=== PATIENT | male | born 1955 | race Caucasian/White ===

== ENCOUNTER 2021-04-28 10:07 | Emergency (ER) | payer OTHER ==
[2021-04-28 10:34] VITALS: RESP 18
[2021-04-28] MEDS ORDERED: SODIUM CHLORIDE 0.9% 1,000 ML IV ONE ×2 (11:20→14:22)
--- NOTE | 2021-04-28 11:55 | ED ---
General Adult HPI - General Chief complaint: Recheck/Abnormal Lab/Rx Stated complaint: lab recheck, abd pain Time Seen by Provider: 04/28/21 11:14 Source: patient, family, RN notes reviewed Mode of arrival: wheelchair Limitations: physical limitation - History of Present Illness Initial comments: This a 65-year-old male presents emergency Department with chief complaint of abnormal labs, extreme loss, weakness. Patient is brought in with family states that they he's had a 70 pound weight loss over the last 2 months which has been unintentional he states he can barely eat he states he was a heavy drinker prior to this but states it does not taste good so he just quit drinking. He is about a pack-a-day smoker. He has had no major medical care prior to recent going to PCP in which she was told he had some abnormal labs. He is scheduled for CT of his abdomen. He's had decreased urine, stool output he states he's come so shaky, weak that is difficult to ambulate. - Related Data Home Medications Medication Instructions Recorded Confirmed No Known Home Medications 04/28/21 04/28/21 Allergies Allergy/AdvReac Type Severity Reaction Status Date / Time latex Allergy Rash/Hives Verified 04/28/21 11:42 Penicillins Allergy Anaphylaxis Verified 04/28/21 11:42 strawberry Allergy Unknown Verified 04/28/21 11:42 Review of Systems ROS Statement: Those systems with pertinent positive or pertinent negative responses have been documented in the HPI. ROS Other: All systems not noted in ROS Statement are negative. Past Medical History Past Medical History: COPD, Hypertension Additional Past Medical History / Comment(s): melanoma History of Any Multi-Drug Resistant Organisms: None Reported Past Surgical History: Orthopedic Surgery Additional Past Surgical History / Comment(s): right hip preplacement Past Psychological History: Anxiety, Depression Smoking Status: Current every day smoker Past Alcohol Use History: None Reported Past Drug Use History: None Reported General Exam Limitations: physical limitation General appearance: alert, in no apparent distress, cachectic Head exam: Present: atraumatic, normocephalic, normal inspection Eye exam: Present: normal appearance, PERRL, EOMI. Absent: scleral icterus, conjunctival injection, periorbital swelling ENT exam: Present: normal exam, normal oropharynx, mucous membranes moist Neck exam: Present: normal inspection, full ROM. Absent: tenderness, meningismus, lymphadenopathy Respiratory exam: Present: normal lung sounds bilaterally. Absent: respiratory distress, wheezes, rales, rhonchi, stridor Cardiovascular Exam: Present: normal rhythm, tachycardia, normal heart sounds. Absent: systolic murmur, diastolic murmur, rubs, gallop, clicks GI/Abdominal exam: Present: soft, normal bowel sounds. Absent: distended, tenderness, guarding, rebound, rigid Back exam: Present: normal inspection Neurological exam: Present: alert, oriented X3, CN II-XII intact Skin exam: Present: warm, dry, intact, normal color. Absent: rash Course Vital Signs 04/28/21 10:30 Temperature 97.8 F Pulse Rate 116 H Respiratory 18 Rate Blood Pressure 104/66 O2 Sat by Pulse 100 Oximetry Medical Decision Making - Medical Decision Making 64-year-old presented for weight loss, increasing weakness and abnormal labs. Workup reveals anemia which appears to be chronic no acute blood loss, patient has mild hypomagnesemia CT shows nonspecific changes possible enterocolitis though he has no symptoms for this. - Lab Data Result diagrams: 04/28/21 12:16 04/28/21 12:16 Lab Results 04/28/21 04/28/21 04/28/21 Range/Units 12:16 12:16 12:16 WBC 12.8 H (3.8-10.6) k/uL RBC 2.62 L (4.30-5.90) m/uL Hgb 10.4 L (13.0-17.5) gm/dL Hct 30.9 L (39.0-53.0) % MCV 118.1 H (80.0-100.0) fL MCH 39.9 H (25.0-35.0) pg MCHC 33.8 (31.0-37.0) g/dL RDW 18.9 H (11.5-15.5) % Plt Count 486 H (150-450) k/uL MPV 7.3 Neutrophils % 86 % Lymphocytes % 8 % Monocytes % 3 % Eosinophils % 2 % Basophils % 0 % Neutrophils # 10.9 H (1.3-7.7) k/uL Lymphocytes # 1.1 (1.0-4.8) k/uL Monocytes # 0.4 (0-1.0) k/uL Eosinophils # 0.2 (0-0.7) k/uL Basophils # 0.0 (0-0.2) k/uL Manual Slide Review Performed Anisocytosis Slight Macrocytosis Marked A PT (9.0-12.0) sec INR (<1.2) APTT (22.0-30.0) sec Sodium 133 L (137-145) mmol/L Potassium 3.9 (3.5-5.1) mmol/L Chloride 100 (98-107) mmol/L Carbon Dioxide 23 (22-30) mmol/L Anion Gap 10 mmol/L BUN 8 L (9-20) mg/dL Creatinine 0.49 L (0.66-1.25) mg/dL Est GFR (CKD-EPI)AfAm >90 (>60 ml/min/1.73 sqM) Est GFR (CKD-EPI)NonAf >90 (>60 ml/min/1.73 sqM) Glucose 118 H (74-99) mg/dL Plasma Lactic Acid Ghulam 1.2 (0.7-2.0) mmol/L Calcium 9.1 (8.4-10.2) mg/dL Magnesium 1.5 L (1.6-2.3) mg/dL Total Bilirubin 1.3 (0.2-1.3) mg/dL AST 34 (17-59) U/L ALT 13 (4-49) U/L Alkaline Phosphatase 155 H (38-126) U/L Troponin I (0.000-0.034) ng/mL Total Protein 7.6 (6.3-8.2) g/dL Albumin 3.6 (3.5-5.0) g/dL Amylase 49 (30-110) U/L Lipase 99 (23-300) U/L 04/28/21 04/28/21 Range/Units 12:16 12:16 WBC (3.8-10.6) k/uL RBC (4.30-5.90) m/uL Hgb (13.0-17.5) gm/dL Hct (39.0-53.0) % MCV (80.0-100.0) fL MCH (25.0-35.0) pg MCHC (31.0-37.0) g/dL RDW (11.5-15.5) % Plt Count (150-450) k/uL MPV Neutrophils % % Lymphocytes % % Monocytes % % Eosinophils % % Basophils % % Neutrophils # (1.3-7.7) k/uL Lymphocytes # (1.0-4.8) k/uL Monocytes # (0-1.0) k/uL Eosinophils # (0-0.7) k/uL Basophils # (0-0.2) k/uL Manual Slide Review Anisocytosis Macrocytosis PT 11.2 (9.0-12.0) sec INR 1.1 (<1.2) APTT 23.3 (22.0-30.0) sec Sodium (137-145) mmol/L Potassium (3.5-5.1) mmol/L Chloride (98-107) mmol/L Carbon Dioxide (22-30) mmol/L Anion Gap mmol/L BUN (9-20) mg/dL Creatinine (0.66-1.25) mg/dL Est GFR (CKD-EPI)AfAm (>60 ml/min/1.73 sqM) Est GFR (CKD-EPI)NonAf (>60 ml/min/1.73 sqM) Glucose (74-99) mg/dL Plasma Lactic Acid Ghulam (0.7-2.0) mmol/L Calcium (8.4-10.2) mg/dL Magnesium (1.6-2.3) mg/dL Total Bilirubin (0.2-1.3) mg/dL AST (17-59) U/L ALT (4-49) U/L Alkaline Phosphatase (38-126) U/L Troponin I <0.012 (0.000-0.034) ng/mL Total Protein (6.3-8.2) g/dL Albumin (3.5-5.0) g/dL Amylase (30-110) U/L Lipase (23-300) U/L Disposition Clinical Impression: Weight loss, Generalized weakness, Hypomagnesemia Disposition: HOME SELF-CARE Condition: Fair Instructions (If sedation given, give patient instructions): Weakness (ED) Additional Instructions: Please return to the Emergency Department if symptoms worsen or any other concerns. Is patient prescribed a controlled substance at d/c from ED?: No Referrals: Jesús Gallo MD [Primary Care Provider] - 1-2 days Time of Disposition: 14:37
[2021-04-28 12:56] LABS: Anisocytosis Slight; Basophils % (A) 0 %; Eosinophils # (A) 0.2 k/uL (0-0.7); Eosinophils % (A) 2 %; HCT 30.9 % (39.0-53.0); HGB 10.4 gm/dL (13.0-17.5); Lymphocytes # (A) 1.1 k/uL (1.0-4.8); Lymphocytes % (A) 8 %; MCH 39.9 pg (25.0-35.0); MCHC 33.8 g/dL (31.0-37.0); MCV 118.1 fL (80.0-100.0); Macrocytosis Marked; Mean Platelet Volume 7.3; Monocytes # (A) 0.4 k/uL (0-1.0); Monocytes % (A) 3 %; Neutrophils # (A) 10.9 k/uL (1.3-7.7); Neutrophils % (A) 86 %; Platelet Count 486 k/uL (150-450); RBC 2.62 m/uL (4.30-5.90); RDW 18.9 % (11.5-15.5); WBC 12.8 k/uL (3.8-10.6)
[2021-04-28 13:01] LABS: ALT 13 U/L (4-49); AST 34 U/L (17-59); African American GFR (CKD) >90 (>60 ml/min/1.73 sqM); Albumin 3.6 g/dL (3.5-5.0); Alkaline Phosphatase 155 U/L (38-126); Amylase 49 U/L (30-110); Anion Gap 10 mmol/L; Blood Urea Nitrogen 8 mg/dL (9-20); Calcium 9.1 mg/dL (8.4-10.2); Carbon Dioxide 23 mmol/L (22-30); Chloride 100 mmol/L (98-107); Glucose 118 mg/dL (74-99); Lipase 99 U/L (23-300); Magnesium 1.5 mg/dL (1.6-2.3); Non-African American GFR(CKD) >90 (>60 ml/min/1.73 sqM); Potassium 3.9 mmol/L (3.5-5.1); Sodium 133 mmol/L (137-145); Total Bilirubin 1.3 mg/dL (0.2-1.3); Total Protein 7.6 g/dL (6.3-8.2)
[2021-04-28 13:03] LABS: INR 1.1 (<1.2); Partial Thromboplastin Time 23.3 sec (22.0-30.0); Prothrombin Time 11.2 sec (9.0-12.0)
--- NOTE | 2021-04-28 14:10 | CT ---
EXAMINATION TYPE: CT ChestAbdPelvis w con DATE OF EXAM: 04/28/2021 COMPARISON: CT October 03, 2012 HISTORY: Wt loss, pain and weakness, history of non-Hodgkin's lymphoma CT DLP: 671.6 mGycm. Automated Exposure Control for Dose Reduction was Utilized. CONTRAST: CT scan of the thorax, abdomen and pelvis is performed without oral but with IV Contrast, patient inj ected with 100 mL of Isovue 300. FINDINGS: LUNGS: Mild biapical pleural/parenchymal scarring is redemonstrated. And mild lateral left basilar l inear scarring redemonstrated. There is no pleural effusion or pneumothorax seen. The tracheobronchi al tree is patent. No new nodules or masses. New Medial right basilar linear atelectasis and/or scar ring MEDIASTINUM: There are no new greater than 1 cm hilar or mediastinal lymph nodes. No cardiomegaly o r pericardial effusion is seen. OTHER: Surgical clips left axillary region are redemonstrated. LIVER/GB: Liver remains diffusely low density consistent with diffuse fatty infiltration. Tiny hypode nse lesion near gallbladder fossa small to further characterize. PANCREAS: No significant abnormality is seen. SPLEEN: No significant abnormality is seen. ADRENALS: No significant abnormality is seen. KIDNEYS: No significant abnormality is seen. BOWEL: Suboptimal evaluation of bowel without enteric contrast. Stomach poorly distended and thus sub optimally evaluated. No suspicious small or large bowel dilatation. Normal appearing appendix from ce cum. Moderate wall thickening in the right colon. Additional areas of mild wall thickening throughout the colon. Mild wall thickening terminal ileum. No significant surrounding fat stranding. GENITAL ORGANS: Normal size prostate. Small amount of free fluid in the pelvis axial image 106. LYMPH NODES: No greater than 1cm abdominal or pelvic lymph nodes are appreciated. OSSEOUS STRUCTURES: Metallic hardware from right hip surgery is redemonstrated. This causes streak ar tifact limiting evaluation of pelvic structures There is S-shaped scoliosis. OTHER: Moderate mixed plaque infrarenal abdominal aorta extends into branch vessels. IMPRESSION: Small amount of free fluid in the pelvis of uncertain etiology. No new suspicious mass o r adenopathy. Possible mild multifocal uncomplicated enterocolitis versus product of poor distention, correlate clinically.
[2021-04-28] MEDS ORDERED: MAGNESIUM OXIDE 400 MG TAB PO STA (14:37)
[2021-04-28 15:42] VITALS: BP 108/66; PULSE 67; TEMP 98.6
== END 2021-04-28 15:41 | disposition home or self-care (01) ==
LOC: EC 10:07
DX: R63.4 Abnormal weight loss (principal); R53.1 Weakness; E83.42 Hypomagnesemia; J44.9 Chronic obstructive pulmonary disease, unspecified; I10 Essential (primary) hypertension; F41.9 Anxiety disorder, unspecified; F32.9 Major depressive disorder, single episode, unspecified; F17.210 Nicotine dependence, cigarettes, uncomplicated; Z68.1 Body mass index [BMI] 19.9 or less, adult
CPT/HCPCS: 93005; 80053; 82150; 83605; 83690; 83735; 84484; 85025; 85610; 85730; 71260; 74177; 99285; 96360; Q9967

== ENCOUNTER 2021-05-24 21:08 | Inpatient (IN) | payer MEDICARE, OTHER ==
[2021-05-24] MEDS ORDERED: SODIUM CHLORIDE 0.9% 1,000 ML IV STA (21:46)
--- NOTE | 2021-05-24 22:10 | ED ---
Weakness HPI - General Chief complaint: Weakness Stated complaint: Trouble walking and RIAZ Time Seen by Provider: 05/24/21 21:40 Source: patient, RN notes reviewed, old records reviewed Mode of arrival: ambulatory Limitations: no limitations - History of Present Illness Initial comments: This is a 65-year-old male to the ER for evaluation. Patient presents for significant weight loss of debility. Patient has multiple chronic substance abuse issues mainly cigarettes and alcohol. Patient has had sustained about a Antonette weight loss in the past half a year. Patient states he has no appetite never really has had an appetite sustain caries with alcohol. Continues to smoke for the last few weeks patient's ability to ambulate has diminished down to and inability to even get out of bed. Family does bring him meals when she does not eat. Has no real other complaints. MD Complaint: generalized weakness, lack of energy, difficulty walking -: week(s) Location: generalized Severity: severe Severity scale (1-10): 10 Consistency: constant Improves with: none Worsens with: none Context: recent illness, history of similar Associated Symptoms: loss of appetite, shortness of breath - Related Data Home Medications Medication Instructions Recorded Confirmed No Known Home Medications 04/28/21 05/24/21 Allergies Allergy/AdvReac Type Severity Reaction Status Date / Time latex Allergy Rash/Hives Verified 05/24/21 22:26 Penicillins Allergy Anaphylaxis Verified 05/24/21 22:26 strawberry Allergy Unknown Verified 05/24/21 22:26 Review of Systems ROS Statement: Those systems with pertinent positive or pertinent negative responses have been documented in the HPI. ROS Other: All systems not noted in ROS Statement are negative. Past Medical History Past Medical History: COPD, Hypertension Additional Past Medical History / Comment(s): melanoma History of Any Multi-Drug Resistant Organisms: None Reported Past Surgical History: Orthopedic Surgery Additional Past Surgical History / Comment(s): right hip preplacement Past Psychological History: Anxiety, Depression Smoking Status: Current every day smoker Past Alcohol Use History: None Reported Past Drug Use History: None Reported General Exam Limitations: no limitations General appearance: alert, in no apparent distress, cachectic Head exam: Present: atraumatic, normocephalic, normal inspection Eye exam: Present: normal appearance, PERRL, EOMI. Absent: scleral icterus, conjunctival injection, periorbital swelling ENT exam: Present: normal exam, mucous membranes moist Neck exam: Present: normal inspection. Absent: tenderness, meningismus, lymphadenopathy Respiratory exam: Present: wheezes. Absent: respiratory distress, rales, rhonchi, stridor Cardiovascular Exam: Present: normal rhythm, tachycardia, normal heart sounds. Absent: systolic murmur, diastolic murmur, rubs, gallop, clicks GI/Abdominal exam: Present: soft, normal bowel sounds. Absent: distended, tenderness, guarding, rebound, rigid Extremities exam: Present: normal inspection, full ROM, normal capillary refill. Absent: tenderness, pedal edema, joint swelling, calf tenderness Back exam: Present: normal inspection Neurological exam: Present: alert, oriented X3, CN II-XII intact Psychiatric exam: Present: normal affect, normal mood Skin exam: Present: warm, dry, intact, normal color. Absent: rash Course Vital Signs 05/24/21 21:17 Temperature 98.2 F Pulse Rate 124 H Respiratory 18 Rate Blood Pressure 128/80 O2 Sat by Pulse 97 Oximetry - Reevaluation(s) Reevaluation #1: 05/24/21 22:47 Medical record is reviewed 05/24/21 22:47 ER visit is also been reviewed Reevaluation #2: 05/24/21 22:47 Patient family informed of results - Consultations Consultation #1: Spoke with Dr. Segura for Dr. Gallo who agrees to admit patient EKG Findings - EKG Comments: EKG Findings:: EKG shows sinus tachycardia 115 WV 118 QRS 76 QTC 462 Medical Decision Making - Medical Decision Making 65 male to the emergency department for evaluation patient presents today for evaluation regards to significant weakness significant cachexia debility failure to thrive. Patient be admitted for likely need for placement - Lab Data Result diagrams: 05/24/21 22:26 05/24/21 22:26 Lab Results 05/24/21 05/24/21 05/24/21 Range/Units 22:26 22:26 22:26 WBC 6.9 (3.8-10.6) k/uL RBC 1.70 L (4.30-5.90) m/uL Hgb 6.9 L* D (13.0-17.5) gm/dL Hct 20.0 L (39.0-53.0) % MCV 117.3 H (80.0-100.0) fL MCH 40.6 H (25.0-35.0) pg MCHC 34.6 (31.0-37.0) g/dL RDW 20.3 H (11.5-15.5) % Plt Count 188 D (150-450) k/uL MPV 7.7 Neutrophils % 79 % Lymphocytes % 16 % Monocytes % 2 % Eosinophils % 2 % Basophils % 0 % Neutrophils # 5.5 (1.3-7.7) k/uL Lymphocytes # 1.1 (1.0-4.8) k/uL Monocytes # 0.2 (0-1.0) k/uL Eosinophils # 0.1 (0-0.7) k/uL Basophils # 0.0 (0-0.2) k/uL Anisocytosis Moderate Macrocytosis Marked A Sodium 132 L (137-145) mmol/L Potassium 3.7 (3.5-5.1) mmol/L Chloride 101 (98-107) mmol/L Carbon Dioxide 22 (22-30) mmol/L Anion Gap 9 mmol/L BUN 13 (9-20) mg/dL Creatinine 0.53 L (0.66-1.25) mg/dL Est GFR (CKD-EPI)AfAm >90 (>60 ml/min/1.73 sqM) Est GFR (CKD-EPI)NonAf >90 (>60 ml/min/1.73 sqM) Glucose 115 H (74-99) mg/dL Calcium 9.2 (8.4-10.2) mg/dL Phosphorus 3.8 (2.5-4.5) mg/dL Magnesium 1.4 L (1.6-2.3) mg/dL Total Bilirubin 1.7 H (0.2-1.3) mg/dL AST 41 (17-59) U/L ALT 25 (4-49) U/L Alkaline Phosphatase 83 (38-126) U/L NT-Pro-B Natriuret Pep 246 pg/mL Total Protein 6.8 (6.3-8.2) g/dL Albumin 3.2 L (3.5-5.0) g/dL - Radiology Data Radiology results: report reviewed (Chest x-ray and LS-spine x-rays negative for significant acute disease), image reviewed Disposition Clinical Impression: Generalized weakness, Hypomagnesemia, Weight loss, Dehydration, Cachexia, Failure to thrive, COPD (chronic obstructive pulmonary disease), Anemia Disposition: ADMITTED IP TO THIS HOSP Condition: Fair Is patient prescribed a controlled substance at d/c from ED?: No
[2021-05-24 22:44] LABS: Anisocytosis Moderate; Basophils % (A) 0 %; Eosinophils # (A) 0.1 k/uL (0-0.7); Eosinophils % (A) 2 %; Lymphocytes # (A) 1.1 k/uL (1.0-4.8); Lymphocytes % (A) 16 %; MCH 40.6 pg (25.0-35.0); MCHC 34.6 g/dL (31.0-37.0); MCV 117.3 fL (80.0-100.0); Macrocytosis Marked; Mean Platelet Volume 7.7; Monocytes # (A) 0.2 k/uL (0-1.0); Monocytes % (A) 2 %; Neutrophils # (A) 5.5 k/uL (1.3-7.7); Neutrophils % (A) 79 %; RDW 20.3 % (11.5-15.5); WBC 6.9 k/uL (3.8-10.6)
[2021-05-24] MEDS ORDERED: MORPHINE SULFATE 4 MG/ML SYRINGE IV PRN (22:49)
[2021-05-24] MEDS ORDERED: NALOXONE 0.4 MG/ML 1 ML VIAL IV PRN (22:49)
[2021-05-24] MEDS ORDERED: ONDANSETRON 4 MG/2 ML VIAL IVP PRN (22:49)
[2021-05-24] MEDS ORDERED: methylPREDNISolone SOD SUCCI 125 MG/2 ML VIAL IV STA (22:50)
[2021-05-24] MEDS ORDERED: IPRATROPIUM-ALBUTEROL 3 ML NEB INHALATION STA (22:51)
[2021-05-24] MEDS ORDERED: IPRATROPIUM-ALBUTEROL 3 ML NEB INHALATION PRN (22:51)
[2021-05-24 22:53] LABS: HGB 6.9 gm/dL (13.0-17.5); Platelet Count 188 k/uL (150-450)
--- NOTE | 2021-05-24 22:56 | XR ---
EXAMINATION TYPE: XR lumbar spine 2 or 3V DATE OF EXAM: 05/24/2021 COMPARISON: NONE HISTORY: Weakness TECHNIQUE: 3 views FINDINGS: There is slight lumbar levoscoliosis. There are spondylotic changes in the mid and lower jose mbar spine with spur formation. There is no compression fracture. Abdominal aorta is atheromatous. Sa croiliac joints are intact. IMPRESSION: Spondylotic changes. Slight levoscoliosis. No fracture.
[2021-05-24 23:06] LABS: ALT 25 U/L (4-49); AST 41 U/L (17-59); African American GFR (CKD) >90 (>60 ml/min/1.73 sqM); Albumin 3.2 g/dL (3.5-5.0); Alkaline Phosphatase 83 U/L (38-126); Anion Gap 9 mmol/L; Blood Urea Nitrogen 13 mg/dL (9-20); Calcium 9.2 mg/dL (8.4-10.2); Carbon Dioxide 22 mmol/L (22-30); Chloride 101 mmol/L (98-107); Glucose 115 mg/dL (74-99); Magnesium 1.4 mg/dL (1.6-2.3); Non-African American GFR(CKD) >90 (>60 ml/min/1.73 sqM); Phosphorus 3.8 mg/dL (2.5-4.5); Sodium 132 mmol/L (137-145); Total Bilirubin 1.7 mg/dL (0.2-1.3); Total Protein 6.8 g/dL (6.3-8.2)
[2021-05-24 23:08] LABS: Partial Thromboplastin Time 20.9 sec (22.0-30.0)
[2021-05-24 23:11] LABS: Potassium 3.7 mmol/L (3.5-5.1)
--- NOTE | 2021-05-24 23:15 | XR ---
EXAMINATION TYPE: XR chest 1V DATE OF EXAM: 05/24/2021 COMPARISON: NONE HISTORY: Weakness TECHNIQUE: 2 views FINDINGS: Heart and mediastinum are normal. Lungs are clear of infiltrate. There is clips at the left axilla. Costophrenic angles are clear. There are no hilar masses. There is old left side healed rib fractures. There are chest leads. IMPRESSION: No active cardiopulmonary disease.
--- NOTE | 2021-05-24 23:16 | CT ---
EXAMINATION TYPE: CT brain wo con DATE OF EXAM: 05/24/2021 COMPARISON: None HISTORY: weak CT DLP: 1099.4 mGycm Automated exposure control for dose reduction was used. There is cerebral cortical atrophy. There is no mass effect nor midline shift. There is no sign of in tracranial hemorrhage. Calvarium is intact. There is normal aeration of the mastoid sinuses. Skull ba se is intact. IMPRESSION: Cerebral atrophy. No acute intracranial abnormality.
[2021-05-24] MEDS: SODIUM CHLORIDE 0.9% 1,000 ML IV SCH (23:35)
[2021-05-24] MEDS: MAGNESIUM SULFATE-D5W PMX 1 GM in DEXTROSE/WATER 1 100ML.BAG IVPB SCH (23:46)
[2021-05-25] MEDS: MAGNESIUM SULFATE-D5W PMX 1 GM in DEXTROSE/WATER 1 100ML.BAG IVPB SCH (01:16)
[2021-05-25 06:41] LABS: Anisocytosis Marked; Basophils % (A) 0 %; Eosinophils % (A) 0 %; HCT 28.7 % (39.0-53.0); Lymphocytes # (A) 0.3 k/uL (1.0-4.8); Lymphocytes % (A) 3 %; MCH 35.3 pg (25.0-35.0); MCHC 33.9 g/dL (31.0-37.0); Macrocytosis Marked; Mean Platelet Volume 7.8; Monocytes % (A) 1 %; Neutrophils # (A) 7.5 k/uL (1.3-7.7); Neutrophils % (A) 96 %; Platelet Count 152 k/uL (150-450); RBC 2.75 m/uL (4.30-5.90); RDW 24.2 % (11.5-15.5); WBC 7.8 k/uL (3.8-10.6)
[2021-05-25 06:42] LABS: HGB 9.7 gm/dL (13.0-17.5); MCV 104.3 fL (80.0-100.0)
[2021-05-25 06:52] LABS: ALT 24 U/L (4-49); AST 33 U/L (17-59); African American GFR (CKD) >90 (>60 ml/min/1.73 sqM); Albumin 3.1 g/dL (3.5-5.0); Alkaline Phosphatase 88 U/L (38-126); Anion Gap 10 mmol/L; Blood Urea Nitrogen 11 mg/dL (9-20); Calcium 8.5 mg/dL (8.4-10.2); Carbon Dioxide 22 mmol/L (22-30); Chloride 102 mmol/L (98-107); Glucose 174 mg/dL (74-99); Non-African American GFR(CKD) >90 (>60 ml/min/1.73 sqM); Phosphorus 3.9 mg/dL (2.5-4.5); Potassium 3.8 mmol/L (3.5-5.1); Sodium 134 mmol/L (137-145); Total Bilirubin 2.4 mg/dL (0.2-1.3); Total Protein 6.6 g/dL (6.3-8.2)
[2021-05-25] MEDS: methylPREDNISolone SOD SUCCI 125 MG/2 ML VIAL IV SCH ×3 (07:01→18:58)
[2021-05-25 07:51] LABS: Appearance,Urine Clear (Clear); Bilirubin,Urine 1+ (Negative); Blood,Urine Negative (Negative); Color,Urine Yellow; Glucose,Urine (UA) Trace (Negative); Ketones,Urine 1+ (Negative); Leukocyte Esterase,Urine Negative (Negative); Nitrite,Urine Negative (Negative); Protein,Urine Trace (Negative); Specific Gravity,Urine 1.014 (1.001-1.035)
[2021-05-25] MEDS: SODIUM CHLORIDE 0.9% 1,000 ML IV SCH ×2 (08:55→16:10)
[2021-05-25] MEDS: PANTOPRAZOLE 40 MG/10 ML VIAL IV SCH (08:56)
[2021-05-25] MEDS ORDERED: IOPAMIDOL CONTRAST (ORAL USE) VIAL PO PRN (23:24)
--- NOTE | 2021-05-25 23:38 | P.HPIM ---
History of Present Illness H&P Date: 05/25/21 Chief Complaint: Weak and tired This is a 65-year-old patient who follows up to Dr. Gallo. Chronic stable medical conditions include COPD, hypertension, osteoarthritis anxiety depression. Patient lives by himself. Was using a walker and a baseline. Has now very poor appetite. Family was bringing in food. He's become so weak to the point that he has not even able to ambulate. He has lost close to 40 pounds over last few months. Has some cough and shortness of breath. Is a smoker. We'll also be alcohol. Has a bowel movement every few days. Has lost a lot of muscle mass. Denies any obvious pain. Patient's daughter was at the bedside. Just feels does rundown. A bit depressed 2. Review of systems: GEN.: Weight loss, loss of appetite EYES: None HEENT: None NECK: None RESPIRATORY: Cough shortness breath, occasional sputum CARDIOVASCULAR: None GASTROINTESTINAL: BMI every few days GENITOURINARY: None MUSCULOSKELETAL: Joint pains LYMPHATICS: None HEMATOLOGICAL: None PSYCHIATRY: Depressed NEUROLOGICAL: [2 weak to ambulate Past medical history to include: COPD, hypertension, melanoma, osteoarthritis Social history: Smoking for a long time. Lives alone. Was using a walker. Physical examination: VITAL SIGNS: 98.2, 99, 18, 120/80, 97% room air GENERAL: BMI 16.6, loss of muscle mass, prominent bones, laying in bed, tired., Loss of subcutaneous tissue EYES: Pupils equal. Conjunctiva palel. HEENT: External appearance of nose and ears normal, oral cavity grossly normal. NECK: JVD not raised; masses not palpable. HEART: First and second heart sounds are normal; no edema. LUNGS: Respiratory rate normal; decreased breath sounds. ABDOMEN: Soft, nontender, liver spleen not palpable, no masses palpable. PSYCH: [Alert and oriented x3; mood and affect, but withdrawn l. NEUROLOGICAL: Cranial nerves grossly intact; no facial asymmetry, power and sensation grossly intact. MUSCULAR skeletal: Evidence of OA. Loss of muscle mass LYMPHATICS: No lymph nodes palpable in the axilla and neck INVESTIGATIONS, reviewed in the clinical context: White count 7.8 hemoglobin 9.7 platelets 152 potassium 3.8 creatinine 0.47 albumin 3.1 Admission labs: Hemoglobin 6.9 platelets 188 troponin 0.038 Coronavirus [PCF]: Not detected EKG tracing personally reviewed by me-normal sinus rhythm. Some T waves and ST segment changes. Chest x-ray film personally reviewed by me-hyperinflation CT brain: Cerebral atrophy Assessment and plan: -Assess for malignancy Patient has lost over 40 pounds the last few months. Poor appetite. Weight loss. Is a smoker. Also during alcohol. Been ordered a computed tomography scan of the chest abdomen pelvis with contrast. Also order alpha-fetoprotein and CEA. As tumor markers. -COPD exacerbation in a current smoker IV Solu-Medrol. DuoNeb. Nicotine patch -Chronic nicotine dependence, cigarette smoker Nicotine patch -Severe protein calorie malnutrition from decreased oral intake Consult dietitian. Ensure supplement. Multivitamin -Myopathies, nutritional PTOT -Acute medical debility from malnutrition Fall precautions PTOT -Macrocytic anemia, severe Check B12, iron studies. Care was discussed with the patient and daughter the bedside. Questions answered. DuoNeb. Steroids. PTOT. Computed tomography scan of the chest abdomen pelvis. Check B12 iron studies. Given the complexity and severity of patient's condition expect the patient to be in the hospital at least for 2 overnights Past Medical History Past Medical History: COPD, Hypertension Additional Past Medical History / Comment(s): melanoma History of Any Multi-Drug Resistant Organisms: None Reported Past Surgical History: Orthopedic Surgery Additional Past Surgical History / Comment(s): right hip preplacement Past Psychological History: Anxiety, Depression Smoking Status: Current every day smoker Past Alcohol Use History: None Reported Past Drug Use History: None Reported Medications and Allergies Home Medications Medication Instructions Recorded Confirmed Type No Known Home Medications 04/28/21 05/24/21 History Allergies Allergy/AdvReac Type Severity Reaction Status Date / Time latex Allergy Rash/Hives Verified 05/24/21 22:26 Penicillins Allergy Anaphylaxis Verified 05/24/21 22:26 strawberry Allergy Unknown Verified 05/24/21 22:26 Physical Exam Vitals: Vital Signs Temp Pulse Resp BP Pulse Ox 05/25/21 09:00 96 14 126/83 99 05/25/21 07:04 90 18 133/84 98 05/25/21 07:00 98.4 F 92 15 124/80 97 05/25/21 06:16 98 F 91 16 118/79 100 05/25/21 06:15 98.0 F 92 16 123/75 99 05/25/21 04:49 98.1 F 90 16 125/81 99 05/25/21 04:19 98.1 F 91 16 131/84 99 05/25/21 04:09 98 F 93 16 135/83 98 05/25/21 03:49 89 16 133/81 100 05/25/21 02:35 98.0 F 97 16 128/78 99 05/25/21 02:05 98.0 F 97 16 115/74 99 05/25/21 01:54 98 F 97 16 116/71 98 05/24/21 23:52 98.0 F 98 18 112/73 100 05/24/21 23:19 100 05/24/21 23:13 99 05/24/21 21:17 98.2 F 124 H 18 128/80 97 Intake and Output 05/24/21 05/25/21 05/25/21 22:59 06:59 14:59 Intake Total 593 Balance 593 Intake: Blood Product 593 Rc As-1 Unit 310 [id number] Rc Pheresis 2 As3 Unit 283 [id number] Other: Weight 53.977 kg Results CBC & Chem 7: 05/25/21 06:25 05/25/21 06:25 Labs: Abnormal Lab Results - Last 24 Hours (Table) 05/24/21 05/24/21 05/24/21 Range/Units 22:26 22:26 22:26 RBC 1.70 L (4.30-5.90) m/uL Hgb 6.9 L* D (13.0-17.5) gm/dL Hct 20.0 L (39.0-53.0) % MCV 117.3 H (80.0-100.0) fL MCH 40.6 H (25.0-35.0) pg RDW 20.3 H (11.5-15.5) % Lymphocytes # (1.0-4.8) k/uL Macrocytosis Marked A APTT 20.9 L (22.0-30.0) sec Sodium 132 L (137-145) mmol/L Creatinine 0.53 L (0.66-1.25) mg/dL Glucose 115 H (74-99) mg/dL Magnesium 1.4 L (1.6-2.3) mg/dL Total Bilirubin 1.7 H (0.2-1.3) mg/dL Troponin I (0.000-0.034) ng/mL Albumin 3.2 L (3.5-5.0) g/dL Urine Protein (Negative) Urine Glucose (UA) (Negative) Urine Ketones (Negative) Urine Bilirubin (Negative) Crossmatch 05/24/21 05/24/21 05/25/21 Range/Units 22:26 23:52 06:25 RBC 2.75 L (4.30-5.90) m/uL Hgb 9.7 L D (13.0-17.5) gm/dL Hct 28.7 L (39.0-53.0) % MCV 104.3 H D (80.0-100.0) fL MCH 35.3 H (25.0-35.0) pg RDW 24.2 H (11.5-15.5) % Lymphocytes # 0.3 L (1.0-4.8) k/uL Macrocytosis Marked A APTT (22.0-30.0) sec Sodium (137-145) mmol/L Creatinine (0.66-1.25) mg/dL Glucose (74-99) mg/dL Magnesium (1.6-2.3) mg/dL Total Bilirubin (0.2-1.3) mg/dL Troponin I 0.038 H* (0.000-0.034) ng/mL Albumin (3.5-5.0) g/dL Urine Protein (Negative) Urine Glucose (UA) (Negative) Urine Ketones (Negative) Urine Bilirubin (Negative) Crossmatch See Detail 05/25/21 05/25/21 Range/Units 06:25 07:33 RBC (4.30-5.90) m/uL Hgb (13.0-17.5) gm/dL Hct (39.0-53.0) % MCV (80.0-100.0) fL MCH (25.0-35.0) pg RDW (11.5-15.5) % Lymphocytes # (1.0-4.8) k/uL Macrocytosis APTT (22.0-30.0) sec Sodium 134 L (137-145) mmol/L Creatinine 0.47 L (0.66-1.25) mg/dL Glucose 174 H (74-99) mg/dL Magnesium (1.6-2.3) mg/dL Total Bilirubin 2.4 H (0.2-1.3) mg/dL Troponin I (0.000-0.034) ng/mL Albumin 3.1 L (3.5-5.0) g/dL Urine Protein Trace H (Negative) Urine Glucose (UA) Trace H (Negative) Urine Ketones 1+ H (Negative) Urine Bilirubin 1+ H (Negative) Crossmatch
[2021-05-26] MEDS: methylPREDNISolone SOD SUCCI 40 MG/ML 1 ML VIAL IV SCH ×4 (01:53→23:12)
[2021-05-26] MEDS: SODIUM CHLORIDE 0.9% 1,000 ML IV SCH ×4 (01:55→21:39)
[2021-05-26] MEDS: IPRATROPIUM-ALBUTEROL 3 ML NEB INHALATION SCH ×4 (07:22→19:32)
[2021-05-26] MEDS: PANTOPRAZOLE 40 MG/10 ML VIAL IV SCH (08:01)
[2021-05-26] MEDS: NICOTINE 21MG/24HR PATCH TRANSDERM SCH (08:02)
[2021-05-26] MEDS: MULTIVITAMINS, THERA 1 EACH TAB PO SCH (08:11)
[2021-05-26] MEDS: methylPREDNISolone SOD SUCCI 125 MG/2 ML VIAL IV SCH (11:26)
--- NOTE | 2021-05-26 11:44 | CT ---
EXAMINATION TYPE: CT ChestAbdPelvis w con DATE OF EXAM: 05/26/2021 INDICATION: Weakness, FTT, Rule out malignancy COMPARISON: 04/28/2021 CT DLP: 667 mGycm CONTRAST: Performed with Oral Contrast and with IV Contrast, patient injected with 100 ml mL of Isovue 300. TECHNIQUE: Axial images at 5 mm thick sections. Reconstructed images in the coronal plane. Delayed images through the kidneys. FINDINGS: CT CHEST: Portion of the thyroid visualized is normal. No suspicious lung nodules. There is a faint groundglass opacity in the periphery of the left lower l obe, lung windows image 39 No enlarged mediastinal or hilar adenopathy is evident. The ascending aorta diameter at the level of the main pulmonary artery is 3.1 cm. The main pulmonary artery diameter at the bifurcation is 2.[address] ABDOMEN: Free fluid is in the abdomen and pelvis. This is adjacent to the liver in the paracolic g utters and within the pelvis Liver: Normal Spleen: Normal Pancreas: Normal Adrenal glands: The adrenal glands are normal. Gallbladder: Normal Kidneys: No masses are evident. No hydronephrosis is present. No cysts are present. Delayed images were obtained through the kidneys, which remain unremarkable. Aorta: Vascular calcification is within the aorta. Inferior vena cava: Normal. CT PELVIS: There is some limitation due to beam hernia and artifact from right hip prosthesis. Mild wall edema and adjacent inflammatory changes are at the level of the cecum. Correlate for typhli tis. There are some prominent small bowel loops present likely ileus. Early obstruction is less likel y. Appendix: Not identified. No suspicious tubular structures are evident. There is some generalized inf lammatory change at the level of the cecum. More typical inflammatory changes associated with appendi citis are not evident. Urinary bladder: Normal. Genitourinary structures: Prostate is unremarkable. Osseous structures: No suspicious lytic or sclerotic lesions. IMPRESSIONS: 1. Correlate for ileus. Early distal small bowel obstruction is considered less likely. A suspicious sonographic transition is not identified. 2. Moderate free fluid within the abdomen and pelvis. 3. Inflammatory changes adjacent to cecum. Correlate for typhlitis. The appendix is not identified. 4. Faint groundglass opacity present previously. Follow-up CT chest in 6 months is recommended.
[2021-05-26 15:37] LABS: Alpha Fetoprotein, Tumor Mkr 2.7 ng/mL (0.00-7.90); Carcinoembryonic Antigen 2.9 ng/mL (0.0-4.9)
[2021-05-26 15:45] VITALS: BMI 16.6
[2021-05-26 15:47] LABS: % Iron Saturation 83.47 (15.00-50.00)
--- NOTE | 2021-05-26 19:57 | P.CNPUL ---
History of Present Illness Consult date: 05/26/21 Reason for consult: dyspnea, COPD Chief complaint: Weakness History of present illness: Patient is a 65-year-old male looks and appear older then the stated age, patient came into the hospital with the loss of appetite poor by mouth intake and loss about 70 pounds in last 3 months, patient has been chronic short of didier ath have 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 emphysema hypertension hypertensive cardiovascular disease, patient has a long-term history of smoking and nicotine use from 1-2 packs per day quit about 3 months ago as he lost the taste of cigarettes as well, on specific questioning denies any chest pain denies any hemoptysis hematemesis, shortness of breath on activity and exertion present, denies any bowel bladder related problem, and denies any night sweats or fever or chills, patient was afebrile on presentation, but with stable hemodynamics oxygen saturation was 97% on room air, he was found to be anemic with the hemoglobin 6.9 posttransfusion improved to of 9.7 white cell count within normal limit, chest x-ray consistent with COPD CT of the brain consistent with cerebral atrophy no acute changes have been identified, patient's EKG significant for sinus tachycardia with nonspecific ST and T wave changes, x-ray of the spine and LS spine spondylotic changes, computed tomography scan of the chest no suspicious lung nodules were seen faint groundglass opacities seen in the left lower lobe, computed tomography scan Of the Abdominal Significant for Inflammatory Changes in the Cecum Likely Typhlitis, COVID-19 Testing Is Negative, Troponin Elevated 0.038 Past Medical History Past Medical History: COPD, Hypertension Additional Past Medical History / Comment(s): melanoma History of Any Multi-Drug Resistant Organisms: None Reported Past Surgical History: Orthopedic Surgery Additional Past Surgical History / Comment(s): right hip preplacement Past Psychological History: Anxiety, Depression Smoking Status: Current every day smoker Past Alcohol Use History: None Reported Past Drug Use History: None Reported Medications and Allergies Home Medications Medication Instructions Recorded Confirmed Type No Known Home Medications 04/28/21 05/24/21 History Allergies Allergy/AdvReac Type Severity Reaction Status Date / Time latex Allergy Rash/Hives Verified 05/24/21 22:26 Penicillins Allergy Anaphylaxis Verified 05/24/21 22:26 strawberry Allergy Unknown Verified 05/24/21 22:26 Physical Exam Vitals: Vital Signs Temp Pulse Pulse Resp BP BP Pulse Ox 05/26/21 15:19 97.3 F L 94 117/68 96 05/26/21 08:00 96.9 F L 96 16 134/82 98 05/26/21 04:40 87 20 122/79 99 05/25/21 23:00 81 18 124/89 97 05/25/21 21:00 84 18 128/85 96 Intake and Output 05/26/21 05/26/21 05/26/21 06:59 14:59 22:59 Intake Total 3540 Balance 3540 Intake: Intake, IV Titration 1560 Amount Sodium Chloride 0.9% 1, 1560 000 ml @ 130 mls/hr IV . Q7H42M [facility] Rx#:[id number] Oral 1980 Other: Voiding Method Urinal # Voids 3 Weight 53.977 kg - Constitutional General appearance: average body habitus, cooperative, disheveled, mild distress - EENT Eyes: EOMI, PERRLA Ears: bilateral: normal - Neck Neck: normal ROM Carotids: bilateral: upstroke normal Thyroid: bilateral: normal size - Respiratory Respiratory: bilateral: CTA - Cardiovascular Rhythm: regular Heart sounds: normal: S1, S2 - Gastrointestinal General gastrointestinal: decreased bowel sounds - Neurologic Neurologic: CNII-XII intact - Musculoskeletal Musculoskeletal: gait normal, generalized weakness, strength equal bilaterally - Psychiatric Psychiatric: A&O x's 3, appropriate affect, intact judgment & insight Results - Laboratory Findings CBC and BMP: 05/25/21 06:25 05/25/21 06:25 PT/INR, D-dimer PT 11.0 sec (9.0-12.0) 05/24/21 22:26 INR 1.0 (<1.2) 05/24/21 22:26 Abnormal lab findings: Abnormal Labs 05/24/21 05/24/21 05/24/21 22:26 22:26 22:26 RBC 1.70 L Hgb 6.9 L* D Hct 20.0 L MCV 117.3 H MCH 40.6 H RDW 20.3 H Lymphocytes # Macrocytosis Marked A APTT 20.9 L Sodium 132 L Creatinine 0.53 L Glucose 115 H Magnesium 1.4 L TIBC % Saturation Transferrin Ferritin Total Bilirubin 1.7 H Troponin I Albumin 3.2 L Urine Protein Urine Glucose (UA) Urine Ketones Urine Bilirubin Crossmatch 05/24/21 05/24/21 05/25/21 22:26 23:52 06:25 RBC 2.75 L Hgb 9.7 L D Hct 28.7 L MCV 104.3 H D MCH 35.3 H RDW 24.2 H Lymphocytes # 0.3 L Macrocytosis Marked A APTT Sodium Creatinine Glucose Magnesium TIBC % Saturation Transferrin Ferritin Total Bilirubin Troponin I 0.038 H* Albumin Urine Protein Urine Glucose (UA) Urine Ketones Urine Bilirubin Crossmatch See Detail 05/25/21 05/25/21 05/26/21 06:25 07:33 03:48 RBC Hgb Hct MCV MCH RDW Lymphocytes # Macrocytosis APTT Sodium 134 L Creatinine 0.47 L Glucose 174 H Magnesium TIBC 114 L % Saturation 83.47 H Transferrin 81.3 L Ferritin 2112.0 H Total Bilirubin 2.4 H Troponin I Albumin 3.1 L Urine Protein Trace H Urine Glucose (UA) Trace H Urine Ketones 1+ H Urine Bilirubin 1+ H Crossmatch - Diagnostic Findings Chest x-ray: report reviewed, image reviewed CT scan - chest: report reviewed, image reviewed (Finding as noted above) Assessment and Plan Assessment: COPD with acute exacerbation Left lower lobe groundglass opacity Failure to thrive with history of weight loss macrocytic anemia Malnutrition protein calorie Inflammation tree change in cecum possible typhlitis Elevated troponin Plan: Continue IV steroids bronchodilator, Workup and evaluation of anemia with endoscopy by surgical services Evaluation of typhlitis by surgery Patient is at high risk of the lung neoplasm would recommend a computed tomography scan of his chest in 4-6 months for left lower lobe groundglass opacity Further workup and evaluation of COPD as outpatient Time with Patient: Greater than 30
--- NOTE | 2021-05-26 22:54 | PN ---
PROGRESS NOTE This is a 65-year-old white male who appears to be depressed. He has poor intake, lost 70 pounds in the last 3 months. He has severe COPD, pulmonary emphysema, chronic nicotine smoker. He states he has not been eating very much over the last 3 months. He was found to be anemic, hemoglobin 6.9, post transfusion up to 9.7. EKG shows sinus tachycardia. Cecum shows typhlitis. COVID-19 is negative. Elevated troponin. He has past medical history of COPD, hypertension. On physical examination he is thin, cachectic. Vital signs were reviewed. PSYCH: Flat mood and affect. CARDIOVASCULAR: S1, S2. LUNGS: Scattered rhonchi and wheeze. HEMATOLOGY: Negative Homans. Blood pressure is 120s over 70s to 80s. Pulse is 80s. Respiratory rate 18 to 22, temperature 97. Sodium 134, potassium 3.8. BUN 11, creatinine 0.47, hemoglobin 9.7. Hemoglobin on admission was 6.9. m crocytosis. Elevated troponin. ASSESSMENT: 1. Chronic obstructive pulmonary disease, acute exacerbation. 2. Severe anemia, unclear etiology. 3. Left lower lobe ground-glass opacity. 4. Failure to thrive. 5. M crocytic anemia. 6. Malnutrition. 7. Inflammation. 8. Possible typhlitis. 9. Elevated troponin. Continue steroids. Workup of anemia. Endoscopy by surgical service. Evaluation of typhlitis by Surgery. High risk for lung neoplasm, COPD. Please see further orders. MMODL / IJN: [id number] /
[2021-05-27] MEDS: SODIUM CHLORIDE 0.9% 1,000 ML IV SCH ×2 (01:31→14:39)
[2021-05-27 07:00] LABS: Anisocytosis Moderate; Basophils % (A) 0 %; Eosinophils % (A) 0 %; HCT 28.5 % (39.0-53.0); HGB 9.7 gm/dL (13.0-17.5); Lymphocytes # (A) 0.2 k/uL (1.0-4.8); Lymphocytes % (A) 3 %; MCH 35.1 pg (25.0-35.0); MCV 103.3 fL (80.0-100.0); Macrocytosis Marked; Mean Platelet Volume 7.8; Monocytes # (A) 0.1 k/uL (0-1.0); Monocytes % (A) 1 %; Neutrophils # (A) 8.6 k/uL (1.3-7.7); Neutrophils % (A) 96 %; Platelet Count 164 k/uL (150-450); RBC 2.76 m/uL (4.30-5.90); RDW 23.9 % (11.5-15.5)
[2021-05-27 07:20] LABS: ALT 28 U/L (4-49); AST 35 U/L (17-59); African American GFR (CKD) >90 (>60 ml/min/1.73 sqM); Albumin 3.2 g/dL (3.5-5.0); Alkaline Phosphatase 84 U/L (38-126); Anion Gap 7 mmol/L; Blood Urea Nitrogen 18 mg/dL (9-20); Carbon Dioxide 23 mmol/L (22-30); Chloride 106 mmol/L (98-107); Glucose 198 mg/dL (74-99); Non-African American GFR(CKD) >90 (>60 ml/min/1.73 sqM); Potassium 3.6 mmol/L (3.5-5.1); Sodium 136 mmol/L (137-145); Total Bilirubin 1.5 mg/dL (0.2-1.3); Total Protein 6.4 g/dL (6.3-8.2)
[2021-05-27] MEDS: MULTIVITAMINS, THERA 1 EACH TAB PO SCH (08:15)
[2021-05-27] MEDS: PANTOPRAZOLE 40 MG/10 ML VIAL IV SCH (08:15)
[2021-05-27] MEDS: methylPREDNISolone SOD SUCCI 40 MG/ML 1 ML VIAL IV SCH ×3 (08:15→23:10)
[2021-05-27] MEDS: NICOTINE 21MG/24HR PATCH TRANSDERM SCH (08:16)
[2021-05-27] MEDS: IPRATROPIUM-ALBUTEROL 3 ML NEB INHALATION SCH ×4 (08:58→19:17)
--- NOTE | 2021-05-27 13:50 | P.GSCN ---
History of Present Illness Consult date: 05/27/21 History of present illness: CHIEF COMPLAINT: Weakness, failure to thrive HISTORY OF PRESENT ILLNESS: This is a 65-year-old male who presented to the emergency room with significant unexplained weight loss of about 70 pounds over the last 3 months. He also has been anemic. Hemoglobin on admission 6.9. She received blood transfusion hemoglobin is up to 9.7. Patient reports decreased appetite. Patient is a smoker and drinks alcohol. Surgical consult placed for EGD and colonoscopy. Patient seen and examined with Dr. bustamante PAST MEDICAL HISTORY: Severe COPD, hypertension, melanoma, anxiety and depression PAST SURGICAL HISTORY: Right hip replacement MEDICATIONS: See list. ALLERGIES: See list. SOCIAL HISTORY: No illicit drug use. REVIEW OF SYSTEMS: CONSTITUTIONAL: Denies fever or chills. HEENT: Denies blurred vision, vision changes, or eye pain. Denies hemoptysis CARDIOVASCULAR: Denies chest pain or pressure. RESPIRATORY: No shortness of breath. GASTROINTESTINAL: See HPI for pertinent findings HEMATOLOGIC: Denies bleeding disorders. GENITOURINARY: Denies any blood in urine or increased urinary frequency. SKIN: Denies pruitis. Denies rash. PHYSICAL EXAM: VITAL SIGNS: Reviewed GENERAL: Well-developed in no acute distress. HEENT: No sclera icterus. Extraocular movements grossly intact. Moist buccal mucosa. Head is atraumatic, normocephalic. No nasal drainage. ABDOMEN: Soft. Nondistended. NEUROLOGIC: Alert and oriented. Cranial nerves II through XII grossly intact. LABORATORY DATA: WBC 9.0 hemoglobin 6.9 up to 9.7 MCV 103 platelets 164 INR 1.0 Sodium 136 potassium 3.6 creatinine 0.49 Troponin 0.038 mildly elevated AFP 2.70 CEA 2.9 Vitamin B12 level 531 Iron 95 Albumin 3.2 IMAGING: Computed tomography scan of the chest abdomen and pelvis shows correlate for ileus. Early distal small bowel obstruction is considered less likely. Moderate free fluid within the abdomen and pelvis. Inflammatory changes adjace nt to cecum, correlate for typhlitis. Appendix is not identified. Faint groundglass opacity present previously. Follow-up CT chest in 6 months recommended. ASSESSMENT: 1. Moderate protein calorie malnutrition, failure to thrive and 70 pound weight loss 2. Computed tomography scan showing inflammatory changes adjacent to cecum correlate for typhlitis PLAN: -Patient scheduled for EGD and colonoscopy on , 05/29/[address] bustamante -Continue regular diet for today -Start a clear liquid diet tomorrow -Start GoLYTELY prep tomorrow Thank you for this consultation Physician Butt Maker note has been reviewed by physician. Signing provider agrees with the documented findings, assessment, and plan of care. Past Medical History Past Medical History: COPD, Hypertension Additional Past Medical History / Comment(s): melanoma History of Any Multi-Drug Resistant Organisms: None Reported Past Surgical History: Orthopedic Surgery Additional Past Surgical History / Comment(s): right hip preplacement Past Psychological History: Anxiety, Depression Smoking Status: Current every day smoker Past Alcohol Use History: None Reported Past Drug Use History: None Reported Medications and Allergies Home Medications Medication Instructions Recorded Confirmed Type No Known Home Medications 04/28/21 05/24/21 History Allergies Allergy/AdvReac Type Severity Reaction Status Date / Time latex Allergy Rash/Hives Verified 05/24/21 22:26 Penicillins Allergy Anaphylaxis Verified 05/24/21 22:26 strawberry Allergy Unknown Verified 05/24/21 22:26 Surgical - Exam Vital Signs Temp Pulse Resp BP Pulse Ox 98.2 F 124 H 18 128/80 97 05/24/21 21:17 05/24/21 21:17 05/24/21 21:17 05/24/21 21:17 05/24/21 21:17 Results - Labs 05/27/21 05:57 05/27/21 05:57 Abnormal Lab Results - Last 24 Hours (Table) 05/26/21 05/27/21 05/27/21 Range/Units 03:48 05:57 05:57 RBC 2.76 L (4.30-5.90) m/uL Hgb 9.7 L (13.0-17.5) gm/dL Hct 28.5 L (39.0-53.0) % MCV 103.3 H (80.0-100.0) fL MCH 35.1 H (25.0-35.0) pg RDW 23.9 H (11.5-15.5) % Neutrophils # 8.6 H (1.3-7.7) k/uL Lymphocytes # 0.2 L (1.0-4.8) k/uL Macrocytosis Marked A Sodium 136 L (137-145) mmol/L Creatinine 0.49 L (0.66-1.25) mg/dL Glucose 198 H (74-99) mg/dL TIBC 114 L (228-460) ug/dL % Saturation 83.47 H (15.00-50.00) Transferrin 81.3 L (204.0-354.0) mg/dL Ferritin 2112.0 H (22.0-322.0) ng/mL Total Bilirubin 1.5 H (0.2-1.3) mg/dL Albumin 3.2 L (3.5-5.0) g/dL Diabetes panel 05/27/21 Range/Units 05:57 Sodium 136 L (137-145) mmol/L Potassium 3.6 (3.5-5.1) mmol/L Chloride 106 (98-107) mmol/L Carbon Dioxide 23 (22-30) mmol/L BUN 18 (9-20) mg/dL Creatinine 0.49 L (0.66-1.25) mg/dL Glucose 198 H (74-99) mg/dL Calcium 9.0 (8.4-10.2) mg/dL AST 35 (17-59) U/L ALT 28 (4-49) U/L Alkaline Phosphatase 84 (38-126) U/L Total Protein 6.4 (6.3-8.2) g/dL Albumin 3.2 L (3.5-5.0) g/dL Calcium panel 05/27/21 Range/Units 05:57 Calcium 9.0 (8.4-10.2) mg/dL Albumin 3.2 L (3.5-5.0) g/dL Pituitary panel 05/27/21 Range/Units 05:57 Sodium 136 L (137-145) mmol/L Potassium 3.6 (3.5-5.1) mmol/L Chloride 106 (98-107) mmol/L Carbon Dioxide 23 (22-30) mmol/L BUN 18 (9-20) mg/dL Creatinine 0.49 L (0.66-1.25) mg/dL Glucose 198 H (74-99) mg/dL Calcium 9.0 (8.4-10.2) mg/dL Adrenal panel 05/27/21 Range/Units 05:57 Sodium 136 L (137-145) mmol/L Potassium 3.6 (3.5-5.1) mmol/L Chloride 106 (98-107) mmol/L Carbon Dioxide 23 (22-30) mmol/L BUN 18 (9-20) mg/dL Creatinine 0.49 L (0.66-1.25) mg/dL Glucose 198 H (74-99) mg/dL Calcium 9.0 (8.4-10.2) mg/dL Total Bilirubin 1.5 H (0.2-1.3) mg/dL AST 35 (17-59) U/L ALT 28 (4-49) U/L Alkaline Phosphatase 84 (38-126) U/L Total Protein 6.4 (6.3-8.2) g/dL Albumin 3.2 L (3.5-5.0) g/dL
--- NOTE | 2021-05-27 14:58 | P.CONS ---
History of Present Illness - Reason for Consult Consult date: 05/27/21 macrocytic anemia Requesting physician: Jesús Gallo - Chief Complaint progressive weakness - History of Present Illness Mr. Newman is a very pleasant man who has Hx of COPD and heavy ETOH use, quitting a few months ago as his health began to decline. He noted being tired all the time, decreased appetite, #30 wt loss in a few months, just overall weaker. He has SOB on exertion that is chronic, reports intermittent abd discomfort. Denied fevers, chills, sweats, dysphagia, odynophagia, chest pain, N,V, acute changes in bowel or bladder habits, bleeding, unusual bruising. 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 He denies history of chronic anemia Review of Systems 10 point ROS is neg except as stated in HPI Past Medical History Past Medical History: Cancer, COPD, Hypertension Additional Past Medical History / Comment(s): melanoma and NHL History of Any Multi-Drug Resistant Organisms: None Reported Past Surgical History: Orthopedic Surgery Additional Past Surgical History / Comment(s): right hip preplacement Past Anesthesia/Blood Transfusion Reactions: No Reported Reaction Past Psychological History: Anxiety, Depression Smoking Status: Current every day smoker Past Alcohol Use History: None Reported Past Drug Use History: None Reported Medications and Allergies Home Medications Medication Instructions Recorded Confirmed Type No Known Home Medications 04/28/21 05/24/21 History Allergies Allergy/AdvReac Type Severity Reaction Status Date / Time latex Allergy Rash/Hives Verified 05/24/21 22:26 Penicillins Allergy Anaphylaxis Verified 05/24/21 22:26 strawberry Allergy Unknown Verified 05/24/21 22:26 Physical Exam Vitals: Vital Signs Temp Pulse Resp BP Pulse Ox 05/27/21 13:00 97.9 F 96 16 123/78 97 05/27/21 07:55 97.8 F 97 20 130/74 95 05/27/21 02:00 97.8 F 103 H 16 122/74 95 05/26/21 19:48 98.9 F 104 H 18 120/72 95 05/26/21 15:19 97.3 F L 94 117/68 96 Intake and Output 05/26/21 05/27/21 05/27/21 22:59 06:59 14:59 Intake Total 3540 Balance 3540 Intake: Intake, IV Titration 1560 Amount Sodium Chloride 0.9% 1, 1560 000 ml @ 130 mls/hr IV . Q7H42M [facility] Rx#:[id number] Oral 1980 Other: # Voids 3 2 Weight 53.977 kg - Constitutional General appearance: average body habitus, cooperative, no acute distress - EENT Eyes: anicteric sclerae, EOMI ENT: hearing grossly normal, normal oropharynx - Neck Neck: no lymphadenopathy - Respiratory Respiratory: bilateral: CTA - Cardiovascular Rhythm: regular Heart sounds: normal: S1, S2 Abnormal Heart Sounds: no systolic murmur, no diastolic murmur, no rub, no S3 Gallop, no S4 Gallop, no click, no other leg Peripheral Edema: bilateral: None - Gastrointestinal General gastrointestinal: no absent bowel sounds, no decreased bowel sounds, no distended, no hepatomegaly, no hyperactive bowel sounds, normal bowel sounds, no organomegaly, no rigid, no scaphoid, soft, no splenomegaly, no tenderness, no umbilical hernia, no ventral hernia - Integumentary Integumentary: pale - Neurologic Neurologic: CNII-XII intact - Musculoskeletal Musculoskeletal: generalized weakness, strength equal bilaterally - Psychiatric Psychiatric: A&O x's 3, appropriate affect, intact judgment & insight Results CBC & Chem 7: 05/27/21 05:57 05/27/21 05:57 Labs: Abnormal Lab Results - Last 24 Hours (Table) 05/26/21 05/27/21 05/27/21 Range/Units 03:48 05:57 05:57 RBC 2.76 L (4.30-5.90) m/uL Hgb 9.7 L (13.0-17.5) gm/dL Hct 28.5 L (39.0-53.0) % MCV 103.3 H (80.0-100.0) fL MCH 35.1 H (25.0-35.0) pg RDW 23.9 H (11.5-15.5) % Neutrophils # 8.6 H (1.3-7.7) k/uL Lymphocytes # 0.2 L (1.0-4.8) k/uL Macrocytosis Marked A Sodium 136 L (137-145) mmol/L Creatinine 0.49 L (0.66-1.25) mg/dL Glucose 198 H (74-99) mg/dL TIBC 114 L (228-460) ug/dL % Saturation 83.47 H (15.00-50.00) Transferrin 81.3 L (204.0-354.0) mg/dL Ferritin 2112.0 H (22.0-322.0) ng/mL Total Bilirubin 1.5 H (0.2-1.3) mg/dL Albumin 3.2 L (3.5-5.0) g/dL Chest x-ray: report reviewed CT scan - abdomen: report reviewed CT scan - chest: report reviewed CT Scan - head: report reviewed (without contrast) CT scan - pelvis: report reviewed Assessment and Plan (1) Macrocytic anemia Current Visit: Yes Status: Acute Priority: High Code(s): D53.9 - NUTRITIONAL ANEMIA, UNSPECIFIED SNOMED Code(s): 13845218 (2) Failure to thrive Current Visit: Yes Status: Acute Priority: High Code(s): CMJ3230 - SNOMED Code(s): 63634893 (3) Generalized weakness Current Visit: Yes Status: Acute Priority: High Code(s): R53.1 - WEAKNESS SNOMED Code(s): 41105401 Plan: Due to the complex presentation of pt work up has been done to r/o malignancy. CT CAP and CT head without contrast do not discuss any overt mass or LAD, inflammation suspected. Laboratory work up ordered for macrocytic anemia. Transfuse for Hgb <7 or if symptomatic. Will f/u and make further recommendations GI work up recommended 2/2 scan findings of inflammation, wt loss and poor appetite. Pt states last endoscopy was >10 years ago. attests: I have seen and examined pt, performed H&P, developed impression and plan of care. Discussed with dictator. Agree with documentation, documented as a scribe.
[2021-05-27 15:25] LABS: LDH 444 U/L (313-618)
--- NOTE | 2021-05-27 18:13 | P.PN ---
Subjective Progress Note Date: 05/27/21 Principal diagnosis: Dysphagia with solids COPD with acute exacerbation Left lower lobe groundglass opacity Failure to thrive with history of weight loss macrocytic anemia Malnutrition protein calorie Inflammation tree change in cecum possible typhlitis Elevated troponin History of fall and left arm melanoma Remote history of non-Hodgkin's lymphoma 05/27/2021, patient seen eval reexamined he is sitting upright on the bed sitting and looking at his food, shortness of breath stable, remains on bronchodilators and IV steroids, does complaining of dysphagia and difficulty in swallowing especially with solids, general surgery has been following patient schedule for upper and lower endoscopy by surgery in next few days, hemodynamic status stable patient remains afebrile, oxygen saturation is 97% room air, Patient is a 65-year-old male looks and appear older then the stated age, patient came into the hospital with the loss of appetite poor by mouth intake and loss about 70 pounds in last 3 months, patient has been chronic short of breath have 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 emphysema hypertension hypertensive cardiovascular disease, patient has a long-term history of smoking and nicotine use from 1-2 packs per day quit about 3 months ago as he lost the taste of cigarettes as well, on specific questioning denies any chest pain denies any hemoptysis hematemesis, shortness of breath on activity and exertion present, denies any bowel bladder related problem, and denies any night sweats or fever or chills, patient was afebrile on presentation, but with stable hemodynamics oxygen saturation was 97% on room air, he was found to be anemic with the hemoglobin 6.9 posttransfusion improved to of 9.7 white cell count within normal limit, chest x-ray consistent with COPD CT of the brain consistent with cerebral atrophy no acute changes have been identified, patient's EKG significant for sinus tachycardia with nonspecific ST and T wave changes, x-ray of the spine and LS spine spondylotic changes, computed tomography scan of the chest no suspicious lung nodules were seen faint groundglass opacities seen in the left lower lobe, computed tomography scan Of the Abdominal Significant for Inflammatory Changes in the Cecum Likely Typhlitis, COVID-19 Testing Is Negative, Troponin Elevated 0.038 Objective - Vital Signs Vital signs: Vital Signs Temp 97.9 F 05/27/21 13:00 Pulse 96 05/27/21 13:00 Resp 16 05/27/21 13:00 BP 123/78 05/27/21 13:00 Pulse Ox 97 05/27/21 13:00 Intake & Output 05/26/21 05/27/21 05/27/21 18:59 06:59 18:59 Intake Total 3540 Output Total 250 Balance 3540 -250 Weight 53.977 kg Intake: Intake, IV Titration 1560 Amount Sodium Chloride 0.9% 1, 1560 000 ml @ 130 mls/hr IV . Q7H42M [facility] Rx#:[id number] Oral 1979 Output: Urine 250 Other: Voiding Method Urinal # Voids 3 2 - Exam Constitutional General appearance: average body habitus, cooperative, disheveled, mild distress - EENT Eyes: EOMI, PERRLA Ears: bilateral: normal - Neck Neck: normal ROM Carotids: bilateral: upstroke normal Thyroid: bilateral: normal size - Respiratory Respiratory: bilateral: CTA - Cardiovascular Rhythm: regular Heart sounds: normal: S1, S2 - Gastrointestinal General gastrointestinal: decreased bowel sounds - Neurologic Neurologic: CNII-XII intact - Musculoskeletal Musculoskeletal: gait normal, generalized weakness, strength equal bilaterally - Psychiatric Psychiatric: A&O x's 3, appropriate affect, intact judgment & insight - Labs CBC & Chem 7: 05/27/21 05:57 05/27/21 05:57 Labs: Abnormal Lab Results - Last 24 Hours (Table) 05/27/21 05/27/21 Range/Units 05:57 05:57 RBC 2.76 L (4.30-5.90) m/uL Hgb 9.7 L (13.0-17.5) gm/dL Hct 28.5 L (39.0-53.0) % MCV 103.3 H (80.0-100.0) fL MCH 35.1 H (25.0-35.0) pg RDW 23.9 H (11.5-15.5) % Neutrophils # 8.6 H (1.3-7.7) k/uL Lymphocytes # 0.2 L (1.0-4.8) k/uL Macrocytosis Marked A Sodium 136 L (137-145) mmol/L Creatinine 0.49 L (0.66-1.25) mg/dL Glucose 198 H (74-99) mg/dL Total Bilirubin 1.5 H (0.2-1.3) mg/dL Albumin 3.2 L (3.5-5.0) g/dL Assessment and Plan Assessment: Dysphagia COPD with acute exacerbation Left lower lobe groundglass opacity Failure to thrive with history of weight loss macrocytic anemia Malnutrition protein calorie Inflammation tree change in cecum possible typhlitis Elevated troponin History of non-Hodgkin's lymphoma status post chemotherapy and remote past History of melanoma left arm and remote past as Plan: Continue IV steroids bronchodilator, Workup and evaluation of anemia with endoscopy by surgical services Agree with upper and lower endoscopy Evaluation of typhlitis by surgery Patient is at high risk of the lung neoplasm would recommend a computed tomography scan of his chest in 4-6 months for left lower lobe groundglass opacity Further workup and evaluation of COPD as outpatient Time with Patient: Greater than 30
--- NOTE | 2021-05-27 22:01 | PN ---
PROGRESS NOTE This 65-year-old white male has dysphagia with solids, COPD, left lower ground-glass opacity, failure to thrive, acute on chronic anemia, melena, protein-calorie malnutrition, inflammation secondary to possible typhilitis, elevated troponin, history of fall, left arm melanoma, remote history of non-Hodgkin's lymphoma. The patient is scheduled for EGD and colonoscopy on by Dr. Navarro. Oxygen is 97% on room air. Diet is fair. Cardiovascular: S1, S2. Lungs clear. Hematology: Negative Homans. Psych: Fair mood and affect. Blood pressure 120s over 70s, O2 97, respiratory rate 16 to 18, pulse 90 to 95, temperature 97.9. Ophthalmologic: Pupils equal, round and reactive. Neck supple. Lungs clear. HEART: S1, S2. History of non-Hodgkin's lymphoma. History of elevated troponin. Acute on chronic anemia. COPD with acute exacerbation. Dysphagia. Failure to thrive. Malnutrition. Inflammatory inflammation due to typhlitis. EGD and colonoscopy on . Diet as tolerated. Follow up CBC. MMODL / IJN: [id number] /
[2021-05-28 00:26] LABS: Protein, Total 6.2 g/dL (6.2-8.2)
[2021-05-28] MEDS: SODIUM CHLORIDE 0.9% 1,000 ML IV SCH ×4 (00:50→23:26)
[2021-05-28 05:16] LABS: Rheumatoid Factor, Qnt <10 IU/mL (0-15)
[2021-05-28 08:02] LABS: Anisocytosis Moderate; Basophils % (A) 0 %; Eosinophils % (A) 0 %; HCT 22.7 % (39.0-53.0); Lymphocytes # (A) 0.4 k/uL (1.0-4.8); Lymphocytes % (A) 6 %; MCHC 34.6 g/dL (31.0-37.0); MCV 104.2 fL (80.0-100.0); Macrocytosis Marked; Mean Platelet Volume 8.1; Monocytes # (A) 0.1 k/uL (0-1.0); Monocytes % (A) 2 %; Neutrophils # (A) 5.8 k/uL (1.3-7.7); Neutrophils % (A) 92 %; Platelet Count 119 k/uL (150-450); RBC 2.18 m/uL (4.30-5.90); RDW 23.7 % (11.5-15.5); WBC 6.3 k/uL (3.8-10.6)
[2021-05-28 08:16] LABS: African American GFR (CKD) >90 (>60 ml/min/1.73 sqM); Anion Gap 4 mmol/L; Blood Urea Nitrogen 16 mg/dL (9-20); Calcium 8.4 mg/dL (8.4-10.2); Carbon Dioxide 23 mmol/L (22-30); Chloride 108 mmol/L (98-107); Glucose 146 mg/dL (74-99); Non-African American GFR(CKD) >90 (>60 ml/min/1.73 sqM); Potassium 3.2 mmol/L (3.5-5.1); Sodium 135 mmol/L (137-145)
[2021-05-28 08:21] LABS: HGB 7.9 gm/dL (13.0-17.5)
[2021-05-28] MEDS: IPRATROPIUM-ALBUTEROL 3 ML NEB INHALATION SCH ×4 (08:44→21:01)
[2021-05-28] MEDS ORDERED: PEG 3350-NA SULF,BICARB,CL/KCL 4,000 ML BOTTLE PO ONE (09:00)
[2021-05-28] MEDS: methylPREDNISolone SOD SUCCI 40 MG/ML 1 ML VIAL IV SCH ×3 (09:06→22:55)
[2021-05-28] MEDS: NICOTINE 21MG/24HR PATCH TRANSDERM SCH (09:06)
[2021-05-28] MEDS: MULTIVITAMINS, THERA 1 EACH TAB PO SCH (09:06)
[2021-05-28] MEDS: PANTOPRAZOLE 40 MG/10 ML VIAL IV SCH (09:06)
[2021-05-28] MEDS ORDERED: POTASSIUM CHLORIDE ER 20 MEQ TAB.ER PO STA (10:55)
--- NOTE | 2021-05-28 11:00 | P.PN ---
Subjective Progress Note Date: 05/28/21 CHIEF COMPLAINT: Weakness, failure to thrive HISTORY OF PRESENT ILLNESS: Patient is a 65-year-old male with evidence of anemia on admission as well as 70 pounds weight loss and evidence of failure to thrive. He will be starting the GoLYTELY prep for his colonoscopy tomorrow. Patient denies any abdominal pain. Denies any nausea or vomiting. Denies any blood in stools. Afebrile. WBC is 6.3 hemoglobin has dropped from 9.7-7.9. Sodium 135 potassium 3.2 PHYSICAL EXAM: VITAL SIGNS: Reviewed. GENERAL: Well-developed in no acute distress. HEENT: No sclera icterus. Extraocular movements grossly intact. Moist buccal mucosa. Head is atraumatic, normocephalic. ABDOMEN: Soft. Nondistended. Nontender. NEUROLOGIC: Alert and oriented. Cranial nerves II through XII grossly intact. Flat affect ASSESSMENT: 1. Moderate protein calorie malnutrition, failure to thrive and 70 pound weight loss 2. Computed tomography scan showing inflammatory changes adjacent to cecum correlate for typhlitis. No need for antibiotics. Patient has no abdominal pain and white count normal. 3. Anemia PLAN: -Patient scheduled for EGD and colonoscopy for tomorrow, 05/29/[address] bustamante -Continue clear liquid diet -Start GoLYTELY prep -Nothing by mouth after midnight Physician Director Of Academic note has been reviewed by physician. Signing provider agrees with the documented findings, assessment, and plan of care. Objective - Vital Signs Vital signs: Vital Signs Temp 97.9 F 05/28/21 08:00 Pulse 75 05/28/21 08:00 Resp 18 05/28/21 08:00 BP 100/60 05/28/21 08:00 Pulse Ox 97 05/28/21 08:00 Intake & Output 05/27/21 05/28/21 05/28/21 18:59 06:59 18:59 Intake Total 100 780 Output Total 250 350 Balance -150 430 Intake: Intake, IV Titration 780 Amount Sodium Chloride 0.9% 1, 780 000 ml @ 130 mls/hr IV . Q7H42M [facility] Rx#:[id number] Oral 100 Output: Urine 250 350 - Labs CBC & Chem 7: 05/28/21 07:31 05/28/21 07:31 Labs: Abnormal Lab Results - Last 24 Hours (Table) 05/28/21 05/28/21 Range/Units 07:31 07:31 RBC 2.18 L (4.30-5.90) m/uL Hgb 7.9 L D (13.0-17.5) gm/dL Hct 22.7 L (39.0-53.0) % MCV 104.2 H (80.0-100.0) fL MCH 36.0 H (25.0-35.0) pg RDW 23.7 H (11.5-15.5) % Plt Count 119 L (150-450) k/uL Macrocytosis Marked A Sodium 135 L (137-145) mmol/L Potassium 3.2 L (3.5-5.1) mmol/L Chloride 108 H (98-107) mmol/L Creatinine 0.40 L (0.66-1.25) mg/dL Glucose 146 H (74-99) mg/dL
[2021-05-28 11:01] LABS: Rouleaux Present
[2021-05-28] MEDS: LACTATED RINGERS 1,000 ML IV SCH (13:18)
[2021-05-28 15:56] LABS: HIV 2 AB Non-Reactive (Non-Reactive); HIV AB P24 Non-Reactive (Non-Reactive); HIV P24 AG Non-Reactive (Non-Reactive)
[2021-05-28] MEDS ORDERED: HYDROmorphone 0.5 MG/0.5 ML SYRINGE IVP PRN (16:06)
--- NOTE | 2021-05-28 19:55 | P.PN ---
Subjective Progress Note Date: 05/28/21 Principal diagnosis: Dysphagia with solids COPD with acute exacerbation Left lower lobe groundglass opacity Failure to thrive with history of weight loss macrocytic anemia Malnutrition protein calorie Inflammation tree change in cecum possible typhlitis Elevated troponin History of fall and left arm melanoma Remote history of non-Hodgkin's lymphoma 05/28/2021, patient seen eval reexamined labs reviewed medications reviewed care plan discussed, history status stable, patient is still have problems associated with swallowing, patient is on full liquid diet tolerating well, appetite however remains poor patient is for endoscopy tomorrow 05/27/2021, patient seen eval reexamined he is sitting upright on the bed sitting and looking at his food, shortness of breath stable, remains on bronchodilators and IV steroids, does complaining of dysphagia and difficulty in swallowing especially with solids, general surgery has been following patient schedule for upper and lower endoscopy by surgery in next few days, hemodynamic status stable patient remains afebrile, oxygen saturation is 97% room air, Patient is a 65-year-old male looks and appear older then the stated age, patient came into the hospital with the loss of appetite poor by mouth intake and loss about 70 pounds in last 3 months, patient has been chronic short of breath have 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 emphysema hypertension hypertensive cardiovascular disease, patient has a long-term history of smoking and nicotine use from 1-2 packs per day quit about 3 months ago as he lost the taste of cigarettes as well, on specific questioning denies any chest pain denies any hemoptysis hematemesis, shortness of breath on activity and exertion present, denies any bowel bladder related problem, and denies any night sweats or fever or chills, patient was afebrile on presentation, but with stable hemodynamics oxygen saturation was 97% on room air, he was found to be anemic with the hemoglobin 6.9 posttransfusion improved to of 9.7 white cell count within normal limit, chest x-ray consistent with COPD CT of the brain consistent with cerebral atrophy no acute changes have been identified, patient's EKG significant for sinus tachycardia with nonspecific ST and T wave changes, x-ray of the spine and LS spine spondylotic changes, computed tomography scan of the chest no suspicious lung nodules were seen faint groundglass opacities seen in the left lower lobe, computed tomography scan Of the Abdominal Significant for Inflammatory Changes in the Cecum Likely Typhlitis, COVID-19 Testing Is Negative, Troponin Elevated 0.038 Objective - Vital Signs Vital signs: Vital Signs Temp 98 F 05/28/21 14:58 Pulse 89 05/28/21 14:58 Resp 18 05/28/21 14:58 BP 93/56 05/28/21 14:58 Pulse Ox 98 05/28/21 14:58 Intake & Output 05/28/21 05/28/21 05/29/21 06:59 18:59 06:59 Intake Total 780 Output Total 350 Balance 430 Intake: Intake, IV Titration 780 Amount Sodium Chloride 0.9% 1, 780 000 ml @ 130 mls/hr IV . Q7H42M [facility] Rx#:[id number] Output: Urine 350 Other: # Voids 1 # Bowel Movements 1 - Exam Constitutional General appearance: average body habitus, cooperative, disheveled, mild distress - EENT Eyes: EOMI, PERRLA Ears: bilateral: normal - Neck Neck: normal ROM Carotids: bilateral: upstroke normal Thyroid: bilateral: normal size - Respiratory Respiratory: bilateral: CTA - Cardiovascular Rhythm: regular Heart sounds: normal: S1, S2 - Gastrointestinal General gastrointestinal: decreased bowel sounds - Neurologic Neurologic: CNII-XII intact - Musculoskeletal Musculoskeletal: gait normal, generalized weakness, strength equal bilaterally - Psychiatric Psychiatric: A&O x's 3, appropriate affect, intact judgment & insight - Labs CBC & Chem 7: 05/28/21 07:31 05/28/21 07:31 Labs: Abnormal Lab Results - Last 24 Hours (Table) 05/28/21 05/28/21 Range/Units 07:31 07:31 RBC 2.18 L (4.30-5.90) m/uL Hgb 7.9 L D (13.0-17.5) gm/dL Hct 22.7 L (39.0-53.0) % MCV 104.2 H (80.0-100.0) fL MCH 36.0 H (25.0-35.0) pg RDW 23.7 H (11.5-15.5) % Plt Count 119 L (150-450) k/uL Lymphocytes # 0.4 L (1.0-4.8) k/uL Macrocytosis Marked A Sodium 135 L (137-145) mmol/L Potassium 3.2 L (3.5-5.1) mmol/L Chloride 108 H (98-107) mmol/L Creatinine 0.40 L (0.66-1.25) mg/dL Glucose 146 H (74-99) mg/dL Assessment and Plan Assessment: Dysphagia COPD with acute exacerbation Left lower lobe groundglass opacity Failure to thrive with history of weight loss macrocytic anemia Malnutrition protein calorie Inflammation tree change in cecum possible typhlitis Elevated troponin History of non-Hodgkin's lymphoma status post chemotherapy and remote past History of melanoma left arm and remote past as Plan: Continue IV steroids bronchodilator, Workup and evaluation of anemia with endoscopy by surgical services Agree with upper and lower endoscopy Evaluation of typhlitis by surgery Patient is at high risk of the lung neoplasm would recommend a computed tomography scan of his chest in 4-6 months for left lower lobe groundglass opacity Further workup and evaluation of COPD as outpatient Time with Patient: Greater than 30
[2021-05-29 07:56] LABS: Methylmalonic Acid 0.14 umol/L (<0.40)
[2021-05-29] MEDS: IPRATROPIUM-ALBUTEROL 3 ML NEB INHALATION SCH ×4 (08:01→19:39)
[2021-05-29] MEDS: NICOTINE 21MG/24HR PATCH TRANSDERM SCH (08:02)
[2021-05-29] MEDS: methylPREDNISolone SOD SUCCI 40 MG/ML 1 ML VIAL IV SCH ×2 (08:02→15:16)
[2021-05-29] MEDS: PANTOPRAZOLE 40 MG/10 ML VIAL IV SCH (08:02)
[2021-05-29] MEDS: MULTIVITAMINS, THERA 1 EACH TAB PO SCH (08:03)
[2021-05-29] MEDS: SODIUM CHLORIDE 0.9% 1,000 ML IV SCH ×4 (08:03→23:04)
[2021-05-29 08:21] LABS: Anisocytosis Moderate; HCT 25.9 % (39.0-53.0); HGB 8.8 gm/dL (13.0-17.5); MCH 35.5 pg (25.0-35.0); MCHC 33.9 g/dL (31.0-37.0); MCV 104.8 fL (80.0-100.0); Macrocytosis Marked; Mean Platelet Volume 8.1; Platelet Count 107 k/uL (150-450); RBC 2.47 m/uL (4.30-5.90); RDW 23.5 % (11.5-15.5)
[2021-05-29 08:39] LABS: African American GFR (CKD) >90 (>60 ml/min/1.73 sqM); Anion Gap 6 mmol/L; Blood Urea Nitrogen 12 mg/dL (9-20); Calcium 8.6 mg/dL (8.4-10.2); Carbon Dioxide 23 mmol/L (22-30); Chloride 108 mmol/L (98-107); Glucose 134 mg/dL (74-99); Non-African American GFR(CKD) >90 (>60 ml/min/1.73 sqM); Potassium 3.3 mmol/L (3.5-5.1); Sodium 137 mmol/L (137-145)
--- NOTE | 2021-05-29 10:56 | P.PN ---
Subjective Progress Note Date: 05/29/21 Principal diagnosis: Dysphagia with solids COPD with acute exacerbation Left lower lobe groundglass opacity Failure to thrive with history of weight loss macrocytic anemia Malnutrition protein calorie Inflammation tree change in cecum possible typhlitis Elevated troponin History of fall and left arm melanoma Remote history of non-Hodgkin's lymphoma 05/29/2021, patient seen eval examined during the rounds labs reviewed medications reviewed care plan discussed with the staff at length, patient is sitting upright on the bed breathing comfortably he is nothing by mouth for endoscopy upper and lower later on today, swollen functions have improved now, denies any cough or sputum production, labs reviewed hemoglobin remained stable 8.8, potassium is 3.3, remains stable BUN/creatinine within normal limit, rheumatoid factor as well as in the screen is negative, 05/28/2021, patient seen eval reexamined labs reviewed medications reviewed care plan discussed, history status stable, patient is still have problems associated with swallowing, patient is on full liquid diet tolerating well, appetite however remains poor patient is for endoscopy tomorrow 05/27/2021, patient seen eval reexamined he is sitting upright on the bed sitting and looking at his food, shortness of breath stable, remains on bronchodilators and IV steroids, does complaining of dysphagia and difficulty in swallowing especially with solids, general surgery has been following patient schedule for upper and lower endoscopy by surgery in next few days, hemodynamic status stable patient remains afebrile, oxygen saturation is 97% room air, Patient is a 65-year-old male looks and appear older then the stated age, patient came into the hospital with the loss of appetite poor by mouth intake a nd loss about 70 pounds in last 3 months, patient has been chronic short of breath have 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 emphysema hypertension hypertensive cardiovascular disease, patient has a long-term history of smoking and nicotine use from 1-2 packs per day quit about 3 months ago as he lost the taste of cigarettes as well, on specific questioning denies any chest pain denies any hemoptysis hematemesis, shortness of breath on activity and exertion present, denies any bowel bladder related problem, and denies any night sweats or fever or chills, patient was afebrile on presentation, but with stable hemodynamics oxygen saturation was 97% on room air, he was found to be anemic wi th the hemoglobin 6.9 posttransfusion improved to of 9.7 white cell count within normal limit, chest x-ray consistent with COPD CT of the brain consistent with cerebral atrophy no acute changes have been identified, patient's EKG significant for sinus tachycardia with nonspecific ST and T wave changes, x-ray of the spine and LS spine spondylotic changes, computed tomography scan of the chest no suspicious lung nodules were seen faint groundglass opacities seen in the left lower lobe, computed tomography scan Of the Abdominal Significant for Inflammatory Changes in the Cecum Likely Typhlitis, COVID-19 Testing Is Negative, Troponin Elevated 0.038 Objective - Vital Signs Vital signs: Vital Signs Temp 97.7 F 05/29/21 08:00 Pulse 81 05/29/21 08:00 Resp 16 05/29/21 08:00 BP 124/77 05/29/21 08:00 Pulse Ox 97 05/29/21 08:00 Intake & Output 05/28/21 05/29/21 05/29/21 18:59 06:59 18:59 Intake Total 1970 Balance 1969 Weight 53.977 kg Intake: Intake, IV Titration 1430 Amount Sodium Chloride 0.9% 1, 1430 000 ml @ 130 mls/hr IV . Q7H42M [facility] Rx#:[id number] Oral 540 Other: Voiding Method Urinal Urinal # Voids 1 0 # Bowel Movements 1 1 - Exam Constitutional General appearance: average body habitus, cooperative, disheveled, mild distress - EENT Eyes: EOMI, PERRLA Ears: bilateral: normal - Neck Neck: normal ROM Carotids: bilateral: upstroke normal Thyroid: bilateral: normal size - Respiratory Respiratory: bilateral: CTA - Cardiovascular Rhythm: regular Heart sounds: normal: S1, S2 - Gastrointestinal General gastrointestinal: decreased bowel sounds - Neurologic Neurologic: CNII-XII intact - Musculoskeletal Musculoskeletal: gait normal, generalized weakness, strength equal bilaterally - Psychiatric Psychiatric: A&O x's 3, appropriate affect, intact judgment & insight - Labs CBC & Chem 7: 05/29/21 07:38 05/29/21 07:38 Labs: Abnormal Lab Results - Last 24 Hours (Table) 05/28/21 05/29/21 05/29/21 Range/Units 07:31 07:38 07:38 RBC 2.47 L (4.30-5.90) m/uL Hgb 8.8 L (13.0-17.5) gm/dL Hct 25.9 L (39.0-53.0) % MCV 104.8 H (80.0-100.0) fL MCH 35.5 H (25.0-35.0) pg RDW 23.5 H (11.5-15.5) % Plt Count 107 L (150-450) k/uL Lymphocytes # 0.4 L (1.0-4.8) k/uL Macrocytosis Marked A Potassium 3.3 L (3.5-5.1) mmol/L Chloride 108 H (98-107) mmol/L Creatinine 0.42 L (0.66-1.25) mg/dL Glucose 134 H (74-99) mg/dL Assessment and Plan Assessment: Dysphagia COPD with acute exacerbation Left lower lobe groundglass opacity Failure to thrive with history of weight loss macrocytic anemia Malnutrition protein calorie Inflammation tree change in cecum possible typhlitis Elevated troponin History of non-Hodgkin's lymphoma status post chemotherapy and remote past History of melanoma left arm and remote past as Plan: Continue IV steroids bronchodilator, however may changed to oral 40 mg daily prednisone from tomorrow Workup and evaluation of anemia with endoscopy by surgical services Agree with upper and lower endoscopy Evaluation of typhlitis by surgery Patient is at high risk of the lung neoplasm would recommend a computed tomography scan of his chest in 4-6 months for left lower lobe groundglass opacity Further workup and evaluation of COPD as outpatient Time with Patient: Greater than 30
[2021-05-29] MEDS: POTASSIUM CHLORIDE ER 20 MEQ TAB.ER PO SCH (11:03)
[2021-05-29] MEDS ORDERED: PROPOFOL 10 MG/ML 20 ML VIAL IV ONE (12:04)
[2021-05-29] MEDS ORDERED: LIDOCAINE 1% INJ 10MG/ML (20 ML MDV) ONE (12:04)
[2021-05-29] MEDS ORDERED: SODIUM CHLORIDE 0.9% 1,000 ML IV ONE (12:06)
--- NOTE | 2021-05-29 12:19 | P.OP ---
Date of Procedure: 05/29/21 Preoperative Diagnosis: Failure to thrive Postoperative Diagnosis: Possible sarah esophagitis Anesthesia: MAC Surgeon: Eris Navarro Pathology: other (Esophagus) Condition: stable Disposition: PACU Description of Procedure: Patient's placed on the endoscopy table lateral position. She received IV sedation. The gastroscope placed oropharynx and passed into the esophagus and the stomach. Scope was placed through the pylorus. The first and second portion of the duodenum appeared normal. Scope was then brought back the antrum this appeared normal. Scope was withdrawn. Scope was then with retroflexed remainder some appeared normal. The GE junction was at 40 cm. The distal esophagus appeared inflamed.The evidence of a yeast infection this was biopsied. The proximal esophagus appeared normal. Scope was withdrawn for patient. Next digital rectal exam was performed. There was a large amount of liquid and formed stool in the rectum. This point the colonoscopy was canceled
[2021-05-29 13:00] LABS: Free Kappa Lt Chain Qnt, Serum 5.55 mg/dL (0.33-1.94)
[2021-05-29] MEDS: LACTATED RINGERS 1,000 ML IV SCH (13:35)
[2021-05-29] MEDS: NYSTATIN 100,000 UNIT/ML SUSP 500,000 UNIT/5 ML CUP PO SCH ×3 (15:10→22:03)
[2021-05-29 16:37] LABS: Albumin 3.12 g/dL (3.80-4.90); Gamma Globulin 1.49 g/dL (0.70-1.50)
--- NOTE | 2021-05-29 22:53 | PN ---
PROGRESS NOTE DATE OF SERVICE: 05/28/2021. This is a 65-year-old white male, malnourished. He is trying to take the prep to get colonoscopy and EGD tomorrow. He is not being very cooperative; very unhappy with being trapped in the hospital. Does not want to go to the half-way. His hemoglobin is more stable. No signs of further bleeding. CARDIOVASCULAR: S1, S2. LUNGS: Clear. GI: Soft. HEMATOLOGY: Negative Homans. ASSESSMENT: 1. Severe anemia. Suspect GI bleed. 2. Chronic obstructive pulmonary disease. 3. Large amount of weight gain due to malnutrition. 4. Generalized weakness and debility. 5. Nicotine addiction. 6. Thrush. Prognosis guarded. Continue with Solu-Medrol. Prep for colonoscopy tomorrow. MMODL / IJN: [id number] /
--- NOTE | 2021-05-29 23:17 | PN ---
PROGRESS NOTE This 65-year-old white male is status post EGD; did not do his colonoscopy due to poor prep. His legs are weak. His family is trying to talk him into going to [facility]. VITAL SIGNS: Temperature 98.1, pulse 85, respiratory rate 16 to 18, blood pressure 109/69, 95% on room air. Hemoglobin is 8.8, up from 7.7. Marked microcytosis. He has high kappa and lambda screens. Possible multiple myeloma candidate. He had an EGD with biopsies done which showed some inflamed distal esophagus, possible yeast infection was biopsied. Poor prep so colonoscopy was canceled. No signs of active bleeding. Continue with PT/OT. Possibly go to a rehab center in next 24 to 48 hours with elevated kappa and lambda enzymes. MMODL / IJN: [id number] /
[2021-05-30] MEDS: methylPREDNISolone SOD SUCCI 40 MG/ML 1 ML VIAL IV SCH ×4 (00:13→22:57)
[2021-05-30] MEDS: IPRATROPIUM-ALBUTEROL 3 ML NEB INHALATION SCH ×4 (07:52→20:12)
[2021-05-30] MEDS: NICOTINE 21MG/24HR PATCH TRANSDERM SCH (07:54)
[2021-05-30] MEDS: NYSTATIN 100,000 UNIT/ML SUSP 500,000 UNIT/5 ML CUP PO SCH ×4 (08:02→22:57)
[2021-05-30] MEDS: MULTIVITAMINS, THERA 1 EACH TAB PO SCH (08:04)
[2021-05-30] MEDS: PANTOPRAZOLE 40 MG/10 ML VIAL IV SCH (08:05)
[2021-05-30] MEDS ORDERED: Potassium Replacement Protocol 1 EACH MISC MISCELLANE PRN (10:42)
[2021-05-30] MEDS ORDERED: POTASSIUM CHLORIDE ER 20 MEQ TAB.ER PO SCH (11:00)
[2021-05-30] MEDS: SODIUM CHLORIDE 0.9% 1,000 ML IV SCH (11:05)
[2021-05-30] MEDS: LACTATED RINGERS 1,000 ML IV SCH (11:24)
--- NOTE | 2021-05-30 11:47 | P.PN ---
Subjective Progress Note Date: 05/30/21 CHIEF COMPLAINT: Weakness, failure to thrive HISTORY OF PRESENT ILLNESS: Patient is a 65-year-old male with evidence of anemia on admission as well as 70 pounds weight loss and evidence of failure to thrive. Patient is status post EGD showing possible candidiasis esophagitis. Colonoscopy canceled due to poor prep. Patient tolerating diet. No new complaints of abdominal pain. Afebrile. Potassium 3.6 Patient seen and examined with Dr. bustamante PHYSICAL EXAM: VITAL SIGNS: Reviewed. GENERAL: Well-developed in no acute distress. HEENT: No sclera icterus. Extraocular movements grossly intact. Moist buccal mucosa. Head is atraumatic, normocephalic. ABDOMEN: Soft. Nondistended. Nontender. NEUROLOGIC: Alert and oriented. Cranial nerves II through XII grossly intact. Flat affect ASSESSMENT: 1. Moderate protein calorie malnutrition, failure to thrive and 70 pound weight loss. Status post EGD showing possible candidiasis esophagitis 2. Computed tomography scan showing inflammatory changes adjacent to cecum correlate for typhlitis. No need for antibiotics. Patient has no abdominal pain and white count normal. 3. Anemia PLAN: -Patient can be discharged from surgical standpoint when medically cleared -Recommend nystatin to continue nystatin swish and swallow for the possible candidiasis esophagitis -Biopsy results pending -Surgical service will sign off. Please call if any questions or concerns. Physician Inventory Representative note has been reviewed by physician. Signing provider agrees with the documented findings, assessment, and plan of care. Objective - Vital Signs Vital signs: Vital Signs Temp 97.7 F 05/30/21 07:35 Pulse 97 05/30/21 07:35 Resp 16 05/30/21 07:35 BP 124/81 05/30/21 07:35 Pulse Ox 87 L 05/30/21 07:35 Intake & Output 05/29/21 05/30/21 05/30/21 18:59 06:59 18:59 Intake Total 900 1740 Output Total 250 875 Balance 650 865 Weight 53.977 kg Intake: IV 900 Intake, IV Titration 1560 Amount Sodium Chloride 0.9% 1, 1560 000 ml @ 130 mls/hr IV . Q7H42M [facility] Rx#:[id number] Oral 180 Output: Urine 250 875 Other: Voiding Method Urinal Urinal Urinal # Bowel Movements 1 - Labs CBC & Chem 7: 05/29/21 07:38 05/30/21 08:21 Labs: Abnormal Lab Results - Last 24 Hours (Table) 05/27/21 Range/Units 05:57 Albumin (PEP) 3.12 L (3.80-4.90) g/dL Dyxrz-0-Fftqgytnt 0.48 L (0.60-1.00) g/dL Free Bartolo LC, Quant 5.55 H (0.33-1.94) mg/dL Free Lambda LC, Quant 4.40 H (0.57-2.63) mg/dL
[2021-05-30 13:38] LABS: Anisocytosis Moderate; Basophils % (A) 0 %; Eosinophils % (A) 0 %; HCT 30.7 % (39.0-53.0); HGB 10.2 gm/dL (13.0-17.5); Lymphocytes # (A) 0.4 k/uL (1.0-4.8); Lymphocytes % (A) 2 %; MCH 35.4 pg (25.0-35.0); MCHC 33.3 g/dL (31.0-37.0); MCV 106.2 fL (80.0-100.0); Macrocytosis Marked; Mean Platelet Volume 9.4; Monocytes # (A) 0.5 k/uL (0-1.0); Monocytes % (A) 2 %; Neutrophils % (A) 95 %; Platelet Count 131 k/uL (150-450); RBC 2.89 m/uL (4.30-5.90); RDW 23.5 % (11.5-15.5); WBC 18.9 k/uL (3.8-10.6)
--- NOTE | 2021-05-30 13:43 | P.PN ---
Subjective Progress Note Date: 05/30/21 Principal diagnosis: Dysphagia with solids due to Isi esophagitis, has been nystatin swish and swallow biopsy pending COPD with acute exacerbation Left lower lobe groundglass opacity Failure to thrive with history of weight loss macrocytic anemia Malnutrition protein calorie Inflammation tree change in cecum possible typhlitis Elevated troponin History of fall and left arm melanoma Remote history of non-Hodgkin's lymphoma 05/29/2021, patient seen eval examined during the rounds labs reviewed medications reviewed care plan discussed with the staff at length, patient is sitting upright on the bed breathing comfortably he is nothing by mouth for endoscopy upper and lower later on today, swollen functions have improved now, denies any cough or sputum production, labs reviewed hemoglobin remained stable 8.8, potassium is 3.3, remains stable BUN/creatinine within normal limit, rheumatoid factor as well as in the screen is negative, 05/28/2021, patient seen eval reexamined labs reviewed medications reviewed care plan discussed, history status stable, patient is still have problems associated with swallowing, patient is on full liquid diet tolerating well, appetite however remains poor patient is for endoscopy tomorrow 05/27/2021, patient seen eval reexamined he is sitting upright on the bed sitting and looking at his food, shortness of breath stable, remains on bronchodilators and IV steroids, does complaining of dysphagia and difficulty in swallowing especially with solids, general surgery has been following patient schedule for upper and lower endoscopy by surgery in next few days, hemodynamic status stable patient remains afebrile, oxygen saturation is 97% room air, Patient is a 65-year-old male looks and appear older then the stated age, patient came into the hospital with the loss of appetite poor by mouth intake and loss about 70 pounds in last 3 months, patient has been chronic short of breath have 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 emphysema hypertension hypertensive cardiovascular disease, patient has a long-term history of smoking and nicotine use from 1-2 packs per day quit about 3 months ago as he lost the taste of cigarettes as well, on specific questioning denies any chest pain denies any hemoptysis hematemesis, shortness of breath on activity and exertion present, denies any bowel bladder related problem, and denies any night sweats or fever or chills, patient was afebrile on presentation, but with stable hemodynamics oxygen saturation was 97% on room air, he was found to be anemic with the hemoglobin 6.9 posttransfusion improved to of 9.7 white cell count within normal limit, chest x-ray consistent with COPD CT of the brain consistent with cerebral atrophy no acute changes have been identified, patient's EKG significant for sinus tachycardia with nonspecific ST and T wave changes, x-ray of the spine and LS spine spondylotic changes, computed tomography scan of the chest no suspicious lung nodules were seen faint groundglass opacities seen in the left lower lobe, computed tomography scan Of the Abdominal Significant for Inflammatory Changes in the Cecum Likely Typhlitis, COVID-19 Testing Is Negative, Troponin Elevated 0.038 Objective - Vital Signs Vital signs: Vital Signs Temp 97.7 F 05/30/21 07:35 Pulse 97 05/30/21 07:35 Resp 16 05/30/21 07:35 BP 124/81 05/30/21 07:35 Pulse Ox 87 L 05/30/21 07:35 Intake & Output 05/29/21 05/30/21 05/30/21 18:59 06:59 18:59 Intake Total 900 1740 Output Total 250 875 Balance 650 865 Weight 53.977 kg Intake: IV 900 Intake, IV Titration 1560 Amount Sodium Chloride 0.9% 1, 1560 000 ml @ 130 mls/hr IV . Q7H42M [facility] Rx#:[id number] Oral 180 Output: Urine 250 875 Other: Voiding Method Urinal Urinal Urinal # Bowel Movements 1 - Exam Constitutional General appearance: average body habitus, cooperative, disheveled, mild distress - EENT Eyes: EOMI, PERRLA Ears: bilateral: normal - Neck Neck: normal ROM Carotids: bilateral: upstroke normal Thyroid: bilateral: normal size - Respiratory Respiratory: bilateral: CTA - Cardiovascular Rhythm: regular Heart sounds: normal: S1, S2 - Gastrointestinal General gastrointestinal: decreased bowel sounds - Neurologic Neurologic: CNII-XII intact - Musculoskeletal Musculoskeletal: gait normal, generalized weakness, strength equal bilaterally - Psychiatric Psychiatric: A&O x's 3, appropriate affect, intact judgment & insight - Labs CBC & Chem 7: 05/29/21 07:38 05/30/21 08:21 Labs: Abnormal Lab Results - Last 24 Hours (Table) 05/27/21 Range/Units 05:57 Albumin (PEP) 3.12 L (3.80-4.90) g/dL Iuoxi-9-Lkrlnosmd 0.48 L (0.60-1.00) g/dL Assessment and Plan Assessment: Dysphagia related to isi esophagitis patient has been nystatin swish and swallow biopsy results are pending COPD with acute exacerbation Left lower lobe groundglass opacity Failure to thrive with history of weight loss macrocytic anemia Malnutrition protein calorie Inflammation tree change in cecum possible typhlitis Elevated troponin History of non-Hodgkin's lymphoma status post chemotherapy and remote past History of melanoma left arm and remote past as Plan: DC IV steroids, no need for poor oral prednisone, continue bronchodilator, Workup and evaluation of anemia with endoscopy by surgical services Status post upper endoscopy however lower canceled due to poor prep Evaluation of typhlitis by surgery Patient is at high risk of the lung neoplasm would recommend a computed tomography scan of his chest in 4-6 months for left lower lobe groundglass opacity Further workup and evaluation of COPD as outpatient Time with Patient: Greater than 30
[2021-05-30 13:50] LABS: Albumin 3.2 g/dL (3.5-5.0); Anion Gap 8 mmol/L; Carbon Dioxide 18 mmol/L (22-30); Chloride 109 mmol/L (98-107); Glucose 170 mg/dL (74-99); Potassium 3.8 mmol/L (3.5-5.1); Sodium 135 mmol/L (137-145); Total Protein 6.3 g/dL (6.3-8.2)
[2021-05-30 13:52] LABS: ALT 92 U/L (4-49); AST 85 U/L (17-59); African American GFR (CKD) >90 (>60 ml/min/1.73 sqM); Alkaline Phosphatase 89 U/L (38-126); Blood Urea Nitrogen 11 mg/dL (9-20); Calcium 9.1 mg/dL (8.4-10.2); Magnesium 1.4 mg/dL (1.6-2.3); Non-African American GFR(CKD) >90 (>60 ml/min/1.73 sqM)
[2021-05-30 14:02] LABS: INR 1.2 (<1.2)
[2021-05-30] MEDS ORDERED: Magnesium Replacement Protocol 1 EACH MISC MISCELLANE PRN (15:08)
[2021-05-30] MEDS: MAGNESIUM SULFATE-D5W PMX 1 GM in DEXTROSE/WATER 1 100ML.BAG IVPB SCH ×3 (16:01→19:08)
--- NOTE | 2021-05-30 21:06 | P.PN ---
Subjective Progress Note Date: 05/30/21 Principal diagnosis: failure to thrive, dysphagia, weak Status post CT C/AP, EGD - with biopsy. Platelets have started to decrease 05/29, cbc, cmp (to recheck liver function as well), coags ordered today. Oxygen Status Documented at 87% this am, no repeat documentation? Objective - Vital Signs Vital signs: Vital Signs Temp 97.7 F 05/30/21 07:35 Pulse 97 05/30/21 07:35 Resp 16 05/30/21 07:35 BP 124/81 05/30/21 07:35 Pulse Ox 87 L 05/30/21 07:35 Intake & Output 05/29/21 05/30/21 05/30/21 18:59 06:59 18:59 Intake Total 900 1740 Output Total 250 875 Balance 650 865 Weight 53.977 kg Intake: IV 900 Intake, IV Titration 1560 Amount Sodium Chloride 0.9% 1, 1560 000 ml @ 130 mls/hr IV . Q7H42M [facility] Rx#:[id number] Oral 180 Output: Urine 250 875 Other: Voiding Method Urinal Urinal Urinal # Bowel Movements 1 - Exam - Constitutional General appearance: average body habitus, cooperative, no acute distress - EENT Eyes: anicteric sclerae, EOMI ENT: hearing grossly normal, normal oropharynx - Neck Neck: no lymphadenopathy - Respiratory Respiratory: bilateral: CTA - Cardiovascular Rhythm: regular Heart sounds: normal: S1, S2 Abnormal Heart Sounds: no systolic murmur, no diastolic murmur, no rub, no S3 Gallop, no S4 Gallop, no click, no other leg Peripheral Edema: bilateral: None - Gastrointestinal General gastrointestinal: no absent bowel sounds, no decreased bowel sounds, no distended, no hepatomegaly, no hyperactive bowel sounds, normal bowel sounds, no organomegaly, no rigid, no scaphoid, soft, no splenomegaly, no tenderness, no umbilical hernia, no ventral hernia - Integumentary Integumentary: pale - Neurologic Neurologic: CNII-XII intact - Musculoskeletal Musculoskeletal: generalized weakness, strength equal bilaterally - Psychiatric Psychiatric: A&O x's 3, appropriate affect, intact judgment & insight - Labs CBC & Chem 7: 05/30/21 13:25 05/30/21 13:25 Labs: Abnormal Lab Results - Last 24 Hours (Table) 05/27/21 Range/Units 05:57 Albumin (PEP) 3.12 L (3.80-4.90) g/dL Qddsf-7-Myduutzpl 0.48 L (0.60-1.00) g/dL Assessment and Plan (1) Thrombocytopenia Current Visit: Yes Status: Acute Code(s): D69.6 - THROMBOCYTOPENIA, UNSPECIFIED SNOMED Code(s): 110776307 (2) Anemia Current Visit: Yes Status: Acute Code(s): D64.9 - ANEMIA, UNSPECIFIED SNOMED Code(s): 096909040 (3) COPD (chronic obstructive pulmonary disease) Current Visit: Yes Status: Acute Code(s): J44.9 - CHRONIC OBSTRUCTIVE PULMONARY DISEASE, UNSPECIFIED SNOMED Code(s): 32379897 (4) Generalized weakness Current Visit: Yes Status: Acute Priority: High Code(s): R53.1 - WEAKNESS SNOMED Code(s): 96207345 (5) Macrocytic anemia Current Visit: Yes Status: Acute Priority: High Code(s): D53.9 - NUTRITIONAL ANEMIA, UNSPECIFIED SNOMED Code(s): 09791829 (6) Weight loss Current Visit: Yes Status: Acute Code(s): R63.4 - ABNORMAL WEIGHT LOSS SNOMED Code(s): 14753336 Plan: CT Brain Neg CT C/A/P Reviewed Await Labs today, and monnitor daily Physician Attest: I have completed the full history and physical and agree with above dictation, dictated as a scribe
--- NOTE | 2021-05-30 22:44 | PN ---
PROGRESS NOTE This 65-year-old white male remains on DuoNeb updrafts, Solu-Medrol IV, potassium replacement protocol and magnesium replacement protocol. He is not getting out of bed. He is not really helping get out of bed for physical therapy. His white count did go up to 18.9. His hemoglobin went up from 8.8 to 10 2, platelets are 131, up from 105. We are going to have to get PT/OT involved and treat him for possible pneumonia. Continue current treatments. Liver enzymes are ranging higher. Waiting for GI recommendations, surgery recommendations. He has elevated kappa lambda enzymes. Waiting for Swapna Rubio's recommendations. Prognosis extremely guarded. PT/OT. Rehab center. MMMICHAELL / IJN: [id number] /
[2021-05-31 08:10] LABS: Anisocytosis Marked; Basophils % (A) 0 %; Eosinophils % (A) 0 %; HCT 24.5 % (39.0-53.0); Lymphocytes # (A) 0.5 k/uL (1.0-4.8); Lymphocytes % (A) 4 %; MCH 36.1 pg (25.0-35.0); MCHC 34.8 g/dL (31.0-37.0); MCV 103.7 fL (80.0-100.0); Macrocytosis Marked; Mean Platelet Volume 9.2; Monocytes # (A) 0.4 k/uL (0-1.0); Monocytes % (A) 3 %; Neutrophils # (A) 12.9 k/uL (1.3-7.7); Neutrophils % (A) 93 %; Platelet Count 107 k/uL (150-450); RBC 2.36 m/uL (4.30-5.90); RDW 24.9 % (11.5-15.5); WBC 13.8 k/uL (3.8-10.6)
[2021-05-31] MEDS: MULTIVITAMINS, THERA 1 EACH TAB PO SCH (08:46)
[2021-05-31] MEDS: PANTOPRAZOLE 40 MG/10 ML VIAL IV SCH (08:46)
[2021-05-31] MEDS: NICOTINE 21MG/24HR PATCH TRANSDERM SCH (08:46)
[2021-05-31] MEDS: NYSTATIN 100,000 UNIT/ML SUSP 500,000 UNIT/5 ML CUP PO SCH ×4 (08:46→20:45)
[2021-05-31] MEDS: methylPREDNISolone SOD SUCCI 40 MG/ML 1 ML VIAL IV SCH ×2 (08:47→15:32)
[2021-05-31 08:52] LABS: HGB 8.5 gm/dL (13.0-17.5)
[2021-05-31] MEDS: IPRATROPIUM-ALBUTEROL 3 ML NEB INHALATION SCH ×4 (09:28→20:18)
[2021-05-31 11:03] LABS: Rouleaux Present
[2021-05-31 13:13] LABS: Magnesium 2.2 mg/dL (1.5-2.4)
[2021-05-31 13:22] LABS: Albumin 2.8 g/dL (3.8-4.9); Albumin/Globulin Ratio 1.4 (1.60-3.17); Anion Gap 10.1 mmol/L (4.00-12.00); BUN/Creat Ratio 17.5 Ratio (12.00-20.00); Blood Urea Nitrogen 10.5 mg/dL (9.0-27.0); Calcium 8.2 mg/dL (8.7-10.3); Carbon Dioxide 20.9 mmol/L (21.6-31.8); Potassium 4.2 mmol/L (3.5-5.5); Total Bilirubin 0.7 mg/dL (0.30-1.20); Total Protein 4.8 g/dL (6.2-8.2)
[2021-05-31] MEDS: LACTATED RINGERS 1,000 ML IV SCH (13:38)
[2021-06-01] MEDS: methylPREDNISolone SOD SUCCI 40 MG/ML 1 ML VIAL IV SCH ×3 (00:30→16:39)
[2021-06-01] MEDS: MULTIVITAMINS, THERA 1 EACH TAB PO SCH (08:03)
[2021-06-01] MEDS: NYSTATIN 100,000 UNIT/ML SUSP 500,000 UNIT/5 ML CUP PO SCH ×4 (08:03→20:59)
[2021-06-01] MEDS: PANTOPRAZOLE 40 MG/10 ML VIAL IV SCH (08:03)
[2021-06-01] MEDS: NICOTINE 21MG/24HR PATCH TRANSDERM SCH (08:09)
[2021-06-01] MEDS: IPRATROPIUM-ALBUTEROL 3 ML NEB INHALATION SCH ×4 (09:31→19:20)
--- NOTE | 2021-06-01 11:31 | PN ---
PROGRESS NOTE This 65-year-old white male remains on IV Solu-Medrol, pain control, updraft treatments malnutrition. He has acute on chronic anemia. Hemoglobin has dropped back down from 10.2 to 8 5. White count was 18.9, down to 13.8. Sodium is 136, potassium 4.2. AST and ALT are improving from 85 to 54 and 92 to 90. Albumin still remains low. ASSESSMENT: 1. Gastrointestinal bleed. 2. Malnutrition. 3. Chronic obstructive pulmonary disease with exacerbation and left lower lobe ground- glass opacity. 4. Failure to thrive. 5. Inflammation in the cecum, failing colonoscopy. He may need a colonoscopy done prior to discharge. We may have to start a prep again. 6. Isi esophagitis. He is on nystatin swish and swallow. 7. Typhlitis. 8. Elevated troponin. 9. History non-Hodgkin's lymphoma. 10.Melanoma. He will probably have to get a colonoscopy prior to discharge. Prognosis guarded. MMODL / IJN: [id number] /
[2021-06-01 12:00] LABS: Anisocytosis Marked; Basophils % (A) 0 %; Eosinophils % (A) 0 %; HCT 27.1 % (39.0-53.0); HGB 9.3 gm/dL (13.0-17.5); Lymphocytes # (A) 0.3 k/uL (1.0-4.8); Lymphocytes % (A) 2 %; MCH 35.7 pg (25.0-35.0); MCHC 34.2 g/dL (31.0-37.0); MCV 104.5 fL (80.0-100.0); Macrocytosis Marked; Mean Platelet Volume 9.5; Monocytes # (A) 0.4 k/uL (0-1.0); Monocytes % (A) 2 %; Neutrophils # (A) 15.7 k/uL (1.3-7.7); Neutrophils % (A) 96 %; Platelet Count 120 k/uL (150-450); WBC 16.4 k/uL (3.8-10.6)
[2021-06-01 12:08] LABS: RDW 25.2 % (11.5-15.5)
[2021-06-01 12:13] LABS: ALT 110 U/L (4-49); AST 73 U/L (17-59); African American GFR (CKD) >90 (>60 ml/min/1.73 sqM); Albumin 2.7 g/dL (3.5-5.0); Alkaline Phosphatase 107 U/L (38-126); Anion Gap 5 mmol/L; Blood Urea Nitrogen 11 mg/dL (9-20); Calcium 8.6 mg/dL (8.4-10.2); Carbon Dioxide 22 mmol/L (22-30); Chloride 105 mmol/L (98-107); Globulin 2.7 g/dL; Glucose 130 mg/dL (74-99); Non-African American GFR(CKD) >90 (>60 ml/min/1.73 sqM); Potassium 3.8 mmol/L (3.5-5.1); Sodium 132 mmol/L (137-145); Total Bilirubin 1.1 mg/dL (0.2-1.3); Total Protein 5.4 g/dL (6.3-8.2)
[2021-06-01] MEDS: LACTATED RINGERS 1,000 ML IV SCH (13:13)
[2021-06-01] MEDS ORDERED: PEG 3350-NA SULF,BICARB,CL/KCL 4,000 ML BOTTLE PO ONE (22:00)
--- NOTE | 2021-06-01 22:25 | PN ---
PROGRESS NOTE This 65-year-old white male was admitted with GI bleed and anemia and malnutrition. Hemoglobin dropped to 9.3 and will be checked again tomorrow. White count 16.4. I suspect he needs a colonoscopy prior to discharge. Will make him n.p.o., put him on GoLYTELY again. His liver enzymes are high. CARDIOVASCULAR: S1, S2. LUNGS: Clear. GI: Soft. HEMATOLOGY: Negative Homans. PSYCH: Fair mood and affect. Heart rate is low 100s, temperature 98.1, blood pressure 115/73, 93 on room air. Prognosis is guarded. Wait for colonoscopy. Start GoLYTELY. Go to clear liquid diet. Prognosis guarded. MMODL / IJN: [id number] /
[2021-06-02] MEDS: methylPREDNISolone SOD SUCCI 40 MG/ML 1 ML VIAL IV SCH ×3 (00:31→15:35)
[2021-06-02 06:31] LABS: Anisocytosis Moderate; Basophils % (A) 0 %; Eosinophils % (A) 0 %; HCT 25.5 % (39.0-53.0); HGB 8.7 gm/dL (13.0-17.5); Lymphocytes # (A) 0.2 k/uL (1.0-4.8); Lymphocytes % (A) 1 %; MCH 36.3 pg (25.0-35.0); MCHC 34.2 g/dL (31.0-37.0); Macrocytosis Marked; Monocytes # (A) 0.4 k/uL (0-1.0); Monocytes % (A) 2 %; Neutrophils # (A) 15.9 k/uL (1.3-7.7); Neutrophils % (A) 96 %; Platelet Count 126 k/uL (150-450); RDW 23.8 % (11.5-15.5); WBC 16.5 k/uL (3.8-10.6)
[2021-06-02 08:29] LABS: Hypersegmented Neutrophils Present
[2021-06-02] MEDS: IPRATROPIUM-ALBUTEROL 3 ML NEB INHALATION SCH ×4 (08:52→19:13)
[2021-06-02] MEDS: PANTOPRAZOLE 40 MG/10 ML VIAL IV SCH (09:01)
[2021-06-02] MEDS: NICOTINE 21MG/24HR PATCH TRANSDERM SCH (09:02)
[2021-06-02] MEDS: NYSTATIN 100,000 UNIT/ML SUSP 500,000 UNIT/5 ML CUP PO SCH ×4 (09:02→21:52)
[2021-06-02] MEDS: MULTIVITAMINS, THERA 1 EACH TAB PO SCH (09:02)
[2021-06-02 09:13] LABS: African American GFR (CKD) 133.7 (60.0-200.0); Albumin 2.9 g/dL (3.8-4.9); Albumin/Globulin Ratio 1.53 (1.60-3.17); Anion Gap 10.5 mmol/L (4.00-12.00); BUN/Creat Ratio 21.2 Ratio (12.00-20.00); Blood Urea Nitrogen 10.6 mg/dL (9.0-27.0); Calcium 8.5 mg/dL (8.7-10.3); Carbon Dioxide 22.5 mmol/L (21.6-31.8); Globulin 1.9 g/dL (1.6-3.3); Non-African American GFR(CKD) 115.3 (60.0-200.0); Potassium 4.1 mmol/L (3.5-5.5); Total Bilirubin 0.8 mg/dL (0.30-1.20); Total Protein 4.8 g/dL (6.2-8.2)
--- NOTE | 2021-06-02 13:30 | P.PN ---
Subjective Progress Note Date: 06/02/21 CHIEF COMPLAINT: Weakness, failure to thrive HISTORY OF PRESENT ILLNESS: Patient is a 65-year-old male with evidence of anemia on admission as well as 70 pounds weight loss and evidence of failure to thrive. Patient is status post EGD showing possible candidiasis esophagitis. Colonoscopy canceled due to poor prep. Surgical consult was requested for colonoscopy. Patient started on GoLYTELY prep today per medical service. No new complaints of abdominal pain. Afebrile. WBC 16.5 hemoglobin is down from 9.3-8.7 platelets 126. Patient is on steroids for COPD exacerbation. PHYSICAL EXAM: VITAL SIGNS: Reviewed. GENERAL: Well-developed in no acute distress. HEENT: No sclera icterus. Extraocular movements grossly intact. Moist buccal mucosa. Head is atraumatic, normocephalic. ABDOMEN: Soft. Nondistended. Nontender. NEUROLOGIC: Alert and oriented. Cranial nerves II through XII grossly intact. Flat affect ASSESSMENT: 1. Moderate protein calorie malnutrition, failure to thrive and 70 pound weight loss. Status post EGD showing possible candidiasis esophagitis 2. Computed tomography scan showing inflammatory changes adjacent to cecum correlate for typhlitis. No need for antibiotics. Patient has no abdominal pain and white count normal. 3. Anemia PLAN: -Patient scheduled for colonoscopy tomorrow, 06/03/[address] bustamante -Start GoLYTELY prep today -Nothing by mouth after midnight -EGD biopsy results still pending. Physician Heel Trimmer note has been reviewed by physician. Signing provider agrees with the documented findings, assessment, and plan of care. Objective - Vital Signs Vital signs: Vital Signs Temp 97.9 F 06/02/21 11:30 Pulse 91 06/02/21 11:30 Resp 16 06/02/21 11:30 BP 121/83 06/02/21 11:30 Pulse Ox 90 L 06/02/21 11:30 Intake & Output 06/01/21 06/02/21 06/02/21 18:59 06:59 18:59 Intake Total 1520 540 Output Total 300 300 Balance 1220 540 -300 Weight 53.977 kg Intake: Oral 1520 540 Output: Urine 300 300 Other: Voiding Method Urinal Urinal Urinal # Voids 4 3 1 # Bowel Movements 1 - Labs CBC & Chem 7: 06/02/21 06:05 06/02/21 06:05 Labs: Abnormal Lab Results - Last 24 Hours (Table) 06/01/21 06/02/21 06/02/21 Range/Units 11:49 06:05 06:05 WBC 16.5 H (3.8-10.6) k/uL RBC 2.40 L (4.30-5.90) m/uL Hgb 8.7 L (13.0-17.5) gm/dL Hct 25.5 L (39.0-53.0) % MCV 106.0 H (80.0-100.0) fL MCH 36.3 H (25.0-35.0) pg RDW 23.8 H (11.5-15.5) % Plt Count 126 L (150-450) k/uL Neutrophils # 15.7 H 15.9 H (1.3-7.7) k/uL Lymphocytes # 0.3 L 0.2 L (1.0-4.8) k/uL Macrocytosis Marked A Creatinine 0.5 L (0.6-1.5) mg/dL BUN/Creatinine Ratio 21.20 H (12.00-20.00) Ratio Glucose 143 H (70-110) mg/dL Calcium 8.5 L (8.7-10.3) mg/dL AST 46 H (14-35) U/L ALT 102 H (10-49) U/L Total Protein 4.8 L (6.2-8.2) g/dL Albumin 2.9 L (3.8-4.9) g/dL Albumin/Globulin Ratio 1.53 L (1.60-3.17) g/dL
[2021-06-02] MEDS: LACTATED RINGERS 1,000 ML IV SCH ×2 (14:15→16:49)
--- NOTE | 2021-06-02 16:17 | P.PN ---
Subjective Progress Note Date: 06/02/21 Principal diagnosis: Dysphagia with solids due to Isi esophagitis, has been nystatin swish and swallow biopsy pending COPD with acute exacerbation Left lower lobe groundglass opacity Failure to thrive with history of weight loss macrocytic anemia Malnutrition protein calorie Inflammation tree change in cecum possible typhlitis Elevated troponin History of fall and left arm melanoma Remote history of non-Hodgkin's lymphoma 06/02/2021, patient seen and evaluated examined during the rounds labs reviewed medications reviewed care plan discussed, patient is undergoing prep for the colonoscopy for tomorrow remains on 2 L oxygen denies any chest pain or shortne ss of breath 05/30/2021, patient seen eval examined during the rounds overall no significant change, respiratory status stable, denies any chest pain, surgery has been following, patient has been continued on nystatin swish and swallow 4 Isi esophagitis 05/29/2021, patient seen eval examined during the rounds labs reviewed medications reviewed care plan discussed with the staff at length, patient is sitting upright on the bed breathing comfortably he is nothing by mouth for endoscopy upper and lower later on today, swollen functions have improved now, denies any cough or sputum production, labs reviewed hemoglobin remained stable 8.8, potassium is 3.3, remains stable BUN/creatinine within normal limit, rheumatoid factor as well as in the screen is negative, 05/28/2021, patient seen eval reexamined labs reviewed medications reviewed care plan discussed, history status stable, patient is still have problems associated with swallowing, patient is on full liquid diet tolerating well, appetite however remains poor patient is for endoscopy tomorrow 05/27/2021, patient seen eval reexamined he is sitting upright on the bed sitting and looking at his food, shortness of breath stable, remains on bronchodilators and IV steroids, does complaining of dysphagia and difficulty in swallowing especially with solids, general surgery has been following patient schedule for upper and lower endoscopy by surgery in next few days, hemodynamic status stable patient remains afebrile, oxygen saturation is 97% room air, Patient is a 65-year-old male looks and appear older then the stated age, patient came into the hospital with the loss of appetite poor by mouth intake and loss about 70 pounds in last 3 months, patient has been chronic short of breath have 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 emphysema hypertension hypertensive cardiovascular disease, patient has a long-term history of smoking and nicotine use from 1-2 packs per day quit about 3 months ago as he lost the taste of cigarettes as well, on specific questioning denies any chest pain denies any hemoptysis hematemesis, shortness of breath on activity and exertion present, denies any bowel bladder related problem, and denies any night sweats or fever or chills, patient was afebrile on presentation, but with stable hemodynamics oxygen saturation was 97% on room air, he was found to be anemic with the hemoglobin 6.9 posttransfusion improved to of 9.7 white cell count within normal limit, chest x-ray consistent with COPD CT of the brain consistent with cerebral atrophy no acute changes have been identified, patient's EKG significant for sinus tachycardia with nonspecific ST and T wave changes, x-ray of the spine and LS spine spondylotic changes, computed tomography scan of the chest no suspicious lung nodules were seen faint groundglass opacities seen in the left lower lobe, computed tomography scan Of the Abdominal Significant for Inflammatory Changes in the Cecum Likely Typhlitis, COVID-19 Testing Is Negative, Troponin Elevated 0.038 Objective - Vital Signs Vital signs: Vital Signs Temp 97.9 F 06/02/21 11:30 Pulse 91 06/02/21 11:30 Resp 16 06/02/21 11:30 BP 121/83 06/02/21 11:30 Pulse Ox 90 L 06/02/21 11:30 Intake & Output 06/01/21 06/02/21 06/02/21 18:59 06:59 18:59 Intake Total 1520 540 Output Total 300 300 Balance 1220 540 -300 Weight 53.977 kg Intake: Oral 1520 540 Output: Urine 300 300 Other: Voiding Method Urinal Urinal Urinal # Voids 4 3 1 # Bowel Movements 1 1 - Exam Constitutional General appearance: average body habitus, cooperative, disheveled, mild distress - EENT Eyes: EOMI, PERRLA Ears: bilateral: normal - Neck Neck: normal ROM Carotids: bilateral: upstroke normal Thyroid: bilateral: normal size - Respiratory Respiratory: bilateral: CTA - Cardiovascular Rhythm: regular Heart sounds: normal: S1, S2 - Gastrointestinal General gastrointestinal: decreased bowel sounds - Neurologic Neurologic: CNII-XII intact - Musculoskeletal Musculoskeletal: gait normal, generalized weakness, strength equal bilaterally - Psychiatric Psychiatric: A&O x's 3, appropriate affect, intact judgment & insight - Labs CBC & Chem 7: 06/02/21 06:05 06/02/21 06:05 Labs: Abnormal Lab Results - Last 24 Hours (Table) 06/02/21 06/02/21 Range/Units 06:05 06:05 WBC 16.5 H (3.8-10.6) k/uL RBC 2.40 L (4.30-5.90) m/uL Hgb 8.7 L (13.0-17.5) gm/dL Hct 25.5 L (39.0-53.0) % MCV 106.0 H (80.0-100.0) fL MCH 36.3 H (25.0-35.0) pg RDW 23.8 H (11.5-15.5) % Plt Count 126 L (150-450) k/uL Neutrophils # 15.9 H (1.3-7.7) k/uL Lymphocytes # 0.2 L (1.0-4.8) k/uL Macrocytosis Marked A Creatinine 0.5 L (0.6-1.5) mg/dL BUN/Creatinine Ratio 21.20 H (12.00-20.00) Ratio Glucose 143 H (70-110) mg/dL Calcium 8.5 L (8.7-10.3) mg/dL AST 46 H (14-35) U/L ALT 102 H (10-49) U/L Total Protein 4.8 L (6.2-8.2) g/dL Albumin 2.9 L (3.8-4.9) g/dL Albumin/Globulin Ratio 1.53 L (1.60-3.17) g/dL Assessment and Plan Assessment: Dysphagia related to isi esophagitis patient has been nystatin swish and swallow biopsy results are pending COPD with acute exacerbation Left lower lobe groundglass opacity Failure to thrive with history of weight loss macrocytic anemia Malnutrition protein calorie Inflammation tree change in cecum possible typhlitis Elevated troponin History of non-Hodgkin's lymphoma status post chemotherapy and remote past History of melanoma left arm and remote past as Plan: Patient is getting prep for colonoscopy IV Diflucan DC IV steroids, no need for poor oral prednisone, continue bronchodilator, Workup and evaluation of anemia with endoscopy by surgical services Status post upper endoscopy however lower canceled due to poor prep Evaluation of typhlitis by surgery Patient is at high risk of the lung neoplasm would recommend a computed tomography scan of his chest in 4-6 months for left lower lobe groundglass opacity Further workup and evaluation of COPD as outpatient Time with Patient: Greater than 30
--- NOTE | 2021-06-02 18:48 | P.PN ---
Subjective Progress Note Date: 06/02/21 Principal diagnosis: failure to thrive, dysphagia, weak Status post CT C/AP, EGD - with biopsy. Platelets initially decreased but now showing recovery. Biopsy is pending. He is prepping for colonoscopy today, no acute distress. States he is weak in lower extremities. Objective - Vital Signs Vital signs: Vital Signs Temp 97.6 F 06/02/21 05:11 Pulse 103 H 06/02/21 05:11 Resp 20 06/02/21 05:11 BP 119/74 06/02/21 05:11 Pulse Ox 95 06/02/21 05:11 Intake & Output 06/01/21 06/02/21 06/02/21 18:59 06:59 18:59 Intake Total 1520 540 Output Total 300 Balance 1220 540 Weight 53.977 kg Intake: Oral 1520 540 Output: Urine 300 Other: Voiding Method Urinal Urinal Urinal # Voids 4 3 4 # Bowel Movements 1 - Exam - Constitutional General appearance: average body habitus, cooperative, no acute distress - EENT Eyes: anicteric sclerae, EOMI ENT: hearing grossly normal, normal oropharynx - Neck Neck: no lymphadenopathy - Respiratory Respiratory: bilateral: CTA - Cardiovascular Rhythm: regular Heart sounds: normal: S1, S2 Abnormal Heart Sounds: no systolic murmur, no diastolic murmur, no rub, no S3 Gallop, no S4 Gallop, no click, no other leg Peripheral Edema: bilateral: None - Gastrointestinal General gastrointestinal: no absent bowel sounds, no decreased bowel sounds, no distended, no hepatomegaly, no hyperactive bowel sounds, normal bowel sounds, no organomegaly, no rigid, no scaphoid, soft, no splenomegaly, no tenderness, no umbilical hernia, no ventral hernia - Integumentary Integumentary: pale - Neurologic Neurologic: CNII-XII intact - Musculoskeletal Musculoskeletal: generalized weakness, strength equal bilaterally - Psychiatric Psychiatric: A&O x's 3, appropriate affect, intact judgment & insight - Labs CBC & Chem 7: 06/02/21 06:05 06/02/21 06:05 Labs: Abnormal Lab Results - Last 24 Hours (Table) 06/01/21 06/01/21 06/02/21 Range/Units 11:49 11:49 06:05 WBC 16.4 H 16.5 H (3.8-10.6) k/uL RBC 2.60 L 2.40 L (4.30-5.90) m/uL Hgb 9.3 L 8.7 L (13.0-17.5) gm/dL Hct 27.1 L 25.5 L (39.0-53.0) % MCV 104.5 H 106.0 H (80.0-100.0) fL MCH 35.7 H 36.3 H (25.0-35.0) pg RDW 25.2 H 23.8 H (11.5-15.5) % Plt Count 120 L 126 L (150-450) k/uL Neutrophils # 15.7 H 15.9 H (1.3-7.7) k/uL Lymphocytes # 0.3 L 0.2 L (1.0-4.8) k/uL Macrocytosis Marked A Marked A Sodium 132 L (137-145) mmol/L Creatinine 0.44 L (0.66-1.25) mg/dL BUN/Creatinine Ratio (12.00-20.00) Ratio Glucose 130 H (74-99) mg/dL Calcium (8.7-10.3) mg/dL AST 73 H (17-59) U/L ALT 110 H (4-49) U/L Total Protein 5.4 L (6.3-8.2) g/dL Albumin 2.7 L (3.5-5.0) g/dL Albumin/Globulin Ratio (1.60-3.17) g/dL 06/02/21 Range/Units 06:05 WBC (3.8-10.6) k/uL RBC (4.30-5.90) m/uL Hgb (13.0-17.5) gm/dL Hct (39.0-53.0) % MCV (80.0-100.0) fL MCH (25.0-35.0) pg RDW (11.5-15.5) % Plt Count (150-450) k/uL Neutrophils # (1.3-7.7) k/uL Lymphocytes # (1.0-4.8) k/uL Macrocytosis Sodium (137-145) mmol/L Creatinine 0.5 L (0.66-1.25) mg/dL BUN/Creatinine Ratio 21.20 H (12.00-20.00) Ratio Glucose 143 H (74-99) mg/dL Calcium 8.5 L (8.7-10.3) mg/dL AST 46 H (17-59) U/L ALT 102 H (4-49) U/L Total Protein 4.8 L (6.3-8.2) g/dL Albumin 2.9 L (3.5-5.0) g/dL Albumin/Globulin Ratio 1.53 L (1.60-3.17) g/dL Assessment and Plan (1) Thrombocytopenia Current Visit: Yes Status: Acute Code(s): D69.6 - THROMBOCYTOPENIA, UNSPECIFIED SNOMED Code(s): 459872021 (2) Anemia Current Visit: Yes Status: Acute Code(s): D64.9 - ANEMIA, UNSPECIFIED SNOMED Code(s): 779098935 (3) COPD (chronic obstructive pulmonary disease) Current Visit: Yes Status: Acute Code(s): J44.9 - CHRONIC OBSTRUCTIVE PULMONARY DISEASE, UNSPECIFIED SNOMED Code(s): 26555930 (4) Generalized weakness Current Visit: Yes Status: Acute Priority: High Code(s): R53.1 - WEAKNESS SNOMED Code(s): 63264720 (5) Macrocytic anemia Current Visit: Yes Status: Acute Priority: High Code(s): D53.9 - NUTRITIONAL ANEMIA, UNSPECIFIED SNOMED Code(s): 70350338 (6) Weight loss Current Visit: Yes Status: Acute Code(s): R63.4 - ABNORMAL WEIGHT LOSS SNOMED Code(s): 20039473 Plan: CT Brain Neg CT C/A/P Reviewed CBC is recovering, we will continue to await for pathology from recent biopsy for further recommendations. Repeat Chest xray Plan for colonoscopy in am PT/OT to follow.
--- NOTE | 2021-06-02 23:06 | PN ---
PROGRESS NOTE This 65-year-old white male wants to go home. Even though he needs a 2-person assist he does not want to go to a long-term. He says his daughter will take care of him at home. I discussed with him due to his anemia and significant weakness and abnormal CT scan, he needs to get a colonoscopy prior to discharge. White count is high at 16.5, hemoglobin is 8.7. He is on GoLYTELY protocol. Sugar is 143. Creatinine is 0.5. Liver enzymes are high at 46 and 102, but slightly decreased from yesterday. Low protein levels. ASSESSMENT: Some kind of typhlitis. He needs colonoscopy to evaluate this prior to discharge. His white count is high. He is on steroids due to COPD exacerbation. Plan is to do colonoscopy tomorrow. He is on prep with GoLYTELY today. Then possibly discharge home after colonoscopy is done and evaluation for typhilitis. Prognosis guarded. SULY / DAPHNE: [id number] /
[2021-06-03 04:35] LABS: Anisocytosis Marked; Basophils % (A) 0 %; Eosinophils % (A) 0 %; HCT 26.6 % (39.0-53.0); Lymphocytes # (A) 0.7 k/uL (1.0-4.8); Lymphocytes % (A) 4 %; MCH 35.5 pg (25.0-35.0); MCHC 33.7 g/dL (31.0-37.0); MCV 105.3 fL (80.0-100.0); Macrocytosis Marked; Mean Platelet Volume 8.5; Monocytes # (A) 0.6 k/uL (0-1.0); Monocytes % (A) 4 %; Neutrophils # (A) 14.9 k/uL (1.3-7.7); Neutrophils % (A) 92 %; Platelet Count 189 k/uL (150-450); RBC 2.53 m/uL (4.30-5.90); RDW 24.4 % (11.5-15.5); WBC 16.3 k/uL (3.8-10.6)
[2021-06-03] MEDS: IPRATROPIUM-ALBUTEROL 3 ML NEB INHALATION SCH ×4 (07:27→19:55)
[2021-06-03] MEDS: FLUCONAZOLE 100 MG TAB PO SCH (08:00)
[2021-06-03] MEDS: PANTOPRAZOLE 40 MG/10 ML VIAL IV SCH (08:59)
[2021-06-03] MEDS: NICOTINE 21MG/24HR PATCH TRANSDERM SCH (08:59)
[2021-06-03] MEDS: MULTIVITAMINS, THERA 1 EACH TAB PO SCH (09:00)
[2021-06-03] MEDS: NYSTATIN 100,000 UNIT/ML SUSP 500,000 UNIT/5 ML CUP PO SCH ×4 (09:04→22:32)
[2021-06-03 10:18] LABS: African American GFR (CKD) 138.3 (60.0-200.0); Albumin 2.8 g/dL (3.8-4.9); Albumin/Globulin Ratio 1.42 (1.60-3.17); Anion Gap 10.6 mmol/L (4.00-12.00); BUN/Creat Ratio 21.35 Ratio (12.00-20.00); Blood Urea Nitrogen 9.8 mg/dL (9.0-27.0); Calcium 8.6 mg/dL (8.7-10.3); Carbon Dioxide 24.3 mmol/L (21.6-31.8); Non-African American GFR(CKD) 119.4 (60.0-200.0); Potassium 3.5 mmol/L (3.5-5.5); Total Bilirubin 0.9 mg/dL (0.30-1.20); Total Protein 4.8 g/dL (6.2-8.2)
[2021-06-03] MEDS ORDERED: PROPOFOL 10 MG/ML 20 ML VIAL IV ONE (10:23)
[2021-06-03] MEDS ORDERED: IV FLUID CONTINUATION 1,000 ML IV ONE ×2 (10:28)
--- NOTE | 2021-06-03 11:01 | P.OP ---
Date of Procedure: 06/03/21 Preoperative Diagnosis: GI bleed Postoperative Diagnosis: External hemorrhoids Diverticulosis Poor colon prep Procedure(s) Performed: Colonoscopy Anesthesia: MAC Pathology: none sent Condition: stable Disposition: PACU Description of Procedure: The patient's placed on the endoscopy table in the lateral position. He received IV sedation. Digital rectal exam was performed which revealed significant external hemorrhoids. Flexible colonoscope was then placed patient anus. There was a significant amount of liquid and stool in the rectum. The colonoscope was then placed through the colon. The scope was positioned to the level of the mid transverse colon. The bowel prep was very poor. Scope could not be advanced secondary to a large amount of liquid stool the colon. This was withdrawn. There was scattered diverticula in the transverse descending and sigmoid colon. There is known to any bleeding. The rectum appeared normal scope was withdrawn for patient. This presumed the patient may have bled from external hemorrhoids.
[2021-06-03] MEDS: LACTATED RINGERS 1,000 ML IV SCH ×2 (14:14→17:26)
--- NOTE | 2021-06-03 16:44 | P.PN ---
Subjective Progress Note Date: 06/03/21 Principal diagnosis: Dysphagia with solids due to Isi esophagitis, has been nystatin swish and swallow biopsy pending COPD with acute exacerbation Left lower lobe groundglass opacity Failure to thrive with history of weight loss macrocytic anemia Malnutrition protein calorie Inflammation tree change in cecum possible typhlitis Elevated troponin History of fall and left arm melanoma Remote history of non-Hodgkin's lymphoma 06/03/2021, patient seen eval examined, status post colonoscopy, bowel prep still not adequate, however excessive amount of stool was seen, Estrace status remains stable on 2 L oxygen patient being monitor off of steroids 06/02/2021, patient seen and evaluated examined during the rounds labs reviewed medications reviewed care plan discussed, patient is undergoing prep for the colonoscopy for tomorrow remains on 2 L oxygen denies any chest pain or shortness of breath 05/30/2021, patient seen eval examined during the rounds overall no significant change, respiratory status stable, denies any chest pain, surgery has been following, patient has been continued on nystatin swish and swallow 4 Isi esophagitis 05/29/2021, patient seen eval examined during the rounds labs reviewed medications reviewed care plan discussed with the staff at length, patient is sitting upright on the bed breathing comfortably he is nothing by mouth for endoscopy upper and lower later on today, swollen functions have improved now, denies any cough or sputum production, labs reviewed hemoglobin remained stable 8.8, potassium is 3.3, remains stable BUN/creatinine within normal limit, rheumatoid factor as well as in the screen is negative, 05/28/2021, patient seen eval reexamined labs reviewed medications reviewed care plan discussed, history status stable, patient is still have problems associated with swallowing, patient is on full liquid diet tolerating well, appetite however remains poor patient is for endoscopy tomorrow 05/27/2021, patient seen eval reexamined he is sitting upright on the bed sitting and looking at his food, shortness of breath stable, remains on bronchodilators and IV steroids, does complaining of dysphagia and difficulty in swallowing especially with solids, general surgery has been following patient schedule for upper and lower endoscopy by surgery in next few days, hemodynamic status stable patient remains afebrile, oxygen saturation is 97% room air, Patient is a 65-year-old male looks and appear older then the stated age, patient came into the hospital with the loss of appetite poor by mouth intake and loss about 70 pounds in last 3 months, patient has been chronic short of breath have 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 emphysema hypertension hypertensive cardiovascular disease, patient has a long-term history of smoking and nicotine use from 1-2 packs per day quit about 3 months ago as he lost the taste of cigarettes as well, on specific questioning denies any chest pain denies any hemoptysis hematemesis, shortness of breath on activity and exertion present, denies any bowel bladder related problem, and denies any night sweats or fever or chills, patient was afebrile on presentation, but with stable hemodynamics oxygen saturation was 97% on room air, he was found to be anemic with the hemoglobin 6.9 posttransfusion improved to of 9.7 white cell count within normal limit, chest x-ray consistent with COPD CT of the brain consistent with cerebral atrophy no acute changes have been identified, patient's EKG significant for sinus tachycardia with nonspecific ST and T wave changes, x-ray of the spine and LS spine spondylotic changes, computed tomography scan of the chest no suspicious lung nodules were seen faint groundglass opacities seen in the left lower lobe, computed tomography scan Of the Abdominal Significant for Inflammatory Changes in the Cecum Likely Typhlitis, COVID-19 Testing Is Negative, Troponin Elevated 0.038 Objective - Vital Signs Vital signs: Vital Signs Temp 97.8 F 06/03/21 11:35 Pulse 91 06/03/21 11:35 Resp 16 06/03/21 11:35 BP 108/73 06/03/21 11:35 Pulse Ox 90 L 06/03/21 11:35 Intake & Output 06/02/21 06/03/21 06/03/21 18:59 06:59 18:59 Intake Total 240 2009 100 Output Total 300 550 Balance -60 1460 100 Weight 53.977 kg Intake: IV 100 Intake, IV Titration 240 240 Amount Lactated Ringers 1,000 ml 240 240 @ 20 mls/hr IV .Q24H [facility] Rx#:[id number] Oral 1770 Output: Urine 300 550 Other: Voiding Method Urinal Urinal Urinal Diaper # Voids 1 # Bowel Movements 1 1 - Exam Constitutional General appearance: average body habitus, cooperative, disheveled, mild distress - EENT Eyes: EOMI, PERRLA Ears: bilateral: normal - Neck Neck: normal ROM Carotids: bilateral: upstroke normal Thyroid: bilateral: normal size - Respiratory Respiratory: bilateral: CTA - Cardiovascular Rhythm: regular Heart sounds: normal: S1, S2 - Gastrointestinal General gastrointestinal: decreased bowel sounds - Neurologic Neurologic: CNII-XII intact - Musculoskeletal Musculoskeletal: gait normal, generalized weakness, strength equal bilaterally - Psychiatric Psychiatric: A&O x's 3, appropriate affect, intact judgment & insight - Labs CBC & Chem 7: 06/03/21 03:54 06/03/21 03:54 Labs: Abnormal Lab Results - Last 24 Hours (Table) 06/03/21 06/03/21 Range/Units 03:54 03:54 WBC 16.3 H (3.8-10.6) k/uL RBC 2.53 L (4.30-5.90) m/uL Hgb 9.0 L (13.0-17.5) gm/dL Hct 26.6 L (39.0-53.0) % MCV 105.3 H (80.0-100.0) fL MCH 35.5 H (25.0-35.0) pg RDW 24.4 H (11.5-15.5) % Neutrophils # 14.9 H (1.3-7.7) k/uL Lymphocytes # 0.7 L (1.0-4.8) k/uL Macrocytosis Marked A Creatinine 0.5 L (0.6-1.5) mg/dL BUN/Creatinine Ratio 21.35 H (12.00-20.00) Ratio Calcium 8.6 L (8.7-10.3) mg/dL AST 40 H (14-35) U/L ALT 98 H (10-49) U/L Total Protein 4.8 L (6.2-8.2) g/dL Albumin 2.8 L (3.8-4.9) g/dL Albumin/Globulin Ratio 1.42 L (1.60-3.17) g/dL Assessment and Plan Assessment: Dysphagia related to isi esophagitis patient has been nystatin swish and swallow biopsy results are pending COPD with acute exacerbation Left lower lobe groundglass opacity Failure to thrive with history of weight loss macrocytic anemia Malnutrition protein calorie Inflammation tree change in cecum possible typhlitis Elevated troponin History of non-Hodgkin's lymphoma status post chemotherapy and remote past History of melanoma left arm and remote past as Plan: Patient status post colonoscopy Continue oral Diflucan Monitor off of his steroids continue bronchodilator Workup and evaluation of anemia with endoscopy by surgical services Status post upper endoscopy however lower canceled due to poor prep Evaluation of typhlitis by surgery Patient is at high risk of the lung neoplasm would recommend a computed tomography scan of his chest in 4-6 months for left lower lobe groundglass opacity Further workup and evaluation of COPD as outpatient Time with Patient: Greater than 30
--- NOTE | 2021-06-04 06:12 | PN ---
PROGRESS NOTE 65-year-old white female underwent colonoscopy with possible biopsy. Dysphagia with solids due to Isi esophagitis, COPD exacerbation, ground-glass opacity, failure to thrive with malnutrition. Inflammation due to typhlitis, elevated troponin, history of non-Hodgkin's lymphoma. 2 L oxygen. Bowel prep was still inadequate. Cardiovascular S1-S2. Lungs clear. GI soft. The patient has agreed to go to [facility]. Macrocytic anemia secondary to failure to thrive, left lower lobe ground-glass opacities, COPD exacerbation, malnutrition, typhlitis, elevated troponin. Continue oral Diflucan and monitor steroids, evaluation typhilitis. PROGNOSIS: Extremely guarded. MMODL / IJN: [id number] /
[2021-06-04] MEDS: IPRATROPIUM-ALBUTEROL 3 ML NEB INHALATION SCH ×4 (08:52→21:03)
[2021-06-04 10:09] LABS: Anisocytosis Moderate; Basophils % (A) 0 %; Eosinophils # (A) 0.1 k/uL (0-0.7); Eosinophils % (A) 0 %; HCT 28.5 % (39.0-53.0); HGB 9.8 gm/dL (13.0-17.5); Lymphocytes # (A) 0.7 k/uL (1.0-4.8); Lymphocytes % (A) 4 %; MCH 37.4 pg (25.0-35.0); MCHC 34.3 g/dL (31.0-37.0); MCV 109.2 fL (80.0-100.0); Macrocytosis Marked; Mean Platelet Volume 8.2; Monocytes # (A) 0.6 k/uL (0-1.0); Monocytes % (A) 4 %; Neutrophils # (A) 15.4 k/uL (1.3-7.7); Neutrophils % (A) 92 %; Platelet Count 255 k/uL (150-450); RBC 2.61 m/uL (4.30-5.90); RDW 23.2 % (11.5-15.5); WBC 16.8 k/uL (3.8-10.6)
[2021-06-04 10:21] LABS: ALT 94 U/L (4-49); AST 44 U/L (17-59); African American GFR (CKD) >90 (>60 ml/min/1.73 sqM); Albumin 2.8 g/dL (3.5-5.0); Alkaline Phosphatase 106 U/L (38-126); Anion Gap 6 mmol/L; Blood Urea Nitrogen 13 mg/dL (9-20); Calcium 8.6 mg/dL (8.4-10.2); Carbon Dioxide 25 mmol/L (22-30); Chloride 103 mmol/L (98-107); Globulin 2.7 g/dL; Glucose 93 mg/dL (74-99); Magnesium 1.9 mg/dL (1.6-2.3); Non-African American GFR(CKD) >90 (>60 ml/min/1.73 sqM); Potassium 3.6 mmol/L (3.5-5.1); Sodium 134 mmol/L (137-145); Total Bilirubin 1.7 mg/dL (0.2-1.3); Total Protein 5.5 g/dL (6.3-8.2)
--- NOTE | 2021-06-04 10:24 | XR ---
EXAMINATION TYPE: XR chest 2V DATE OF EXAM: 06/04/2021 COMPARISON: 05/24/2021 HISTORY: 65-year-old male increased hypoxia TECHNIQUE: AP and lateral views FINDINGS: Heart normal size. Aorta and pulmonary vasculature within normal limits. Surgical clips at the left a xilla. Old healed left inferior rib fracture 4 days. Trace effusions noted on the lateral view. Relat yaakov upper lung lucencies suggesting emphysema. IMPRESSION: COPD. Trace pleural effusions on the lateral view. Otherwise, no focal infiltrate seen.
[2021-06-04] MEDS: FLUCONAZOLE 100 MG TAB PO SCH (10:34)
[2021-06-04] MEDS: MULTIVITAMINS, THERA 1 EACH TAB PO SCH (10:34)
[2021-06-04] MEDS: NYSTATIN 100,000 UNIT/ML SUSP 500,000 UNIT/5 ML CUP PO SCH ×4 (10:36→21:14)
[2021-06-04] MEDS: NICOTINE 21MG/24HR PATCH TRANSDERM SCH (10:36)
[2021-06-04] MEDS: PANTOPRAZOLE 40 MG/10 ML VIAL IV SCH (12:00)
--- NOTE | 2021-06-04 15:21 | P.PN ---
<Roxy Everett - Last Filed: 06/04/21 15:11> Subjective Progress Note Date: 06/04/21 CHIEF COMPLAINT: Weakness, failure to thrive HISTORY OF PRESENT ILLNESS: Patient is a 65-year-old male with evidence of anemia on admission as well as 70 pounds weight loss and evidence of failure to thrive. Patient is status post EGD showing possible candidiasis esophagitis. Patient's repeat colonoscopy was also a poor prep however, it did demonstrate diverticulosis and external hemorrhoids. No evidence of active bleeding. It is presumed the patient may have bled from external hemorrhoids. Patient is on Diflucan and nystatin swish and swallow for his candidiasis esophagitis. White count 16.3 hemoglobin 9.0-9.8 patient is currently on a regular diet. He reports that it is getting easier for him to eat. He denies any abdominal pain Patient seen and examined with Dr. bustamante PHYSICAL EXAM: VITAL SIGNS: Reviewed. GENERAL: Well-developed in no acute distress. HEENT: No sclera icterus. Extraocular movements grossly intact. Moist buccal mucosa. Head is atraumatic, normocephalic. ABDOMEN: Soft. Nondistended. Nontender. NEUROLOGIC: Alert and oriented. Cranial nerves II through XII grossly intact. Flat affect ASSESSMENT: 1. Moderate protein calorie malnutrition, failure to thrive and 70 pound weight loss. Status post EGD showing possible candidiasis esophagitis. 2. Computed tomography scan showing inflammatory changes adjacent to cecum correlate for typhlitis. No need for antibiotics. Patient has no abdominal pain and white count normal. Doubt typhlitis 3. Anemia 4. Colonoscopy with poor prep evidence of diverticulosis and external hemorrhoids PLAN: -Continue supportive care -Continue regular diet -Continue nystatin swish and swallow and Diflucan -Agree with ECF at discharge Physician Video Games Mechanic note has been reviewed by physician. Signing provider agrees with the documented findings, assessment, and plan of care. Objective - Vital Signs Vital signs: Vital Signs Temp 98.1 F 06/04/21 12:23 Pulse 108 H 06/04/21 12:23 Resp 17 06/04/21 12:23 BP 102/67 06/04/21 12:23 Pulse Ox 93 L 06/04/21 12:23 Intake & Output 06/03/21 06/04/21 06/04/21 18:59 06:59 18:59 Intake Total 340 Output Total 500 Balance 340 -500 Weight 53.977 kg Intake: IV 100 Intake, IV Titration 240 Amount Lactated Ringers 1,000 ml 240 @ 20 mls/hr IV .Q24H [facility] Rx#:[id number] Output: Urine 500 Other: Voiding Method Urinal Urinal Urinal Diaper Diaper Diaper # Voids 3 2 - Labs CBC & Chem 7: 06/04/21 09:28 06/04/21 09:28 Labs: Abnormal Lab Results - Last 24 Hours (Table) 06/04/21 06/04/21 Range/Units 09:28 09:28 WBC 16.8 H (3.8-10.6) k/uL RBC 2.61 L (4.30-5.90) m/uL Hgb 9.8 L (13.0-17.5) gm/dL Hct 28.5 L (39.0-53.0) % MCV 109.2 H (80.0-100.0) fL MCH 37.4 H (25.0-35.0) pg RDW 23.2 H (11.5-15.5) % Neutrophils # 15.4 H (1.3-7.7) k/uL Lymphocytes # 0.7 L (1.0-4.8) k/uL Macrocytosis Marked A Sodium 134 L (137-145) mmol/L Creatinine 0.56 L (0.66-1.25) mg/dL Total Bilirubin 1.7 H (0.2-1.3) mg/dL ALT 94 H (4-49) U/L Total Protein 5.5 L (6.3-8.2) g/dL Albumin 2.8 L (3.5-5.0) g/dL <Maximiliano Reilly - Last Filed: 06/05/21 14:01> Objective - Vital Signs Vital signs: Vital Signs Temp 98.2 F 06/05/21 13:35 Pulse 107 H 06/05/21 13:35 Resp 16 06/05/21 13:35 BP 112/66 06/05/21 13:35 Pulse Ox 96 06/05/21 13:35 Intake & Output 06/04/21 06/05/21 06/05/21 18:59 06:59 18:59 Intake Total 240 480 Output Total 500 450 600 Balance -260 30 -600 Weight 53.977 kg Intake: Intake, IV Titration 240 Amount Lactated Ringers 1,000 ml 240 @ 20 mls/hr IV .Q24H [facility] Rx#:[id number] Oral 240 240 Output: Urine 500 450 600 Other: Voiding Method Urinal Urinal Urinal Diaper Diaper Diaper # Voids 3 - Labs CBC & Chem 7: 06/05/21 05:49 06/04/21 09:28 Labs: Abnormal Lab Results - Last 24 Hours (Table) 06/04/21 06/05/21 Range/Units 15:30 05:49 WBC 14.2 H (3.8-10.6) k/uL RBC 2.31 L (4.30-5.90) m/uL Hgb 8.3 L D (13.0-17.5) gm/dL Hct 24.5 L (39.0-53.0) % MCV 106.3 H (80.0-100.0) fL MCH 36.0 H (25.0-35.0) pg RDW 23.9 H (11.5-15.5) % Neutrophils # 13.2 H (1.3-7.7) k/uL Lymphocytes # 0.6 L (1.0-4.8) k/uL Macrocytosis Marked A Ceruloplasmin 17.7 L (20.0-60.0) mg/dL
[2021-06-04] MEDS ORDERED: FUROSEMIDE 10 MG/ML 2 ML VIAL IV ONE (16:00)
--- NOTE | 2021-06-04 16:00 | P.PN ---
Subjective Progress Note Date: 06/04/21 Principal diagnosis: Small tiny pleural effusion Dysphagia with solids due to Isi esophagitis, has been nystatin swish and swallow biopsy pending COPD with acute exacerbation Left lower lobe groundglass opacity Failure to thrive with history of weight loss macrocytic anemia Malnutrition protein calorie Inflammation tree change in cecum possible typhlitis Elevated troponin History of fall and left arm melanoma Remote history of non-Hodgkin's lymphoma 06/04/2021, patient seen eval examined during the rounds labs reviewed medications reviewed patient has been getting breathing treatments, has extensive history of smoking and nicotine use, patient is being planned for placement in extended care facility, x-ray done today which is reviewed sister of some interstitial edema and small tiny pleural effusion likely related to poor oncotic pressure and catabolic state due to protein calorie malnutrition, we will give a dose of IV Lasix and monitor observe patient closely, from pulmonary standpoint patient can be discharged on nebulizer 2-3 times a day r 06/03/2021, patient seen eval examined, status post colonoscopy, bowel prep still not adequate, however excessive amount of stool was seen, Estrace status remains stable on 2 L oxygen patient being monitor off of steroids 06/02/2021, patient seen and evaluated examined during the rounds labs reviewed medications reviewed care plan discussed, patient is undergoing prep for the colonoscopy for tomorrow remains on 2 L oxygen denies any chest pain or shortness of breath 05/30/2021, patient seen eval examined during the rounds overall no significant change, respiratory status stable, denies any chest pain, surgery has been following, patient has been continued on nystatin swish and swallow 4 Isi esophagitis 05/29/2021, patient seen eval examined during the rounds labs reviewed medications reviewed care plan discussed with the staff at length, patient is sitting upright on the bed breathing comfortably he is nothing by mouth for endoscopy upper and lower later on today, swollen functions have improved now, denies any cough or sputum production, labs reviewed hemoglobin remained stable 8.8, potassium is 3.3, remains stable BUN/creatinine within normal limit, rheumatoid factor as well as in the screen is negative, 05/28/2021, patient seen eval reexamined labs reviewed medications reviewed care plan discussed, history status stable, patient is still have problems associated with swallowing, patient is on full liquid diet tolerating well, appetite however remains poor patient is for endoscopy tomorrow 05/27/2021, patient seen eval reexamined he is sitting upright on the bed sitting and looking at his food, shortness of breath stable, remains on bronchodilators and IV steroids, does complaining of dysphagia and difficulty in swallowing especially with solids, general surgery has been following patient schedule for upper and lower endoscopy by surgery in next few days, hemodynamic status stable patient remains afebrile, oxygen saturation is 97% room air, Patient is a 65-year-old male looks and appear older then the stated age, patient came into the hospital with the loss of appetite poor by mouth intake and loss about 70 pounds in last 3 months, patient has been chronic short of breath have 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 emphysema hypertension hypertensive cardiovascular disease, patient has a long-term history of smoking and nicotine use from 1-2 packs per day quit about 3 months ago as he lost the taste of cigarettes as well, on specific questioning denies any chest pain denies any hemoptysis hematemesis, shortness of breath on activity and exertion present, denies any bowel bladder related problem, and denies any night sweats or fever or chills, patient was afebrile on presentation, but with stable hemodynamics oxygen saturation was 97% on room air, he was found to be anemic with the hemoglobin 6.9 posttransfusion improved to of 9.7 white cell count within normal limit, chest x-ray consistent with COPD CT of the brain consistent with cerebral atrophy no acute changes have been identified, patient's EKG significant for sinus tachycardia with nonspecific ST and T wave changes, x-ray of the spine and LS spine spondylotic changes, computed tomography scan of the chest no suspicious lung nodules were seen faint groundglass opacities seen in the left lower lobe, computed tomography scan Of the Abdominal Significant for Inflammatory Changes in the Cecum Likely Typhlitis, COVID-19 Testing Is Negative, Troponin Elevated 0.038 Objective - Vital Signs Vital signs: Vital Signs Temp 98.1 F 06/04/21 12:23 Pulse 108 H 06/04/21 12:23 Resp 17 06/04/21 12:23 BP 102/67 06/04/21 12:23 Pulse Ox 93 L 06/04/21 12:23 Intake & Output 06/03/21 06/04/21 06/04/21 18:59 06:59 18:59 Intake Total 340 Output Total 500 Balance 340 -500 Weight 53.977 kg Intake: IV 100 Intake, IV Titration 240 Amount Lactated Ringers 1,000 ml 240 @ 20 mls/hr IV .Q24H [facility] Rx#:[id number] Output: Urine 500 Other: Voiding Method Urinal Urinal Urinal Diaper Diaper Diaper # Voids 3 2 - Exam Constitutional General appearance: average body habitus, cooperative, disheveled, mild distress - EENT Eyes: EOMI, PERRLA Ears: bilateral: normal - Neck Neck: normal ROM Carotids: bilateral: upstroke normal Thyroid: bilateral: normal size - Respiratory Respiratory: bilateral: CTA - Cardiovascular Rhythm: regular Heart sounds: normal: S1, S2 - Gastrointestinal General gastrointestinal: decreased bowel sounds - Neurologic Neurologic: CNII-XII intact - Musculoskeletal Musculoskeletal: gait normal, generalized weakness, strength equal bilaterally - Psychiatric Psychiatric: A&O x's 3, appropriate affect, intact judgment & insight - Labs CBC & Chem 7: 06/04/21 09:28 06/04/21 09:28 Labs: Abnormal Lab Results - Last 24 Hours (Table) 06/04/21 06/04/21 Range/Units 09:28 09:28 WBC 16.8 H (3.8-10.6) k/uL RBC 2.61 L (4.30-5.90) m/uL Hgb 9.8 L (13.0-17.5) gm/dL Hct 28.5 L (39.0-53.0) % MCV 109.2 H (80.0-100.0) fL MCH 37.4 H (25.0-35.0) pg RDW 23.2 H (11.5-15.5) % Neutrophils # 15.4 H (1.3-7.7) k/uL Lymphocytes # 0.7 L (1.0-4.8) k/uL Macrocytosis Marked A Sodium 134 L (137-145) mmol/L Creatinine 0.56 L (0.66-1.25) mg/dL Total Bilirubin 1.7 H (0.2-1.3) mg/dL ALT 94 H (4-49) U/L Total Protein 5.5 L (6.3-8.2) g/dL Albumin 2.8 L (3.5-5.0) g/dL Assessment and Plan Assessment: Tiny bilateral pleural effusion due to poor oncotic pressure and protein calorie malnourishment and catabolic state Dysphagia related to isi esophagitis patient has been nystatin swish and swallow biopsy results are pending COPD with acute exacerbation Left lower lobe groundglass opacity Failure to thrive with history of weight loss macrocytic anemia Malnutrition protein calorie Inflammation tree change in cecum possible typhlitis Elevated troponin History of non-Hodgkin's lymphoma status post chemotherapy and remote past History of melanoma left arm and remote past as Plan: Lasix 1 dose Patient status post colonoscopy Continue oral Diflucan Monitor off of his steroids continue bronchodilator Workup and evaluation of anemia with endoscopy by surgical services Status post upper endoscopy however lower canceled due to poor prep Evaluation of typhlitis by surgery Patient is at high risk of the lung neoplasm would recommend a computed tomography scan of his chest in 4-6 months for left lower lobe groundglass opacity Further workup and evaluation of COPD as outpatient Time with Patient: Greater than 30
--- NOTE | 2021-06-04 16:42 | P.PN ---
Subjective Progress Note Date: 06/04/21 Principal diagnosis: failure to thrive, dysphagia, weak Objective - Vital Signs Vital signs: Vital Signs Temp 98.1 F 06/04/21 05:00 Pulse 111 H 06/04/21 05:00 Resp 16 06/04/21 05:00 BP 109/68 06/04/21 05:00 Pulse Ox 92 L 06/04/21 05:00 Intake & Output 06/03/21 06/04/21 06/04/21 18:59 06:59 18:59 Intake Total 340 Output Total 500 Balance 340 -500 Intake: IV 100 Intake, IV Titration 240 Amount Lactated Ringers 1,000 ml 240 @ 20 mls/hr IV .Q24H [facility] Rx#:[id number] Output: Urine 500 Other: Voiding Method Urinal Urinal Diaper Diaper # Voids 3 2 - Exam - Constitutional General appearance: average body habitus, cooperative, no acute distress - EENT Eyes: anicteric sclerae, EOMI ENT: hearing grossly normal, normal oropharynx - Neck Neck: no lymphadenopathy - Respiratory Respiratory: bilateral: CTA - Cardiovascular Rhythm: regular Heart sounds: normal: S1, S2 Abnormal Heart Sounds: no systolic murmur, no diastolic murmur, no rub, no S3 Gallop, no S4 Gallop, no click, no other leg Peripheral Edema: bilateral: None - Gastrointestinal General gastrointestinal: no absent bowel sounds, no decreased bowel sounds, no distended, no hepatomegaly, no hyperactive bowel sounds, normal bowel sounds, no organomegaly, no rigid, no scaphoid, soft, no splenomegaly, no tenderness, no umbilical hernia, no ventral hernia - Integumentary Integumentary: pale - Neurologic Neurologic: CNII-XII intact - Musculoskeletal Musculoskeletal: generalized weakness, strength lower weak, lle .< rle - Psychiatric Psychiatric: A&O x's 3, appropriate affect, intact judgment & insight - Labs CBC & Chem 7: 06/04/21 09:28 06/04/21 09:28 Labs: Abnormal Lab Results - Last 24 Hours (Table) 06/03/21 Range/Units 03:54 Creatinine 0.5 L (0.6-1.5) mg/dL BUN/Creatinine Ratio 21.35 H (12.00-20.00) Ratio Calcium 8.6 L (8.7-10.3) mg/dL AST 40 H (14-35) U/L ALT 98 H (10-49) U/L Total Protein 4.8 L (6.2-8.2) g/dL Albumin 2.8 L (3.8-4.9) g/dL Albumin/Globulin Ratio 1.42 L (1.60-3.17) g/dL Assessment and Plan (1) Thrombocytopenia Current Visit: Yes Status: Acute Code(s): D69.6 - THROMBOCYTOPENIA, UNSPECIFIED SNOMED Code(s): 382503727 (2) Anemia Current Visit: Yes Status: Acute Code(s): D64.9 - ANEMIA, UNSPECIFIED SNOMED Code(s): 713545329 (3) COPD (chronic obstructive pulmonary disease) Current Visit: Yes Status: Acute Code(s): J44.9 - CHRONIC OBSTRUCTIVE PULMONARY DISEASE, UNSPECIFIED SNOMED Code(s): 11131042 (4) Generalized weakness Current Visit: Yes Status: Acute Priority: High Code(s): R53.1 - WEAKNESS SNOMED Code(s): 76929172 (5) Macrocytic anemia Current Visit: Yes Status: Acute Priority: High Code(s): D53.9 - NUTRITIONAL ANEMIA, UNSPECIFIED SNOMED Code(s): 80844828 (6) Weight loss Current Visit: Yes Status: Acute Code(s): R63.4 - ABNORMAL WEIGHT LOSS SNOMED Code(s): 22961978 Plan: CT Brain Neg CT C/A/P Reviewed CBC is recovering, we will continue to await for pathology from recent biopsy for further recommendations. Repeat Chest xray status post colonoscopy PT/OT to follow. paresthesias and weakness appears ascending and nursing at bedside confirmed when attempting to sit in chair. Will ask neurology to evaluate for other etiologies
--- NOTE | 2021-06-04 16:43 | P.CNNES ---
History of Present Illness Consult date: 06/04/21 Requesting physician: Swapna Rubio Reason for Consult: Ascending weakness History of Present Illness: Patient is a 65-year-old male with history of significant weight loss, debility and history of multiple chronic substance abuse issues, came to the hospital on 05/24/2021 for weight loss and decreased appetite. Patient was admitted for generalized weakness, hypomagnesemia, weight loss, dehydration, cachexia, failure to thrive, COPD and anemia. Neurology is called for ascending weakness, rule out Guillain-Uribe syndrome. Patient and his daughter provided the history. Patient has developed progressive weight loss (70 pound), decreased appetite in the past 4 months. Around the same time (since January 2021) he also started developing symptoms of neuropathy with numbness and tingling in the hands and feet. It seems to be getting worse. He cannot grasp. The symptoms involved from toes up to the ankles and from fingertips up to the wrists bilaterally. It has got worse to the point that he cannot walk. He had a rapid decline. Just before arrival to the hospital, he fell 3 or 4 times in the previous couple days, and now he cannot walk at all. He did not lose consciousness, did not feel knees give out, but lost equilibrium. He says that he was not feeling his feet. They are which led to the fall. He has pins and needle sensation in the bottom of the feet. Prior to these 4 months, he used to walk, sometimes used cane for hip arthritis, but not for neuropathy. Only when his hip would act up, he would use a cane. He is to go for walking, driving and shopping. He denies any loss of control of bowels or bladder. No urgency. Patient had a computed tomography scan of head, which revealed cerebral atrophy, no acute intracranial abnormality. CT of abdomen palate showed correlate for ATS. Early distal small bowel obstruction is considered less likely. A suspicious sonographic transition is not identified. Moderate free fluid within the abdomen and pelvis. Inflammatory changes adjacent to the cecum. Correlate for typhilitis. Faint groundglass opacity present previously. Follow-up CTs chest in 6 months is recommended. Most recent chest x-ray from today showed COPD. Trace pleural effusion on the lateral view. Otherwise no focal infiltrates seen. Patient's blood test shows WBC 16.8, hemoglobin 9.8, elevated MCV 109.2. Platelets are normal 255. Chem-7 is normal. Patient's hepatic panel was mildly elevated, but now improving. AST is 44, ALT 94. Patient's troponin was borderline 0.038 on admission. B12 is 531, methylmalonic acid 0.14 on 05/27/2021. RBC folate 598. Protein electrophoresis showed gamma bridge suggestive of liver dysfunction. Patient's HIV is negative. Coronavirus PCR negative. Rheumatoid factor negative, immunoelectrophoresis shows no monoclonal paraprotein. Patient's esophageal biopsy was positive for Isi esophagitis. Patient has history of smoking on the average 2 pack per day for 40 years. He also used to drink fairly heavily, from a pint to fifth a day of haritha or whiskey. He has been sober since an of December 2020. He uses marijuana sometimes as he had a marijuana card. Does not use any drugs. Patient denies diabetes. Patient has not seen a doctor for 12 years, until he started seeing Dr. Gallo since March 2021. Patient was found to have significant anemia for which she has received blood transfusion. Patient also was diagnosed with lymphoma many many years ago for which he received chemo and radiation. Review of Systems As above in detail. Denies any chest pain shortness of breath, wheezing or cough. Denies any nausea vomiting. He did have some belly pain. Also his ta ilbone hurts a lot. Denies any double vision, loss of vision, hoarseness, sore throat, dysphagia. Patient has gait difficulty, arthritis, back pain. No problem with control of bowels or bladder. No fever or chills. No rash. No memory disturbance. Slightly hard of hearing. Past Medical History Past Medical History: Cancer, COPD, Hypertension Additional Past Medical History / Comment(s): melanoma and NHL History of Any Multi-Drug Resistant Organisms: None Reported Past Surgical History: Orthopedic Surgery Additional Past Surgical History / Comment(s): right hip preplacement Past Anesthesia/Blood Transfusion Reactions: No Reported Reaction Past Psychological History: Anxiety, Depression Smoking Status: Current every day smoker Past Alcohol Use History: None Reported Past Drug Use History: None Reported Medications and Allergies Home Medications Medication Instructions Recorded Confirmed Type No Known Home Medications 04/28/21 05/24/21 History Allergies Allergy/AdvReac Type Severity Reaction Status Date / Time latex Allergy Rash/Hives Verified 05/24/21 22:26 Penicillins Allergy Anaphylaxis Verified 05/24/21 22:26 strawberry Allergy Unknown Verified 05/24/21 22:26 Physical Examination - Vital Signs Vital Signs: Vital Signs Temp Pulse Pulse Pulse Resp BP Pulse Ox 06/04/21 12:23 98.1 F 108 H 17 102/67 93 L 06/04/21 12:12 96 06/04/21 12:02 96 06/04/21 09:15 98.2 F 77 18 122/67 06/04/21 08:40 111 H 102 H 16 06/04/21 05:00 98.1 F 111 H 16 109/68 92 L 06/03/21 20:40 98.1 F 112 H 16 101/62 93 L 06/03/21 20:09 108 H 06/03/21 20:00 112 H 16 06/03/21 19:55 108 H Intake and Output 06/03/21 06/04/21 06/04/21 22:59 06:59 14:59 Intake Total 240 Output Total 500 Balance 240 -500 Intake: Intake, IV Titration 240 Amount Lactated Ringers 1,000 ml 240 @ 20 mls/hr IV .Q24H [facility] Rx#:[id number] Output: Urine 500 Other: Voiding Method Urinal Urinal Diaper Diaper # Voids 0 2 Weight 53.977 kg Patient is an elderly male, in no acute distress. Patient is alert awake oriented to time place and person. He knows it is June 2021 that he is in [facility] in [place]. Speech and language functions are normal. Attention, concentration and fund of knowledge is adequate. No aphasia or dysarthria. On cranial examination, pupils are round and reacting to light, visual lee are full on confrontation, extraocular muscles are intact with no nystagmus. Face is symmetric, tongue protrudes to the midline. Palatal elevation and sensation normal, hearing and shoulder shrug normal, facial sensation normal. Shoulder shrug normal. On muscle strength testing, he has symmetric weakness of bilateral upper and low er extremities. The overall strength is 4 diffusely in bilateral upper extremities proximally and distally. In the lower limbs his hip flexion is about 1, hip adduction and abduction cannot be assessed because patient cannot flex his hips. He was able to give some resistance for the hip abduction > hip adduction. Knee extension is 3 to 4-, ankle dorsiflexion 4 bilaterally. Deep tendon reflexes are completely absent in the arms and legs and plantars are flat. Sensory to touch is decreased from toes up to the groin bilaterally. In the arms it was decreased mainly in the hands up to the shoulder. Vibration is absent in the toes, ankles and the knees and the fingers. Joint position sense is absent in the toes. Temperature patient was feeling less distally in the arms and legs. Cerebellar function showed significant ataxia for bsolra-ws-ivsc testing bilaterally. Patient could not perform xsvf-qj-bxke testing bilaterally. Tone of muscles is decreased and bulk of muscles normal also decreased. Gait not able to be checked. On general examination, there is no carotid bruit or murmur, S1-S2 audible. Abdomen is soft nontender. Chest is clear. Peripheral pulses are present. Very mild peripheral edema. Patient does have some ecchymosis in his arms and bruising. Results - Laboratory Findings CBC and BMP: 06/04/21 09:28 06/04/21 09:28 Abnormal Lab Findings: Abnormal Labs 05/24/21 05/24/21 05/24/21 22:26 22:26 22:26 WBC RBC 1.70 L Hgb 6.9 L* D Hct 20.0 L MCV 117.3 H MCH 40.6 H RDW 20.3 H Plt Count Neutrophils # Lymphocytes # Macrocytosis Marked A INR APTT 20.9 L Sodium 132 L Potassium Chloride Carbon Dioxide Creatinine 0.53 L BUN/Creatinine Ratio Glucose 115 H Calcium Magnesium 1.4 L TIBC % Saturation Transferrin Ferritin Total Bilirubin 1.7 H AST ALT Troponin I Total Protein Albumin 3.2 L Albumin (PEP) Albumin/Globulin Ratio Egxej-1-Wvgbgzgwm Urine Protein Urine Glucose (UA) Urine Ketones Urine Bilirubin Free [place] LC, Quant Free Lambda LC, Quant Crossmatch 05/24/21 05/24/21 05/25/21 22:26 23:52 06:25 WBC RBC 2.75 L Hgb 9.7 L D Hct 28.7 L MCV 104.3 H D MCH 35.3 H RDW 24.2 H Plt Count Neutrophils # Lymphocytes # 0.3 L Macrocytosis Marked A INR APTT Sodium Potassium Chloride Carbon Dioxide Creatinine BUN/Creatinine Ratio Glucose Calcium Magnesium TIBC % Saturation Transferrin Ferritin Total Bilirubin AST ALT Troponin I 0.038 H* Total Protein Albumin Albumin (PEP) Albumin/Globulin Ratio Ivxvo-8-Hhdkdmgqv Urine Protein Urine Glucose (UA) Urine Ketones Urine Bilirubin Free [place] LC, Quant Free Lambda LC, Quant Crossmatch See Detail 05/25/21 05/25/21 05/26/21 06:25 07:33 03:48 WBC RBC Hgb Hct MCV MCH RDW Plt Count Neutrophils # Lymphocytes # Macrocytosis INR APTT Sodium 134 L Potassium Chloride Carbon Dioxide Creatinine 0.47 L BUN/Creatinine Ratio Glucose 174 H Calcium Magnesium TIBC 114 L % Saturation 83.47 H Transferrin 81.3 L Ferritin 2112.0 H Total Bilirubin 2.4 H AST ALT Troponin I Total Protein Albumin 3.1 L Albumin (PEP) Albumin/Globulin Ratio Ypdct-7-Pkbnedzkq Urine Protein Trace H Urine Glucose (UA) Trace H Urine Ketones 1+ H Urine Bilirubin 1+ H Free [place] LC, Quant Free Lambda LC, Quant Crossmatch 05/27/21 05/27/21 05/27/21 05:57 05:57 05:57 WBC RBC 2.76 L Hgb 9.7 L Hct 28.5 L MCV 103.3 H MCH 35.1 H RDW 23.9 H Plt Count Neutrophils # 8.6 H Lymphocytes # 0.2 L Macrocytosis Marked A INR APTT Sodium 136 L Potassium Chloride Carbon Dioxide Creatinine 0.49 L BUN/Creatinine Ratio Glucose 198 H Calcium Magnesium TIBC % Saturation Transferrin Ferritin Total Bilirubin 1.5 H AST ALT Troponin I Total Protein Albumin 3.2 L Albumin (PEP) 3.12 L Albumin/Globulin Ratio Hmjuf-8-Sdfxhygqm 0.48 L Urine Protein Urine Glucose (UA) Urine Ketones Urine Bilirubin Free [place] LC, Quant 5.55 H Free Lambda LC, Quant 4.40 H Crossmatch 05/28/21 05/28/21 05/29/21 07:31 07:31 07:38 WBC RBC 2.18 L 2.47 L Hgb 7.9 L D 8.8 L Hct 22.7 L 25.9 L MCV 104.2 H 104.8 H MCH 36.0 H 35.5 H RDW 23.7 H 23.5 H Plt Count 119 L 107 L Neutrophils # Lymphocytes # 0.4 L Macrocytosis Marked A Marked A INR APTT Sodium 135 L Potassium 3.2 L Chloride 108 H Carbon Dioxide Creatinine 0.40 L BUN/Creatinine Ratio Glucose 146 H Calcium Magnesium TIBC % Saturation Transferrin Ferritin Total Bilirubin AST ALT Troponin I Total Protein Albumin Albumin (PEP) Albumin/Globulin Ratio Huolw-5-Knogmrfht Urine Protein Urine Glucose (UA) Urine Ketones Urine Bilirubin Free [place] LC, Quant Free Lambda LC, Quant Crossmatch 05/29/21 05/30/21 05/30/21 07:38 13:25 13:25 WBC 18.9 H RBC 2.89 L Hgb 10.2 L Hct 30.7 L MCV 106.2 H MCH 35.4 H RDW 23.5 H Plt Count 131 L Neutrophils # 18.0 H Lymphocytes # 0.4 L Macrocytosis Marked A INR APTT Sodium 135 L Potassium 3.3 L Chloride 108 H 109 H Carbon Dioxide 18 L Creatinine 0.42 L 0.51 L BUN/Creatinine Ratio Glucose 134 H 170 H Calcium Magnesium 1.4 L TIBC % Saturation Transferrin Ferritin Total Bilirubin AST 85 H ALT 92 H Troponin I Total Protein Albumin 3.2 L Albumin (PEP) Albumin/Globulin Ratio Uizbg-5-Qcsvgjxly Urine Protein Urine Glucose (UA) Urine Ketones Urine Bilirubin Free [place] LC, Quant Free Lambda LC, Quant Crossmatch 05/30/21 05/31/21 05/31/21 13:25 07:39 07:39 WBC 13.8 H RBC 2.36 L Hgb 8.5 L D Hct 24.5 L MCV 103.7 H MCH 36.1 H RDW 24.9 H Plt Count 107 L Neutrophils # 12.9 H Lymphocytes # 0.5 L Macrocytosis Marked A INR 1.2 H APTT Sodium Potassium Chloride Carbon Dioxide 20.9 L Creatinine BUN/Creatinine Ratio Glucose 129 H Calcium 8.2 L Magnesium TIBC % Saturation Transferrin Ferritin Total Bilirubin AST 54 H ALT 90 H Troponin I Total Protein 4.8 L Albumin 2.8 L Albumin (PEP) Albumin/Globulin Ratio 1.40 L Bohnv-4-Tvifrbyaw Urine Protein Urine Glucose (UA) Urine Ketones Urine Bilirubin Free [place] LC, Quant Free Lambda LC, Quant Crossmatch 06/01/21 06/01/21 06/02/21 11:49 11:49 06:05 WBC 16.4 H 16.5 H RBC 2.60 L 2.40 L Hgb 9.3 L 8.7 L Hct 27.1 L 25.5 L MCV 104.5 H 106.0 H MCH 35.7 H 36.3 H RDW 25.2 H 23.8 H Plt Count 120 L 126 L Neutrophils # 15.7 H 15.9 H Lymphocytes # 0.3 L 0.2 L Macrocytosis Marked A Marked A INR APTT Sodium 132 L Potassium Chloride Carbon Dioxide Creatinine 0.44 L BUN/Creatinine Ratio Glucose 130 H Calcium Magnesium TIBC % Saturation Transferrin Ferritin Total Bilirubin AST 73 H ALT 110 H Troponin I Total Protein 5.4 L Albumin 2.7 L Albumin (PEP) Albumin/Globulin Ratio Hnjuq-1-Xdrwuaqps Urine Protein Urine Glucose (UA) Urine Ketones Urine Bilirubin Free [place] LC, Quant Free Lambda LC, Quant Crossmatch 06/02/21 06/03/21 06/03/21 06:05 03:54 03:54 WBC 16.3 H RBC 2.53 L Hgb 9.0 L Hct 26.6 L MCV 105.3 H MCH 35.5 H RDW 24.4 H Plt Count Neutrophils # 14.9 H Lymphocytes # 0.7 L Macrocytosis Marked A INR APTT Sodium Potassium Chloride Carbon Dioxide Creatinine 0.5 L 0.5 L BUN/Creatinine Ratio 21.20 H 21.35 H Glucose 143 H Calcium 8.5 L 8.6 L Magnesium TIBC % Saturation Transferrin Ferritin Total Bilirubin AST 46 H 40 H ALT 102 H 98 H Troponin I Total Protein 4.8 L 4.8 L Albumin 2.9 L 2.8 L Albumin (PEP) Albumin/Globulin Ratio 1.53 L 1.42 L Vrjjm-2-Mfsdacfji Urine Protein Urine Glucose (UA) Urine Ketones Urine Bilirubin Free [place] LC, Quant Free Lambda LC, Quant Crossmatch 06/04/21 06/04/21 09:28 09:28 WBC 16.8 H RBC 2.61 L Hgb 9.8 L Hct 28.5 L MCV 109.2 H MCH 37.4 H RDW 23.2 H Plt Count Neutrophils # 15.4 H Lymphocytes # 0.7 L Macrocytosis Marked A INR APTT Sodium 134 L Potassium Chloride Carbon Dioxide Creatinine 0.56 L BUN/Creatinine Ratio Glucose Calcium Magnesium TIBC % Saturation Transferrin Ferritin Total Bilirubin 1.7 H AST ALT 94 H Troponin I Total Protein 5.5 L Albumin 2.8 L Albumin (PEP) Albumin/Globulin Ratio Ccwzj-2-Losdyvkhz Urine Protein Urine Glucose (UA) Urine Ketones Urine Bilirubin Free [place] LC, Quant Free Lambda LC, Quant Crossmatch Assessment and Plan Assessment: * 65-year-old male with 4 month history of progressive weakness of the legs > arms with severe sensory dysfunction and sensory ataxia. Patient is completely areflexic. Rule out CIDP, or paraneoplastic syndrome. Rule out other nutritional problems from chronic alcoholism. Duration of symptoms (progressive for 4 months) essentially rules out Sheri Uribe syndrome. * History of significant alcoholism, sober since December 2020. * Progressive weight loss, 70 pounds over the last 4 months. Exact cause remains uncertain. * History of non-Hodgkin's lymphoma (? 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 Exact cause is uncertain. We will check lumbar puncture to rule out elevated proteins, which may suggest inflammatory component like CIDP. * MRI of the lumbar spine with and without contrast to evaluate for any enhancement of the nerve roots, which may also suggest inflammation. * We will check hemoglobin A1c, Sjogren's antibodies, paraneoplastic panel, Lyme titer, creatinine kinase, B6, serum copper, ceruloplasmin, acetylcholine receptor antibodies * B12 is 531, methylmalonic acid 0.14 on 05/27/2021. RBC folate also normal 598. Protein electrophoresis showed beta/gamma bridge suggestive of liver dysfunction. Patient's HIV is negative. Coronavirus PCR negative. Rheumatoid factor negative, immunoelectrophoresis shows no monoclonal paraprotein. * Patient definitely will need EMG and nerve conduction studies of upper and lower extremities as an outpatient to evaluate for demyelinating versus axonal type of polyneuropathy as an outpatient. * We will follow. Time with Patient: Greater than 30
[2021-06-04] MEDS: LACTATED RINGERS 1,000 ML IV SCH ×2 (16:44→16:45)
--- NOTE | 2021-06-05 00:17 | PN ---
PROGRESS NOTE 65-year-old white male, weakness, failure to thrive, malnutrition, induced anemia, unable to do a second colonoscopy. Discussed CT scan of the chest with family. Patient because he cannot move his legs. He is going to go to the custodial for PT/OT [place] #1, [place] #2. Vital signs stable, afebrile. Cardiovascular S1, S2. Lungs clear. GI soft. Hematology negative Homans. ASSESSMENT: 1. Generalized weakness. 2. Failure to thrive. 3. Malnutrition. 4. Induced anemia. 5. Generalized weakness. Continue current treatment. Possible discharge home to custodial tomorrow for PT/OT due to bilateral leg weakness and malnutrition, severe COPD and nicotine addiction. MMODL / IJN: [id number] /
[2021-06-05 06:39] LABS: Anisocytosis Moderate; Basophils % (A) 0 %; Eosinophils # (A) 0.1 k/uL (0-0.7); Eosinophils % (A) 0 %; HCT 24.5 % (39.0-53.0); HGB 8.3 gm/dL (13.0-17.5); Lymphocytes # (A) 0.6 k/uL (1.0-4.8); Lymphocytes % (A) 4 %; MCHC 33.8 g/dL (31.0-37.0); MCV 106.3 fL (80.0-100.0); Macrocytosis Marked; Mean Platelet Volume 8.2; Monocytes # (A) 0.3 k/uL (0-1.0); Monocytes % (A) 2 %; Neutrophils # (A) 13.2 k/uL (1.3-7.7); Neutrophils % (A) 93 %; Platelet Count 239 k/uL (150-450); RBC 2.31 m/uL (4.30-5.90); RDW 23.9 % (11.5-15.5); WBC 14.2 k/uL (3.8-10.6)
[2021-06-05] MEDS: NICOTINE 21MG/24HR PATCH TRANSDERM SCH (08:08)
[2021-06-05] MEDS: NYSTATIN 100,000 UNIT/ML SUSP 500,000 UNIT/5 ML CUP PO SCH ×4 (08:08→20:49)
[2021-06-05] MEDS: FLUCONAZOLE 100 MG TAB PO SCH (08:08)
[2021-06-05] MEDS: MULTIVITAMINS, THERA 1 EACH TAB PO SCH (08:08)
[2021-06-05] MEDS: IPRATROPIUM-ALBUTEROL 3 ML NEB INHALATION SCH ×4 (08:10→19:13)
[2021-06-05 11:18] LABS: Rouleaux Present
--- NOTE | 2021-06-05 11:42 | DS ---
DISCHARGE SUMMARY DISCHARGE MEDICATIONS: 1. Diflucan 100 mg daily. 2. Nicotine patch 21 mg daily. 3. DuoNeb q.i.d. 4. Multivitamin daily. 5. Nystatin 5 mL q.i.d. 6. Protonix 40 mg daily. CONDITION: Stable. PROGNOSIS: Guarded. Ambulate as tolerated. DISCHARGE DIAGNOSES: 1. Anemia. 2. Cachexia. 3. Peptic ulcer disease. 4. Chronic obstructive pulmonary disease. 5. Dehydration. 6. Protein-calorie malnutrition. 7. Generalized weakness. 8. Degenerative disk disease. 9. 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 10.Neuropathy secondary to severe malnutrition. 11.History of alcoholism. 12.Nicotine addiction. Hemoglobin at discharge is 8.3. Will have to monitor hemoglobin every 2-3 days for a week. White count is a little bit elevated. Will monitor that, also. Magnesium is 1.9. Total bilirubin is elevated at 1.9. Liver enzymes are high. Liver inflammation, but mainly he had a failed colonoscopy x2, and one EGD x1 showing peptic ulcer disease. Neurology saw him for generalized weakness. He had scopes done by Dr. Navarro. Neurology's recommendations include progressive weakness of the legs with severe sensory dysfunction, sensory ataxia was not sure if he had syndrome or CIDP. Chronic alcoholism essential to rule out Guillain-[place]. Significant alcoholism history. -pound weight loss, unclear etiology. History of non-Hodgkin's lymphoma. History of nicotine addiction, marijuana use. We are going to do a lumbar puncture prior to discharge, MRI of the lumbar spine with and without contrast. antibodies panel, Lyme titer, B6 serum copper receptor, B12 level, folate. Negative HIV. Coronavirus negative. Rheumatoid is negative. Electrophoresis showed no monoclonal paraprotein. Will need a needle EMG nerve conduction study as an outpatient, do the MRI and spinal tap prior to discharge from the hospital. MMODL / IJN: [id number] /
[2021-06-05] MEDS: FOLIC ACID 1 MG TAB PO SCH (11:48)
[2021-06-05] MEDS: PANTOPRAZOLE 40 MG/10 ML VIAL IV SCH (12:06)
[2021-06-05] MEDS: LACTATED RINGERS 1,000 ML IV SCH (12:07)
--- NOTE | 2021-06-05 13:34 | P.PN ---
Subjective Progress Note Date: 06/05/21 Offers no new complaint. Laying comfortably in the bed. No change. Objective - Vital Signs Vital signs: Vital Signs Temp 98.1 F 06/05/21 11:45 Pulse 108 H 06/05/21 11:47 Resp 17 06/05/21 11:45 BP 124/78 06/05/21 11:45 Pulse Ox 93 L 06/05/21 11:45 Intake & Output 06/04/21 06/05/21 06/05/21 18:59 06:59 18:59 Intake Total 240 480 Output Total 500 450 600 Balance -260 30 -600 Weight 53.977 kg Intake: Intake, IV Titration 240 Amount Lactated Ringers 1,000 ml 240 @ 20 mls/hr IV .Q24H [facility] Rx#:[id number] Oral 240 240 Output: Urine 500 450 600 Other: Voiding Method Urinal Urinal Urinal Diaper Diaper Diaper # Voids 3 - Exam Essentially unchanged. - Labs CBC & Chem 7: 06/05/21 05:49 06/04/21 09:28 Labs: Abnormal Lab Results - Last 24 Hours (Table) 06/04/21 06/05/21 Range/Units 15:30 05:49 WBC 14.2 H (3.8-10.6) k/uL RBC 2.31 L (4.30-5.90) m/uL Hgb 8.3 L D (13.0-17.5) gm/dL Hct 24.5 L (39.0-53.0) % MCV 106.3 H (80.0-100.0) fL MCH 36.0 H (25.0-35.0) pg RDW 23.9 H (11.5-15.5) % Neutrophils # 13.2 H (1.3-7.7) k/uL Lymphocytes # 0.6 L (1.0-4.8) k/uL Macrocytosis Marked A Ceruloplasmin 17.7 L (20.0-60.0) mg/dL Assessment and Plan Assessment: * 65-year-old male with 4 month history of progressive weakness of the legs > arms with severe sensory dysfunction and sensory ataxia. Patient is completely areflexic. Rule out CIDP, or paraneoplastic syndrome. Rule out other nutritional problems from chronic alcoholism. Duration of symptoms (progressive for 4 months) essentially rules out Sheri Uribe syndrome. * History of significant alcoholism, sober since December 2020. * Progressive weight loss, 70 pounds over the last 4 months. Exact cause remains uncertain. * History of non-Hodgkin's lymphoma (? 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 Exact cause is uncertain. Await lumbar puncture to rule out elevated proteins, which may suggest inflammatory component like CIDP. * MRI of the lumbar spine with and without contrast has been completed, on my review shows degenerative changes, otherwise no significant pathology. No significant enhancement. Await official etiology report. * Hemoglobin A1c pending, Sjogren's antibodies, paraneoplastic panel, Lyme titer all pending, creatinine kinase, B6, serum copper, ceruloplasmin is slightly low 17.7 (20-60), acetylcholine receptor antibodies pending. Folate is low 5.10. We will start folate replacement 1 mg daily. * B12 is 531, methylmalonic acid 0.14 on 05/27/2021. RBC folate also normal 598. Protein electrophoresis showed beta/gamma bridge suggestive of liver dysfunction. Patient's HIV is negative. Coronavirus PCR negative. Rheumatoid factor negative, immunoelectrophoresis shows no monoclonal paraprotein. * Patient definitely will need EMG and nerve conduction studies of upper and lower extremities as an outpatient to evaluate for demyelinating versus axonal type of polyneuropathy as an outpatient.
[2021-06-05] MEDS ORDERED: LACTATED RINGERS 1,000 ML IV ONE (13:40)
--- NOTE | 2021-06-05 14:06 | P.PN ---
<Roxy Everett - Last Filed: 06/05/21 14:05> Subjective Progress Note Date: 06/05/21 CHIEF COMPLAINT: Weakness, failure to thrive HISTORY OF PRESENT ILLNESS: Patient is a 65-year-old male with evidence of anemia on admission as well as 70 pounds weight loss and evidence of failure to thrive. Patient is status post EGD showing possible candidiasis esophagitis. Patient's repeat colonoscopy was also a poor prep however, it did demonstrate diverticulosis and external hemorrhoids. No evidence of active bleeding. It is presumed the patient may have bled from external hemorrhoids. Patient is on Diflucan and nystatin swish and swallow for his candidiasis esophagitis. He denies any abdominal pain. Patient reports that it is getting easier to eat. He is afebrile. Due to bilateral leg weakness and difficult walking. He is seen by neurology and they've ordered an MRI of the lumbar spine. PHYSICAL EXAM: VITAL SIGNS: Reviewed. GENERAL: Well-developed in no acute distress. HEENT: No sclera icterus. Extraocular movements grossly intact. Moist buccal mucosa. Head is atraumatic, normocephalic. ABDOMEN: Soft. Nondistended. Nontender. NEUROLOGIC: Alert and oriented. Cranial nerves II through XII grossly intact. Flat affect ASSESSMENT: 1. Moderate protein calorie malnutrition, failure to thrive and 70 pound weight loss. Status post EGD showing possible candidiasis esophagitis. 2. Computed tomography scan showing inflammatory changes adjacent to cecum correlate for typhlitis. No need for antibiotics. Patient has no abdominal pain and white count normal. Doubt typhlitis 3. Anemia 4. Colonoscopy with poor prep evidence of diverticulosis and external hemorrhoids PLAN: -Continue supportive care -Continue regular diet -Continue nystatin swish and swallow and Diflucan -Continue neurology workup for bilateral lower extremity weakness Physician Delivery Aide note has been reviewed by physician. Signing provider agrees with the documented findings, assessment, and plan of care. Objective - Vital Signs Vital signs: Vital Signs Temp 98.2 F 06/05/21 13:35 Pulse 107 H 06/05/21 13:35 Resp 16 06/05/21 13:35 BP 112/66 06/05/21 13:35 Pulse Ox 96 06/05/21 13:35 Intake & Output 11/03/21 11/04/21 11/04/21 18:59 06:59 18:59 Intake Total 240 480 Output Total 500 450 600 Balance -260 30 -600 Weight 53.977 kg Intake: Intake, IV Titration 240 Amount Lactated Ringers 1,000 ml 240 @ 20 mls/hr IV .Q24H [facility] Rx#:[id number] Oral 240 240 Output: Urine 500 450 600 Other: Voiding Method Urinal Urinal Urinal Diaper Diaper Diaper # Voids 3 - Labs CBC & Chem 7: 06/05/21 05:49 06/04/21 09:28 Labs: Abnormal Lab Results - Last 24 Hours (Table) 06/04/21 06/05/21 Range/Units 15:30 05:49 WBC 14.2 H (3.8-10.6) k/uL RBC 2.31 L (4.30-5.90) m/uL Hgb 8.3 L D (13.0-17.5) gm/dL Hct 24.5 L (39.0-53.0) % MCV 106.3 H (80.0-100.0) fL MCH 36.0 H (25.0-35.0) pg RDW 23.9 H (11.5-15.5) % Neutrophils # 13.2 H (1.3-7.7) k/uL Lymphocytes # 0.6 L (1.0-4.8) k/uL Macrocytosis Marked A Ceruloplasmin 17.7 L (20.0-60.0) mg/dL <Maximiliano Reilly - Last Filed: 06/05/21 16:42> Objective - Vital Signs Vital signs: Vital Signs Temp 98.2 F 06/05/21 13:35 Pulse 107 H 06/05/21 13:35 Resp 16 06/05/21 13:35 BP 112/66 06/05/21 13:35 Pulse Ox 96 06/05/21 13:35 Intake & Output 06/04/21 06/05/21 06/05/21 18:59 06:59 18:59 Intake Total 240 480 250 Output Total 500 450 600 Balance -260 30 -350 Weight 53.977 kg Intake: IV 250 Intake, IV Titration 240 Amount Lactated Ringers 1,000 ml 240 @ 20 mls/hr IV .Q24H [facility] Rx#:[id number] Oral 240 240 Output: Urine 500 450 600 Other: Voiding Method Urinal Urinal Urinal Diaper Diaper Diaper # Voids 3 - Labs CBC & Chem 7: 06/05/21 05:49 06/05/21 05:49 Labs: Abnormal Lab Results - Last 24 Hours (Table) 06/04/21 06/05/21 06/05/21 Range/Units 15:30 05:49 05:49 WBC 14.2 H (3.8-10.6) k/uL RBC 2.31 L (4.30-5.90) m/uL Hgb 8.3 L D (13.0-17.5) gm/dL Hct 24.5 L (39.0-53.0) % MCV 106.3 H (80.0-100.0) fL MCH 36.0 H (25.0-35.0) pg RDW 23.9 H (11.5-15.5) % Neutrophils # 13.2 H (1.3-7.7) k/uL Lymphocytes # 0.6 L (1.0-4.8) k/uL Macrocytosis Marked A BUN/Creatinine Ratio 20.28 H (12.00-20.00) Ratio Glucose 119 H (70-110) mg/dL Calcium 8.3 L (8.7-10.3) mg/dL ALT 67 H (10-49) U/L Total Protein 4.7 L (6.2-8.2) g/dL Albumin 2.8 L (3.8-4.9) g/dL Albumin/Globulin Ratio 1.49 L (1.60-3.17) g/dL Ceruloplasmin 17.7 L (20.0-60.0) mg/dL
--- NOTE | 2021-06-05 14:44 | P.PCN ---
Date of Procedure: 06/05/21 Surgeon: Gian Ponce Pathology: none sent Condition: stable Disposition: PACU Description of Procedure: Procedure=lumbar puncture . Preoperative diagnoses= Weakness and Parasthesia in LE, R/O CIDP Postoperative diagnosis= same as above Anesthesia= IV sedation with Versed and local lidocaine infiltration 1% 2 mL for skin and subcu infiltration. Condition= stable. Complications=none. Indication for the procedure: The patient was referred to us by her neurologist for diagnostic lumbar puncture to rule out multiple sclerosis. procedure risk and benefits and alternatives discussed with the patient and she was agreeable to proceeding with it. Description of the procedure=the patient was brought into the procedure room and placed in the left lateral position , monitors applied, the back prepped with chlorhexidine , skin was localized with 1% lidocaine, then 22-gauge quinckie Needle advanced slowly at L3-4 interlaminar space to get access to the intrathecal space. The needle bevel turned 180 before entering the thecal sac to decrease the risk of postdural puncture headache. Cerebrospinal fluid was clear with no heme. Only one attempt was needed. No paresthesia was encountered during this procedure .A total of 6 mL of clear cerebrospinal fluid were collected in 4 different tubes, the needle removed, Band-Aid applied , patient tolerated the procedure well without any complications. Further management as per his neurologist.
[2021-06-05 15:49] LABS: African American GFR (CKD) 126.5 (60.0-200.0); Albumin 2.8 g/dL (3.8-4.9); Albumin/Globulin Ratio 1.49 (1.60-3.17); Anion Gap 10.8 mmol/L (4.00-12.00); BUN/Creat Ratio 20.28 Ratio (12.00-20.00); Blood Urea Nitrogen 11.6 mg/dL (9.0-27.0); Calcium 8.3 mg/dL (8.7-10.3); Carbon Dioxide 24.2 mmol/L (21.6-31.8); Globulin 1.9 g/dL (1.6-3.3); Magnesium 1.8 mg/dL (1.5-2.4); Non-African American GFR(CKD) 109.1 (60.0-200.0); Potassium 3.7 mmol/L (3.5-5.5); Total Bilirubin 1.1 mg/dL (0.30-1.20); Total Protein 4.7 g/dL (6.2-8.2)
--- NOTE | 2021-06-05 16:08 | MR ---
EXAMINATION TYPE: MR lumbar spine wo/w con DATE OF EXAM: 06/05/2021 COMPARISON: For body CT May 26, 2021 HISTORY: Leg weakness, r/o nerve root enhancement, back pain TECHNIQUE: Multiplanar, multisequence images of the lumbar spine is performed without and with IV contrast, util izing 5.5ml mL intravenous Gadavist FINDINGS: Sagittal images of the lumbar spine show vertebral body heights and alignment to appear sta ble and satisfactory. Stable scoliotic curvature is present. Multilevel disc desiccation. Moderate d isc space narrowing and anterior spurring right L3-L4 and left L4-L5 levels. The conus medullaris is normal in position and signal ending mid L1 level. The bone marrow signal intensity is overall diffu sely low in T1 and T2 signal without corresponding diffuse sclerosis or lytic appearance on CT. Corre late for underlying myeloproliferative disorder. No suspicious enhancement including lumbosacral nerv e root enhancement. No suspicious clumping of lumbosacral nerve roots. Axial images show T12-L1 through L2-L3 level to appear within normal limits. Axial images at L3-L4 levels with polz-ao-kxuarill broad-based bulge mildly effacing the anterior the anabel sac and causing tddz-pr-rxyfsvlw right-sided and anterior inferior neural foraminal narrowing due to right foraminal herniation component. Gsbe-ht-lzxvilfs bilateral facet arthropathy is seen. Axial images at L4-L5 level show pwxc-ys-fmlvwmsx broad disc bulge mildly effacing anterior thecal sa c. There is mild to moderate facet arthropathy bilaterally. Asymmetric moderate to severe right-sided neural foraminal narrowing due to right lateral component likely effaces the extraforaminal right L4 nerve. Axial images at the L5-S1 levels with xiaa-bz-naparpxh facet arthropathy bilaterally. Focal central d isc protrusion without spinal canal is preserved and there is increased epidural fat. There is asymme tric moderate left-sided neural foraminal narrowing along the inferior aspect of the left L5 nerve sa gittal image 3. IMPRESSION: No suspicious enhancing lumbosacral nerve roots. Scoliotic curvature with degenerative ch anges in the mid to lower lumbar spine as detailed above. Suspect effacement of the right L4 and left L5 nerves. Correlate clinically.
[2021-06-05 18:59] LABS: Glucose,CSF 60 mg/dL (40-70); Total Protein,CSF 60 mg/dL (12-60)
[2021-06-05 20:05] LABS: Creatine Kinase 20 U/L (35-257)
[2021-06-05 20:40] LABS: Appearance,CSF Clear
[2021-06-05 20:41] LABS: CSF Tube Number 4; Nucleated Cells, CSF 0 u/L (0-5); Red Blood Cell, CSF Crenated 0 %; Red Blood Cell, CSF Fresh 100 %; Red Blood Cell,CSF 14 u/L (0-10)
[2021-06-06 07:10] LABS: Anisocytosis Moderate; Basophils % (A) 0 %; Eosinophils # (A) 0.1 k/uL (0-0.7); Eosinophils % (A) 1 %; HCT 24.6 % (39.0-53.0); HGB 7.9 gm/dL (13.0-17.5); Lymphocytes # (A) 0.7 k/uL (1.0-4.8); Lymphocytes % (A) 7 %; MCH 35.2 pg (25.0-35.0); MCHC 32.1 g/dL (31.0-37.0); MCV 109.4 fL (80.0-100.0); Macrocytosis Marked; Mean Platelet Volume 7.9; Monocytes # (A) 0.3 k/uL (0-1.0); Monocytes % (A) 3 %; Neutrophils # (A) 8.8 k/uL (1.3-7.7); Neutrophils % (A) 88 %; Platelet Count 265 k/uL (150-450); RBC 2.24 m/uL (4.30-5.90); RDW 22.2 % (11.5-15.5)
[2021-06-06] MEDS: NICOTINE 21MG/24HR PATCH TRANSDERM SCH (08:03)
[2021-06-06] MEDS: PANTOPRAZOLE 40 MG TABLET PO SCH (08:03)
[2021-06-06] MEDS: NYSTATIN 100,000 UNIT/ML SUSP 500,000 UNIT/5 ML CUP PO SCH ×4 (08:03→21:18)
[2021-06-06] MEDS: MULTIVITAMINS, THERA 1 EACH TAB PO SCH (08:03)
[2021-06-06] MEDS: FOLIC ACID 1 MG TAB PO SCH (08:03)
[2021-06-06] MEDS: IPRATROPIUM-ALBUTEROL 3 ML NEB INHALATION SCH ×4 (08:09→18:53)
[2021-06-06] MEDS: FLUCONAZOLE 100 MG TAB PO SCH (09:00)
[2021-06-06] MEDS: TAMSULOSIN 0.4 MG CAP.ER.24H PO SCH (09:00)
--- NOTE | 2021-06-06 14:57 | P.PN ---
<Roxy Eevrett - Last Filed: 06/06/21 14:57> Subjective Progress Note Date: 06/06/21 CHIEF COMPLAINT: Weakness, failure to thrive HISTORY OF PRESENT ILLNESS: Patient is a 65-year-old male with evidence of anemia on admission as well as 70 pounds weight loss and evidence of failure to thrive. Patient is status post EGD showing possible candidiasis esophagitis. Patient's repeat colonoscopy was also a poor prep however, it did demonstrate diverticulosis and external hemorrhoids. No evidence of active bleeding. It is presumed the patient may have bled from external hemorrhoids. Patient is on Diflucan and nystatin swish and swallow for his candidiasis esophagitis. He denies any abdominal pain. Patient reports that it is getting easier to eat. Patient's hemoglobin did drop further today to 7.9. He's he reports no bowel movements yesterday. Last bowel movement was on Wednesday and reports no blood in stool. Denies any nausea or vomiting. Afebrile. WBC normalized at 10.0 Hgb 7.9 platelets 265 patient had lumbar puncture completed yesterday and is undergoing neuro workup due to his bilateral lower extremity weakness. Patient had MRI of the lumbar spine completed yesterday. PHYSICAL EXAM: VITAL SIGNS: Reviewed. GENERAL: Well-developed in no acute distress. HEENT: No sclera icterus. Extraocular movements grossly intact. Moist buccal mucosa. Head is atraumatic, normocephalic. ABDOMEN: Soft. Nondistended. Nontender. NEUROLOGIC: Alert and oriented. Cranial nerves II through XII grossly intact. ASSESSMENT: 1. Moderate protein calorie malnutrition, failure to thrive and 70 pound weight loss. Status post EGD showing possible candidiasis esophagitis. 2. Computed tomography scan showing inflammatory changes adjacent to cecum correlate for typhlitis. No need for antibiotics. Patient has no abdominal pain and white count normal. Doubt typhlitis 3. Anemia 4. Colonoscopy with poor prep evidence of diverticulosis and external hemorrhoids PLAN: -Continue supportive care -Continue regular diet -Continue nystatin swish and swallow and Diflucan -Continue neurology workup for bilateral lower extremity weakness -Continue to monitor hemoglobin. Continue to monitor for any signs or symptoms of bleeding. Physician Credit Collections Manager note has been reviewed by physician. Signing provider agrees with the documented findings, assessment, and plan of care. Objective - Vital Signs Vital signs: Vital Signs Temp 98.1 F 06/06/21 04:55 Pulse 96 06/06/21 08:19 Resp 16 06/06/21 04:55 BP 118/77 06/06/21 04:55 Pulse Ox 96 06/06/21 04:55 Intake & Output 06/05/21 06/06/21 06/06/21 18:59 06:59 18:59 Intake Total 490 380 Output Total 600 750 220 Balance -110 -370 -220 Intake: IV 250 Intake, IV Titration 240 240 Amount Lactated Ringers 1,000 ml 240 240 @ 20 mls/hr IV .Q24H [facility] Rx#:[id number] Oral 140 Output: Urine 600 750 220 Other: Voiding Method Urinal Urinal Urinal Diaper # Voids 3 - Labs CBC & Chem 7: 06/06/21 06:32 06/05/21 05:49 Labs: Abnormal Lab Results - Last 24 Hours (Table) 06/04/21 06/05/21 06/05/21 Range/Units 17:47 05:49 14:38 RBC (4.30-5.90) m/uL Hgb (13.0-17.5) gm/dL Hct (39.0-53.0) % MCV (80.0-100.0) fL MCH (25.0-35.0) pg RDW (11.5-15.5) % Neutrophils # (1.3-7.7) k/uL Lymphocytes # (1.0-4.8) k/uL Macrocytosis BUN/Creatinine Ratio 20.28 H (12.00-20.00) Ratio Glucose 119 H (70-110) mg/dL Calcium 8.3 L (8.7-10.3) mg/dL ALT 67 H (10-49) U/L Creatine Kinase 20 L (35-257) U/L Total Protein 4.7 L (6.2-8.2) g/dL Albumin 2.8 L (3.8-4.9) g/dL Albumin/Globulin Ratio 1.49 L (1.60-3.17) g/dL CSF RBC 14 H (0-10) u/L 06/06/21 Range/Units 06:32 RBC 2.24 L (4.30-5.90) m/uL Hgb 7.9 L (13.0-17.5) gm/dL Hct 24.6 L (39.0-53.0) % MCV 109.4 H (80.0-100.0) fL MCH 35.2 H (25.0-35.0) pg RDW 22.2 H (11.5-15.5) % Neutrophils # 8.8 H (1.3-7.7) k/uL Lymphocytes # 0.7 L (1.0-4.8) k/uL Macrocytosis Marked A BUN/Creatinine Ratio (12.00-20.00) Ratio Glucose (70-110) mg/dL Calcium (8.7-10.3) mg/dL ALT (10-49) U/L Creatine Kinase (35-257) U/L Total Protein (6.2-8.2) g/dL Albumin (3.8-4.9) g/dL Albumin/Globulin Ratio (1.60-3.17) g/dL CSF RBC (0-10) u/L Microbiology - Last 24 Hours (Table) 06/05/21 14:38 CSF Culture - Preliminary Cerebral Spinal Fluid <Maximiliano Reilly - Last Filed: 06/06/21 15:04> Subjective As above. Patient eating better. Hemoglobin 7.9 from 8.3. No rectal bleeding. Continues to have back pain. Denies abdominal pain. Continue diet as tolerated. We'll sign off. Please call if needed. Objective - Vital Signs Vital signs: Vital Signs Temp 97.9 F 06/06/21 11:20 Pulse 105 H 06/06/21 11:20 Resp 16 06/06/21 11:20 BP 116/70 06/06/21 11:20 Pulse Ox 95 06/06/21 11:20 Intake & Output 06/05/21 06/06/21 06/06/21 18:59 06:59 18:59 Intake Total 490 380 Output Total 600 750 590 Balance -110 -370 -590 Intake: IV 250 Intake, IV Titration 240 240 Amount Lactated Ringers 1,000 ml 240 240 @ 20 mls/hr IV .Q24H [facility] Rx#:[id number] Oral 140 Output: Urine 600 750 590 Straight 50 Other: Voiding Method Urinal Urinal Urinal Diaper # Voids 3 1 - Labs CBC & Chem 7: 06/06/21 06:32 11/04/21 05:49 Labs: Abnormal Lab Results - Last 24 Hours (Table) 06/04/21 06/05/21 06/05/21 Range/Units 17:47 05:49 14:38 RBC (4.30-5.90) m/uL Hgb (13.0-17.5) gm/dL Hct (39.0-53.0) % MCV (80.0-100.0) fL MCH (25.0-35.0) pg RDW (11.5-15.5) % Neutrophils # (1.3-7.7) k/uL Lymphocytes # (1.0-4.8) k/uL Macrocytosis BUN/Creatinine Ratio 20.28 H (12.00-20.00) Ratio Glucose 119 H (70-110) mg/dL Calcium 8.3 L (8.7-10.3) mg/dL ALT 67 H (10-49) U/L Creatine Kinase 20 L (35-257) U/L Total Protein 4.7 L (6.2-8.2) g/dL Albumin 2.8 L (3.8-4.9) g/dL Albumin/Globulin Ratio 1.49 L (1.60-3.17) g/dL CSF RBC 14 H (0-10) u/L 06/06/21 Range/Units 06:32 RBC 2.24 L (4.30-5.90) m/uL Hgb 7.9 L (13.0-17.5) gm/dL Hct 24.6 L (39.0-53.0) % MCV 109.4 H (80.0-100.0) fL MCH 35.2 H (25.0-35.0) pg RDW 22.2 H (11.5-15.5) % Neutrophils # 8.8 H (1.3-7.7) k/uL Lymphocytes # 0.7 L (1.0-4.8) k/uL Macrocytosis Marked A BUN/Creatinine Ratio (12.00-20.00) Ratio Glucose (70-110) mg/dL Calcium (8.7-10.3) mg/dL ALT (10-49) U/L Creatine Kinase (35-257) U/L Total Protein (6.2-8.2) g/dL Albumin (3.8-4.9) g/dL Albumin/Globulin Ratio (1.60-3.17) g/dL CSF RBC (0-10) u/L Microbiology - Last 24 Hours (Table) 06/05/21 14:38 CSF Culture - Preliminary Cerebral Spinal Fluid
--- NOTE | 2021-06-06 16:57 | P.PN ---
Subjective Progress Note Date: 06/06/21 Principal diagnosis: Small tiny pleural effusion Dysphagia with solids due to Isi esophagitis, has been nystatin swish and swallow biopsy pending COPD with acute exacerbation Left lower lobe groundglass opacity Failure to thrive with history of weight loss macrocytic anemia Malnutrition protein calorie Inflammation tree change in cecum possible typhlitis Elevated troponin History of fall and left arm melanoma Remote history of non-Hodgkin's lymphoma 06/06/2021, patient seen eval examined during the rounds labs reviewed medications reviewed care plan discussed, has been tolerating by mouth well in general surgery is following, respiratory status stable on bronchodilator 06/04/2021, patient seen eval examined during the rounds labs reviewed medications reviewed patient has been getting breathing treatments, has extensive history of smoking and nicotine use, patient is being planned for placement in extended care facility, x-ray done today which is reviewed sister of some interstitial edema and small tiny pleural effusion likely related to poor oncotic pressure and catabolic state due to protein calorie malnutrition, we will give a dose of IV Lasix and monitor observe patient closely, from pulmonary standpoint patient can be discharged on nebulizer 2-3 times a day r 06/03/2021, patient seen eval examined, status post colonoscopy, bowel prep still not adequate, however excessive amount of stool was seen, Estrace status remains stable on 2 L oxygen patient being monitor off of steroids 06/02/2021, patient seen and evaluated examined during the rounds labs reviewed medications reviewed care plan discussed, patient is undergoing prep for the colonoscopy for tomorrow remains on 2 L oxygen denies any chest pain or shortness of breath 05/30/2021, patient seen eval examined during the rounds overall no significant change, respiratory status stable, denies any chest pain, surgery has been following, patient has been continued on nystatin swish and swallow 4 Isi esophagitis 05/29/2021, patient seen eval examined during the rounds labs reviewed medications reviewed care plan discussed with the staff at length, patient is sitting upright on the bed breathing comfortably he is nothing by mouth for endoscopy upper and lower later on today, swollen functions have improved now, denies any cough or sputum production, labs reviewed hemoglobin remained stable 8.8, potassium is 3.3, remains stable BUN/creatinine within normal limit, rheumatoid factor as well as in the screen is negative, 05/28/2021, patient seen eval reexamined labs reviewed medications reviewed care plan discussed, history status stable, patient is still have problems associated with swallowing, patient is on full liquid diet tolerating well, appetite howev er remains poor patient is for endoscopy tomorrow 05/27/2021, patient seen eval reexamined he is sitting upright on the bed sitting and looking at his food, shortness of breath stable, remains on bro nchodilators and IV steroids, does complaining of dysphagia and difficulty in swallowing especially with solids, general surgery has been following patient schedule for upper and lower endoscopy by surgery in next few days, hemodynamic status stable patient remains afebrile, oxygen saturation is 97% room air, Patient is a 65-year-old male looks and appear older then the stated age, patient came into the hospital with the loss of appetite poor by mouth intake and loss about 70 pounds in last 3 months, patient has been chronic short of breath have 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 emphysema hypertension hypertensive cardiovascular disease, patient has a long-term history of smoking and nicotine use from 1-2 packs per day quit about 3 months ago as he lost the taste of cigarettes as well, on specific questioning denies any chest pain denies any hemoptysis hematemesis, shortness of breath on activity and exertion present, denies any bowel bladder related problem, and denies any night sweats or fever or chills, patient was afebrile on presentation, but with stable hemodynamics oxygen saturation was 97% on room air, he was found to be anemic with the hemoglobin 6.9 posttransfusion improved to of 9.7 white cell count within normal limit, chest x-ray consistent with COPD CT of the brain consistent with cerebral atrophy no acute changes have been identified, patient's EKG signi ficant for sinus tachycardia with nonspecific ST and T wave changes, x-ray of the spine and LS spine spondylotic changes, computed tomography scan of the chest no suspicious lung nodules were seen faint groundglass opacities seen in the left lower lobe, computed tomography scan Of the Abdominal Significant for Inflammatory Changes in the Cecum Likely Typhlitis, COVID-19 Testing Is Negative, Troponin Elevated 0.038 Objective - Vital Signs Vital signs: Vital Signs Temp 97.9 F 06/06/21 11:20 Pulse 108 H 06/06/21 15:31 Resp 16 06/06/21 11:20 BP 116/70 11/05/21 11:20 Pulse Ox 95 06/06/21 11:20 Intake & Output 06/05/21 06/06/21 06/06/21 18:59 06:59 18:59 Intake Total 490 380 Output Total 600 750 790 Balance -110 -370 -790 Intake: IV 250 Intake, IV Titration 240 240 Amount Lactated Ringers 1,000 ml 240 240 @ 20 mls/hr IV .Q24H [facility] Rx#:[id number] Oral 140 Output: Urine 600 750 790 Straight 50 Other: Voiding Method Urinal Urinal Urinal Diaper # Voids 3 1 - Exam Constitutional General appearance: average body habitus, cooperative, disheveled, mild distress - EENT Eyes: EOMI, PERRLA Ears: bilateral: normal - Neck Neck: normal ROM Carotids: bilateral: upstroke normal Thyroid: bilateral: normal size - Respiratory Respiratory: bilateral: CTA - Cardiovascular Rhythm: regular Heart sounds: normal: S1, S2 - Gastrointestinal General gastrointestinal: decreased bowel sounds - Neurologic Neurologic: CNII-XII intact - Musculoskeletal Musculoskeletal: gait normal, generalized weakness, strength equal bilaterally - Psychiatric Psychiatric: A&O x's 3, appropriate affect, intact judgment & insight - Labs CBC & Chem 7: 06/06/21 06:32 06/05/21 05:49 Labs: Abnormal Lab Results - Last 24 Hours (Table) 06/04/21 06/05/21 06/06/21 Range/Units 17:47 14:38 06:32 RBC 2.24 L (4.30-5.90) m/uL Hgb 7.9 L (13.0-17.5) gm/dL Hct 24.6 L (39.0-53.0) % MCV 109.4 H (80.0-100.0) fL MCH 35.2 H (25.0-35.0) pg RDW 22.2 H (11.5-15.5) % Neutrophils # 8.8 H (1.3-7.7) k/uL Lymphocytes # 0.7 L (1.0-4.8) k/uL Macrocytosis Marked A Creatine Kinase 20 L (35-257) U/L CSF RBC 14 H (0-10) u/L Microbiology - Last 24 Hours (Table) 06/05/21 14:38 CSF Culture - Preliminary Cerebral Spinal Fluid Assessment and Plan Assessment: Tiny bilateral pleural effusion due to poor oncotic pressure and protein calorie malnourishment and catabolic state status post Lasix doing well Dysphagia related to isi esophagitis patient has been nystatin swish and swallow biopsy results are pending COPD with acute exacerbation Left lower lobe groundglass opacity Failure to thrive with history of weight loss macrocytic anemia Malnutrition protein calorie Inflammation tree change in cecum possible typhlitis Elevated troponin History of non-Hodgkin's lymphoma status post chemotherapy and remote past History of melanoma left arm and remote past as Plan: Continue bronchodilator Patient status post colonoscopy Continue oral Diflucan Monitor off of his steroids continue bronchodilator Workup and evaluation of anemia with endoscopy by surgical services Status post upper endoscopy however lower canceled due to poor prep Evaluation of typhlitis by surgery Patient is at high risk of the lung neoplasm would recommend a computed tomography scan of his chest in 4-6 months for left lower lobe groundglass opacity Further workup and evaluation of COPD as outpatient Time with Patient: Greater than 30
--- NOTE | 2021-06-06 17:25 | P.PN ---
Subjective Progress Note Date: 06/06/21 Offers no new complaint. Laying comfortably in the bed. No change. Objective - Vital Signs Vital signs: Vital Signs Temp 97.9 F 06/06/21 11:20 Pulse 108 H 06/06/21 15:31 Resp 16 06/06/21 11:20 BP 116/70 06/06/21 11:20 Pulse Ox 95 06/06/21 11:20 Intake & Output 06/05/21 06/06/21 06/06/21 18:59 06:59 18:59 Intake Total 490 380 Output Total 600 750 790 Balance -110 -370 -790 Intake: IV 250 Intake, IV Titration 240 240 Amount Lactated Ringers 1,000 ml 240 240 @ 20 mls/hr IV .Q24H MOISE Rx#:[id number] Oral 140 Output: Urine 600 750 790 Straight 50 Other: Voiding Method Urinal Urinal Urinal Diaper # Voids 3 1 - Exam Essentially unchanged. - Labs CBC & Chem 7: 06/13/21 05:36 06/13/21 05:36 Labs: Abnormal Lab Results - Last 24 Hours (Table) 06/04/21 06/05/21 06/06/21 Range/Units 17:47 14:38 06:32 RBC 2.24 L (4.30-5.90) m/uL Hgb 7.9 L (13.0-17.5) gm/dL Hct 24.6 L (39.0-53.0) % MCV 109.4 H (80.0-100.0) fL MCH 35.2 H (25.0-35.0) pg RDW 22.2 H (11.5-15.5) % Neutrophils # 8.8 H (1.3-7.7) k/uL Lymphocytes # 0.7 L (1.0-4.8) k/uL Macrocytosis Marked A Creatine Kinase 20 L (35-257) U/L CSF RBC 14 H (0-10) u/L Microbiology - Last 24 Hours (Table) 06/05/21 14:38 CSF Culture - Preliminary Cerebral Spinal Fluid Assessment and Plan Assessment: * 65-year-old male with 4 month history of progressive weakness of the legs > arms with severe sensory dysfunction and sensory ataxia. Patient is completely areflexic. CIDP less likely with normal CSF proteins. No evidence of paraproteinemia noted. 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 Rule out other nutritional problems from chronic alcoholism. Duration of symptoms (progressive for 4 months) essentially rules out Sheri Uribe syndrome. * History of significant alcoholism, sober since December 2020. * Progressive weight loss, 70 pounds over the last 4 months. Exact cause remains uncertain. * History of non-Hodgkin's lymphoma (? 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 Exact cause is uncertain. CSF shows normal total protein 60 (12-60), glucose 60, RBC 14, WBC 0. CIDP much less likely with normal protein. * MRI of the lumbar spine with and without contrast revealed no suspicious enhancing lumbosacral nerve roots. Scoliotic curvature be degenerative changes in the mid to lower lumbar spine. Suspect effacement of the right L4 and left L5 nerves. Correlate clinically. * Hemoglobin A1c 5.1, Sjogren's antibodies negative, paraneoplastic panel pending, vitamin B6 8 (patient started on replacement), Lyme titer negative, creatinine kinase normal 20, serum copper is normal 753 (665-1480), ceruloplasmin is slightly low 17.7 (20-60), acetylcholine receptor antibodies negative < 0.30. Folate is low 5.10. We will start folate replacement 1 mg daily. * B12 is 531, methylmalonic acid 0.14 on 05/27/2021. RBC folate also normal 598. Protein electrophoresis showed beta/gamma bridge suggestive of liver dysfunction. Patient's HIV is negative. Coronavirus PCR negative. Rheumatoid factor negative, immunoelectrophoresis shows no monoclonal paraprotein. MISHA negative. * Patient definitely will need EMG and nerve conduction studies of upper and lower extremities as an outpatient to evaluate for demyelinating versus axonal type of polyneuropathy as an outpatient. * Neurologically clear, to follow up with neurologist as an outpatient.
--- NOTE | 2021-06-06 18:08 | PN ---
PROGRESS NOTE 65-year-old white male. Neurology ordered a lumbar MRI and workup for his leg hemiparesis having bilateral paresis. He has a low ceruloplasmin level. MRI of his back shows no suspicious enhancing lumbar sacral nerve roots, scoliosis, degenerative changes mid to lower lumbar spine. Some effacement of the right L4 and left L5 nerves. Waiting for neurology to see what they want to do with his he had a spinal tap. Waiting for the report of this. Cardiovascular S1-S2. Lungs clear. Psych: Fair mood and affect. Neurologic: Cranial nerves are intact. 3/5 strength in his legs. White count 14.2, hemoglobin 8.3. ASSESSMENT: 1. Progressive weakness of the legs. 2. Anemia secondary to malnutrition. 3. Prior alcoholism. 4. Severe weight loss. 5. History of non-Hodgkin's lymphoma. 6. Nicotine addiction. 7. Marijuana use. Wait for neurology to clear him prior to going to the residential. B12 levels. Folic acid is good. Awaiting lumbar puncture. Prognosis guarded. MMODL / IJN: [id number] /
[2021-06-06] MEDS: LACTATED RINGERS 1,000 ML IV SCH (18:09)
[2021-06-07] MEDS: IPRATROPIUM-ALBUTEROL 3 ML NEB INHALATION SCH ×4 (07:54→19:10)
[2021-06-07] MEDS: NYSTATIN 100,000 UNIT/ML SUSP 500,000 UNIT/5 ML CUP PO SCH ×5 (09:20→23:31)
[2021-06-07] MEDS: NICOTINE 21MG/24HR PATCH TRANSDERM SCH (09:20)
[2021-06-07] MEDS: FOLIC ACID 1 MG TAB PO SCH (09:24)
[2021-06-07] MEDS: MULTIVITAMINS, THERA 1 EACH TAB PO SCH (09:24)
[2021-06-07] MEDS: PANTOPRAZOLE 40 MG TABLET PO SCH (09:24)
[2021-06-07] MEDS: TAMSULOSIN 0.4 MG CAP.ER.24H PO SCH (09:24)
[2021-06-07] MEDS: FLUCONAZOLE 100 MG TAB PO SCH (09:24)
[2021-06-07] MEDS: LACTATED RINGERS 1,000 ML IV SCH (16:00)
--- NOTE | 2021-06-07 16:00 | PN ---
PROGRESS NOTE 65-year-old white male. His hemoglobin is dropping down more now, it is down to 7.9, unclear etiology why his hemoglobin keeps dropping. We will get hematology to see him again. He has marked microcytosis. His CSF showed no growth for 24 hours. He is weak, fatigued. He has 3/5 strength in his lower legs. He has flat affect. Cardiovascular S1, S2. Lungs are clear. ASSESSMENT: 1. Progressive weight loss. 2. History non-Hodgkin's lymphoma. 3. History of nicotine and marijuana. 4. Progressive weakness of the legs. No paraproteinemia in the CSF. 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 He has had this for years actually where he has not been able to ambulate, so this is most likely from the chemotherapy-induced neuropathy. All other tests so far are negative. Send him to rehab center on Wednesday once his hemoglobin stabilizes. We will get hematology to see him for recurrent anemia. MMODL / IJN: [id number] /
[2021-06-08 07:09] LABS: Anisocytosis Moderate; Basophils % (A) 0 %; Eosinophils # (A) 0.2 k/uL (0-0.7); Eosinophils % (A) 2 %; HCT 24.4 % (39.0-53.0); HGB 8.2 gm/dL (13.0-17.5); Lymphocytes # (A) 0.7 k/uL (1.0-4.8); Lymphocytes % (A) 9 %; MCH 36.3 pg (25.0-35.0); MCHC 33.5 g/dL (31.0-37.0); MCV 108.3 fL (80.0-100.0); Macrocytosis Marked; Mean Platelet Volume 7.6; Monocytes # (A) 0.4 k/uL (0-1.0); Monocytes % (A) 4 %; Neutrophils # (A) 6.6 k/uL (1.3-7.7); Neutrophils % (A) 84 %; Platelet Count 362 k/uL (150-450); RBC 2.25 m/uL (4.30-5.90); RDW 21.9 % (11.5-15.5); WBC 7.9 k/uL (3.8-10.6)
[2021-06-08] MEDS: IPRATROPIUM-ALBUTEROL 3 ML NEB INHALATION SCH ×4 (07:28→19:23)
[2021-06-08 08:08] LABS: Reticulocyte % 1.8 % (0.5-2.0)
[2021-06-08] MEDS: NICOTINE 21MG/24HR PATCH TRANSDERM SCH (08:47)
[2021-06-08] MEDS: FLUCONAZOLE 100 MG TAB PO SCH (08:48)
[2021-06-08] MEDS: FOLIC ACID 1 MG TAB PO SCH (08:48)
[2021-06-08] MEDS: NYSTATIN 100,000 UNIT/ML SUSP 500,000 UNIT/5 ML CUP PO SCH ×4 (08:48→21:33)
[2021-06-08] MEDS: PANTOPRAZOLE 40 MG TABLET PO SCH (08:48)
[2021-06-08] MEDS: MULTIVITAMINS, THERA 1 EACH TAB PO SCH (08:48)
[2021-06-08] MEDS: TAMSULOSIN 0.4 MG CAP.ER.24H PO SCH (08:48)
--- NOTE | 2021-06-08 08:57 | P.PN ---
Subjective Progress Note Date: 06/08/21 Principal diagnosis: Small tiny pleural effusion Dysphagia with solids due to Isi esophagitis, has been nystatin swish and swallow biopsy pending COPD with acute exacerbation Left lower lobe groundglass opacity Failure to thrive with history of weight loss macrocytic anemia Malnutrition protein calorie Inflammation tree change in cecum possible typhlitis Elevated troponin History of fall and left arm melanoma Remote history of non-Hodgkin's lymphoma 06/08/2021, patient seen eval examined, history status stable, patient declined nebulizer treatment currently, on room air, denies any chest pain does complain of numbness in the hands and foot patient has chronic neuropathy, neurology has been followed 06/06/2021, patient seen eval examined during the rounds labs reviewed medications reviewed care plan discussed, has been tolerating by mouth well in g eneral surgery is following, respiratory status stable on bronchodilator 06/04/2021, patient seen eval examined during the rounds labs reviewed medications reviewed patient has been getting breathing treatments, has extensive history of smoking and nicotine use, patient is being planned for placement in extended care facility, x-ray done today which is reviewed sister of some interstitial edema and small tiny pleural effusion likely related to poor oncotic pressure and catabolic state due to protein calorie malnutrition, we will give a dose of IV Lasix and monitor observe patient closely, from pulmonary standpoint patient can be discharged on nebulizer 2-3 times a day r 06/03/2021, patient seen eval examined, status post colonoscopy, bowel prep still not adequate, however excessive amount of stool was seen, Estrace status remains stable on 2 L oxygen patient being monitor off of steroids 06/02/2021, patient seen and evaluated examined during the rounds labs reviewed medications reviewed care plan discussed, patient is undergoing prep for the colonoscopy for tomorrow remains on 2 L oxygen denies any chest pain or shortness of breath 05/30/2021, patient seen eval examined during the rounds overall no significant change, respiratory status stable, denies any chest pain, surgery has been following, patient has been continued on nystatin swish and swallow 4 Isi esophagitis 05/29/2021, patient seen eval examined during the rounds labs reviewed medications reviewed care plan discussed with the staff at length, patient is sitting upright on the bed breathing comfortably he is nothing by mouth for endoscopy upper and lower later on today, swollen functions have improved now, denies any cough or sputum production, labs reviewed hemoglobin remained stable 8.8, potassium is 3.3, remains stable BUN/creatinine within normal limit, rheumatoid factor as well as in the screen is negative, 05/28/2021, patient seen eval reexamined labs reviewed medications reviewed care plan discussed, history status stable, patient is still have problems associated with swallowing, patient is on full liquid diet tolerating well, appetite however remains poor patient is for endoscopy tomorrow 05/27/2021, patient seen eval reexamined he is sitting upright on the bed sitting and looking at his food, shortness of breath stable, remains on bronchodilators and IV steroids, does complaining of dysphagia and difficulty in swallowing especially with solids, general surgery has been following patient schedule for upper and lower endoscopy by surgery in next few days, hemodynamic status stable patient remains afebrile, oxygen saturation is 97% room air, Patient is a 65-year-old male looks and appear older then the stated age, patient came into the hospital with the loss of appetite poor by mouth intake and loss about 70 pounds in last 3 months, patient has been chronic short of didier ath have 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 emphysema hypertension hypertensive cardiovascular disease, patient has a long-term history of smoking and nicotine use from 1-2 packs per day quit about 3 months ago as he lost the taste of cigarettes as well, on specific questioning denies any chest pain denies any hemoptysis hematemesis, shortness of breath on activity and exertion present, denies any bowel bladder related problem, and denies any night sweats or fever or chills, patient was afebrile on presentation, but with stable hemodynamics oxygen saturation was 97% on room air, he was found to be anemic with the hemoglobin 6.9 posttransfusion improved to of 9.7 white cell count within normal limit, chest x-ray consistent with COPD CT of the brain consistent with cerebral atrophy no acute changes have been identified, patient's EKG significant for sinus tachycardia with nonspecific ST and T wave changes, x-ray of the spine and LS spine spondylotic changes, computed tomography scan of the chest no suspicious lung nodules were seen faint groundglass opacities seen in the left lower lobe, computed tomography scan Of the Abdominal Significant for Inflammatory Changes in the Cecum Likely Typhlitis, COVID-19 Testing Is Negative, Troponin Elevated 0.038 Objective - Vital Signs Vital signs: Vital Signs Temp 98.1 F 06/08/21 04:24 Pulse 106 H 06/08/21 04:24 Resp 18 06/08/21 04:24 BP 118/69 06/08/21 04:24 Pulse Ox 95 06/08/21 04:24 Intake & Output 06/07/21 06/08/21 06/08/21 19:59 06:59 18:59 Intake Total Output Total Balance Intake: Oral Output: Urine Other: Voiding Method - Exam Constitutional General appearance: average body habitus, cooperative, disheveled, mild distress - EENT Eyes: EOMI, PERRLA Ears: bilateral: normal - Neck Neck: normal ROM Carotids: bilateral: upstroke normal Thyroid: bilateral: normal size - Respiratory Respiratory: bilateral: CTA - Cardiovascular Rhythm: regular Heart sounds: normal: S1, S2 - Gastrointestinal General gastrointestinal: decreased bowel sounds - Neurologic Neurologic: CNII-XII intact - Musculoskeletal Musculoskeletal: gait normal, generalized weakness, strength equal bilaterally - Psychiatric Psychiatric: A&O x's 3, appropriate affect, intact judgment & insight - Labs CBC & Chem 7: 06/08/21 06:29 06/05/21 05:49 Labs: Abnormal Lab Results - Last 24 Hours (Table) 06/08/21 Range/Units 06:29 RBC 2.25 L (4.30-5.90) m/uL Hgb 8.2 L (13.0-17.5) gm/dL Hct 24.4 L (39.0-53.0) % MCV 108.3 H (80.0-100.0) fL MCH 36.3 H (25.0-35.0) pg RDW 21.9 H (11.5-15.5) % Lymphocytes # 0.7 L (1.0-4.8) k/uL Macrocytosis Marked A Microbiology - Last 24 Hours (Table) 06/05/21 14:38 CSF Culture - Preliminary Cerebral Spinal Fluid Assessment and Plan Assessment: Tiny bilateral pleural effusion due to poor oncotic pressure and protein calorie malnourishment and catabolic state status post Lasix doing well Dysphagia related to isi esophagitis patient has been nystatin swish and swallow biopsy results are pending COPD with acute exacerbation Left lower lobe groundglass opacity Failure to thrive with history of weight loss macrocytic anemia Malnutrition protein calorie Inflammation tree change in cecum possible typhlitis Elevated troponin History of non-Hodgkin's lymphoma status post chemotherapy and remote past History of melanoma left arm and remote past as Plan: Continue bronchodilator Patient status post colonoscopy Continue oral Diflucan Monitor off of his steroids continue bronchodilator Workup and evaluation of anemia with endoscopy by surgical services Status post upper endoscopy however lower canceled due to poor prep Evaluation of typhlitis by surgery Patient is at high risk of the lung neoplasm would recommend a computed tomography scan of his chest in 4-6 months for left lower lobe groundglass opacity Further workup and evaluation of COPD as outpatient Time with Patient: Greater than 30
[2021-06-08] MEDS: ACETAMINOPHEN TAB 325 MG TAB PO PRN (10:11)
[2021-06-08 10:46] LABS: African American GFR (CKD) 146.5 (60.0-200.0); Albumin 2.7 g/dL (3.8-4.9); Albumin/Globulin Ratio 1.35 (1.60-3.17); Anion Gap 9.1 mmol/L (4.00-12.00); Blood Urea Nitrogen 9.6 mg/dL (9.0-27.0); Calcium 8.3 mg/dL (8.7-10.3); Carbon Dioxide 21.9 mmol/L (21.6-31.8); Non-African American GFR(CKD) 126.4 (60.0-200.0); Potassium 4.4 mmol/L (3.5-5.5); Total Bilirubin 0.6 mg/dL (0.30-1.20); Total Protein 4.7 g/dL (6.2-8.2)
[2021-06-08 11:09] LABS: Appearance,Urine Clear (Clear); Bilirubin,Urine Negative (Negative); Blood,Urine Negative (Negative); Color,Urine Yellow; Glucose,Urine (UA) Negative (Negative); Ketones,Urine Negative (Negative); Leukocyte Esterase,Urine Negative (Negative); Nitrite,Urine Negative (Negative); Protein,Urine Negative (Negative); Specific Gravity,Urine 1.013 (1.001-1.035)
[2021-06-08] MEDS: PRIMIDONE 50 MG TAB PO SCH ×2 (11:22→21:33)
--- NOTE | 2021-06-08 11:33 | PN ---
PROGRESS NOTE Hemoglobin is 8.2 today. White count 7.9. Still has some dystonic movements of his hands. He is unable to hang onto anything with his hands. Neurology apparently cleared him. Glucose 119, calcium 8.3, total protein 4.7. Cardiovascular S1-S2. Lungs clear. GI soft. Neurologic: He has at this time movements of the hands with severe tremors. Apparently, neurology does not think he has Parkinson's per nurse. We are going to try him on some Primidone for essential tremor and see if that works. Apparently we cannot get neurology to consult on the weekends. We are going to try primidone. Pulse rate is a little high 106 to 117, possibly increase the beta maria antonia. Saturating 95 on room air. He is afebrile. His hemoglobin is fairly stable today. Continue diet as tolerated. PROGNOSIS: Guarded. MMODL / IJN: [id number] /
[2021-06-08] MEDS: LACTATED RINGERS 1,000 ML IV SCH (13:47)
--- NOTE | 2021-06-08 20:02 | P.PN ---
Subjective Progress Note Date: 06/07/21 Principal diagnosis: failure to thrive, dysphagia, weak We have been asked to further evaluate for macrocytosis and worsening anemia. Patient was started on FOlic acid and B12 supplementation earlier this admission. His anemia is likely secondary to underlying liver disease. Ferritin greater than 2000, no parental Iron needed. Colonoscopy was unable to be performed due to liquis stool within colon and 05/26 CT scans with concern of obstruction. His hospital stay was further complicated with neurological complaints and ascending paresthesias and weakness, Neurology has been foolowing for this. Objective - Vital Signs Vital signs: Vital Signs Temp 98.1 F 06/07/21 21:00 Pulse 117 H 06/07/21 21:00 Resp 16 06/07/21 21:00 BP 100/64 06/07/21 21:00 Pulse Ox 96 06/07/21 21:00 Intake & Output 06/07/21 06/07/21 06/08/21 06:59 18:59 05:59 Intake Total 590 500 Output Total 300 600 Balance 290 -600 500 Intake: Oral 590 500 Output: Urine 300 600 Other: Voiding Method Urinal Urinal Urinal # Voids 2 - Exam - Constitutional General appearance: average body habitus, cooperative, no acute distress - EENT Eyes: anicteric sclerae, EOMI ENT: hearing grossly normal, normal oropharynx - Neck Neck: no lymphadenopathy - Respiratory Respiratory: bilateral: CTA - Cardiovascular Rhythm: regular Heart sounds: normal: S1, S2 Abnormal Heart Sounds: no systolic murmur, no diastolic murmur, no rub, no S3 Gallop, no S4 Gallop, no click, no other leg Peripheral Edema: bilateral: None - Gastrointestinal General gastrointestinal: no absent bowel sounds, no decreased bowel sounds, no distended, no hepatomegaly, no hyperactive bowel sounds, normal bowel sounds, no organomegaly, no rigid, no scaphoid, soft, no splenomegaly, no tenderness, no umbilical hernia, no ventral hernia - Integumentary Integumentary: pale - Neurologic Neurologic: CNII-XII intact - Musculoskeletal Musculoskeletal: generalized weakness, strength lower weak, lle .< rle - Psychiatric Psychiatric: A&O x's 3, appropriate affect, intact judgment & insight - Labs CBC & Chem 7: 06/08/21 06:29 06/08/21 06:29 Labs: Microbiology - Last 24 Hours (Table) 06/05/21 14:38 CSF Culture - Preliminary Cerebral Spinal Fluid Assessment and Plan (1) Thrombocytopenia Current Visit: Yes Status: Acute Code(s): D69.6 - THROMBOCYTOPENIA, UNSPECIFIED SNOMED Code(s): 781096129 (2) Anemia Current Visit: Yes Status: Acute Code(s): D64.9 - ANEMIA, UNSPECIFIED SNOMED Code(s): 128147233 (3) COPD (chronic obstructive pulmonary disease) Current Visit: Yes Status: Acute Code(s): J44.9 - CHRONIC OBSTRUCTIVE PULMONARY DISEASE, UNSPECIFIED SNOMED Code(s): 98829189 (4) Generalized weakness Current Visit: Yes Status: Acute Priority: High Code(s): R53.1 - WEAKNESS SNOMED Code(s): 96762686 (5) Macrocytic anemia Current Visit: Yes Status: Acute Priority: High Code(s): D53.9 - NUTRITIONAL ANEMIA, UNSPECIFIED SNOMED Code(s): 69463634 (6) Weight loss Current Visit: Yes Status: Acute Code(s): R63.4 - ABNORMAL WEIGHT LOSS SNOMED Code(s): 16870704 Plan: 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 Will discuss with primary assurance officer Wednesday regarding if further testing with bone marrow biopsy will add to work-up. Recommend repeat abdominal imaging and more directed evaluation of liver for extent of damage.
[2021-06-09] MEDS: IPRATROPIUM-ALBUTEROL 3 ML NEB INHALATION SCH ×4 (08:05→20:02)
[2021-06-09] MEDS: TAMSULOSIN 0.4 MG CAP.ER.24H PO SCH (10:41)
[2021-06-09] MEDS: NICOTINE 21MG/24HR PATCH TRANSDERM SCH (10:41)
[2021-06-09] MEDS: NYSTATIN 100,000 UNIT/ML SUSP 500,000 UNIT/5 ML CUP PO SCH ×4 (10:41→23:01)
[2021-06-09] MEDS: MULTIVITAMINS, THERA 1 EACH TAB PO SCH (10:41)
[2021-06-09] MEDS: PRIMIDONE 50 MG TAB PO SCH ×2 (10:41→21:18)
[2021-06-09] MEDS: FOLIC ACID 1 MG TAB PO SCH (10:41)
[2021-06-09] MEDS: PANTOPRAZOLE 40 MG TABLET PO SCH (10:41)
[2021-06-09] MEDS: ACETAMINOPHEN TAB 325 MG TAB PO PRN ×2 (12:53→20:58)
[2021-06-09] MEDS: FLUCONAZOLE 100 MG TAB PO SCH (12:53)
--- NOTE | 2021-06-09 13:28 | P.PN ---
Subjective Progress Note Date: 06/09/21 Principal diagnosis: failure to thrive, dysphagia, weak He is still weak in lower extremities. We have asked pathology to review a peripheral smear. Dr. Bonilla would like to see this patient in office after discharge to monitor counts closer, depending on pathology review he will d etermine at that time if further diagnostics are needed in regards to bone marrow evaluation. Other hematological work-up is negative this far. Objective - Vital Signs Vital signs: Vital Signs Temp 98 F 06/09/21 12:56 Pulse 120 H 06/09/21 12:56 Resp 17 06/09/21 12:56 BP 100/61 06/09/21 12:56 Pulse Ox 94 L 06/09/21 12:56 Intake & Output 06/08/21 06/09/21 06/09/21 18:59 06:59 18:59 Intake Total 340 100 Output Total 800 400 Balance -460 -300 Weight 53.977 kg Intake: Oral 340 100 Output: Urine 800 400 Other: Voiding Method Urinal Urinal Urinal Diaper Diaper - Exam - Constitutional General appearance: average body habitus, cooperative, no acute distress - EENT Eyes: anicteric sclerae, EOMI ENT: hearing grossly normal, normal oropharynx - Neck Neck: no lymphadenopathy - Respiratory Respiratory: bilateral: CTA - Cardiovascular Rhythm: regular Heart sounds: normal: S1, S2 Abnormal Heart Sounds: no systolic murmur, no diastolic murmur, no rub, no S3 Gallop, no S4 Gallop, no click, no other leg Peripheral Edema: bilateral: None - Gastrointestinal General gastrointestinal: no absent bowel sounds, no decreased bowel sounds, no distended, no hepatomegaly, no hyperactive bowel sounds, normal bowel sounds, no organomegaly, no rigid, no scaphoid, soft, no splenomegaly, no tenderness, no umbilical hernia, no ventral hernia - Integumentary Integumentary: pale - Neurologic Neurologic: CNII-XII intact - Musculoskeletal Musculoskeletal: generalized weakness, strength lower weak, lle .< rle - Psychiatric Psychiatric: A&O x's 3, appropriate affect, intact judgment & insight - Labs CBC & Chem 7: 06/09/21 15:16 06/08/21 06:29 Labs: Microbiology - Last 24 Hours (Table) 06/05/21 14:38 CSF Culture - Preliminary Cerebral Spinal Fluid Assessment and Plan (1) Thrombocytopenia Current Visit: Yes Status: Acute Code(s): D69.6 - THROMBOCYTOPENIA, UNSPECIFIED SNOMED Code(s): 740129015 (2) Anemia Current Visit: Yes Status: Acute Code(s): D64.9 - ANEMIA, UNSPECIFIED SNOMED Code(s): 062460427 (3) COPD (chronic obstructive pulmonary disease) Current Visit: Yes Status: Acute Code(s): J44.9 - CHRONIC OBSTRUCTIVE PULMONARY DISEASE, UNSPECIFIED SNOMED Code(s): 60403341 (4) Generalized weakness Current Visit: Yes Status: Acute Priority: High Code(s): R53.1 - WEAKNESS SNOMED Code(s): 66136546 (5) Macrocytic anemia Current Visit: Yes Status: Acute Priority: High Code(s): D53.9 - NUTRITIONAL ANEMIA, UNSPECIFIED SNOMED Code(s): 39414877 (6) Weight loss Current Visit: Yes Status: Acute Code(s): R63.4 - ABNORMAL WEIGHT LOSS SNOMED Code(s): 19754304 Plan: 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 Will discuss with primary wind turbine design engineer Wednesday regarding if further testing with bone marrow biopsy will add to work-up. Hematological work-up negative, may consider further evaluation with bone marrow biopsy. Pathology asked to review in interim. COncern of patient overall neurological symptoms, ?seizure, neurology following. Once neurology work-up complete may consider bone marrow for hematological abnormalities.
[2021-06-09 14:00] LABS: IgG - CSF 4.7 mg/dL (0.0 - 3.4); IgG Synthesis Rate 3.57 mg/day (0.00 - 3.00); IgG/Albumin Index (CSF) 0.61 (0.00 - 0.77); Immunoglobulin G 813 mg/dL (700 - 1600)
[2021-06-09 15:47] LABS: Anisocytosis Moderate; Basophils % (A) 0 %; Eosinophils # (A) 0.1 k/uL (0-0.7); Eosinophils % (A) 1 %; HGB 7.8 gm/dL (13.0-17.5); Lymphocytes # (A) 0.6 k/uL (1.0-4.8); Lymphocytes % (A) 9 %; MCH 36.2 pg (25.0-35.0); MCV 106.5 fL (80.0-100.0); Mean Platelet Volume 7.3; Monocytes # (A) 0.3 k/uL (0-1.0); Monocytes % (A) 4 %; Neutrophils # (A) 5.7 k/uL (1.3-7.7); Neutrophils % (A) 85 %; Platelet Count 338 k/uL (150-450); RBC 2.16 m/uL (4.30-5.90); RDW 22.6 % (11.5-15.5); WBC 6.7 k/uL (3.8-10.6)
[2021-06-09 15:49] LABS: Macrocytosis Marked
[2021-06-09] MEDS: traMADol 50 MG TAB PO PRN (16:35)
--- NOTE | 2021-06-09 17:04 | P.PN ---
Subjective Progress Note Date: 06/09/21 I am seeing the patient for the first time for neurological management. Please refer to Dr. Craig for further details. It seems Dr. Craig has seen patient and cleared him and to follow-up as outpatient but the primary team felt the patient has essential tremor and wanted neurology to re-evaluate over the weekend and the primary stated that "neurology cannot be consulted over the weekend". Primary team started the patient on Primidone. Neurology does provide coverage over weekends and I am not sure what transpired. Patient feels he is about the same neurological frias and denies any new symptoms. He stated he had weakness that started in lowers first then worked it way up and feels months but not sure exact time. Objective - Vital Signs Vital signs: Vital Signs Temp 98 F 06/09/21 12:56 Pulse 112 H 06/09/21 15:50 Resp 17 06/09/21 12:56 BP 100/61 06/09/21 12:56 Pulse Ox 94 L 06/09/21 12:56 Intake & Output 06/08/21 06/09/21 06/09/21 18:59 06:59 18:59 Intake Total 340 100 Output Total 800 400 Balance -460 -300 Weight 53.977 kg Intake: Oral 340 100 Output: Urine 800 400 Other: Voiding Method Urinal Urinal Urinal Diaper Diaper - Exam GENERAL: The patient is lying in bed and is not in acute distress. NEUROLOGICAL: Higher mental function: The patient is awake, alert, oriented to self, place and time. Patient is following commands He is somewhat slow to respond or follow commands.. No aphasia and no neglect. Cranial nerves: The pupils are round, equal and reactive to light and accommodation. Visual lee are full to confrontation throughout. Extraocular movement is intact no nystagmus is noted. Facial sensation is normal to touch throughout. The facial strength is normal throughout. Tongue appears to have fasciulation. No dysarthria is noted. Motor: Gait is deferred. On muscle strength testing, he has symmetric weakness of bilateral upper and lower extremities. The overall strength is 4 diffusely in bilateral upper extremities proximally and distally (except deltoids appear 3-4- bilaterally).. In the lower limbs his hip flexion is about 1, hip adduction and abduction cannot be assessed because patient cannot flex his hips. He was able to give some resistance for the hip abduction > hip adduction. Knee extension is 3 to 4-, ankledorsiflexion/plantar 3-4 bilaterally. Cerebellum:Cerebellar function showed ataxia for [id number]-[id number] testing bilaterally. Patient could not perform [id number]-qy-[id number] testing bilaterally. Sensation: Sensory to touch is decreased from toes up to the groin bilaterally. In the arms it was decreased mainly in the hands up to the shoulder. Vibration is absent in the toes, ankles and the knees and the fingers. Reflexes (right/left): Absent throughout. Plantars are mute bilaterally. WORK-UP: MR lumbar spine with and without is reported as no suspicious enhancing lumbo- sacral nerve roots. Scoliotic curvature with degenerative changes and the mid t o lower lumbar spine is detailed above. Suspect effacement of the right L4 and left L5 nerves. Correlate likely. CSF shows normal total protein 60 (12-60), glucose 60, RBC 14, WBC 0. B12 is 531, methylmalonic acid 0.14 on 05/27/2021. RBC folate also normal 598. Protein electrophoresis showed beta/gamma bridge suggestive of liver dysfunction. Patient's HIV is negative. Coronavirus PCR negative. Rheumatoid factor negative, Vitamin B6L 8 (normal is 5-50. SSA/SSB Antibody is negative immunoelectrophoresis shows no monoclonal paraprotein. Folate is low 5.10 creatinine kinase normal 20, serum copper is normal 753 ([id number]), ceruloplasmin is slightly low 17.7 (20-60). - Labs CBC & Chem 7: 06/09/21 15:16 06/08/21 06:29 Labs: Abnormal Lab Results - Last 24 Hours (Table) 06/05/21 06/09/21 Range/Units 15:08 15:16 RBC 2.16 L (4.30-5.90) m/uL Hgb 7.8 L (13.0-17.5) gm/dL Hct 23.0 L (39.0-53.0) % MCV 106.5 H (80.0-100.0) fL MCH 36.2 H (25.0-35.0) pg RDW 22.6 H (11.5-15.5) % Lymphocytes # 0.6 L (1.0-4.8) k/uL Macrocytosis Marked A CSF IgG (MS) 4.7 H (0.0 - 3.4) mg/dL Serum Albumin 2,530 L (3500 - 5200) mg/dL CSF IgG Synth Rate MS 3.57 H (0.00 - 3.00) mg/day Microbiology - Last 24 Hours (Table) 06/05/21 14:38 CSF Culture - Preliminary Cerebral Spinal Fluid Assessment and Plan Assessment: * 65-year-old male with 4 month history of progressive weakness of the legs > arms with severe sensory dysfunction and sensory ataxia. Patient is completely areflexic. Exact cause is uncertain. CIDP less likely with normal CSF proteins. No evidence of paraproteinemia noted. 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 Rule out other nutritional problems from chronic alcoholism. Duration of symptoms (progressive for 4 months) essentially rules out Sheri Uribe syndrome. * History of significant alcoholism, sober since December 2020. * Progressive weight loss, 70 pounds over the last 4 months. Exact cause remains uncertain. * History of non-Hodgkin's lymphoma (? and Melanoma) * History of tobacco use * History of marijuana use Plan: * Paraneoplastic panel, Lyme titer all pending, acetylcholine receptor antibo dies pending. * Ordered HbA1c. * Patient definitely will need EMG and nerve conduction studies of upper and lower extremities as outpatient [facility]. This can be done as outpatient. * Folate is low 5.10. Continue folate replacement 1 mg daily. * Patient does not appear to have essential tremor that primary team suspects. * Oncologist team is on board * Physical therapy and occupation therapy on board. * Defer the rest of the workup to the primary team. * Upon discharge the patient needs to follow-up with a neurologist within 1-2 weeks as an outpatient and recommend patient to follow-up with neuromuscular clinic (can consider at [facility], [facility] or [place]). The plan is discussed with the patient's nurse. Hank Small MD Neuro-Hospitalist Time with Patient: Less than 30
[2021-06-09] MEDS: LACTATED RINGERS 1,000 ML IV SCH (20:43)
[2021-06-09] MEDS: atenoloL 25 MG TAB PO SCH (23:01)
--- NOTE | 2021-06-09 23:07 | PN ---
PROGRESS NOTE Apparently patient is urinating himself. He has a sacral ulcer, for which Infectious Disease is going to evaluate. We are trying to get Neurology to see him for severe tremor in his hands and arms, unable to hold any utensils or cups or feed himself. His heart rate is in the low 100s. We are going to start low-dose atenolol 25 b.i.d. Hope to get neurology recommendations on the tremor and dystonic movements of his hands and arms. Will possibly have to get a Joe catheter to prevent sacral ulcer, which is worsening. Will get Dr. Carlson's recommendation, PT/OT, possible rehab placement after neurology clears for this tremor issue. MMODL / IJN: [id number] /
[2021-06-10] MEDS: traMADol 50 MG TAB PO PRN ×2 (02:00→21:47)
[2021-06-10] MEDS: IPRATROPIUM-ALBUTEROL 3 ML NEB INHALATION SCH ×4 (07:09→19:59)
[2021-06-10] MEDS: FLUCONAZOLE 100 MG TAB PO SCH (08:58)
[2021-06-10] MEDS: NYSTATIN 100,000 UNIT/ML SUSP 500,000 UNIT/5 ML CUP PO SCH ×4 (08:58→21:47)
[2021-06-10] MEDS: PANTOPRAZOLE 40 MG TABLET PO SCH (08:58)
[2021-06-10] MEDS: atenoloL 25 MG TAB PO SCH ×2 (08:58→21:47)
[2021-06-10] MEDS: TAMSULOSIN 0.4 MG CAP.ER.24H PO SCH (08:58)
[2021-06-10] MEDS: MULTIVITAMINS, THERA 1 EACH TAB PO SCH (08:58)
[2021-06-10] MEDS: FOLIC ACID 1 MG TAB PO SCH (08:58)
[2021-06-10] MEDS: PRIMIDONE 50 MG TAB PO SCH ×2 (08:59→21:47)
[2021-06-10] MEDS: NICOTINE 21MG/24HR PATCH TRANSDERM SCH (08:59)
--- NOTE | 2021-06-10 09:57 | P.PN ---
Subjective Progress Note Date: 06/10/21 The patient is seen at bedside and continues to be about the same. Denies any new neurological problems and denies any improvement in his condition. Objective - Vital Signs Vital signs: Vital Signs Temp 97.9 F 06/10/21 02:10 Pulse 108 H 06/10/21 07:17 Resp 17 06/10/21 02:10 BP 118/70 06/10/21 02:10 Pulse Ox 95 06/10/21 02:10 Intake & Output 06/09/21 06/10/21 06/10/21 18:59 06:59 18:59 Intake Total 400 160 Output Total 600 Balance 400 -440 Weight 53.977 kg Intake: Oral 400 160 Output: Urine 600 Other: Voiding Method Urinal Urinal Urinal Diaper Diaper Diaper External Catheter # Voids 2 - Exam GENERAL: The patient is lying in bed and is not in acute distress. NEUROLOGICAL: Higher mental function: The patient is awake, alert, oriented to self, place and time. Patient is following commands He is somewhat slow to respond or follow commands.. No aphasia and no neglect. Cranial nerves: The pupils are round, equal and reactive to light and accommodation. Visual lee are full to confrontation throughout. Extraocular movement is intact no nystagmus is noted. Facial sensation is normal to touch throughout. The facial strength is normal throughout. Tongue appears to have fasciulation. No dysarthria is noted. Motor: Gait is deferred. On muscle strength testing, he has symmetric weakness of bilateral upper and lower extremities. The overall strength is 4 diffusely in bilateral upper extremities proximally and distally (except deltoids appear 3-4- bilaterally).. In the lower limbs his hip flexion is about 1, hip adduction and abduction cannot be assessed because patient cannot flex his hips. He was able to give some resistance for the hip abduction > hip adduction. Knee extension is 3 to 4-, ankledorsiflexion/plantar 3-4 bilaterally. Cerebellum:Cerebellar function showed ataxia for [id number]-nw-oiac testing bilaterally. Patient could not perform [id number]-km-vzse testing bilaterally. Sensation: Sensory to touch is decreased from toes up to the groin bilaterally. In the arms it was decreased mainly in the hands up to the shoulder. Vibration is absent in the toes, ankles and the knees and the fingers. Reflexes (right/left): Absent throughout. Plantars are mute bilaterally. WORK-UP: MR lumbar spine with and without is reported as no suspicious enhancing lumbo- sacral nerve roots. Scoliotic curvature with degenerative changes and the mid to lower lumbar spine is detailed above. Suspect effacement of the right L4 and left L5 nerves. Correlate likely. CSF shows normal total protein 60 (12-60), glucose 60, RBC 14, WBC 0. B12 is 531, methylmalonic acid 0.14 on 05/27/2021. RBC folate also normal 598. Protein electrophoresis showed beta/gamma bridge suggestive of liver dy sfunction. Patient's HIV is negative. Coronavirus PCR negative. Rheumatoid factor negative, Vitamin B6L 8 (normal is 5-50. SSA/SSB Antibody is negative immunoelectrophoresis shows no monoclonal paraprotein. Folate is low 5.10 creatinine kinase normal 20, serum copper is normal 753 ([id number]), ceruloplasmin is slightly low 17.7 (20-60). Acetylcholine receptor antibody is less than 3.0 is considered negative. MISHA is negative Hemoglobin A1c is 5.1. - Labs CBC & Chem 7: 06/10/21 12:10 06/10/21 12:10 Labs: Abnormal Lab Results - Last 24 Hours (Table) 06/05/21 06/09/21 Range/Units 15:08 15:16 RBC 2.16 L (4.30-5.90) m/uL Hgb 7.8 L (13.0-17.5) gm/dL Hct 23.0 L (39.0-53.0) % MCV 106.5 H (80.0-100.0) fL MCH 36.2 H (25.0-35.0) pg RDW 22.6 H (11.5-15.5) % Lymphocytes # 0.6 L (1.0-4.8) k/uL Macrocytosis Marked A CSF IgG (MS) 4.7 H (0.0 - 3.4) mg/dL Serum Albumin 2,530 L (3500 - 5200) mg/dL CSF IgG Synth Rate MS 3.57 H (0.00 - 3.00) mg/day Microbiology - Last 24 Hours (Table) 06/05/21 14:38 CSF Gram Stain - Final Cerebral Spinal Fluid CSF Culture - Final Assessment and Plan Assessment: * 65-year-old male with 4 month history of progressive weakness of the legs > arms with severe sensory dysfunction and sensory ataxia. Patient is completely areflexic. Exact cause is uncertain. CIDP less likely with normal CSF proteins. No evidence of paraproteinemia noted. 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 * History of significant alcoholism, sober since December 2020. * Progressive weight loss, 70 pounds over the last 4 months. Exact cause remains uncertain. * History of non-Hodgkin's lymphoma (? and Melanoma) * History of tobacco use * History of marijuana use Plan: * Paraneoplastic panel, Lyme titer are pending. * Patient definitely will need EMG and nerve conduction studies of upper and lower extremities. * Folate is low 5.10. Continue folate replacement 1 mg daily. * Patient does not appear to have essential tremor that primary team suspects. * Oncologist team is on board * Physical therapy and occupation therapy on board. * Defer the rest of the workup to the primary team. * Upon discharge the patient needs to follow-up with a neurologist within 1-2 weeks as an outpatient and recommend patient to follow-up with neuromuscular clinic (can consider at [facility], [facility] or [place]). I recommend the patient to be transferred to a tertiary Center for EMG with NCS. The plan is discussed with the patient's nurse and behavioral health case manager. Later I spoke with primary team regarding the case and spoke with [facility] regarding transfer (but they could not accept since no beds available). Hank Small MD Neuro-Hospitalist Time with Patient: Greater than 30
--- NOTE | 2021-06-10 10:11 | P.PN ---
Subjective Progress Note Date: 06/09/21 Principal diagnosis: Small tiny pleural effusion Dysphagia with solids due to Isi esophagitis, has been nystatin swish and swallow biopsy pending COPD with acute exacerbation Left lower lobe groundglass opacity Failure to thrive with history of weight loss macrocytic anemia Malnutrition protein calorie Inflammation tree change in cecum possible typhlitis Elevated troponin History of fall and left arm melanoma Remote history of non-Hodgkin's lymphoma 06/09/2021, patient seen eval examined during the rounds workup for neuropathy is in progress neurology has been following the patient, history status however remains stable, but patient continued to deny bronchodilators, active physical therapy in progress 06/08/2021, patient seen eval examined, history status stable, patient declined nebulizer treatment currently, on room air, denies any chest pain does complain of numbness in the hands and foot patient has chronic neuropathy, neurology has been followed 06/06/2021, patient seen eval examined during the rounds labs reviewed medications reviewed care plan discussed, has been tolerating by mouth well in general surgery is following, respiratory status stable on bronchodilator 06/04/2021, patient seen eval examined during the rounds labs reviewed medications reviewed patient has been getting breathing treatments, has extensive history of smoking and nicotine use, patient is being planned for placement in extended care facility, x-ray done today which is reviewed sister of some interstitial edema and small tiny pleural effusion likely related to poor oncotic pressure and catabolic state due to protein calorie malnutrition, we will give a dose of IV Lasix and monitor observe patient closely, from pulmonary standpoint patient can be discharged on nebulizer 2-3 times a day r 06/03/2021, patient seen eval examined, status post colonoscopy, bowel prep still not adequate, however excessive amount of stool was seen, Estrace status remains stable on 2 L oxygen patient being monitor off of steroids 06/02/2021, patient seen and evaluated examined during the rounds labs reviewed medications reviewed care plan discussed, patient is undergoing prep for the colonoscopy for tomorrow remains on 2 L oxygen denies any chest pain or shortness of breath 05/30/2021, patient seen eval examined during the rounds overall no significant change, respiratory status stable, denies any chest pain, surgery has been following, patient has been continued on nystatin swish and swallow 4 Isi esophagitis 05/29/2021, patient seen eval examined during the rounds labs reviewed medications reviewed care plan discussed with the staff at length, patient is sitting upright on the bed breathing comfortably he is nothing by mouth for endoscopy upper and lower later on today, swollen functions have improved now, denies any cough or sputum production, labs reviewed hemoglobin remained stable 8.8, potassium is 3.3, remains stable BUN/creatinine within normal limit, rheumatoid factor as well as in the screen is negative, 05/28/2021, patient seen eval reexamined labs reviewed medications reviewed care plan discussed, history status stable, patient is still have problems associated with swallowing, patient is on full liquid diet tolerating well, appetite however remains poor patient is for endoscopy tomorrow 05/27/2021, patient seen eval reexamined he is sitting upright on the bed sitting and looking at his food, shortness of breath stable, remains on bronchodilators and IV steroids, does complaining of dysphagia and difficulty in swallowing especially with solids, general surgery has been following patient schedule for upper and lower endoscopy by surgery in next few days, hemodynamic status stable patient remains afebrile, oxygen saturation is 97% room air, Patient is a 65-year-old male looks and appear older then the stated age, patient came into the hospital with the loss of appetite poor by mouth intake and loss about 70 pounds in last 3 months, patient has been chronic short of breath have 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 emphysema hypertension hypertensive cardiovascular disease, patient has a long-term history of smoking and nicotine use from 1-2 packs per day quit about 3 months ago as he lost the taste of cigarettes as well, on specific questioning denies any chest pain denies any hemoptysis hematemesis, shortness of breath on activity and exertion present, denies any bowel bladder related problem, and denies any night sweats or fever or chills, patient was afebrile on presentation, but with stable h emodynamics oxygen saturation was 97% on room air, he was found to be anemic with the hemoglobin 6.9 posttransfusion improved to of 9.7 white cell count within normal limit, chest x-ray consistent with COPD CT of the brain consistent with cerebral atrophy no acute changes have been identified, patient's EKG significant for sinus tachycardia with nonspecific ST and T wave changes, x-ray of the spine and LS spine spondylotic changes, computed tomography scan of the chest no suspicious lung nodules were seen faint groundglass opacities seen in the left lower lobe, computed tomography scan Of the Abdominal Significant for Inflammatory Changes in the Cecum Likely Typhlitis, COVID-19 Testing Is Ne gative, Troponin Elevated 0.038 Objective - Vital Signs Vital signs: Vital Signs Temp 98 F 06/09/21 12:56 Pulse 120 H 06/09/21 12:56 Resp 17 06/09/21 12:56 BP 100/61 06/09/21 12:56 Pulse Ox 94 L 06/09/21 12:56 Intake & Output 06/08/21 06/09/21 06/09/21 18:59 06:59 18:59 Intake Total 340 100 Output Total 800 400 Balance -460 -300 Weight 53.977 kg Intake: Oral 340 100 Output: Urine 800 400 Other: Voiding Method Urinal Urinal Urinal Diaper Diaper - Exam Constitutional General appearance: average body habitus, cooperative, disheveled, mild distress - EENT Eyes: EOMI, PERRLA Ears: bilateral: normal - Neck Neck: normal ROM Carotids: bilateral: upstroke normal Thyroid: bilateral: normal size - Respiratory Respiratory: bilateral: CTA - Cardiovascular Rhythm: regular Heart sounds: normal: S1, S2 - Gastrointestinal General gastrointestinal: decreased bowel sounds - Neurologic Neurologic: CNII-XII intact - Musculoskeletal Musculoskeletal: gait normal, generalized weakness, strength equal bilaterally - Psychiatric Psychiatric: A&O x's 3, appropriate affect, intact judgment & insight - Labs CBC & Chem 7: 06/09/21 15:16 06/08/21 06:29 Labs: Abnormal Lab Results - Last 24 Hours (Table) 06/05/21 Range/Units 15:08 CSF IgG (MS) 4.7 H (0.0 - 3.4) mg/dL Serum Albumin 2,530 L (3500 - 5200) mg/dL CSF IgG Synth Rate MS 3.57 H (0.00 - 3.00) mg/day Microbiology - Last 24 Hours (Table) 06/05/21 14:38 CSF Culture - Preliminary Cerebral Spinal Fluid Assessment and Plan Assessment: Tiny bilateral pleural effusion due to poor oncotic pressure and protein calorie malnourishment and catabolic state status post Lasix doing well Dysphagia related to isi esophagitis patient has been nystatin swish and swallow biopsy results are pending COPD with acute exacerbation Left lower lobe groundglass opacity Failure to thrive with history of weight loss macrocytic anemia Malnutrition protein calorie Inflammation tree change in cecum possible typhlitis Elevated troponin History of non-Hodgkin's lymphoma status post chemotherapy and remote past History of melanoma left arm and remote past as Plan: Continue bronchodilator Patient status post colonoscopy Continue oral Diflucan Monitor off of his steroids continue bronchodilator Workup and evaluation of anemia with endoscopy by surgical services Status post upper endoscopy however lower canceled due to poor prep Evaluation of typhlitis by surgery Patient is at high risk of the lung neoplasm would recommend a computed tomography scan of his chest in 4-6 months for left lower lobe groundglass opacity Further workup and evaluation of COPD as outpatient Time with Patient: Greater than 30
--- NOTE | 2021-06-10 10:13 | P.PN ---
Subjective Progress Note Date: 06/10/21 Principal diagnosis: Small tiny pleural effusion Dysphagia with solids due to Isi esophagitis, has been nystatin swish and swallow biopsy pending COPD with acute exacerbation Left lower lobe groundglass opacity Failure to thrive with history of weight loss macrocytic anemia Malnutrition protein calorie Inflammation tree change in cecum possible typhlitis Elevated troponin History of fall and left arm melanoma Remote history of non-Hodgkin's lymphoma 06/20/2021, patient actively undergoing physical therapy, mild shortness of breath at present, has been using oxygen intermittently, denies any chest pain, appetite overall remains stable, tolerating nystatin and Diflucan fairly well, discussed patient about need of using bronchodilator therapy as needed and using nebulizer treatment at least 2-3 times a day 06/09/2021, patient seen eval examined during the rounds workup for neuropathy is in progress neurology has been following the patient, history status however remains stable, but patient continued to deny bronchodilators, active physical therapy in progress 06/08/2021, patient seen eval examined, history status stable, patient declined nebulizer treatment currently, on room air, denies any chest pain does complain of numbness in the hands and foot patient has chronic neuropathy, neurology has been followed 06/06/2021, patient seen eval examined during the rounds labs reviewed medications reviewed care plan discussed, has been tolerating by mouth well in general surgery is following, respiratory status stable on bronchodilator 06/04/2021, patient seen eval examined during the rounds labs reviewed medications reviewed patient has been getting breathing treatments, has extensive history of smoking and nicotine use, patient is being planned for placement in extended care facility, x-ray done today which is reviewed sister of some interstitial edema and small tiny pleural effusion likely related to poor oncotic pressure and catabolic state due to protein calorie malnutrition, we will give a dose of IV Lasix and monitor observe patient closely, from pulmonary standpoint patient can be discharged on nebulizer 2-3 times a day r 06/03/2021, patient seen eval examined, status post colonoscopy, bowel prep still not adequate, however excessive amount of stool was seen, Estrace status remains stable on 2 L oxygen patient being monitor off of steroids 06/02/2021, patient seen and evaluated examined during the rounds labs reviewed medications reviewed care plan discussed, patient is undergoing prep for the colonoscopy for tomorrow remains on 2 L oxygen denies any chest pain or shortness of breath 05/30/2021, patient seen eval examined during the rounds overall no significant change, respiratory status stable, denies any chest pain, surgery has been following, patient has been continued on nystatin swish and swallow 4 Isi esophagitis 05/29/2021, patient seen eval examined during the rounds labs reviewed medicatio ns reviewed care plan discussed with the staff at length, patient is sitting upright on the bed breathing comfortably he is nothing by mouth for endoscopy upper and lower later on today, swollen functions have improved now, denies any cough or sputum production, labs reviewed hemoglobin remained stable 8.8, potassium is 3.3, remains stable BUN/creatinine within normal limit, rheumatoid factor as well as in the screen is negative, 05/28/2021, patient seen eval reexamined labs reviewed medications reviewed care plan discussed, history status stable, patient is still have problems associated with swallowing, patient is on full liquid diet tolerating well, appetite however remains poor patient is for endoscopy tomorrow 05/27/2021, patient seen eval reexamined he is sitting upright on the bed sitting and looking at his food, shortness of breath stable, remains on bronchodilators and IV steroids, does complaining of dysphagia and difficulty in swallowing especially with solids, general surgery has been following patient schedule for upper and lower endoscopy by surgery in next few days, hemodynamic status stable patient remains afebrile, oxygen saturation is 97% room air, Patient is a 65-year-old male looks and appear older then the stated age, patient came into the hospital with the loss of appetite poor by mouth intake and loss about 70 pounds in last 3 months, patient has been chronic short of breath have 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 emphysema hypertension hypertensive cardiovascular disease, patient has a long-term history of smoking and nicotine use from 1-2 packs per day quit about 3 months ago as he lost the taste of cigarettes as well, on specific questioning denies any chest pain denies any hemoptysis hematemesis, shortness of breath on activity and exertion present, denies any bowel bladder related problem, and denies any night sweats or fever or chills, patient was afebrile on presentation, but with stable hemodynamics oxygen saturation was 97% on room air, he was found to be anemic with the hemoglobin 6.9 posttransfusion improved to of 9.7 white cell count within normal limit, chest x-ray consistent with COPD CT of the brain consistent with cerebral atrophy no acute changes have been identified, patient's EKG significant for sinus tachycardia with nonspecific ST and T wave changes, x-ray of the spine and LS spine spondylotic changes, computed tomography scan of the chest no suspicious lung nodules were seen faint groundglass opacities seen in the left lower lobe, computed tomography scan Of the Abdominal Significant for Inflammatory Changes in the Cecum Likely Typhlitis, COVID-19 Testing Is Negative, Troponin Elevated 0.038 Objective - Vital Signs Vital signs: Vital Signs Temp 97.9 F 06/10/21 02:10 Pulse 108 H 06/10/21 07:17 Resp 17 06/10/21 02:10 BP 118/70 06/10/21 02:10 Pulse Ox 95 06/10/21 02:10 Intake & Output 06/09/21 06/10/21 06/10/21 18:59 06:59 18:59 Intake Total 400 160 Output Total 600 Balance 400 -440 Weight 53.977 kg Intake: Oral 400 160 Output: Urine 600 Other: Voiding Method Urinal Urinal Urinal Diaper Diaper Diaper External Catheter # Voids 2 - Exam Constitutional General appearance: average body habitus, cooperative, disheveled, mild distress - EENT Eyes: EOMI, PERRLA Ears: bilateral: normal - Neck Neck: normal ROM Carotids: bilateral: upstroke normal Thyroid: bilateral: normal size - Respiratory Respiratory: bilateral: CTA - Cardiovascular Rhythm: regular Heart sounds: normal: S1, S2 - Gastrointestinal General gastrointestinal: decreased bowel sounds - Neurologic Neurologic: CNII-XII intact - Musculoskeletal Musculoskeletal: gait normal, generalized weakness, strength equal bilaterally - Psychiatric Psychiatric: A&O x's 3, appropriate affect, intact judgment & insight - Labs CBC & Chem 7: 06/09/21 15:16 06/08/21 06:29 Labs: Abnormal Lab Results - Last 24 Hours (Table) 06/05/21 06/09/21 Range/Units 15:08 15:16 RBC 2.16 L (4.30-5.90) m/uL Hgb 7.8 L (13.0-17.5) gm/dL Hct 23.0 L (39.0-53.0) % MCV 106.5 H (80.0-100.0) fL MCH 36.2 H (25.0-35.0) pg RDW 22.6 H (11.5-15.5) % Lymphocytes # 0.6 L (1.0-4.8) k/uL Macrocytosis Marked A CSF IgG (MS) 4.7 H (0.0 - 3.4) mg/dL Serum Albumin 2,530 L (3500 - 5200) mg/dL CSF IgG Synth Rate MS 3.57 H (0.00 - 3.00) mg/day Microbiology - Last 24 Hours (Table) 06/05/21 14:38 CSF Gram Stain - Final Cerebral Spinal Fluid CSF Culture - Final Assessment and Plan Assessment: Tiny bilateral pleural effusion due to poor oncotic pressure and protein calorie malnourishment and catabolic state status post Lasix doing well Dysphagia related to isi esophagitis patient has been nystatin swish and swallow biopsy results are pending COPD with acute exacerbation Left lower lobe groundglass opacity Failure to thrive with history of weight loss macrocytic anemia Malnutrition protein calorie Inflammation tree change in cecum possible typhlitis Elevated troponin History of non-Hodgkin's lymphoma status post chemotherapy and remote past History of melanoma left arm and remote past as Plan: Continue bronchodilator Patient status post colonoscopy Continue oral Diflucan Monitor off of his steroids continue bronchodilator Workup and evaluation of anemia with endoscopy by surgical services Status post upper endoscopy however lower canceled due to poor prep Evaluation of typhlitis by surgery Patient is at high risk of the lung neoplasm would recommend a computed tomography scan of his chest in 4-6 months for left lower lobe groundglass opacity Further workup and evaluation of COPD as outpatient
--- NOTE | 2021-06-10 11:49 | P.PN ---
Subjective Progress Note Date: 06/10/21 Principal diagnosis: failure to thrive, dysphagia, weak other than his known ETOH history there is not a definitive underlying cause for anemia. Discussed case in detail with Dr. magallanes and agrees Bone Marrow Biopsy needed, however at this time will need to finish work-up with neurology. Objective - Vital Signs Vital signs: Vital Signs Temp 97.9 F 06/10/21 02:10 Pulse 108 H 06/10/21 07:17 Resp 17 06/10/21 02:10 BP 118/70 06/10/21 02:10 Pulse Ox 95 06/10/21 02:10 Intake & Output 06/09/21 06/10/21 06/10/21 18:59 06:59 18:59 Intake Total 400 160 Output Total 600 Balance 400 -440 Weight 53.977 kg Intake: Oral 400 160 Output: Urine 600 Other: Voiding Method Urinal Urinal Urinal Diaper Diaper Diaper External Catheter # Voids 2 - Exam - Constitutional General appearance: average body habitus, cooperative, no acute distress - EENT Eyes: anicteric sclerae, EOMI ENT: hearing grossly normal, normal oropharynx - Neck Neck: no lymphadenopathy - Respiratory Respiratory: bilateral: CTA - Cardiovascular Rhythm: regular Heart sounds: normal: S1, S2 Abnormal Heart Sounds: no systolic murmur, no diastolic murmur, no rub, no S3 Gallop, no S4 Gallop, no click, no other leg Peripheral Edema: bilateral: None - Gastrointestinal General gastrointestinal: no absent bowel sounds, no decreased bowel sounds, no distended, no hepatomegaly, no hyperactive bowel sounds, normal bowel sounds, no organomegaly, no rigid, no scaphoid, soft, no splenomegaly, no tenderness, no umbilical hernia, no ventral hernia - Integumentary Integumentary: pale - Neurologic Neurologic: CNII-XII intact - Musculoskeletal Musculoskeletal: generalized weakness, strength lower weak, lle .< rle - Psychiatric Psychiatric: A&O x's 3, appropriate affect, intact judgment & insight - Labs CBC & Chem 7: 06/10/21 12:10 06/10/21 12:10 Labs: Abnormal Lab Results - Last 24 Hours (Table) 06/05/21 06/09/21 Range/Units 15:08 15:16 RBC 2.16 L (4.30-5.90) m/uL Hgb 7.8 L (13.0-17.5) gm/dL Hct 23.0 L (39.0-53.0) % MCV 106.5 H (80.0-100.0) fL MCH 36.2 H (25.0-35.0) pg RDW 22.6 H (11.5-15.5) % Lymphocytes # 0.6 L (1.0-4.8) k/uL Macrocytosis Marked A CSF IgG (MS) 4.7 H (0.0 - 3.4) mg/dL Serum Albumin 2,530 L (3500 - 5200) mg/dL CSF IgG Synth Rate MS 3.57 H (0.00 - 3.00) mg/day Microbiology - Last 24 Hours (Table) 06/05/21 14:38 CSF Gram Stain - Final Cerebral Spinal Fluid CSF Culture - Final Assessment and Plan (1) Thrombocytopenia Current Visit: Yes Status: Acute Code(s): D69.6 - THROMBOCYTOPENIA, UNSPECIFIED SNOMED Code(s): 282735150 (2) Anemia Current Visit: Yes Status: Acute Code(s): D64.9 - ANEMIA, UNSPECIFIED SNOMED Code(s): 750248413 (3) COPD (chronic obstructive pulmonary disease) Current Visit: Yes Status: Acute Code(s): J44.9 - CHRONIC OBSTRUCTIVE PULMONARY DISEASE, UNSPECIFIED SNOMED Code(s): 75108613 (4) Generalized weakness Current Visit: Yes Status: Acute Priority: High Code(s): R53.1 - WEAKNESS SNOMED Code(s): 83375480 (5) Macrocytic anemia Current Visit: Yes Status: Acute Priority: High Code(s): D53.9 - NUTRITIONAL ANEMIA, UNSPECIFIED SNOMED Code(s): 21714527 (6) Weight loss Current Visit: Yes Status: Acute Code(s): R63.4 - ABNORMAL WEIGHT LOSS SNOMED Code(s): 76210579 Plan: 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 Will discuss with primary vocal teacher Wednesday regarding if further testing with bone marrow biopsy will add to work-up. Hematological work-up negative, may consider further evaluation with bone marrow biopsy. Pathology asked to review in interim. COncern of patient overall neurological symptoms, ?seizure, neurology following. Once neurology work-up complete may consider bone marrow for hematological abnormalities. Agree with transfer for further evaluation at tertiary center
--- NOTE | 2021-06-10 12:25 | P.CONS ---
History of Present Illness - Reason for Consult Consult date: 06/10/21 wound care - History of Present Illness This is a 65-year-old male being seen by the wound care center on [address] for stage II pressure ulcer of the buttocks. Patient was seen by Dr. Fuentes who ordered absorptive silver to the site. We'll continue with the absorptive silver dressings as needed. Patient's past medical history significant for COPD, hypertension, melanoma, current every day smoker. Review Of Systems: Constitutional: No fever, no chills, no night sweats. No weight change. No weakness, fatigue or lethargy. No daytime sleepiness. Integumentary:reports wounds, no lesions. No rash or pruritus. No unusual bruising. No change in hair or nails. Physical exam: General Appearance: Alert, cooperative, no distress, appears stated age. Skin: See HPI all other Skin color, texture, tugor normal, no rashes or lesions. Neurologic: Alert oriented x3 Assessment: 1. Stage II pressure ulcer sacrum Plan: 1. Apply absorptive silver, saline moistened gauze, ABDs secure with paper tape. Change Wednesday. Thank you for consultation any questions was contacted wound care center DNP note has been reviewed and discussed with Dr. Osorio and the impression and plan of care has been directed as dictated. Past Medical History Past Medical History: Cancer, COPD, Hypertension Additional Past Medical History / Comment(s): melanoma and NHL History of Any Multi-Drug Resistant Organisms: None Reported Past Surgical History: Orthopedic Surgery Additional Past Surgical History / Comment(s): right hip preplacement Past Anesthesia/Blood Transfusion Reactions: No Reported Reaction Past Psychological History: Anxiety, Depression Smoking Status: Current every day smoker Past Alcohol Use History: None Reported Past Drug Use History: None Reported Medications and Allergies Home Medications Medication Instructions Recorded Confirmed Type Fluconazole [Diflucan] 100 mg PO DAILY tab 06/05/21 Rx Ipratropium-Albuterol Nebulize 3 ml INHALATION RT-QID ml 06/05/21 Rx [Duoneb 0.5 mg-3 mg/3 ml Soln] Multivitamins, Thera [Multivitamin 1 each PO DAILY tab 06/05/21 Rx (formulary)] Nicotine 21Mg/24Hr Patch [Habitrol] 1 patch TRANSDERM DAILY patch 06/05/21 Rx Nystatin 100,000 Unit/ml Susp 500,000 unit PO QID ml 06/05/21 Rx [Mycostatin Oral Susp] Pantoprazole [Protonix] 40 mg PO AC-BRKFST tab 06/05/21 Rx Allergies Allergy/AdvReac Type Severity Reaction Status Date / Time latex Allergy Rash/Hives Verified 06/05/21 13:45 Penicillins Allergy Anaphylaxis Verified 06/05/21 13:45 strawberry Allergy Unknown Verified 06/05/21 13:45 Physical Exam Vitals: Vital Signs Temp Pulse Pulse Pulse Pulse Resp BP 06/10/21 07:17 108 H 06/10/21 07:09 102 H 06/10/21 02:10 97.9 F 110 H 110 H 17 118/70 06/09/21 23:02 97.7 F 115 H 06/09/21 20:13 106 H 06/09/21 20:03 100 06/09/21 20:00 132 H 128 H 16 06/09/21 19:30 99.3 F 128 H 132 H 16 114/69 06/09/21 15:50 112 H 06/09/21 15:37 116 H 06/09/21 12:56 98 F 120 H 17 100/61 Pulse Ox 06/10/21 07:17 06/10/21 07:09 06/10/21 02:10 95 06/09/21 23:02 06/09/21 20:13 06/09/21 20:03 06/09/21 20:00 06/09/21 19:30 93 L 06/09/21 15:50 06/09/21 15:37 06/09/21 12:56 94 L Intake and Output 06/09/21 06/10/21 06/10/21 22:59 06:59 14:59 Intake Total 400 160 Output Total 200 400 Balance 200 -240 Intake: Oral 400 160 Output: Urine 200 400 Other: Voiding Method Urinal Urinal Diaper Diaper External Catheter # Voids 2 Results CBC & Chem 7: 06/09/21 15:16 06/08/21 06:29 Labs: Abnormal Lab Results - Last 24 Hours (Table) 06/05/21 06/09/21 Range/Units 15:08 15:16 RBC 2.16 L (4.30-5.90) m/uL Hgb 7.8 L (13.0-17.5) gm/dL Hct 23.0 L (39.0-53.0) % MCV 106.5 H (80.0-100.0) fL MCH 36.2 H (25.0-35.0) pg RDW 22.6 H (11.5-15.5) % Lymphocytes # 0.6 L (1.0-4.8) k/uL Macrocytosis Marked A CSF IgG (MS) 4.7 H (0.0 - 3.4) mg/dL Serum Albumin 2,530 L (3500 - 5200) mg/dL CSF IgG Synth Rate MS 3.57 H (0.00 - 3.00) mg/day Microbiology - Last 24 Hours (Table) 06/05/21 14:38 CSF Gram Stain - Final Cerebral Spinal Fluid CSF Culture - Final Assessment and Plan (1) Stage II pressure ulcer of buttock Current Visit: Yes Status: Acute Code(s): L89.302 - PRESSURE ULCER OF UNSPECIFIED BUTTOCK, STAGE 2 SNOMED Code(s): 60574644122000184
[2021-06-10 12:39] LABS: Anisocytosis Moderate; Basophils % (A) 0 %; Eosinophils # (A) 0.1 k/uL (0-0.7); Eosinophils % (A) 2 %; HCT 26.8 % (39.0-53.0); HGB 8.8 gm/dL (13.0-17.5); Lymphocytes # (A) 0.4 k/uL (1.0-4.8); Lymphocytes % (A) 6 %; MCHC 32.7 g/dL (31.0-37.0); MCV 106.7 fL (80.0-100.0); Macrocytosis Marked; Mean Platelet Volume 7.3; Monocytes # (A) 0.2 k/uL (0-1.0); Monocytes % (A) 3 %; Neutrophils # (A) 6.6 k/uL (1.3-7.7); Neutrophils % (A) 89 %; Platelet Count 357 k/uL (150-450); RBC 2.51 m/uL (4.30-5.90); RDW 21.2 % (11.5-15.5); WBC 7.4 k/uL (3.8-10.6)
[2021-06-10 12:56] LABS: ALT 28 U/L (4-49); AST 21 U/L (17-59); African American GFR (CKD) >90 (>60 ml/min/1.73 sqM); Albumin 2.8 g/dL (3.5-5.0); Alkaline Phosphatase 135 U/L (38-126); Anion Gap 9 mmol/L; Blood Urea Nitrogen 15 mg/dL (9-20); Calcium 8.7 mg/dL (8.4-10.2); Carbon Dioxide 22 mmol/L (22-30); Chloride 106 mmol/L (98-107); Globulin 2.9 g/dL; Glucose 103 mg/dL (74-99); Magnesium 1.4 mg/dL (1.6-2.3); Non-African American GFR(CKD) >90 (>60 ml/min/1.73 sqM); Phosphorus 3.4 mg/dL (2.5-4.5); Potassium 4.1 mmol/L (3.5-5.1); Sodium 137 mmol/L (137-145); Total Bilirubin 0.5 mg/dL (0.2-1.3); Total Protein 5.7 g/dL (6.3-8.2)
[2021-06-10 13:06] LABS: Partial Thromboplastin Time 25.8 sec (22.0-30.0); Prothrombin Time 10.3 sec (9.0-12.0)
[2021-06-10] MEDS: ACETAMINOPHEN TAB 325 MG TAB PO PRN (13:33)
--- NOTE | 2021-06-10 14:54 | US ---
EXAMINATION TYPE: US abdomen complete DATE OF EXAM: 06/10/2021 COMPARISON: CT 2018 CLINICAL HISTORY: liver and spleen. Abnormal labs EXAM MEASUREMENTS: Liver Length: 13.3 cm Gallbladder Wall: 0.4 cm CBD: 0.5 cm Spleen: 9.9 cm Right Kidney: 9.8x4.6x4.9 cm Left Kidney: 9.7x5.5x4.5 cm Pancreas: Obscured by bowel gas Liver: wnl Gallbladder: wnl Evidence for sonographic Cortez's sign: No CBD: wnl Spleen: wnl Right Kidney: Mild hydro Left Kidney: Mild hydro Upper IVC: wnl Abd Aorta: Obscured by overlying bowel gas Incidental right pleural effusion noted. Bilateral mild hydro. Patient voided mid exam, extended blad michael with small amount of debris. The visualized liver slightly heterogeneously hyperechoic. No worrisome focal mass or ductal dilatati on. IVC is seen near the hepatic dome. Poor visualization of the abdominal aorta, visualized portions show no AAA. There is no evidence of shadowing mobile cholelithiasis. Common bile duct is within n ormal limits. Pancreas suboptimally seen on images saved secondary to shadowing from overlying bowel gas.. The spleen is normal in size. Kidneys are symmetric and poorly seen with possible mild hydron ephrosis. No renal lesions are seen on images saved. Moderate bladder distention noted likely accoun ting for the mild bilateral hydronephrosis. Bladder is not completely anechoic. IMPRESSION: Mild diffuse fatty infiltration of liver suspected. Normal-size liver and spleen. Interna l debris within bladder, correlate clinically for infection.
--- NOTE | 2021-06-10 16:37 | XR ---
EXAMINATION TYPE: XR abdomen acute w cxr DATE OF EXAM: 06/10/2021 COMPARISON: CT 05/26/2021 HISTORY: 65-year-old male pain, assess obstruction. TECHNIQUE: Supine, upright, and left side down lateral decubitus views of the abdomen are obtained. FINDINGS: No evidence for free intraperitoneal air. Dilated small bowel loops are present measuring up to 3.3 cm in the central abdomen. However, air and stool remains throughout the entire colon. No differential air-fluid levels. Rectum is distended wit h stool up to 7.6 cm wide. Heart normal size. Emphysematous change in the lungs. Some strandy scarring or atelectasis at the lef t base. Surgical clips left axilla. Partially visualized right internal arthroplasty. IMPRESSION: 1. COPD with some stable pleural parenchymal scarring at the left base. 2. No evidence for free air. 3. Distended small bowel loops measuring up to 3.3 cm. Prominent air and stool remains throughout the colon. This is an overall nonobstructive bowel gas pattern. Consider generalized ileus or enteritis. 4. Fecal impaction not excluded. The rectum is distended with stool up to 7.6 cm wide.
[2021-06-10] MEDS: LACTATED RINGERS 1,000 ML IV SCH (17:28)
[2021-06-10 21:08] LABS: Appearance,Urine Clear (Clear); Bilirubin,Urine Negative (Negative); Blood,Urine Negative (Negative); Color,Urine Yellow; Glucose,Urine (UA) Negative (Negative); Ketones,Urine Negative (Negative); Leukocyte Esterase,Urine Negative (Negative); Nitrite,Urine Negative (Negative); Protein,Urine Trace (Negative); Specific Gravity,Urine 1.019 (1.001-1.035)
--- NOTE | 2021-06-11 00:12 | PN ---
PROGRESS NOTE This 65-year-old white male is not getting better. He is more confused. He has dystonic motions with his arms. He is unable to move his legs. I discussed case with Dr. 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 The patient is not improving, unable to hold anything in his hands or move his legs. We are going to transfer him down to a tertiary center for workup of paraneoplastic process, including possibly a bone marrow biopsy and possibly some immune modulators to be used transfer. Otherwise, he is stable for transfer at this time. Please see further orders. MMODL / IJN: [id number] /
[2021-06-11 05:44] LABS: Anisocytosis Moderate; Basophils % (A) 0 %; Eosinophils # (A) 0.2 k/uL (0-0.7); Eosinophils % (A) 2 %; HCT 26.3 % (39.0-53.0); HGB 8.5 gm/dL (13.0-17.5); Lymphocytes # (A) 0.6 k/uL (1.0-4.8); Lymphocytes % (A) 8 %; MCH 35.3 pg (25.0-35.0); MCHC 32.2 g/dL (31.0-37.0); MCV 109.8 fL (80.0-100.0); Mean Platelet Volume 7.7; Monocytes # (A) 0.3 k/uL (0-1.0); Monocytes % (A) 3 %; Neutrophils # (A) 6.4 k/uL (1.3-7.7); Neutrophils % (A) 84 %; Platelet Count 342 k/uL (150-450); WBC 7.6 k/uL (3.8-10.6)
[2021-06-11 06:14] LABS: Macrocytosis Marked
[2021-06-11] MEDS: PANTOPRAZOLE 40 MG TABLET PO SCH (08:34)
[2021-06-11] MEDS: NICOTINE 21MG/24HR PATCH TRANSDERM SCH (08:34)
[2021-06-11] MEDS: MULTIVITAMINS, THERA 1 EACH TAB PO SCH (08:34)
[2021-06-11] MEDS: FOLIC ACID 1 MG TAB PO SCH (08:34)
[2021-06-11] MEDS: TAMSULOSIN 0.4 MG CAP.ER.24H PO SCH (08:34)
[2021-06-11] MEDS: NYSTATIN 100,000 UNIT/ML SUSP 500,000 UNIT/5 ML CUP PO SCH ×4 (08:34→20:25)
[2021-06-11] MEDS: atenoloL 25 MG TAB PO SCH ×2 (08:34→20:25)
[2021-06-11] MEDS: ACETAMINOPHEN TAB 325 MG TAB PO PRN (08:35)
[2021-06-11] MEDS: FLUCONAZOLE 100 MG TAB PO SCH (08:35)
[2021-06-11] MEDS: IPRATROPIUM-ALBUTEROL 3 ML NEB INHALATION SCH ×4 (09:15→20:15)
[2021-06-11 10:17] LABS: Reticulocyte % 2.2 % (0.5-2.0)
--- NOTE | 2021-06-11 10:32 | P.PN ---
Subjective Progress Note Date: 06/11/21 Principal diagnosis: failure to thrive, dysphagia, weak Macrocytosis with anemia, unknown etiology. Contributing factor of underlying liver disease, however stable liver function. New Acute Paresthesias and Extremity Weakness. We are awaiting for Anti-P/Q Voltage-gated calcium-channel serology. for the possibility of Eatons Lambert Myasthenia Syndrome. Abdominal Xray reveals ileus versus eneteritis versus impaction. Have asked GI to evaluate for recs of intense bowel regimen versus other options. He was unable to have a successful colonscopy with general surgery due to fluid filled bowed and inadequate prep. He is becoming more weak. Bone Marrow biopsy likely next week, as schedule permits. He is on waiting list to transfer to tertiary center for assistance in betty gnostic and rehabilitation Daughter at bedside during conversation, as well as Dr. Hayes. [facility] has accepted the patient but has asked if we are able to perform muscle biopsy since he is on a waiting list. In the interim the plan has been discussed with all team members: 1. Abdominal xray reveals stool and dilation in colon/rectum (?muscle tone and movement) - Disnpact and increase bowel regimen, add reglan 2. PT/OT to perform daily passive Range of Motion, patient muscles are noticeabl y atrophying 3. General surgery consult for muscle biopsy 4. Hope for transfer by Wednesday, if not will determine next step re: Rehab versus other 5. Await completion of nutrient deficiencies and other work-up 6. EMG if not performed will be helpful. Objective - Vital Signs Vital signs: Vital Signs Temp 99.6 F 06/11/21 05:00 Pulse 114 H 06/11/21 08:54 Resp 16 06/11/21 05:00 BP 127/65 06/11/21 08:54 Pulse Ox 95 06/11/21 05:00 Intake & Output 06/10/21 06/11/21 06/11/21 18:59 06:59 18:59 Intake Total 240 Output Total 300 100 1 Balance -300 140 -1 Intake: Intake, IV Titration 240 Amount Lactated Ringers 1,000 ml 240 @ 0 mls/hr IV .[facility] ONE Rx#:[id number] Output: Urine 300 100 1 Other: Voiding Method Urinal Urinal Urinal Diaper Diaper Diaper External Catheter # Voids 1 # Bowel Movements 2 - Exam - Constitutional General appearance: average body habitus, cooperative, no acute distress - EENT Eyes: anicteric sclerae, EOMI ENT: hearing grossly normal, normal oropharynx - Neck Neck: no lymphadenopathy - Respiratory Respiratory: bilateral: CTA - Cardiovascular Rhythm: regular Heart sounds: normal: S1, S2 Abnormal Heart Sounds: no systolic murmur, no diastolic murmur, no rub, no S3 Gallop, no S4 Gallop, no click, no other leg Peripheral Edema: bilateral: None - Gastrointestinal General gastrointestinal: no absent bowel sounds, no decreased bowel sounds, no distended, no hepatomegaly, no hyperactive bowel sounds, normal bowel sounds, no organomegaly, no rigid, no scaphoid, soft, no splenomegaly, no tenderness, no umbilical hernia, no ventral hernia - Integumentary Integumentary: pale - Neurologic Neurologic: CNII-XII intact - Musculoskeletal Musculoskeletal: generalized weakness, strength lower weak, lle .< rle - Psychiatric Psychiatric: A&O x's 3, appropriate affect, intact judgment & insight - Labs CBC & Chem 7: 06/11/21 05:15 06/11/21 05:15 Labs: Abnormal Lab Results - Last 24 Hours (Table) 06/09/21 06/10/21 06/10/21 Range/Units 15:16 12:10 12:10 RBC 2.51 L (4.30-5.90) m/uL Hgb 8.8 L (13.0-17.5) gm/dL Hct 26.8 L (39.0-53.0) % MCV 106.7 H (80.0-100.0) fL MCH (25.0-35.0) pg RDW 21.2 H (11.5-15.5) % Lymphocytes # 0.4 L (1.0-4.8) k/uL Pathologist Review See comment A Macrocytosis Marked A Creatinine 0.47 L (0.66-1.25) mg/dL Glucose 103 H (74-99) mg/dL Magnesium 1.4 L (1.6-2.3) mg/dL Alkaline Phosphatase 135 H (38-126) U/L Total Protein 5.7 L (6.3-8.2) g/dL Albumin 2.8 L (3.5-5.0) g/dL Urine Protein (Negative) 06/10/21 06/11/21 Range/Units 20:59 05:15 RBC 2.40 L (4.30-5.90) m/uL Hgb 8.5 L (13.0-17.5) gm/dL Hct 26.3 L (39.0-53.0) % MCV 109.8 H (80.0-100.0) fL MCH 35.3 H (25.0-35.0) pg RDW 21.0 H (11.5-15.5) % Lymphocytes # 0.6 L (1.0-4.8) k/uL Pathologist Review Macrocytosis Marked A Creatinine (0.66-1.25) mg/dL Glucose (74-99) mg/dL Magnesium (1.6-2.3) mg/dL Alkaline Phosphatase (38-126) U/L Total Protein (6.3-8.2) g/dL Albumin (3.5-5.0) g/dL Urine Protein Trace H (Negative) Microbiology - Last 24 Hours (Table) 06/10/21 15:05 Stool Culture - Preliminary Stool Assessment and Plan (1) Thrombocytopenia Current Visit: Yes Status: Acute Code(s): D69.6 - THROMBOCYTOPENIA, UNSPECIFIED SNOMED Code(s): 242413329 (2) Anemia Current Visit: Yes Status: Acute Code(s): D64.9 - ANEMIA, UNSPECIFIED SNOMED Code(s): 345816673 (3) COPD (chronic obstructive pulmonary disease) Current Visit: Yes Status: Acute Code(s): J44.9 - CHRONIC OBSTRUCTIVE PULMONARY DISEASE, UNSPECIFIED SNOMED Code(s): 65911589 (4) Generalized weakness Current Visit: Yes Status: Acute Priority: High Code(s): R53.1 - WEAKNESS SNOMED Code(s): 83930632 (5) Macrocytic anemia Current Visit: Yes Status: Acute Priority: High Code(s): D53.9 - NUTRITIONAL ANEMIA, UNSPECIFIED SNOMED Code(s): 30308297 (6) Weight loss Current Visit: Yes Status: Acute Code(s): R63.4 - ABNORMAL WEIGHT LOSS SNOMED Code(s): 72767310 Plan: Macrocytic Anemia, with evidence of macrocytosis Anemia secondary to liver disease:however liver function is adequate and no apparent abnormalities on imaging. - Bone marrow biopsy will be recommended without a definitive cause of macrocytosis - B12, Folate - Zinc, B3, B6 for deficiencies pending Ascending weakness, paresthesias, and jerking like movements: - neurology has performed a very detailed assessment including LP - We await testing on Calium Chaannel Antibodies for Eaton Lamberts - Myasthenia work-up - Celiac disease are all being work-up Constipation with Ileius: - We have asked GI to further evaluate for recommendations if this is Enteritis or ileus and best approach with aggressive stool bowel regimen versus further diagnostics or dysimpactions Plan: - See HPI
--- NOTE | 2021-06-11 11:43 | P.PN ---
Subjective Progress Note Date: 06/11/21 Seen patient at bedside and he feels about the same. I spoke with the test manager and she stated she spoke with different facilities for transfer for EMG with NCS and none would accept and they recommend outpatient. The patient is seen at bedside and per nurse seems to be confused. Objective - Vital Signs Vital signs: Vital Signs Temp 99.6 F 06/11/21 05:00 Pulse 114 H 06/11/21 08:54 Resp 16 06/11/21 05:00 BP 127/65 06/11/21 08:54 Pulse Ox 95 06/11/21 05:00 Intake & Output 06/10/21 06/11/21 06/11/21 18:59 06:59 18:59 Intake Total 240 Output Total 300 100 1 Balance -300 140 -1 Intake: Intake, IV Titration 240 Amount Lactated Ringers 1,000 ml 240 @ 0 mls/hr IV .[facility] ONE Rx#:[id number] Output: Urine 300 100 1 Other: Voiding Method Urinal Urinal Urinal Diaper Diaper Diaper External Catheter # Voids 1 # Bowel Movements 2 - Exam GENERAL: The patient is lying in bed and is not in acute distress. NEUROLOGICAL: Higher mental function: The patient is awake, alert, oriented to self, place and time. Patient is following commands He is somewhat slow to respond or follow commands.. No aphasia and no neglect. Cranial nerves: The pupils are round, equal and reactive to light and accommodation. Visual lee are full to confrontation throughout. Extraocular movement is intact no nystagmus is noted. Facial sensation is normal to touch throughout. The facial strength is normal throughout. Tongue appears to have fasciulation. No dysarthria is noted. Motor: Gait is deferred. On muscle strength testing, he has symmetric weakness of bilateral upper and lower extremities. The overall strength is 4 diffusely in bilateral upper extremities proximally and distally (except deltoids appear 3-4- bilaterally).. In the lower limbs his hip flexion is about 1, hip adductio n and abduction cannot be assessed because patient cannot flex his hips. He was able to give some resistance for the hip abduction > hip adduction. Knee extension is 3 to 4-, ankledorsiflexion/plantar 3-4 bilaterally. Cerebellum:Cerebellar function showed ataxia for [id number] testing bilatera lly. Patient could not perform rpij-[id number] testing bilaterally. Sensation: Sensory to touch is decreased from toes up to the groin bilaterally. In the arms it was decreased mainly in the hands up to the shoulder. Vibration is absent in the toes, ankles and the knees and the fingers. Reflexes (right/left): Absent throughout. Plantars are mute bilaterally. WORK-UP: MR lumbar spine with and without is reported as no suspicious enhancing lumbo- sacral nerve roots. Scoliotic curvature with degenerative changes and the mid to lower lumbar spine is detailed above. Suspect effacement of the right L4 and left L5 nerves. Correlate likely. CSF shows normal total protein 60 (12-60), glucose 60, RBC 14, WBC 0. CSF LUIS <5. Oligoclonal band is negative. Lyme screen is negative. B12 is 531, methylmalonic acid 0.14 on 05/27/2021. RBC folate also normal 598. Protein electrophoresis showed beta/gamma bridge suggestive of liver dysfunction. Patient's HIV is negative. Coronavirus PCR negative. Rheumatoid factor negative, Vitamin B6L 8 (normal is 5-50. SSA/SSB Antibody is negative immunoelectrophoresis shows no monoclonal paraprotein. Folate is low 5.10 creatinine kinase normal 20, serum copper is normal 753 (665-1480), ceruloplasmin is slightly low 17.7 (20-60). Acetylcholine receptor antibody is less than 3.0 is considered negative. MISHA is negative Hemoglobin A1c is 5.1. - Labs CBC & Chem 7: 06/11/21 05:15 06/10/21 12:10 Labs: Abnormal Lab Results - Last 24 Hours (Table) 06/09/21 06/10/21 06/10/21 Range/Units 15:16 12:10 12:10 RBC 2.51 L (4.30-5.90) m/uL Hgb 8.8 L (13.0-17.5) gm/dL Hct 26.8 L (39.0-53.0) % MCV 106.7 H (80.0-100.0) fL MCH (25.0-35.0) pg RDW 21.2 H (11.5-15.5) % Lymphocytes # 0.4 L (1.0-4.8) k/uL Pathologist Review See comment A Macrocytosis Marked A Retic Count (0.5-2.0) % Creatinine 0.47 L (0.66-1.25) mg/dL Glucose 103 H (74-99) mg/dL Magnesium 1.4 L (1.6-2.3) mg/dL Alkaline Phosphatase 135 H (38-126) U/L Total Protein 5.7 L (6.3-8.2) g/dL Albumin 2.8 L (3.5-5.0) g/dL Urine Protein (Negative) 06/10/21 06/11/21 06/11/21 Range/Units 20:59 05:15 05:20 RBC 2.40 L (4.30-5.90) m/uL Hgb 8.5 L (13.0-17.5) gm/dL Hct 26.3 L (39.0-53.0) % MCV 109.8 H (80.0-100.0) fL MCH 35.3 H (25.0-35.0) pg RDW 21.0 H (11.5-15.5) % Lymphocytes # 0.6 L (1.0-4.8) k/uL Pathologist Review Macrocytosis Marked A Retic Count 2.2 H (0.5-2.0) % Creatinine (0.66-1.25) mg/dL Glucose (74-99) mg/dL Magnesium (1.6-2.3) mg/dL Alkaline Phosphatase (38-126) U/L Total Protein (6.3-8.2) g/dL Albumin (3.5-5.0) g/dL Urine Protein Trace H (Negative) Microbiology - Last 24 Hours (Table) 06/10/21 15:05 Stool Culture - Preliminary Stool Assessment and Plan Assessment: * 65-year-old male with 4 month history of progressive weakness of the legs > arms with severe sensory dysfunction and sensory ataxia. Patient is completely areflexic. Exact cause is uncertain. CIDP less likely with normal CSF proteins. No evidence of paraproteinemia noted. 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 Also chronic alcohol use can contribute to his neuropathy. * History of significant alcoholism, sober since December 2020. * Progressive weight loss, 70 pounds over the last 4 months. Exact cause remains uncertain. * History of non-Hodgkin's lymphoma (? and Melanoma) * History of tobacco use * History of marijuana use * Chronic alcohol use and he said he has been sober recently Plan: * Paraneoplastic panel is pending. * Patient definitely will need EMG and nerve conduction studies of upper and lower extremities and can be done as outpatient (test manager attempted multiple facilities as inpatient and it was declined). * Folate is low 5.10. Continue folate replacement 1 mg daily. * Started the patient on Gabapentin 100mg 1 tab bid. Also thiamine 100mg daily. * Patient does not appear to have essential tremor that primary team suspects. * Oncologist team is on board * Physical therapy and occupation therapy on board. * Defer the rest of the workup to the primary team. * Upon discharge the patient needs to follow-up with a neurologist within 1-2 weeks as an outpatient and recommend patient to follow-up with neuromuscular clinic (can consider at [facility], [facility] or [facility]). * Consider inpatient or outpatient rehab. The plan is discussed with the patient's nurse and his test manager. There is no further neurological work-up. Hank Small MD Neuro-Hospitalist Time with Patient: Less than 30
[2021-06-11] MEDS: LACTATED RINGERS 1,000 ML IV SCH (11:56)
[2021-06-11 12:43] LABS: African American GFR (CKD) 133.7 (60.0-200.0); Albumin 2.9 g/dL (3.8-4.9); Albumin/Globulin Ratio 1.32 (1.60-3.17); Anion Gap 9.8 mmol/L (4.00-12.00); BUN/Creat Ratio 34.2 Ratio (12.00-20.00); Blood Urea Nitrogen 17.1 mg/dL (9.0-27.0); Calcium 8.3 mg/dL (8.7-10.3); Carbon Dioxide 22.2 mmol/L (21.6-31.8); Globulin 2.2 g/dL (1.6-3.3); Non-African American GFR(CKD) 115.3 (60.0-200.0); Potassium 4.1 mmol/L (3.5-5.5); Total Bilirubin 0.3 mg/dL (0.30-1.20); Total Protein 5.1 g/dL (6.2-8.2)
[2021-06-11] MEDS: GABAPENTIN 100 MG CAP PO SCH ×2 (13:43→20:25)
[2021-06-11] MEDS: THIAMINE 100 MG TAB PO SCH (13:43)
[2021-06-11] MEDS: SENNOSIDES-DOCUSATE SODIUM 1 EACH TAB PO SCH (20:25)
--- NOTE | 2021-06-11 22:50 | P.PN ---
Subjective Progress Note Date: 06/11/21 Principal diagnosis: Small tiny pleural effusion Dysphagia with solids due to Isi esophagitis, has been nystatin swish and swallow biopsy pending COPD with acute exacerbation Left lower lobe groundglass opacity Failure to thrive with history of weight loss macrocytic anemia Malnutrition protein calorie Inflammation tree change in cecum possible typhlitis Elevated troponin History of fall and left arm melanoma Remote history of non-Hodgkin's lymphoma 06/11/2021, patient seen and evaluated examined getting workup for peripheral neuropathy, neurologists have recommended EMG and nerve conduction study 06/10/2021, patient actively undergoing physical therapy, mild shortness of breath at present, has been using oxygen intermittently, denies any chest pain, appetite overall remains stable, tolerating nystatin and Diflucan fairly well, discussed patient about need of using bronchodilator therapy as needed and using nebulizer treatment at least 2-3 times a day 06/09/2021, patient seen eval examined during the rounds workup for neuropathy is in progress neurology has been following the patient, history status however remains stable, but patient continued to deny bronchodilators, active physical therapy in progress 06/08/2021, patient seen eval examined, history status stable, patient declined nebulizer treatment currently, on room air, denies any chest pain does complain of numbness in the hands and foot patient has chronic neuropathy, neurology has been followed 06/06/2021, patient seen eval examined during the rounds labs reviewed medicatio ns reviewed care plan discussed, has been tolerating by mouth well in general surgery is following, respiratory status stable on bronchodilator 06/04/2021, patient seen eval examined during the rounds labs reviewed medications reviewed patient has been getting breathing treatments, has extensive history of smoking and nicotine use, patient is being planned for placement in extended care facility, x-ray done today which is reviewed sister of some interstitial edema and small tiny pleural effusion likely related to poor oncotic pressure and catabolic state due to protein calorie malnutrition, w e will give a dose of IV Lasix and monitor observe patient closely, from pulmonary standpoint patient can be discharged on nebulizer 2-3 times a day r 06/03/2021, patient seen eval examined, status post colonoscopy, bowel prep still not adequate, however excessive amount of stool was seen, Estrace status remains stable on 2 L oxygen patient being monitor off of steroids 06/02/2021, patient seen and evaluated examined during the rounds labs reviewed medications reviewed care plan discussed, patient is undergoing prep for the colonoscopy for tomorrow remains on 2 L oxygen denies any chest pain or shortness of breath 05/30/2021, patient seen eval examined during the rounds overall no significant change, respiratory status stable, denies any chest pain, surgery has been following, patient has been continued on nystatin swish and swallow 4 Isi esophagitis 05/29/2021, patient seen eval examined during the rounds labs reviewed medications reviewed care plan discussed with the staff at length, patient is sitting upright on the bed breathing comfortably he is nothing by mouth for endo scopy upper and lower later on today, swollen functions have improved now, denies any cough or sputum production, labs reviewed hemoglobin remained stable 8.8, potassium is 3.3, remains stable BUN/creatinine within normal limit, rheumatoid factor as well as in the screen is negative, 05/28/2021, patient seen eval reexamined labs reviewed medications reviewed care plan discussed, history status stable, patient is still have problems associated with swallowing, patient is on full liquid diet tolerating well, appetite however remains poor patient is for endoscopy tomorrow 05/27/2021, patient seen eval reexamined he is sitting upright on the bed sitting and looking at his food, shortness of breath stable, remains on bronchodilators and IV steroids, does complaining of dysphagia and difficulty in swallowing especially with solids, general surgery has been following patient schedule for upper and lower endoscopy by surgery in next few days, hemodynamic status stable patient remains afebrile, oxygen saturation is 97% room air, Patient is a 65-year-old male looks and appear older then the stated age, patient came into the hospital with the loss of appetite poor by mouth intake and loss about 70 pounds in last 3 months, patient has been chronic short of breath have 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 emphysema hypertension hypertensive cardiovascular disease, patient has a long-term history of smoking and nicotine use from 1-2 packs per day quit about 3 months ago as he lost the taste of cigarettes as well, on specific questioning denies any chest pain denies any hemoptysis hematemesis, shortness of breath on activity and exertion present, denies any bowel bladder related problem, and denies any night sweats or fever or chills, patient was afebrile on presentation, but with stable hemodynamics oxygen saturation was 97% on room air, he was found to be anemic with the hemoglobin 6.9 posttransfusion improved to of 9.7 white cell count within normal limit, chest x-ray consistent with COPD CT of the brain consistent with cerebral atrophy no acute changes have been identified, patient's EKG significant for sinus tachycardia with nonspecific ST and T wave changes, x-ray of the spine and LS spine spondylotic changes, computed tomography scan of the chest no suspicious lung nodules were seen faint groundglass opacities seen in the left lower lobe, computed tomography scan Of the Abdominal Significant for Inflammatory Changes in the Cecum Likely Typhlitis, COVID-19 Testing Is Negative, Troponin Elevated 0.038 Objective - Vital Signs Vital signs: Vital Signs Temp 99.9 F H 06/11/21 19:35 Pulse 118 H 06/11/21 19:35 Resp 20 06/11/21 19:35 BP 102/62 06/11/21 19:35 Pulse Ox 94 L 06/11/21 19:35 Intake & Output 06/11/21 06/11/21 06/12/21 06:59 18:59 06:59 Intake Total 240 Output Total 100 1 Balance 140 -1 Intake: Intake, IV Titration 240 Amount Lactated Ringers 1,000 ml 240 @ 0 mls/hr IV .[employer] ONE Rx#:[id number] Output: Urine 100 1 Other: Voiding Method Urinal Urinal Urinal Diaper Diaper Diaper # Voids 2 # Bowel Movements 4 - Exam Constitutional General appearance: average body habitus, cooperative, disheveled, mild distress - EENT Eyes: EOMI, PERRLA Ears: bilateral: normal - Neck Neck: normal ROM Carotids: bilateral: upstroke normal Thyroid: bilateral: normal size - Respiratory Respiratory: bilateral: CTA - Cardiovascular Rhythm: regular Heart sounds: normal: S1, S2 - Gastrointestinal General gastrointestinal: decreased bowel sounds - Neurologic Neurologic: CNII-XII intact - Musculoskeletal Musculoskeletal: gait normal, generalized weakness, strength equal bilaterally - Psychiatric Psychiatric: A&O x's 3, appropriate affect, intact judgment & insight - Labs CBC & Chem 7: 06/11/21 05:15 06/11/21 05:15 Labs: Abnormal Lab Results - Last 24 Hours (Table) 06/11/21 06/11/2121 Range/Units 05:15 05:15 05:20 RBC 2.40 L (4.30-5.90) m/uL Hgb 8.5 L (13.0-17.5) gm/dL Hct 26.3 L (39.0-53.0) % MCV 109.8 H (80.0-100.0) fL MCH 35.3 H (25.0-35.0) pg RDW 21.0 H (11.5-15.5) % Lymphocytes # 0.6 L (1.0-4.8) k/uL Macrocytosis Marked A Retic Count 2.2 H (0.5-2.0) % Haptoglobin (31.2-198.0) mg/dL Creatinine 0.5 L (0.6-1.5) mg/dL BUN/Creatinine Ratio 34.20 H (12.00-20.00) Ratio Glucose 115 H (70-110) mg/dL Calcium 8.3 L (8.7-10.3) mg/dL Alkaline Phosphatase 130 H (41-126) U/L Total Protein 5.1 L (6.2-8.2) g/dL Albumin 2.9 L (3.8-4.9) g/dL Albumin/Globulin Ratio 1.32 L (1.60-3.17) g/dL 06/11/21 Range/Units 05:20 RBC (4.30-5.90) m/uL Hgb (13.0-17.5) gm/dL Hct (39.0-53.0) % MCV (80.0-100.0) fL MCH (25.0-35.0) pg RDW (11.5-15.5) % Lymphocytes # (1.0-4.8) k/uL Macrocytosis Retic Count (0.5-2.0) % Haptoglobin 290.0 H (31.2-198.0) mg/dL Creatinine (0.6-1.5) mg/dL BUN/Creatinine Ratio (12.00-20.00) Ratio Glucose (70-110) mg/dL Calcium (8.7-10.3) mg/dL Alkaline Phosphatase (41-126) U/L Total Protein (6.2-8.2) g/dL Albumin (3.8-4.9) g/dL Albumin/Globulin Ratio (1.60-3.17) g/dL Microbiology - Last 24 Hours (Table) 06/10/21 15:05 Stool Culture - Preliminary Stool Assessment and Plan Assessment: PERRLpheral neuropathy, workup in progress Tiny bilateral pleural effusion due to poor oncotic pressure and protein calorie malnourishment and catabolic state status post Lasix doing well Dysphagia related to isi esophagitis patient has been nystatin swish and swallow biopsy results are pending COPD with acute exacerbation Left lower lobe groundglass opacity Failure to thrive with history of weight loss macrocytic anemia Malnutrition protein calorie Inflammation tree change in cecum possible typhlitis Elevated troponin History of non-Hodgkin's lymphoma status post chemotherapy and remote past History of melanoma left arm and remote past as Plan: Continue bronchodilator Patient status post colonoscopy Continue oral Diflucan Monitor off of his steroids continue bronchodilator Workup and evaluation of anemia with endoscopy by surgical services Status post upper endoscopy however lower canceled due to poor prep Evaluation of typhlitis by surgery Patient is at high risk of the lung neoplasm would recommend a computed tomography scan of his chest in 4-6 months for left lower lobe groundglass opacity Further workup and evaluation of COPD as outpatient Time with Patient: Greater than 30
--- NOTE | 2021-06-11 22:52 | DS ---
DISCHARGE SUMMARY This 65-year-old white male came into the hospital with weakness and dyspnea liver disease, underwent extensive neurovascular workup, spinal tap. neurologist syndrome, which sounds about right with a possible degeneration. Waiting on either [place] [facility] with outpatient neurology followup within a week or two or a transfer down to the city to a tertiary hospital, which would probably be the best plan where he needs further workup for this neoplastic syndrome. Otherwise he has a poor prognosis at this time. Condition stable but poor prognosis. He has not shown any improvement since being in the hospital. CBCs and blood transfusion for severe anemia on admission holding into the mid 8 region between 8 and 9 for the last few days. 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 2. History non-Hodgkin's lymphoma. 3. Acute on chronic anemia. 4. Pancytopenia. 5. Chronic obstructive pulmonary disease. 6. Generalized weakness. 7. Neuromuscular disease. Was unable to hold forks or spoons or control his arm motions. His legs show poor weakness with poor prognosis. 8. Weight loss due to malnutrition. He is unable hold feeding utensils. 9. He has possible ileus or enteritis, for which he will need either possibly long- term feeding tube due to poor oral intake or discharge for further workup from a neuromuscular standpoint down in the city. Awaiting discharge planning either to transfer or to set up treatment as an outpatient with a neurologist. MEDICATIONS: Medications include: 1. Diflucan 100 mg daily. 2. Nicotine patch 21 mg daily. 3. Flomax 0.4 daily. 4. Folic acid 1 mg daily. 5. Tylenol 650 q.6 hours. 6. DuoNeb updrafts q.i.d. 7. Multivitamin daily. 8. Nystatin topical q.i.d. 9. Protonix 40 mg daily. 10.Tenormin 25 b.i.d. 11. tachycardia. 12.Tramadol 50 mg q.8 hours p.r.n. 13.Mild to moderate pain. 14.Nystatin suspension 500,000 units q.i.d. p.r.n. Prognosis guarded. Diet as tolerated. MMODL / IJN: [id number] /
[2021-06-12] MEDS: PANTOPRAZOLE 40 MG TABLET PO SCH (08:08)
[2021-06-12] MEDS: TAMSULOSIN 0.4 MG CAP.ER.24H PO SCH (08:09)
[2021-06-12] MEDS: METOCLOPRAMIDE 5 MG TAB PO SCH ×3 (08:09→18:44)
--- NOTE | 2021-06-12 09:48 | P.PN ---
Subjective Progress Note Date: 06/12/21 Principal diagnosis: failure to thrive, dysphagia, weak Spoke to Dr. Navarro this am and will [proceed with Biopsy of Right thigh while we await transfer for myopathy Objective - Vital Signs Vital signs: Vital Signs Temp 99 F 06/12/21 04:35 Pulse 98 06/12/21 08:06 Resp 20 06/12/21 04:35 BP 111/66 06/12/21 08:06 Pulse Ox 93 L 06/12/21 04:35 Intake & Output 06/11/21 06/12/21 06/12/21 18:59 06:59 18:59 Intake Total 480 Output Total 1 150 Balance -1 330 Intake: Intake, IV Titration 240 Amount Lactated Ringers 1,000 ml 240 @ 20 mls/hr IV .Q24H [facility] Rx#:[id number] Oral 240 Output: Urine 1 150 Other: Voiding Method Urinal Urinal Diaper Diaper # Voids 2 # Bowel Movements 4 - Exam - Constitutional General appearance: average body habitus, cooperative, no acute distress - EENT Eyes: anicteric sclerae, EOMI ENT: hearing grossly normal, normal oropharynx - Neck Neck: no lymphadenopathy - Respiratory Respiratory: bilateral: CTA - Cardiovascular Rhythm: regular Heart sounds: normal: S1, S2 Abnormal Heart Sounds: no systolic murmur, no diastolic murmur, no rub, no S3 Gallop, no S4 Gallop, no click, no other leg Peripheral Edema: bilateral: None - Gastrointestinal General gastrointestinal: no absent bowel sounds, no decreased bowel sounds, no distended, no hepatomegaly, no hyperactive bowel sounds, normal bowel sounds, no organomegaly, no rigid, no scaphoid, soft, no splenomegaly, no tenderness, no umbilical hernia, no ventral hernia - Integumentary Integumentary: pale - Neurologic Neurologic: CNII-XII intact - Musculoskeletal Musculoskeletal: generalized weakness, strength lower weak, lle .< rle - Psychiatric Psychiatric: A&O x's 3, appropriate affect, intact judgment & insight - Labs CBC & Chem 7: 06/12/21 05:45 06/12/21 05:45 Labs: Abnormal Lab Results - Last 24 Hours (Table) 06/11/21 06/11/21 06/11/21 Range/Units 05:15 05:20 05:20 Retic Count 2.2 H (0.5-2.0) % Haptoglobin 290.0 H (31.2-198.0) mg/dL Creatinine 0.5 L (0.6-1.5) mg/dL BUN/Creatinine Ratio 34.20 H (12.00-20.00) Ratio Glucose 115 H (70-110) mg/dL Calcium 8.3 L (8.7-10.3) mg/dL Alkaline Phosphatase 130 H (41-126) U/L Total Protein 5.1 L (6.2-8.2) g/dL Albumin 2.9 L (3.8-4.9) g/dL Albumin/Globulin Ratio 1.32 L (1.60-3.17) g/dL Assessment and Plan (1) Thrombocytopenia Current Visit: Yes Status: Acute Code(s): D69.6 - THROMBOCYTOPENIA, UNSPECIFIED SNOMED Code(s): 550247602 (2) Anemia Current Visit: Yes Status: Acute Code(s): D64.9 - ANEMIA, UNSPECIFIED SNOMED Code(s): 926280109 (3) COPD (chronic obstructive pulmonary disease) Current Visit: Yes Status: Acute Code(s): J44.9 - CHRONIC OBSTRUCTIVE PULMONARY DISEASE, UNSPECIFIED SNOMED Code(s): 04103960 (4) Generalized weakness Current Visit: Yes Status: Acute Priority: High Code(s): R53.1 - WEAKNESS SNOMED Code(s): 15549943 (5) Macrocytic anemia Current Visit: Yes Status: Acute Priority: High Code(s): D53.9 - NUTRITIONAL ANEMIA, UNSPECIFIED SNOMED Code(s): 04358213 (6) Weight loss Current Visit: Yes Status: Acute Code(s): R63.4 - ABNORMAL WEIGHT LOSS SNOMED Code(s): 45232626 Plan: Macrocytic Anemia, with evidence of macrocytosis Anemia secondary to liver disease:however liver function is adequate and no apparent abnormalities on imaging. - Bone marrow biopsy will be recommended without a definitive cause of macrocytosis - B12, Folate - Not significant to explain presentation - Zinc, B3, B6 fare wnl Ascending weakness, paresthesias, and jerking like movements: - neurology has performed a very detailed assessment including LP - We await testing on Calium Chaannel Antibodies for Eaton Lamberts - Myasthenia work-up - Celiac disease are all being work-up - Pernicious anemia antibodies pending Constipation with Ileius: - We have asked GI to further evaluate for recommendations if this is Enteritis or ileus and best approach with aggressive stool bowel regimen versus further diagnostics or dysimpactions Plan: - Plan to transfer to [facility] when bed available In the interim while we await bed: - Dr. Navarro to perform muscle biopsy for myopathy - PT/OT to perform PROM daily, patient has agreed to adhere - Increase bowel regimen and add reglan - Bone Marrow biopsy is needed, unable to schedule this week due to schedules and practitioner availability, if able on wednesday and still here will perform - Await completed blood work Patient is very weak still and unable to hold himself in a chair, and appears the systemic weakness is also affecting his bowels. We discussed in detail with patient and with daughter, they are agreeable to plan.
[2021-06-12] MEDS: NICOTINE 21MG/24HR PATCH TRANSDERM SCH (09:52)
[2021-06-12] MEDS: THIAMINE 100 MG TAB PO SCH (09:53)
[2021-06-12] MEDS: SENNOSIDES-DOCUSATE SODIUM 1 EACH TAB PO SCH ×2 (09:53→20:43)
[2021-06-12] MEDS: MULTIVITAMINS, THERA 1 EACH TAB PO SCH (09:53)
[2021-06-12] MEDS: FOLIC ACID 1 MG TAB PO SCH (09:53)
[2021-06-12] MEDS: polyethylene glycoL 3350 17 GM POWD.PACK PO SCH (09:53)
[2021-06-12] MEDS: GABAPENTIN 100 MG CAP PO SCH ×2 (09:53→20:43)
[2021-06-12] MEDS: NYSTATIN 100,000 UNIT/ML SUSP 500,000 UNIT/5 ML CUP PO SCH ×4 (09:54→20:45)
[2021-06-12] MEDS: FLUCONAZOLE 100 MG TAB PO SCH (09:54)
[2021-06-12] MEDS ORDERED: IMMUNE GLOBULIN (GAMMAGARD) 20 GM in EMPTY BAG 1 BAG IV ONE (10:00)
[2021-06-12 10:12] LABS: Anisocytosis Moderate; HCT 27.9 % (39.0-53.0); HGB 8.9 gm/dL (13.0-17.5); MCH 34.7 pg (25.0-35.0); MCHC 32.1 g/dL (31.0-37.0); MCV 108.3 fL (80.0-100.0); Macrocytosis Marked; Mean Platelet Volume 8.2; Platelet Count 315 k/uL (150-450); RBC 2.57 m/uL (4.30-5.90); RDW 20.7 % (11.5-15.5); WBC 6.9 k/uL (3.8-10.6)
[2021-06-12 10:13] LABS: Basophils % (A) 1 %; Eosinophils # (A) 0.2 k/uL (0-0.7); Eosinophils % (A) 3 %; Lymphocytes # (A) 0.9 k/uL (1.0-4.8); Lymphocytes % (A) 12 %; Monocytes # (A) 0.3 k/uL (0-1.0); Monocytes % (A) 4 %; Neutrophils # (A) 5.4 k/uL (1.3-7.7); Neutrophils % (A) 79 %
--- NOTE | 2021-06-12 10:26 | P.GSCN ---
History of Present Illness Consult date: 06/12/21 History of present illness: CHIEF COMPLAINT: Weakness, failure to thrive HISTORY OF PRESENT ILLNESS: This is a 65-year-old male presented to the emergency room with significant unexplained weight loss of about 70 pounds over the last 3 months. He also has been anemic. Hemoglobin on admission 6.9. Patient did have EGD and colonoscopy by Dr. Navarro during this admission. Surgical service was reconsulted due to patient continuing to have weakness. He is unable to ambulate. He is followed closely by neurology and they have started him on IVIG. They have ordered an MRI of the brain and C-spine for later today. He is also followed by hematology who is recommending thigh muscle biopsy. PAST MEDICAL HISTORY: Severe COPD, hypertension, melanoma, anxiety and depression PAST SURGICAL HISTORY: Right hip replacement MEDICATIONS: See list. ALLERGIES: See list. SOCIAL HISTORY: No illicit drug use. History of alcoholism sober since December 2020. History of tobacco use REVIEW OF SYSTEMS: CONSTITUTIONAL: Denies fever or chills. HEENT: Denies blurred vision, vision changes, or eye pain. Denies hemoptysis CARDIOVASCULAR: Denies chest pain or pressure. RESPIRATORY: No shortness of breath. GASTROINTESTINAL: See HPI for pertinent findings HEMATOLOGIC: Denies bleeding disorders. GENITOURINARY: Denies any blood in urine or increased urinary frequency. SKIN: Denies pruitis. Denies rash. PHYSICAL EXAM: VITAL SIGNS: Reviewed GENERAL: Well-developed in no acute distress. HEENT: No sclera icterus. Extraocular movements grossly intact. Moist buccal mucosa. Head is atraumatic, normocephalic. No nasal drainage. ABDOMEN: Soft. Obese. Nondistended. Tenderness with palpation to right lower quadrant. NEUROLOGIC: Alert and oriented. Cranial nerves II through XII grossly intact. LABORATORY DATA: WBC 7.6 Hgb 8.5 PLT 342 INR 1.0 sodium 140 potassium 4.1 creatinine 0.5 IMAGING: ASSESSMENT: 1. Bilateral lower extremity weakness of legs greater than arms PLAN: -Patient scheduled for right thigh muscle biopsy today with Dr. Navarro -Keep patient nothing by mouth -Continue neurological and hematology workup Thank you for this consultation Physician Crime Scene Specialist note has been reviewed by physician. Signing provider agrees with the documented findings, assessment, and plan of care. Past Medical History Past Medical History: Cancer, COPD, Hypertension Additional Past Medical History / Comment(s): melanoma and NHL History of Any Multi-Drug Resistant Organisms: None Reported Past Surgical History: Orthopedic Surgery Additional Past Surgical History / Comment(s): right hip preplacement Past Anesthesia/Blood Transfusion Reactions: No Reported Reaction Past Psychological History: Anxiety, Depression Smoking Status: Current every day smoker Past Alcohol Use History: None Reported Past Drug Use History: None Reported Medications and Allergies Home Medications Medication Instructions Recorded Confirmed Type Fluconazole [Diflucan] 100 mg PO DAILY tab 06/05/21 Rx Ipratropium-Albuterol Nebulize 3 ml INHALATION RT-QID ml 06/05/21 Rx [Duoneb 0.5 mg-3 mg/3 ml Soln] Multivitamins, Thera [Multivitamin 1 each PO DAILY tab 06/05/21 Rx (formulary)] Nicotine 21Mg/24Hr Patch [Habitrol] 1 patch TRANSDERM DAILY patch 06/05/21 Rx Nystatin 100,000 Unit/ml Susp 500,000 unit PO QID ml 06/05/21 Rx [Mycostatin Oral Susp] Pantoprazole [Protonix] 40 mg PO AC-BRKFST tab 06/05/21 Rx Acetaminophen Tab [Tylenol] 650 mg PO Q6HR PRN tab 06/10/21 Rx Folic Acid 1 mg PO DAILY tab 06/10/21 Rx Tamsulosin [Flomax] 0.4 mg PO PC-BRKFST capsule 06/10/21 Rx atenoloL [Tenormin] 25 mg PO BID tab 06/10/21 Rx traMADol HCl [Ultram] 50 mg PO TID PRN tab 06/10/21 Rx Allergies Allergy/AdvReac Type Severity Reaction Status Date / Time latex Allergy Rash/Hives Verified 06/05/21 13:45 Penicillins Allergy Anaphylaxis Verified 06/05/21 13:45 strawberry Allergy Unknown Verified 06/05/21 13:45 Surgical - Exam Vital Signs Temp Pulse Resp BP Pulse Ox 98.2 F 124 H 18 128/80 97 05/24/21 21:17 05/24/21 21:17 05/24/21 21:17 05/24/21 21:17 05/24/21 21:17 Results - Labs 06/11/21 05:15 06/11/21 05:15 Abnormal Lab Results - Last 24 Hours (Table) 06/11/21 06/11/21 06/11/21 Range/Units 05:15 05:20 05:20 Retic Count 2.2 H (0.5-2.0) % Haptoglobin 290.0 H (31.2-198.0) mg/dL Creatinine 0.5 L (0.6-1.5) mg/dL BUN/Creatinine Ratio 34.20 H (12.00-20.00) Ratio Glucose 115 H (70-110) mg/dL Calcium 8.3 L (8.7-10.3) mg/dL Alkaline Phosphatase 130 H (41-126) U/L Total Protein 5.1 L (6.2-8.2) g/dL Albumin 2.9 L (3.8-4.9) g/dL Albumin/Globulin Ratio 1.32 L (1.60-3.17) g/dL Diabetes panel 06/11/21 Range/Units 05:15 Sodium 140 (135-145) mmol/L Potassium 4.1 (3.5-5.5) mmol/L Chloride 108 (96-109) mmol/L Carbon Dioxide 22.2 (21.6-31.8) mmol/L BUN 17.1 (9.0-27.0) mg/dL Creatinine 0.5 L (0.6-1.5) mg/dL Glucose 115 H (70-110) mg/dL Calcium 8.3 L (8.7-10.3) mg/dL AST 16 (14-35) U/L ALT 23 (10-49) U/L Alkaline Phosphatase 130 H (41-126) U/L Total Protein 5.1 L (6.2-8.2) g/dL Albumin 2.9 L (3.8-4.9) g/dL Calcium panel 06/11/21 Range/Units 05:15 Calcium 8.3 L (8.7-10.3) mg/dL Albumin 2.9 L (3.8-4.9) g/dL Pituitary panel 06/11/21 Range/Units 05:15 Sodium 140 (135-145) mmol/L Potassium 4.1 (3.5-5.5) mmol/L Chloride 108 (96-109) mmol/L Carbon Dioxide 22.2 (21.6-31.8) mmol/L BUN 17.1 (9.0-27.0) mg/dL Creatinine 0.5 L (0.6-1.5) mg/dL Glucose 115 H (70-110) mg/dL Calcium 8.3 L (8.7-10.3) mg/dL Adrenal panel 06/11/21 Range/Units 05:15 Sodium 140 (135-145) mmol/L Potassium 4.1 (3.5-5.5) mmol/L Chloride 108 (96-109) mmol/L Carbon Dioxide 22.2 (21.6-31.8) mmol/L BUN 17.1 (9.0-27.0) mg/dL Creatinine 0.5 L (0.6-1.5) mg/dL Glucose 115 H (70-110) mg/dL Calcium 8.3 L (8.7-10.3) mg/dL Total Bilirubin 0.30 (0.30-1.20) mg/dL AST 16 (14-35) U/L ALT 23 (10-49) U/L Alkaline Phosphatase 130 H (41-126) U/L Total Protein 5.1 L (6.2-8.2) g/dL Albumin 2.9 L (3.8-4.9) g/dL
--- NOTE | 2021-06-12 10:26 | P.PN ---
Subjective Progress Note Date: 06/12/21 The patient is seen at bedside and he continues to feel about the same. No new neurological problems. Objective - Vital Signs Vital signs: Vital Signs Temp 99 F 06/12/21 04:35 Pulse 103 H 06/12/21 09:52 Resp 20 06/12/21 04:35 BP 106/58 06/12/21 09:52 Pulse Ox 93 L 06/12/21 04:35 Intake & Output 06/11/21 06/12/21 06/12/21 18:59 06:59 18:59 Intake Total 480 Output Total 1 150 Balance -1 330 Intake: Intake, IV Titration 240 Amount Lactated Ringers 1,000 ml 240 @ 20 mls/hr IV .Q24H [facility] Rx#:[id number] Oral 240 Output: Urine 1 150 Other: Voiding Method Urinal Urinal Diaper Diaper # Voids 2 # Bowel Movements 4 - Exam GENERAL: The patient is lying in bed and is not in acute distress. NEUROLOGICAL: Higher mental function: The patient is awake, alert, oriented to self, place and time. Patient is following commands He is somewhat slow to respond or follow commands.. No aphasia and no neglect. Cranial nerves: The pupils are round, equal and reactive to light and accommodation. Visual lee are full to confrontation throughout. Extraocular movement is intact no nystagmus is noted. Facial sensation is normal to touch throughout. The facial strength is normal throughout. Tongue appears to have fasciulation. No dysarthria is noted. Motor: Gait is deferred. On muscle strength testing, he has symmetric weakness of bilateral upper and lower extremities. The overall strength is 4 diffusely in bilateral upper extremities proximally and distally (except deltoids appear 3-4- bilaterally).. In the lower limbs his hip flexion is about 1, hip adduction and abduction cannot be assessed because patient cannot flex his hips. He was able to give some resistance for the hip abduction > hip adduction. Knee extension is 3 to 4-, ankledorsiflexion/plantar 3-4 bilaterally. Cerebellum:Cerebellar function showed ataxia for [id number]-rm-ydle testing bilaterally. Patient could not perform [id number] testing bilaterally. Sensation: Sensory to touch is decreased from toes up to the groin bilaterally. In the arms it was decreased mainly in the hands up to the shoulder. Vibration is absent in the toes, ankles and the knees and the fingers. Reflexes (right/left): Absent throughout. Plantars are mute bilaterally. WORK-UP: MR lumbar spine with and without is reported as no suspicious enhancing lumbo- sacral nerve roots. Scoliotic curvature with degenerative changes and the mid to lower lumbar spine is detailed above. Suspect effacement of the right L4 and left L5 nerves. Correlate likely. CSF shows normal total protein 60 (12-60), glucose 60, RBC 14, WBC 0. CSF LUIS <5. Oligoclonal band is negative. Lyme screen is negative. B12 is 531, methylmalonic acid 0.14 on 05/27/2021. RBC folate also normal 598. Protein electrophoresis showed beta/gamma bridge suggestive of liver dysfunction. Patient's HIV is negative. Coronavirus PCR negative. Rheumatoid factor negative, Vitamin B6L 8 (normal is 5-50. SSA/SSB Antibody is negative immunoelectrophoresis shows no monoclonal paraprotein. Folate is low 5.10 creatinine kinase normal 20, serum copper is normal 753 (665-1480), ceruloplasmin is slightly low 17.7 (20-60). Acetylcholine receptor antibody is less than 3.0 is considered negative. MISHA is negative Hemoglobin A1c is 5.1. CEA: 2.9 (normal) - Labs CBC & Chem 7: 06/12/21 05:45 06/12/21 05:45 Labs: Abnormal Lab Results - Last 24 Hours (Table) 06/11/21 06/11/21 06/11/21 Range/Units 05:15 05:20 05:20 Retic Count 2.2 H (0.5-2.0) % Haptoglobin 290.0 H (31.2-198.0) mg/dL Creatinine 0.5 L (0.6-1.5) mg/dL BUN/Creatinine Ratio 34.20 H (12.00-20.00) Ratio Glucose 115 H (70-110) mg/dL Calcium 8.3 L (8.7-10.3) mg/dL Alkaline Phosphatase 130 H (41-126) U/L Total Protein 5.1 L (6.2-8.2) g/dL Albumin 2.9 L (3.8-4.9) g/dL Albumin/Globulin Ratio 1.32 L (1.60-3.17) g/dL Assessment and Plan Assessment: * 65-year-old male with 4 month history of progressive weakness of the legs > arms with severe sensory dysfunction and sensory ataxia. Patient is completely areflexic. Exact cause is uncertain. CIDP less likely with normal CSF proteins. No evidence of paraproteinemia noted. 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 Also chronic alcohol use can contribute to his neuropathy. * History of significant alcoholism, sober since December 2020. * Progressive weight loss, 70 pounds over the last 4 months. Exact cause remains uncertain. * History of non-Hodgkin's lymphoma (? and Melanoma) * History of tobacco use * History of marijuana use * Chronic alcohol use and he said he has been sober recently Plan: * Dr. Craig he ordered calcium channel antiboides. I called lab and they stated it is pending. In addition ordered further paraneoplastic panel on CSF. * I ordered CSF comprehensive viral from CSF sample of 06/05/2021. HSV1 and 2 serum. * Ordered MRI Brain and C-spine with and w/o. * If this is truly paraneoplastic which seems suspicious the underlying treatment is treatment of tumor. Will try IVIG to see if any benefit. I will start on IVIG 2gm/kg over 5 days. If that does not help will consider possibly steroid. * Patient definitely will need EMG and nerve conduction studies of upper and lower extremities and can be done as outpatient (child support case officer attempted multiple facilities as inpatient and it was declined). * Folate is low 5.10. Continue folate replacement 1 mg daily. * Continue Gabapentin 100mg 1 tab bid and thiamine 100mg daily. * Patient does not appear to have essential tremor that primary team suspects. * Oncologist team is on board * Physical therapy and occupation therapy on board. * Defer the rest of the workup to the primary team. * Upon discharge the patient needs to follow-up with a neurologist within 1-2 weeks as an outpatient and recommend patient to follow-up with neuromuscular clinic (can consider at [facility] or [facility]). * Consider inpatient or outpatient rehab. The plan is discussed with the patient's nurse. Hank Small MD Neuro-Hospitalist Time with Patient: Less than 30
[2021-06-12] MEDS: atenoloL 25 MG TAB PO SCH ×2 (10:29→20:43)
[2021-06-12] MEDS: IPRATROPIUM-ALBUTEROL 3 ML NEB INHALATION SCH ×4 (10:53→19:42)
--- NOTE | 2021-06-12 14:19 | MR ---
EXAMINATION TYPE: MR brain wo con DATE OF EXAM: 06/12/2021 COMPARISON: CT brain May 24, 2021 HISTORY: weakness upper and lower extremity TECHNIQUE: Multiplanar, multisequence imaging of the brain and brainstem is performed without IV cont rast. FINDINGS: Examination is suboptimal as patient would not complete entire noncontrast brain MRI garcia col. Diffusion weighted images demonstrate no evidence of a recent infarct or other diffusion abnormality. Mild to moderate ventricular and sulcal prominence redemonstrated. Difficult to assess for white kristi er changes due to patient not completing FLAIR axial imaging and having motion artifact on T2 axial i maging.. Midline structures redemonstrate normal morphology. The craniocervical junction remains within nakul l limits. Normal vascular flow voids are present. The visualized sinuses are clear and the globes are intact. IMPRESSION: Suboptimal study without evidence for acute infarct. Gndi-un-bbvoohpl diffuse cerebral at rophy is redemonstrated.
[2021-06-12 15:05] LABS: Rouleaux Present
[2021-06-12 16:59] LABS: Magnesium 1.5 mg/dL (1.5-2.4); Phosphorus 3.2 mg/dL (2.4-5.1)
[2021-06-12 17:30] LABS: African American GFR (CKD) 143.2 (60.0-200.0); Albumin 2.8 g/dL (3.8-4.9); Albumin/Globulin Ratio 1.18 (1.60-3.17); Anion Gap 13.1 mmol/L (4.00-12.00); BUN/Creat Ratio 31.68 Ratio (12.00-20.00); Blood Urea Nitrogen 13.4 mg/dL (9.0-27.0); Calcium 8.5 mg/dL (8.7-10.3); Carbon Dioxide 19.2 mmol/L (21.6-31.8); Globulin 2.3 g/dL (1.6-3.3); Non-African American GFR(CKD) 123.5 (60.0-200.0); Potassium 4.1 mmol/L (3.5-5.5); Total Bilirubin 0.5 mg/dL (0.30-1.20); Total Protein 5.1 g/dL (6.2-8.2)
[2021-06-12] MEDS: ACETAMINOPHEN TAB 325 MG TAB PO PRN (17:46)
[2021-06-12] MEDS: LACTATED RINGERS 1,000 ML IV SCH (19:35)
--- NOTE | 2021-06-13 00:02 | PN ---
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 Possible transfer down to [facility] if not improved in next 2-3 days. PT/OT for passive range of motion. Wait for hematology/oncology and neurology recommendations, but patient will have to be transferred down to [facility]. Waiting for a bed. CARDIOVASCULAR: S1, S2. LUNGS: Scattered rhonchi and wheeze. He has a low-grade fever tonight. He was exposed to COVID 24 hours ago when his daughter was here who is positive for COVID. ASSESSMENT: 1. COVID pneumonia. 2. Acute hypoxemic respiratory distress. 3. Generalized weakness. 4. Failure to thrive. Prognosis guarded. Lambert. Paraneoplastic syndrome. Prognosis guarded. Transfer down to [facility] when bed available. Otherwise, to [facility] next week. Wait for GI start low-dose Reglan COVID exposed 24 hours ago and has a low-grade fever. MMODL / IJN: [id number] /
[2021-06-13 06:26] LABS: Anisocytosis Moderate; Basophils % (A) 0 %; Eosinophils # (A) 0.1 k/uL (0-0.7); Eosinophils % (A) 1 %; HCT 28.5 % (39.0-53.0); HGB 9.3 gm/dL (13.0-17.5); Lymphocytes # (A) 0.7 k/uL (1.0-4.8); Lymphocytes % (A) 11 %; MCH 34.7 pg (25.0-35.0); MCHC 32.6 g/dL (31.0-37.0); MCV 106.6 fL (80.0-100.0); Mean Platelet Volume 7.5; Monocytes # (A) 0.2 k/uL (0-1.0); Monocytes % (A) 3 %; Neutrophils # (A) 5.4 k/uL (1.3-7.7); Neutrophils % (A) 83 %; Platelet Count 307 k/uL (150-450); RBC 2.68 m/uL (4.30-5.90); RDW 20.2 % (11.5-15.5); WBC 6.6 k/uL (3.8-10.6)
[2021-06-13 06:55] LABS: ALT 21 U/L (4-49); AST 31 U/L (17-59); African American GFR (CKD) >90 (>60 ml/min/1.73 sqM); Albumin 2.6 g/dL (3.5-5.0); Albumin/Globulin Ratio 0.8; Alkaline Phosphatase 129 U/L (38-126); Anion Gap 7 mmol/L; Blood Urea Nitrogen 19 mg/dL (9-20); Calcium 8.6 mg/dL (8.4-10.2); Carbon Dioxide 23 mmol/L (22-30); Chloride 100 mmol/L (98-107); Globulin 3.4 g/dL; Glucose 118 mg/dL (74-99); Magnesium 1.5 mg/dL (1.6-2.3); Non-African American GFR(CKD) >90 (>60 ml/min/1.73 sqM); Sodium 130 mmol/L (137-145); Total Bilirubin 0.7 mg/dL (0.2-1.3)
[2021-06-13 06:59] LABS: Macrocytosis Marked
[2021-06-13] MEDS: IPRATROPIUM-ALBUTEROL 3 ML NEB INHALATION SCH ×4 (07:35→20:34)
[2021-06-13] MEDS: atenoloL 25 MG TAB PO SCH ×2 (09:35→19:59)
[2021-06-13] MEDS: NICOTINE 21MG/24HR PATCH TRANSDERM SCH (09:35)
[2021-06-13] MEDS ORDERED: IMMUNE GLOBULIN (GAMMAGARD) 20 GM in EMPTY BAG 1 BAG IV ONE (10:00)
[2021-06-13] MEDS ORDERED: PROPOFOL 10 MG/ML 20 ML VIAL IV ONE (11:05)
[2021-06-13] MEDS ORDERED: LIDOCAINE 1% INJ 10MG/ML (20 ML MDV) ONE (11:05)
[2021-06-13] MEDS ORDERED: KETAMINE 10 MG/ML 20 ML VIAL ONE (11:05)
[2021-06-13] MEDS ORDERED: .fentaNYL (PF) 50 MCG/ML AMP ONE (11:05)
[2021-06-13] MEDS ORDERED: SUCCINYLCHOLINE CHLORIDE 100 MG/5 ML SYR IV ONE (11:05)
[2021-06-13] MEDS ORDERED: LACTATED RINGERS 1,000 ML IV ONE (11:06)
[2021-06-13] MEDS: PANTOPRAZOLE 40 MG TABLET PO SCH (11:28)
[2021-06-13] MEDS: GABAPENTIN 100 MG CAP PO SCH ×2 (11:28→19:59)
[2021-06-13] MEDS: NYSTATIN 100,000 UNIT/ML SUSP 500,000 UNIT/5 ML CUP PO SCH ×4 (11:28→19:59)
[2021-06-13] MEDS: TAMSULOSIN 0.4 MG CAP.ER.24H PO SCH (11:28)
[2021-06-13] MEDS: METOCLOPRAMIDE 5 MG TAB PO SCH ×3 (11:28→17:39)
[2021-06-13] MEDS: THIAMINE 100 MG TAB PO SCH (11:29)
[2021-06-13] MEDS: polyethylene glycoL 3350 17 GM POWD.PACK PO SCH (11:29)
[2021-06-13] MEDS: MULTIVITAMINS, THERA 1 EACH TAB PO SCH (11:29)
[2021-06-13] MEDS: FOLIC ACID 1 MG TAB PO SCH (11:29)
[2021-06-13] MEDS: SENNOSIDES-DOCUSATE SODIUM 1 EACH TAB PO SCH ×2 (11:29→19:58)
[2021-06-13] MEDS: FLUCONAZOLE 100 MG TAB PO SCH (11:30)
[2021-06-13] MEDS ORDERED: LIDOCAINE 1%-EPI 1:100,000 20 ML VIAL SQ ONE (11:58)
--- NOTE | 2021-06-13 12:09 | P.OP ---
Date of Procedure: 06/13/21 Preoperative Diagnosis: Myopathy Postoperative Diagnosis: Myopathy Procedure(s) Performed: Right thigh muscle biopsy Anesthesia: JULEE Surgeon: Eris Navarro Estimated Blood Loss (ml): 5 Pathology: other (Right thigh muscle biopsy) Condition: stable Disposition: PACU Description of Procedure: Patient's placed on the operative table in the supine position. He received general endotracheal tube anesthesia. His right thigh was prepped and draped usual sterile fashion. The skin was incised on the anterior thigh. Using blunt and sharp dissection with cautery the subcutaneous tissue divided off the fascia. The fascia was then opened with sharp dissection. A suitable piece of muscle was visualized. This is dissected free. The proximal distal ends the muscle was suture ligated with 0 Vicryl suture. The muscles then cut appropriately and sent to pathology. The fascia was closed with #1 Vicryl suture. Skin was closed interrupted 3-0 Monocryl suture. Dermabond dressing was applied. Patient was sent to recovery in stable condition
[2021-06-13 13:24] LABS: Zinc, Serum 42 ug/dL (60-130)
--- NOTE | 2021-06-13 15:18 | P.PN ---
Subjective Progress Note Date: 06/13/21 Principal diagnosis: Small tiny pleural effusion Dysphagia with solids due to Isi esophagitis, has been nystatin swish and swallow biopsy pending COPD with acute exacerbation Left lower lobe groundglass opacity Failure to thrive with history of weight loss macrocytic anemia Malnutrition protein calorie Inflammation tree change in cecum possible typhlitis Elevated troponin History of fall and left arm melanoma Remote history of non-Hodgkin's lymphoma 06/13/2021, patient seen eval examined during the rounds workup continue breath he is in progress, patient had muscle biopsy now overall remains stable no dynamic status stable remains afebrile oxygen 94%, that report is pending, 06/11/2021, patient seen and evaluated examined getting workup for peripheral neuropathy, neurologists have recommended EMG and nerve conduction study 06/10/2021, patient actively undergoing physical therapy, mild shortness of breath at present, has been using oxygen intermittently, denies any chest pain, appetite overall remains stable, tolerating nystatin and Diflucan fairly well, discussed patient about need of using bronchodilator therapy as needed and using nebulizer treatment at least 2-3 times a day 06/09/2021, patient seen eval examined during the rounds workup for neuropathy is in progress neurology has been following the patient, history status however remains stable, but patient continued to deny bronchodilators, active physical therapy in progress 06/08/2021, patient seen eval examined, history status stable, patient declined nebulizer treatment currently, on room air, denies any chest pain does complain of numbness in the hands and foot patient has chronic neuropathy, neurology has been followed 06/06/2021, patient seen eval examined during the rounds labs reviewed medications reviewed care plan discussed, has been tolerating by mouth well in general surgery is following, respiratory status stable on bronchodilator 06/04/2021, patient seen eval examined during the rounds labs reviewed medications reviewed patient has been getting breathing treatments, has extensive history of smoking and nicotine use, patient is being planned for placement in extended care facility, x-ray done today which is reviewed sister of some interstitial edema and small tiny pleural effusion likely related to poor oncotic pressure and catabolic state due to protein calorie malnutrition, we will give a dose of IV Lasix and monitor observe patient closely, from pulmonary standpoint patient can be discharged on nebulizer 2-3 times a day r 06/03/2021, patient seen eval examined, status post colonoscopy, bowel prep still not adequate, however excessive amount of stool was seen, Estrace status remains stable on 2 L oxygen patient being monitor off of steroids 06/02/2021, patient seen and evaluated examined during the rounds labs reviewed medications reviewed care plan discussed, patient is undergoing prep for the colonoscopy for tomorrow remains on 2 L oxygen denies any chest pain or shortness of breath 05/30/2021, patient seen eval examined during the rounds overall no significant change, respiratory status stable, denies any chest pain, surgery has been following, patient has been continued on nystatin swish and swallow 4 Isi esophagitis 05/29/2021, patient seen eval examined during the rounds labs reviewed medications reviewed care plan discussed with the staff at length, patient is sitting upright on the bed breathing comfortably he is nothing by mouth for endoscopy upper and lower later on today, swollen functions have improved now, denies any cough or sputum production, labs reviewed hemoglobin remained stable 8.8, potassium is 3.3, remains stable BUN/creatinine within normal limit, rheumatoid factor as well as in the screen is negative, 05/28/2021, patient seen eval reexamined labs reviewed medications reviewed care plan discussed, history status stable, patient is still have problems associated with swallowing, patient is on full liquid diet tolerating well, appetite however remains poor patient is for endoscopy tomorrow 05/27/2021, patient seen eval reexamined he is sitting upright on the bed sitting and looking at his food, shortness of breath stable, remains on bronchodilators and IV steroids, does complaining of dysphagia and difficulty in swallowing especially with solids, general surgery has been following patient schedule for upper and lower endoscopy by surgery in next few days, hemodynamic status stable patient remains afebrile, oxygen saturation is 97% room air, Patient is a 65-year-old male looks and appear older then the stated age, patient came into the hospital with the loss of appetite poor by mouth intake and loss about 70 pounds in last 3 months, patient has been chronic short of b reath have 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 emphysema hypertension hypertensive cardiovascular disease, patient has a long-term history of smoking and nicotine use from 1-2 packs per day quit about 3 months ago as he lost the taste of cigarettes as well, on specific questioning denies any chest pain denies any hemoptysis hematemesis, shortness of breath on activity and exertion present, denies any bowel bladder related problem, and denies any night sweats or fever or chills, patient was afebrile on presentation, but with stable hemodynamics oxygen saturation was 97% on room air, he was found to be anemic with the hemoglobin 6.9 posttransfusion improved to of 9.7 white cell count wit hin normal limit, chest x-ray consistent with COPD CT of the brain consistent with cerebral atrophy no acute changes have been identified, patient's EKG significant for sinus tachycardia with nonspecific ST and T wave changes, x-ray of the spine and LS spine spondylotic changes, computed tomography scan of the chest no suspicious lung nodules were seen faint groundglass opacities seen in the left lower lobe, computed tomography scan Of the Abdominal Significant for Inflammatory Changes in the Cecum Likely Typhlitis, COVID-19 Testing Is Negative, Troponin Elevated 0.038 Objective - Vital Signs Vital signs: Vital Signs Temp 98.6 F 06/13/21 12:35 Pulse 88 06/13/21 13:35 Resp 17 06/13/21 12:35 BP 109/70 06/13/21 13:35 Pulse Ox 96 06/13/21 13:35 Intake & Output 06/12/21 06/13/21 06/13/21 18:59 06:59 18:59 Intake Total 64.166 300 516.667 Output Total 4 5 Balance 64.166 296 511.667 Intake: IV 500 Intake, IV Titration 64.166 16.667 Amount Immune Globulin ( 64.166 Gammagard) 20 gm In Empty Bag 1 bag @ Titrate IV . Q0M ONE Rx#:[id number] Immune Globulin ( 16.667 Gammagard) 20 gm In Empty Bag 1 bag @ Titrate IV . Q0M ONE Rx#:[id number] Oral 300 Output: Urine/Stool Mix 4 Estimated Blood Loss 5 Other: Voiding Method Urinal Urinal Urinal Diaper Diaper Diaper # Voids 2 # Bowel Movements 1 - Exam Constitutional General appearance: average body habitus, cooperative, disheveled, mild distress - EENT Eyes: EOMI, PERRLA Ears: bilateral: normal - Neck Neck: normal ROM Carotids: bilateral: upstroke normal Thyroid: bilateral: normal size - Respiratory Respiratory: bilateral: CTA - Cardiovascular Rhythm: regular Heart sounds: normal: S1, S2 - Gastrointestinal General gastrointestinal: decreased bowel sounds - Neurologic Neurologic: CNII-XII intact - Musculoskeletal Musculoskeletal: gait normal, generalized weakness, strength equal bilaterally - Psychiatric Psychiatric: A&O x's 3, appropriate affect, intact judgment & insight - Labs CBC & Chem 7: 06/13/21 05:36 06/13/21 05:36 Labs: Abnormal Lab Results - Last 24 Hours (Table) 06/12/21 06/12/21 06/13/21 Range/Units 05:45 05:45 05:36 RBC 2.68 L (4.30-5.90) m/uL Hgb 9.3 L (13.0-17.5) gm/dL Hct 28.5 L (39.0-53.0) % MCV 106.6 H (80.0-100.0) fL RDW 20.2 H (11.5-15.5) % Lymphocytes # 0.7 L (1.0-4.8) k/uL Macrocytosis Marked A Sodium 134 L (135-145) mmol/L Carbon Dioxide 19.2 L (21.6-31.8) mmol/L Anion Gap 13.10 H (4.00-12.00) mmol/L Creatinine 0.4 L (0.6-1.5) mg/dL BUN/Creatinine Ratio 31.68 H (12.00-20.00) Ratio Glucose (74-99) mg/dL Calcium 8.5 L (8.7-10.3) mg/dL Magnesium (1.6-2.3) mg/dL Alkaline Phosphatase 130 H (41-126) U/L Total Protein 5.1 L (6.2-8.2) g/dL Albumin 2.8 L (3.8-4.9) g/dL Albumin/Globulin Ratio 1.18 L (1.60-3.17) g/dL Zinc 42 L (60-130) ug/dL 06/13/21 Range/Units 05:36 RBC (4.30-5.90) m/uL Hgb (13.0-17.5) gm/dL Hct (39.0-53.0) % MCV (80.0-100.0) fL RDW (11.5-15.5) % Lymphocytes # (1.0-4.8) k/uL Macrocytosis Sodium 130 L (135-145) mmol/L Carbon Dioxide (21.6-31.8) mmol/L Anion Gap (4.00-12.00) mmol/L Creatinine 0.44 L (0.6-1.5) mg/dL BUN/Creatinine Ratio (12.00-20.00) Ratio Glucose 118 H (74-99) mg/dL Calcium (8.7-10.3) mg/dL Magnesium 1.5 L (1.6-2.3) mg/dL Alkaline Phosphatase 129 H (41-126) U/L Total Protein 6.0 L (6.2-8.2) g/dL Albumin 2.6 L (3.8-4.9) g/dL Albumin/Globulin Ratio (1.60-3.17) g/dL Zinc (60-130) ug/dL Microbiology - Last 24 Hours (Table) 06/10/21 15:05 Stool Culture - Preliminary Stool Assessment and Plan Assessment: PERRLpheral neuropathy, workup in progress Tiny bilateral pleural effusion due to poor oncotic pressure and protein calorie malnourishment and catabolic state status post Lasix doing well Dysphagia related to isi esophagitis patient has been nystatin swish and swallow biopsy results are pending COPD with acute exacerbation Left lower lobe groundglass opacity Failure to thrive with history of weight loss macrocytic anemia Malnutrition protein calorie Inflammation tree change in cecum possible typhlitis Elevated troponin History of non-Hodgkin's lymphoma status post chemotherapy and remote past History of melanoma left arm and remote past as Plan: Continue bronchodilator Patient status post colonoscopy Continue oral Diflucan Monitor off of his steroids continue bronchodilator Workup and evaluation of anemia with endoscopy by surgical services Status post upper endoscopy however lower canceled due to poor prep Evaluation of typhlitis by surgery Patient is at high risk of the lung neoplasm would recommend a computed tomography scan of his chest in 4-6 months for left lower lobe groundglass opacity Further workup and evaluation of COPD as outpatient Time with Patient: Greater than 30
--- NOTE | 2021-06-13 17:52 | P.PN ---
Subjective Progress Note Date: 06/13/21 Since seen at bedside and he feels about the same today compared to yesterday. Today is day #2 for IVIG Per the patient's nurse, patient completed MRI of the brain but refused MRI of the cervical spine. Upon don't see the patient in the morning the nurse 5 m the patient is down getting a muscle biopsy on the thigh right ordered by primary team. Objective - Vital Signs Vital signs: Vital Signs Temp 98.6 F 06/13/21 12:35 Pulse 96 06/13/21 15:36 Resp 17 06/13/21 12:35 BP 132/70 06/13/21 15:36 Pulse Ox 98 06/13/21 15:36 Intake & Output 06/12/21 06/13/21 06/13/21 18:59 06:59 18:59 Intake Total 64.166 300 595.417 Output Total 4 5 Balance 64.166 296 590.417 Intake: IV 500 Intake, IV Titration 64.166 95.417 Amount Immune Globulin ( 64.166 Gammagard) 20 gm In Empty Bag 1 bag @ Titrate IV . Q0M ONE Rx#:[id number] Immune Globulin ( 95.417 Gammagard) 20 gm In Empty Bag 1 bag @ Titrate IV . Q0M ONE Rx#:[id number] Oral 300 Output: Urine/Stool Mix 4 Estimated Blood Loss 5 Other: Voiding Method Urinal Urinal Urinal Diaper Diaper Diaper # Voids 2 # Bowel Movements 1 - Exam GENERAL: The patient is lying in bed and is not in acute distress. NEUROLOGICAL: Higher mental function: The patient is awake, alert, oriented to self, place and time. Patient is following commands He is somewhat slow to respond or follow commands.. No aphasia and no neglect. Cranial nerves: The pupils are round, equal and reactive to light and accommodation. Visual lee are full to confrontation throughout. Extraocular movement is intact no nystagmus is noted. Facial sensation is normal to touch throughout. The facial strength is normal throughout. Tongue appears to have fasciulation. No dysarthria is noted. Motor: Gait is deferred. On muscle strength testing, he has symmetric weakness of bilateral upper and lower extremities. The overall strength is 4 diffusely in bilateral upper extremities proximally and distally (except deltoids appear 3-4- bilaterally).. In the lower limbs his hip flexion is about 1, hip adduction and abduction cannot be assessed because patient cannot flex his hips. He was able to give some resistance for the hip abduction > hip adduction. Knee extension is 3 to 4-, ankledorsiflexion/plantar 3-4 bilaterally. Cerebellum:Cerebellar function showed ataxia for [id number] testing bilaterally. Patient could not perform [id number] testing bilaterally. Sensation: Sensory to touch is decreased from toes up to the groin bilaterally. In the arms it was decreased mainly in the hands up to the shoulder. Vibration is absent in the toes, ankles and the knees and the fingers. Reflexes (right/left): Absent throughout. Plantars are mute bilaterally. WORK-UP: MR lumbar spine with and without is reported as no suspicious enhancing lumbo- sacral nerve roots. Scoliotic curvature with degenerative changes and the mid to lower lumbar spine is detailed above. Suspect effacement of the right L4 and left L5 nerves. Correlate likely. MRI of the brain is reported as suboptimal study without evidence of for acute infarct. Mild to moderate diffuse cerebral atrophy is redemonstrated. CSF shows normal total protein 60 (12-60), glucose 60, RBC 14, WBC 0. CSF LUIS <5. Oligoclonal band is negative. CSF Viral panel is negative Lyme screen is negative. B12 is 531, methylmalonic acid 0.14 on 05/27/2021. RBC folate also normal 598. Protein electrophoresis showed beta/gamma bridge suggestive of liver dysfunction. Patient's HIV is negative. Coronavirus PCR negative. Zinc is 42 (normal is 60-130). Rheumatoid factor negative, Vitamin B6L 8 (normal is 5-50. Trepoema pallidum Ab: Non reactive. Homocysteine is 7.48 which is within normal limits. SSA/SSB Antibody is negative immunoelectrophoresis shows no monoclonal paraprotein. Folate is low 5.10 creatinine kinase normal 20, serum copper is normal 753 (665-1480), ceruloplasmin is slightly low 17.7 (20-60). Acetylcholine receptor antibody is less than 3.0 is considered negative. MISHA is negative Hemoglobin A1c is 5.1. CEA: 2.9 (normal) - Labs CBC & Chem 7: 06/13/21 05:36 06/13/21 05:36 Labs: Abnormal Lab Results - Last 24 Hours (Table) 06/12/21 06/13/21 06/13/21 Range/Units 05:45 05:36 05:36 RBC 2.68 L (4.30-5.90) m/uL Hgb 9.3 L (13.0-17.5) gm/dL Hct 28.5 L (39.0-53.0) % MCV 106.6 H (80.0-100.0) fL RDW 20.2 H (11.5-15.5) % Lymphocytes # 0.7 L (1.0-4.8) k/uL Macrocytosis Marked A Sodium 130 L (137-145) mmol/L Creatinine 0.44 L (0.66-1.25) mg/dL Glucose 118 H (74-99) mg/dL Magnesium 1.5 L (1.6-2.3) mg/dL Alkaline Phosphatase 129 H (38-126) U/L Total Protein 6.0 L (6.3-8.2) g/dL Albumin 2.6 L (3.5-5.0) g/dL Zinc 42 L (60-130) ug/dL Microbiology - Last 24 Hours (Table) 06/10/21 15:05 Stool Culture - Preliminary Stool Assessment and Plan Assessment: * 65-year-old male with 4 month history of progressive weakness of the legs > arms with severe sensory dysfunction and sensory ataxia. Patient is completely areflexic. Exact cause is uncertain. CIDP less likely with normal CSF proteins. No evidence of paraproteinemia noted. Paraneoplastic polyneu ropathy also in the differential. Also chronic alcohol use can contribute to his neuropathy. * History of significant alcoholism, sober since December 2020. * Progressive weight loss, 70 pounds over the last 4 months. Exact cause remains uncertain. * History of non-Hodgkin's lymphoma (? and Melanoma) * History of tobacco use * History of marijuana use * Chronic alcohol use and he said he has been sober recently Plan: * Dr. Craig he ordered calcium channel antiboides and are pending. In addition ordered further paraneoplastic panel on CSF. * Patient refused MRI C-spine with and w/o. * If this is truly paraneoplastic which seems suspicious, then treatment is underlying tumor. Will try IVIG to see if any benefit 2gm/kg over 5 days. Today is day #2/5. If that does not help will consider possibly steroid. * Patient definitely will need EMG and nerve conduction studies of upper and lower extremities and can be done as outpatient [facility] * Folate is low 5.10. Continue folate replacement 1 mg daily. * Continue Gabapentin 100mg 1 tab bid and thiamine 100mg daily. * Patient does not appear to have essential tremor that primary team suspects. * Primary team ordered for muscle biopsy. * Oncologist team is on board * Physical therapy and occupation therapy on board. * Defer the rest of the workup to the primary team. * Upon discharge the patient needs to follow-up with a neurologist within 1-2 weeks as an outpatient and recommend patient to follow-up with neuromuscular clinic (can consider at [facility], [facility] or [place]). * Consider inpatient or outpatient rehab. The plan is discussed with the patient's grand-daughter (who is at bedside) and his nurse. Primary is attempting to transfer patient to [facility] Hank Smlal MD Neuro-Hospitalist Time with Patient: Less than 30
[2021-06-14] MEDS: LACTATED RINGERS 1,000 ML IV SCH ×2 (03:07→13:18)
[2021-06-14] MEDS: IPRATROPIUM-ALBUTEROL 3 ML NEB INHALATION SCH ×4 (07:39→19:42)
[2021-06-14] MEDS: atenoloL 25 MG TAB PO SCH ×2 (08:58→19:51)
[2021-06-14] MEDS: NYSTATIN 100,000 UNIT/ML SUSP 500,000 UNIT/5 ML CUP PO SCH ×2 (08:58→11:38)
[2021-06-14] MEDS: polyethylene glycoL 3350 17 GM POWD.PACK PO SCH (08:58)
[2021-06-14] MEDS: THIAMINE 100 MG TAB PO SCH (08:58)
[2021-06-14] MEDS: METOCLOPRAMIDE 5 MG TAB PO SCH ×3 (08:59→16:06)
[2021-06-14] MEDS: TAMSULOSIN 0.4 MG CAP.ER.24H PO SCH (08:59)
[2021-06-14] MEDS: GABAPENTIN 100 MG CAP PO SCH ×2 (08:59→19:51)
[2021-06-14] MEDS: FLUCONAZOLE 100 MG TAB PO SCH (08:59)
[2021-06-14] MEDS: FOLIC ACID 1 MG TAB PO SCH (08:59)
[2021-06-14] MEDS: SENNOSIDES-DOCUSATE SODIUM 1 EACH TAB PO SCH ×2 (08:59→19:51)
[2021-06-14] MEDS: PANTOPRAZOLE 40 MG TABLET PO SCH (08:59)
[2021-06-14] MEDS: MULTIVITAMINS, THERA 1 EACH TAB PO SCH (08:59)
[2021-06-14] MEDS ORDERED: IMMUNE GLOBULIN (GAMMAGARD) 20 GM in EMPTY BAG 1 BAG IV ONE (10:00)
--- NOTE | 2021-06-14 11:59 | P.PN ---
Subjective Progress Note Date: 06/14/21 Principal diagnosis: Anemia In follow-up today seems little bit confused, he is stating that he is in a "testing room". He denies any pain, nausea or bleeding at this time. Objective - Vital Signs Vital signs: Vital Signs Temp 97.8 F 06/14/21 11:17 Pulse 93 06/14/21 11:17 Resp 16 06/14/21 11:17 BP 106/59 06/14/21 11:17 Pulse Ox 94 L 06/14/21 11:17 Intake & Output 06/13/21 06/14/21 06/14/21 18:59 06:59 18:59 Intake Total 795.417 Output Total 5 Balance 790.417 Intake: IV 500 Intake, IV Titration 95.417 Amount Immune Globulin ( 95.417 Gammagard) 20 gm In Empty Bag 1 bag @ Titrate IV . Q0M ONE Rx#:[id number] Oral 200 Output: Estimated Blood Loss 5 Other: Voiding Method Urinal Urinal Urinal Diaper Diaper Diaper # Voids 4 1 - Constitutional Constitutional Comment(s): Patient looks significantly older than her chronological age General appearance: Present: cooperative, no acute distress, thin - EENT Eyes: Present: anicteric sclerae, EOMI, poor dentition ENT: Present: hearing grossly normal - Respiratory Details: Respirations even and unlabored - Integumentary Integumentary: Present: pale - Musculoskeletal Musculoskeletal: Present: generalized weakness - Psychiatric Psychiatric: Present: appropriate affect - Labs CBC & Chem 7: 06/13/21 05:36 06/13/21 05:36 Labs: Abnormal Lab Results - Last 24 Hours (Table) 06/12/21 Range/Units 05:45 Zinc 42 L (60-130) ug/dL Microbiology - Last 24 Hours (Table) 06/10/21 15:05 Stool Culture - Final Stool Assessment and Plan (1) Macrocytic anemia Current Visit: Yes Status: Acute Priority: High Code(s): D53.9 - NUTRITIONAL ANEMIA, UNSPECIFIED SNOMED Code(s): 32086575 (2) Failure to thrive Current Visit: Yes Status: Acute Priority: High Code(s): XDL4151 - SNOMED Code(s): 31087338 (3) Generalized weakness Current Visit: Yes Status: Acute Priority: High Code(s): R53.1 - WEAKNESS SNOMED Code(s): 90746909 Plan: Workup so far has not shown malignancy, no hematological malignancy suspected at this time. There are no underlying masses or lesions. EGD revealed sarah. Colonoscopy poor prep but a large hemorrhoid which patient may have been bleeding from. Patient is started on folic acid for deficiency. Hemoglobin has been stable since 2 units transfused on admission. Zinc levels noted to be low, supplement ordered. Nothing further from Hem/Onc at this time. We will cont to follow counts. Patient is now being worked up for progressive muscular weakness.
[2021-06-14] MEDS: NICOTINE 21MG/24HR PATCH TRANSDERM SCH (13:55)
[2021-06-14] MEDS: ZINC SULFATE 220 MG CAP PO SCH (13:55)
[2021-06-15] MEDS: IPRATROPIUM-ALBUTEROL 3 ML NEB INHALATION SCH ×4 (07:36→19:53)
[2021-06-15] MEDS: MULTIVITAMINS, THERA 1 EACH TAB PO SCH (08:31)
[2021-06-15] MEDS: METOCLOPRAMIDE 5 MG TAB PO SCH ×3 (08:31→16:21)
[2021-06-15] MEDS: atenoloL 25 MG TAB PO SCH ×2 (08:32→20:39)
[2021-06-15] MEDS: SENNOSIDES-DOCUSATE SODIUM 1 EACH TAB PO SCH ×2 (08:32→20:39)
[2021-06-15] MEDS: TAMSULOSIN 0.4 MG CAP.ER.24H PO SCH (08:32)
[2021-06-15] MEDS: GABAPENTIN 100 MG CAP PO SCH ×2 (08:32→20:39)
[2021-06-15] MEDS: THIAMINE 100 MG TAB PO SCH (08:33)
[2021-06-15] MEDS: FOLIC ACID 1 MG TAB PO SCH (08:33)
[2021-06-15] MEDS: FLUCONAZOLE 100 MG TAB PO SCH (08:33)
[2021-06-15] MEDS: ZINC SULFATE 220 MG CAP PO SCH (08:33)
[2021-06-15] MEDS: PANTOPRAZOLE 40 MG TABLET PO SCH (08:33)
[2021-06-15] MEDS: NICOTINE 21MG/24HR PATCH TRANSDERM SCH (08:41)
[2021-06-15] MEDS: polyethylene glycoL 3350 17 GM POWD.PACK PO SCH (08:41)
[2021-06-15] MEDS ORDERED: IMMUNE GLOBULIN (GAMMAGARD) 20 GM in EMPTY BAG 1 BAG IV ONE (10:00)
--- NOTE | 2021-06-15 11:41 | P.PN ---
Subjective Progress Note Date: 06/15/21 Patient is seen at bedside and per patient's nurse he was confused but today more responsive. He feels about the same and denies of any new neurological problems. He does not feel any different per patient compared to couple days ago. He is anticipating of going home. Objective - Vital Signs Vital signs: Vital Signs Temp 98.7 F 06/15/21 04:24 Pulse 92 06/15/21 11:35 Resp 18 06/15/21 08:40 BP 114/67 06/15/21 04:24 Pulse Ox 95 06/15/21 04:24 Intake & Output 06/14/21 06/15/21 06/15/21 18:59 06:59 18:59 Intake Total 291.25 Balance 291.25 Intake: Intake, IV Titration 51.25 Amount Immune Globulin ( 51.25 Gammagard) 20 gm In Empty Bag 1 bag @ Titrate IV . Q0M ONE Rx#:[id number] Oral 240 Other: Voiding Method Urinal Urinal Urinal Diaper Diaper Diaper # Voids 1 3 # Bowel Movements 1 - Exam GENERAL: The patient is lying in bed and is not in acute distress. NEUROLOGICAL: Higher mental function: The patient is awake, alert, oriented to self, place and time. Patient is following commands He is somewhat slow to respond or follow commands.. No aphasia and no neglect. Cranial nerves: The pupils are round, equal and reactive to light and accommodation. Visual lee are full to confrontation throughout. Extraocular movement is intact no nystagmus is noted. Facial sensation is normal to touch throughout. The facial strength is normal throughout. Tongue appears to have fasciulation. No dysarthria is noted. Motor: Gait is deferred. On muscle strength testing, he has symmetric weakness of bilateral upper and lower extremities. The overall strength is 4 diffusely in bilateral upper extremities proximally and distally (except deltoids appear 3-4- bilaterally).. In the lower limbs his hip flexion is about 1, hip adduction and abduction cannot be assessed because patient cannot flex his hips. He was able to give some resistance for the hip abduction > hip adduction. Knee extension is 3 to 4-, ankledorsiflexion/plantar 3-4 bilaterally. Cerebellum:Cerebellar function showed ataxia for [id number] testing bilaterally. Patient could not perform [id number]-[id number] testing bilaterally. Sensation: Sensory to touch is decreased from toes up to the groin bilaterally. In the arms it was decreased mainly in the hands up to the shoulder. Vibration is absent in the toes, ankles and the knees and the fingers. Reflexes (right/left): Absent throughout. Plantars are mute bilaterally. WORK-UP: MR lumbar spine with and without is reported as no suspicious enhancing lumbo- sacral nerve roots. Scoliotic curvature with degenerative changes and the mid to lower lumbar spine is detailed above. Suspect effacement of the right L4 and left L5 nerves. Correlate likely. MRI of the brain is reported as suboptimal study without evidence of for acute infarct. Mild to moderate diffuse cerebral atrophy is redemonstrated. CSF shows normal total protein 60 (12-60), glucose 60, RBC 14, WBC 0. CSF LUIS <5. Oligoclonal band is negative. CSF Viral panel is negative Lyme screen is negative. B12 is 531, methylmalonic acid 0.14 on 05/27/2021. RBC folate also normal 598. Protein electrophoresis showed beta/gamma bridge suggestive of liver dysfunction. Patient's HIV is negative. Coronavirus PCR negative. Zinc is 42 (normal is 60-130). Rheumatoid factor negative, Vitamin B6L 8 (normal is 5-50. Trepoema pallidum Ab: Non reactive. Homocysteine is 7.48 which is within normal limits. SSA/SSB Antibody is negative immunoelectrophoresis shows no monoclonal paraprotein. Folate is low 5.10 creatinine kinase normal 20, serum copper is normal 753 (665-1480), ceruloplasmin is slightly low 17.7 (20-60). Acetylcholine receptor antibody is less than 3.0 is considered negative. MISHA is negative Hemoglobin A1c is 5.1. CEA: 2.9 (normal) - Labs CBC & Chem 7: 06/13/21 05:36 06/13/21 05:36 Assessment and Plan Assessment: * 65-year-old male with 4 month history of progressive weakness of the legs > arms with severe sensory dysfunction and sensory ataxia. Patient is complete ly areflexic. Exact cause is uncertain. CIDP less likely with normal CSF proteins. No evidence of paraproteinemia noted. 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 Also chronic alcohol use can contribute to his neuropathy. * History of significant alcoholism, sober since December 2020. * Progressive weight loss, 70 pounds over the last 4 months. Exact cause remains uncertain. * History of non-Hodgkin's lymphoma (? and Melanoma) * History of tobacco use * History of marijuana use * Chronic alcohol use and he said he has been sober recently Plan: * Dr. Craig he ordered calcium channel antiboides and are pending. In addition ordered further paraneoplastic panel on CSF. * Patient refused MRI C-spine with and w/o. * If this is truly paraneoplastic which seems suspicious, then treatment is underlying tumor. Will try IVIG to see if any benefit 2gm/kg over 5 days. Today is day #4/5. If that does not help will consider possibly steroid. * Patient definitely will need EMG and nerve conduction studies of upper and lower extremities and can be done as outpatient (family service caseworker attempted multiple facilities as inpatient and was notified no beds available). * Folate is low 5.10. Continue folate replacement 1 mg daily. * Continue Gabapentin 100mg 1 tab bid and thiamine 100mg daily. * Patient does not appear to have essential tremor that primary team suspects. * Primary team obtained muscle biopsy on 06/13/21. * Oncologist team is on board * Physical therapy and occupation therapy on board. * Defer the rest of the workup to the primary team. * Upon discharge the patient needs to follow-up with a neurologist within 1-2 weeks as an outpatient and recommend patient to follow-up with neuromuscular clinic (can consider at [facility], [facility] [place]). * Consider inpatient or outpatient rehab. Primary is attempting to transfer patient to [facility] (upon reviewing his note last on 06/13/21) The plan is discussed with the patient's nurse. Dr. Craig will start neurology service tomorrow AM. Hank Small MD Neuro-Hospitalist Time with Patient: Less than 30
[2021-06-15] MEDS: LACTATED RINGERS 1,000 ML IV SCH (12:28)
[2021-06-16] MEDS: IPRATROPIUM-ALBUTEROL 3 ML NEB INHALATION SCH ×4 (07:48→19:36)
[2021-06-16] MEDS: polyethylene glycoL 3350 17 GM POWD.PACK PO SCH (08:19)
[2021-06-16] MEDS: MULTIVITAMINS, THERA 1 EACH TAB PO SCH (08:20)
[2021-06-16] MEDS: THIAMINE 100 MG TAB PO SCH (08:20)
[2021-06-16] MEDS: atenoloL 25 MG TAB PO SCH (08:20)
[2021-06-16] MEDS: GABAPENTIN 100 MG CAP PO SCH (08:20)
[2021-06-16] MEDS: PANTOPRAZOLE 40 MG TABLET PO SCH (08:20)
[2021-06-16] MEDS: NICOTINE 21MG/24HR PATCH TRANSDERM SCH (08:20)
[2021-06-16] MEDS: FOLIC ACID 1 MG TAB PO SCH (08:20)
[2021-06-16] MEDS: TAMSULOSIN 0.4 MG CAP.ER.24H PO SCH (08:20)
[2021-06-16] MEDS: ZINC SULFATE 220 MG CAP PO SCH (08:21)
[2021-06-16] MEDS: METOCLOPRAMIDE 5 MG TAB PO SCH ×2 (08:21→16:56)
[2021-06-16] MEDS: FLUCONAZOLE 100 MG TAB PO SCH (08:21)
[2021-06-16] MEDS: SENNOSIDES-DOCUSATE SODIUM 1 EACH TAB PO SCH (08:21)
[2021-06-16] MEDS ORDERED: IMMUNE GLOBULIN (GAMMAGARD) 20 GM in EMPTY BAG 1 BAG IV ONE (10:00)
--- NOTE | 2021-06-16 10:03 | P.PN ---
Subjective Progress Note Date: 06/14/21 (Late entry note, unable to dictate computer system down) Principal diagnosis: Small tiny pleural effusion Dysphagia with solids due to Isi esophagitis, has been nystatin swish and swallow biopsy pending COPD with acute exacerbation Left lower lobe groundglass opacity Failure to thrive with history of weight loss macrocytic anemia Malnutrition protein calorie Inflammation tree change in cecum possible typhlitis Elevated troponin History of fall and left arm melanoma Remote history of non-Hodgkin's lymphoma 06/14/2021, patient seen eval examined no other specific complains of present, as per neurological recommendation patient is getting IVIG therapy for 5 days, today infusion will be done in the afternoon, besides having some weakness otherwise doing well biopsy site has been healing well 06/13/2021, patient seen eval examined during the rounds workup continue breath he is in progress, patient had muscle biopsy now overall remains stable no dynam ic status stable remains afebrile oxygen 94%, that report is pending, 06/11/2021, patient seen and evaluated examined getting workup for peripheral neuropathy, neurologists have recommended EMG and nerve conduction study 06/10/2021, patient actively undergoing physical therapy, mild shortness of br eath at present, has been using oxygen intermittently, denies any chest pain, appetite overall remains stable, tolerating nystatin and Diflucan fairly well, discussed patient about need of using bronchodilator therapy as needed and using nebulizer treatment at least 2-3 times a day 06/09/2021, patient seen eval examined during the rounds workup for neuropathy is in progress neurology has been following the patient, history status however remains stable, but patient continued to deny bronchodilators, active physical therapy in progress 06/08/2021, patient seen eval examined, history status stable, patient declined nebulizer treatment currently, on room air, denies any chest pain does complain of numbness in the hands and foot patient has chronic neuropathy, neurology has been followed 06/06/2021, patient seen eval examined during the rounds labs reviewed medications reviewed care plan discussed, has been tolerating by mouth well in general surgery is following, respiratory status stable on bronchodilator 06/04/2021, patient seen eval examined during the rounds labs reviewed medica tions reviewed patient has been getting breathing treatments, has extensive history of smoking and nicotine use, patient is being planned for placement in extended care facility, x-ray done today which is reviewed sister of some interstitial edema and small tiny pleural effusion likely related to poor oncotic pressure and catabolic state due to protein calorie malnutrition, we will give a dose of IV Lasix and monitor observe patient closely, from pulmonary standpoint patient can be discharged on nebulizer 2-3 times a day r 06/03/2021, patient seen eval examined, status post colonoscopy, bowel prep still not adequate, however excessive amount of stool was seen, Estrace status remains stable on 2 L oxygen patient being monitor off of steroids 06/02/2021, patient seen and evaluated examined during the rounds labs reviewed medications reviewed care plan discussed, patient is undergoing prep for the colonoscopy for tomorrow remains on 2 L oxygen denies any chest pain or shortness of breath 05/30/2021, patient seen eval examined during the rounds overall no significant change, respiratory status stable, denies any chest pain, surgery has been following, patient has been continued on nystatin swish and swallow 4 Isi esophagitis 05/29/2021, patient seen eval examined during the rounds labs reviewed medications reviewed care plan discussed with the staff at length, patient is si tting upright on the bed breathing comfortably he is nothing by mouth for endoscopy upper and lower later on today, swollen functions have improved now, denies any cough or sputum production, labs reviewed hemoglobin remained stable 8.8, potassium is 3.3, remains stable BUN/creatinine within normal limit, rheumatoid factor as well as in the screen is negative, 05/28/2021, patient seen eval reexamined labs reviewed medications reviewed care plan discussed, history status stable, patient is still have problems associated with swallowing, patient is on full liquid diet tolerating well, appetite however remains poor patient is for endoscopy tomorrow 05/27/2021, patient seen eval reexamined he is sitting upright on the bed sitting and looking at his food, shortness of breath stable, remains on bronchodilators and IV steroids, does complaining of dysphagia and difficulty in swallowing especially with solids, general surgery has been following patient schedule for upper and lower endoscopy by surgery in next few days, hemodynamic status stable patient remains afebrile, oxygen saturation is 97% room air, Patient is a 65-year-old male looks and appear older then the stated age, patient came into the hospital with the loss of appetite poor by mouth intake and loss about 70 pounds in last 3 months, patient has been chronic short of breath have 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 emphysema hypertension hypertensive cardiovascular disease, patient has a long-term history of smoking and nicotine use from 1-2 packs per day quit about 3 months ago as he lost the taste of cigarettes as well, on specific questioning denies any chest pain denies any hemoptysis hematemesis, shortness of breath on activity and exertion present, denies any bowel bladder related problem, and denies any night sweats or fever or chills, patient was afebrile on presentation, but with stable hemodynamics oxygen saturation was 97% on room air, he was found to be anemic with the hemoglobin 6.9 posttransfusion improved to of 9.7 white cell count within normal limit, chest x-ray consistent with COPD CT of the brain consistent with cerebral atrophy no acute changes have been identified, patient's EKG significant for sinus tachycardia with nonspecific ST and T wave changes, x-ray of the spine and LS spine spondylotic changes, computed tomography scan of the chest no suspicious lung nodules were seen faint groundglass opacities seen in the left lower lobe, computed tomography scan Of the Abdominal Significant for Inflammatory Changes in the Cecum Likely Typhlitis, COVID-19 Testing Is Negative, Troponin Elevated 0.038 Objective - Vital Signs Vital signs: Vital Signs Temp 97.6 F 06/16/21 04:53 Pulse 84 06/16/21 07:57 Resp 18 06/16/21 04:53 BP 119/71 06/16/21 04:53 Pulse Ox 95 06/16/21 04:53 Intake & Output 06/15/21 06/16/21 06/16/21 18:59 06:59 18:59 Intake Total 240 480 Output Total 152 Balance 88 480 Intake: Oral 240 480 Output: Urine 152 Other: Voiding Method Urinal Urinal Diaper Diaper # Voids 1 # Bowel Movements 1 - Exam Constitutional General appearance: average body habitus, cooperative, disheveled, mild distress - EENT Eyes: EOMI, PERRLA Ears: bilateral: normal - Neck Neck: normal ROM Carotids: bilateral: upstroke normal Thyroid: bilateral: normal size - Respiratory Respiratory: bilateral: CTA - Cardiovascular Rhythm: regular Heart sounds: normal: S1, S2 - Gastrointestinal General gastrointestinal: decreased bowel sounds - Neurologic Neurologic: CNII-XII intact - Musculoskeletal Musculoskeletal: gait normal, generalized weakness, strength equal bilaterally - Psychiatric Psychiatric: A&O x's 3, appropriate affect, intact judgment & insight - Labs CBC & Chem 7: 06/13/21 05:36 06/13/21 05:36 Assessment and Plan Assessment: PERRLpheral neuropathy, workup in progress Tiny bilateral pleural effusion due to poor oncotic pressure and protein calorie malnourishment and catabolic state status post Lasix doing well Dysphagia related to isi esophagitis patient has been nystatin swish and swallow biopsy results are pending COPD with acute exacerbation Left lower lobe groundglass opacity Failure to thrive with history of weight loss macrocytic anemia Malnutrition protein calorie Inflammation tree change in cecum possible typhlitis Elevated troponin History of non-Hodgkin's lymphoma status post chemotherapy and remote past History of melanoma left arm and remote past as Plan: Continue immunoglobulin IVIG therapy per neurology recommendation Continue bronchodilator Patient status post colonoscopy Continue oral Diflucan Monitor off of his steroids continue bronchodilator Workup and evaluation of anemia with endoscopy by surgical services Status post upper endoscopy however lower canceled due to poor prep Evaluation of typhlitis by surgery Patient is at high risk of the lung neoplasm would recommend a computed tomography scan of his chest in 4-6 months for left lower lobe groundglass o pacity Further workup and evaluation of COPD as outpatient Time with Patient: Greater than 30
--- NOTE | 2021-06-16 10:06 | P.PN ---
Subjective Progress Note Date: 06/15/21 (Late entry note) Principal diagnosis: Small tiny pleural effusion Dysphagia with solids due to Isi esophagitis, has been nystatin swish and swallow biopsy pending COPD with acute exacerbation Left lower lobe groundglass opacity Failure to thrive with history of weight loss macrocytic anemia Malnutrition protein calorie Inflammation tree change in cecum possible typhlitis Elevated troponin History of fall and left arm melanoma Remote history of non-Hodgkin's lymphoma June 15 2021, patient seen eval examined besides weakness has been doing well no neurological complaint, patient is being followed by neurology, workup by neurosurgery so far reviewed as below and is normal MR lumbar spine with and without is reported as no suspicious enhancing lumbo- sacral nerve roots. Scoliotic curvature with degenerative changes and the mid to lower lumbar spine is detailed above. Suspect effacement of the right L4 and left L5 nerves. Correlate likely. MRI of the brain is reported as suboptimal study without evidence of for acute infarct. Mild to moderate diffuse cerebral atrophy is redemonstrated. CSF shows normal total protein 60 (12-60), glucose 60, RBC 14, WBC 0. CSF LUIS <5. Oligoclonal band is negative. CSF Viral panel is negative Lyme screen is negative. B12 is 531, methylmalonic acid 0.14 on 05/27/2021. RBC folate also normal 598. Protein electrophoresis showed beta/gamma bridge suggestive of liver dysfunction. Patient's HIV is negative. Coronavirus PCR negative. Zinc is 42 (normal is 60-130). Rheumatoid factor negative, Vitamin B6L 8 (normal is 5-50. Trepoema pallidum Ab: Non reactive. Homocysteine is 7.48 which is within normal limits. SSA/SSB Antibody is negative immunoelectrophoresis shows no monoclonal paraprotein. Folate is low 5.10 creatinine kinase normal 20, serum copper is normal 753 ([id number]), ceruloplasmin is slightly low 17.7 (20-60). Acetylcholine receptor antibody is less than 3.0 is considered negative. MISHA is negative Hemoglobin A1c is 5.1. CEA: 2.9 (normal) 06/14/2021, patient seen eval examined no other specific complains of present, as per neurological recommendation patient is getting IVIG therapy for 5 days, today infusion will be done in the afternoon, besides having some weakness otherwise doing well biopsy site has been healing well 06/13/2021, patient seen eval examined during the rounds workup continue breath he is in progress, patient had muscle biopsy now overall remains stable no dynamic status stable remains afebrile oxygen 94%, that report is pending, 06/11/2021, patient seen and evaluated examined getting workup for peripheral neuropathy, neurologists have recommended EMG and nerve conduction study 06/10/2021, patient actively undergoing physical therapy, mild shortness of breath at present, has been using oxygen intermittently, denies any chest pain, appetite overall remains stable, tolerating nystatin and Diflucan fairly well, discussed patient about need of using bronchodilator therapy as needed and using nebulizer treatment at least 2-3 times a day 06/09/2021, patient seen eval examined during the rounds workup for neuropathy is in progress neurology has been following the patient, history status however remains stable, but patient continued to deny bronchodilators, active physical therapy in progress 06/08/2021, patient seen eval examined, history status stable, patient declined nebulizer treatment currently, on room air, denies any chest pain does complain of numbness in the hands and foot patient has chronic neuropathy, neurology has been followed 06/06/2021, patient seen eval examined during the rounds labs reviewed m edications reviewed care plan discussed, has been tolerating by mouth well in general surgery is following, respiratory status stable on bronchodilator 06/04/2021, patient seen eval examined during the rounds labs reviewed medications reviewed patient has been getting breathing treatments, has exte nsive history of smoking and nicotine use, patient is being planned for placement in extended care facility, x-ray done today which is reviewed sister of some interstitial edema and small tiny pleural effusion likely related to poor oncotic pressure and catabolic state due to protein calorie malnutrition, we will give a dose of IV Lasix and monitor observe patient closely, from pulmonary standpoint patient can be discharged on nebulizer 2-3 times a day r 06/03/2021, patient seen eval examined, status post colonoscopy, bowel prep still not adequate, however excessive amount of stool was seen, Estrace status remains stable on 2 L oxygen patient being monitor off of steroids 06/02/2021, patient seen and evaluated examined during the rounds labs reviewed medications reviewed care plan discussed, patient is undergoing prep for the colonoscopy for tomorrow remains on 2 L oxygen denies any chest pain or shortness of breath 05/30/2021, patient seen eval examined during the rounds overall no significant change, respiratory status stable, denies any chest pain, surgery has been following, patient has been continued on nystatin swish and swallow 4 Isi esophagitis 05/29/2021, patient seen eval examined during the rounds labs reviewed medications reviewed care plan discussed with the staff at length, patient is sitting upright on the bed breathing comfortably he is nothing by mouth for endoscopy upper and lower later on today, swollen functions have improved now, denies any cough or sputum production, labs reviewed hemoglobin remained stable 8.8, potassium is 3.3, remains stable BUN/creatinine within normal limit, rheumatoid factor as well as in the screen is negative, 05/28/2021, patient seen eval reexamined labs reviewed medications reviewed care plan discussed, history status stable, patient is still have problems associated with swallowing, patient is on full liquid diet tolerating well, appetite however remains poor patient is for endoscopy tomorrow 05/27/2021, patient seen eval reexamined he is sitting upright on the bed sitting and looking at his food, shortness of breath stable, remains on bronchodilators and IV steroids, does complaining of dysphagia and difficulty in swallowing especially with solids, general surgery has been following patient schedule for upper and lower endoscopy by surgery in next few days, hemodynamic status stable patient remains afebrile, oxygen saturation is 97% room air, Patient is a 65-year-old male looks and appear older then the stated age, patient came into the hospital with the loss of appetite poor by mouth intake a nd loss about 70 pounds in last 3 months, patient has been chronic short of breath have 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 emphysema hypertension hypertensive cardiovascular disease, patient has a long-term history of smoking and nicotine use from 1-2 packs per day quit about 3 months ago as he lost the taste of cigarettes as well, on specific questioning denies any chest pain denies any hemoptysis hematemesis, shortness of breath on activity and exertion present, denies any bowel bladder related problem, and denies any night sweats or fever or chills, patient was afebrile on presentation, but with stable hemodynamics oxygen saturation was 97% on room air, he was found to be anemic wi th the hemoglobin 6.9 posttransfusion improved to of 9.7 white cell count within normal limit, chest x-ray consistent with COPD CT of the brain consistent with cerebral atrophy no acute changes have been identified, patient's EKG significant for sinus tachycardia with nonspecific ST and T wave changes, x-ray of the spine and LS spine spondylotic changes, computed tomography scan of the chest no suspicious lung nodules were seen faint groundglass opacities seen in the left lower lobe, computed tomography scan Of the Abdominal Significant for Inflammatory Changes in the Cecum Likely Typhlitis, COVID-19 Testing Is Negative, Troponin Elevated 0.038 Objective - Vital Signs Vital signs: Vital Signs Temp 97.6 F 06/16/21 04:53 Pulse 84 06/16/21 07:57 Resp 18 06/16/21 04:53 BP 119/71 06/16/21 04:53 Pulse Ox 95 06/16/21 04:53 Intake & Output 06/15/21 06/16/21 06/16/21 18:59 06:59 18:59 Intake Total 240 480 Output Total 152 Balance 88 480 Intake: Oral 240 480 Output: Urine 152 Other: Voiding Method Urinal Urinal Diaper Diaper # Voids 1 # Bowel Movements 1 - Exam Constitutional General appearance: average body habitus, cooperative, disheveled, mild distress - EENT Eyes: EOMI, PERRLA Ears: bilateral: normal - Neck Neck: normal ROM Carotids: bilateral: upstroke normal Thyroid: bilateral: normal size - Respiratory Respiratory: bilateral: CTA - Cardiovascular Rhythm: regular Heart sounds: normal: S1, S2 - Gastrointestinal General gastrointestinal: decreased bowel sounds - Neurologic Neurologic: CNII-XII intact - Musculoskeletal Musculoskeletal: gait normal, generalized weakness, strength equal bilaterally - Psychiatric Psychiatric: A&O x's 3, appropriate affect, intact judgment & insight - Labs CBC & Chem 7: 06/13/21 05:36 06/13/21 05:36 Assessment and Plan Assessment: Sensory ataxia with sensory dysfunction of legs and arms likely chronic neuropathy related to chronic alcoholism Tiny bilateral pleural effusion due to poor oncotic pressure and protein calorie malnourishment and catabolic state status post Lasix doing well Dysphagia related to isi esophagitis patient has been nystatin swish and swallow biopsy results are pending COPD with acute exacerbation Left lower lobe groundglass opacity Failure to thrive with history of weight loss macrocytic anemia Malnutrition protein calorie Inflammation tree change in cecum possible typhlitis Elevated troponin History of non-Hodgkin's lymphoma status post chemotherapy and remote past History of melanoma left arm and remote past as Plan: Continue immunoglobulin IVIG therapy per neurology recommendation to finish 5 with an Continue bronchodilator Patient status post colonoscopy Continue oral Diflucan Monitor off of his steroids continue bronchodilator Workup and evaluation of anemia with endoscopy by surgical services Status post upper endoscopy however lower canceled due to poor prep Evaluation of typhlitis by surgery Patient is at high risk of the lung neoplasm would recommend a computed tomography scan of his chest in 4-6 months for left lower lobe groundglass opacity Further workup and evaluation of COPD as outpatient Time with Patient: Greater than 30
--- NOTE | 2021-06-16 10:09 | P.PN ---
Subjective Progress Note Date: 06/16/21 Principal diagnosis: Small tiny pleural effusion Dysphagia with solids due to Isi esophagitis, has been nystatin swish and swallow biopsy pending COPD with acute exacerbation Left lower lobe groundglass opacity Failure to thrive with history of weight loss macrocytic anemia Malnutrition protein calorie Inflammation tree change in cecum possible typhlitis Elevated troponin History of fall and left arm melanoma Remote history of non-Hodgkin's lymphoma 06/16/2021, patient seen eval examined during the rounds labs reviewed medications reviewed, patient is scheduled for fifth and final dose of IVIG June 15 2021, patient seen eval examined besides weakness has been doing well no neurological complaint, patient is being followed by neurology, workup by neurosurgery so far reviewed as below and is normal MR lumbar spine with and without is reported as no suspicious enhancing lumbo- sacral nerve roots. Scoliotic curvature with degenerative changes and the mid to lower lumbar spine is detailed above. Suspect effacement of the right L4 and left L5 nerves. Correlate likely. MRI of the brain is reported as suboptimal study without evidence of for acute infarct. Mild to moderate diffuse cerebral atrophy is redemonstrated. CSF shows normal total protein 60 (12-60), glucose 60, RBC 14, WBC 0. CSF LUIS <5. Oligoclonal band is negative. CSF Viral panel is negative Lyme screen is negative. B12 is 531, methylmalonic acid 0.14 on 05/27/2021. RBC folate also normal 598. Protein electrophoresis showed beta/gamma bridge suggestive of liver dysfunction. Patient's HIV is negative. Coronavirus PCR negative. Zinc is 42 (normal is 60-130). Rheumatoid factor negative, Vitamin B6L 8 (normal is 5-50. Trepoema pallidum Ab: Non reactive. Homocysteine is 7.48 which is within normal limits. SSA/SSB Antibody is negative immunoelectrophoresis shows no monoclonal paraprotein. Folate is low 5.10 creatinine kinase normal 20, serum copper is normal 753 (665-1480), ceruloplasmin is slightly low 17.7 (20-60). Acetylcholine receptor antibody is less than 3.0 is considered negative. MISHA is negative Hemoglobin A1c is 5.1. CEA: 2.9 (normal) 06/14/2021, patient seen eval examined no other specific complains of present, as per neurological recommendation patient is getting IVIG therapy for 5 days, today infusion will be done in the afternoon, besides having some weakness otherwise doing well biopsy site has been healing well 06/13/2021, patient seen eval examined during the rounds workup continue breath he is in progress, patient had muscle biopsy now overall remains stable no dynamic status stable remains afebrile oxygen 94%, that report is pending, 06/11/2021, patient seen and evaluated examined getting workup for peripheral neuropathy, neurologists have recommended EMG and nerve conduction study 06/10/2021, patient actively undergoing physical therapy, mild shortness of breath at present, has been using oxygen intermittently, denies any chest pain, appetite overall remains stable, tolerating nystatin and Diflucan fairly well, discussed patient about need of using bronchodilator therapy as needed and using nebulizer treatment at least 2-3 times a day 06/09/2021, patient seen eval examined during the rounds workup for neuropathy is in progress neurology has been following the patient, history status however remains stable, but patient continued to deny bronchodilators, active physical therapy in progress 06/08/2021, patient seen eval examined, history status stable, patient declined nebulizer treatment currently, on room air, denies any chest pain does complain of numbness in the hands and foot patient has chronic neuropathy, neurology has been followed 06/06/2021, patient seen eval examined during the rounds labs reviewed medications reviewed care plan discussed, has been tolerating by mouth well in general surgery is following, respiratory status stable on bronchodilator 06/04/2021, patient seen eval examined during the rounds labs reviewed medications reviewed patient has been getting breathing treatments, has extensive history of smoking and nicotine use, patient is being planned for placement in extended care facility, x-ray done today which is reviewed sister of some interstitial edema and small tiny pleural effusion likely related to poor oncotic pressure and catabolic state due to protein calorie malnutrition, we will give a dose of IV Lasix and monitor observe patient closely, from pulmonary standpoint patient can be discharged on nebulizer 2-3 times a day r 06/03/2021, patient seen eval examined, status post colonoscopy, bowel prep still not adequate, however excessive amount of stool was seen, Estrace status remains stable on 2 L oxygen patient being monitor off of steroids 06/02/2021, patient seen and evaluated examined during the rounds labs reviewed medications reviewed care plan discussed, patient is undergoing prep for the colonoscopy for tomorrow remains on 2 L oxygen denies any chest pain or shortness of breath 05/30/2021, patient seen eval examined during the rounds overall no significant change, respiratory status stable, denies any chest pain, surgery has been following, patient has been continued on nystatin swish and swallow 4 Isi esophagitis 05/29/2021, patient seen eval examined during the rounds labs reviewed medications reviewed care plan discussed with the staff at length, patient is sitting upright on the bed breathing comfortably he is nothing by mouth for endoscopy upper and lower later on today, swollen functions have improved now, denies any cough or sputum production, labs reviewed hemoglobin remained stable 8.8, potassium is 3.3, remains stable BUN/creatinine within normal limit, rheumatoid factor as well as in the screen is negative, 05/28/2021, patient seen eval reexamined labs reviewed medications reviewed care plan discussed, history status stable, patient is still have problems associated with swallowing, patient is on full liquid diet tolerating well, appetite however remains poor patient is for endoscopy tomorrow 05/27/2021, patient seen eval reexamined he is sitting upright on the bed sitting and looking at his food, shortness of breath stable, remains on bronchodilators and IV steroids, does complaining of dysphagia and difficulty in swallowing especially with solids, general surgery has been following patient schedule for upper and lower endoscopy by surgery in next few days, hemodynamic status stable patient remains afebrile, oxygen saturation is 97% room air, Patient is a 65-year-old male looks and appear older then the stated age, patient came into the hospital with the loss of appetite poor by mouth intake and loss about 70 pounds in last 3 months, patient has been chronic short of breath have 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 emphysema hypertension hypertensive cardiovascular disease, patient has a long-term history of smoking and nicotine use from 1-2 packs per day quit about 3 months ago as he lost the taste of cigarettes as well, on specific questioning denies any chest pain denies any hemoptysis hematemesis, shortness of breath on activity and exertion present, denies any bowel bladder related problem, and denies any night sweats or fever or chills, patient was afebrile on presentation, but with stable hemodynamics oxygen saturation was 97% on room air, he was found to be anemic with the hemoglobin 6.9 posttransfusion improved to of 9.7 white cell count within normal limit, chest x-ray consistent with COPD CT of the brain consistent with cerebral atrophy no acute changes have been identified, patient's EKG significant for sinus tachycardia with nonspecific ST and T wave changes, x-ray of the spine and LS spine spondylotic changes, computed tomography scan of the chest no suspicious lung nodules were seen faint groundglass opacities seen in the left lower lobe, computed tomography scan Of the Abdominal Significant for Inflammatory Changes in the Cecum Likely Typhlitis, COVID-19 Testing Is Negative, Troponin Elevated 0.038 Objective - Vital Signs Vital signs: Vital Signs Temp 97.6 F 06/16/21 04:53 Pulse 84 06/16/21 07:57 Resp 18 06/16/21 04:53 BP 119/71 06/16/21 04:53 Pulse Ox 95 06/16/21 04:53 Intake & Output 06/15/21 06/16/21 06/16/21 18:59 06:59 18:59 Intake Total 240 480 Output Total 152 Balance 88 480 Intake: Oral 240 480 Output: Urine 152 Other: Voiding Method Urinal Urinal Urinal Diaper Diaper Diaper # Voids 1 # Bowel Movements 1 - Exam Constitutional General appearance: average body habitus, cooperative, disheveled, mild distress - EENT Eyes: EOMI, PERRLA Ears: bilateral: normal - Neck Neck: normal ROM Carotids: bilateral: upstroke normal Thyroid: bilateral: normal size - Respiratory Respiratory: bilateral: CTA - Cardiovascular Rhythm: regular Heart sounds: normal: S1, S2 - Gastrointestinal General gastrointestinal: decreased bowel sounds - Neurologic Neurologic: CNII-XII intact - Musculoskeletal Musculoskeletal: gait normal, generalized weakness, strength equal bilaterally - Psychiatric Psychiatric: A&O x's 3, appropriate affect, intact judgment & insight - Labs CBC & Chem 7: 06/13/21 05:36 06/13/21 05:36 Assessment and Plan Assessment: Sensory ataxia with sensory dysfunction of legs and arms likely chronic neuropathy related to chronic alcoholism Tiny bilateral pleural effusion due to poor oncotic pressure and protein calorie malnourishment and catabolic state status post Lasix doing well Dysphagia related to isi esophagitis patient has been nystatin swish and swallow biopsy results are pending COPD with acute exacerbation Left lower lobe groundglass opacity Failure to thrive with history of weight loss macrocytic anemia Malnutrition protein calorie Inflammation tree change in cecum possible typhlitis Elevated troponin History of non-Hodgkin's lymphoma status post chemotherapy and remote past History of melanoma left arm and remote past as Plan: Continue immunoglobulin IVIG therapy per neurology recommendation today's fifth and last day Continue bronchodilator Patient status post colonoscopy Continue oral Diflucan Monitor off of his steroids continue bronchodilator Workup and evaluation of anemia with endoscopy by surgical services Status post upper endoscopy however lower canceled due to poor prep Evaluation of typhlitis by surgery Patient is at high risk of the lung neoplasm would recommend a computed tomograp hy scan of his chest in 4-6 months for left lower lobe groundglass opacity Further workup and evaluation of COPD as outpatient Time with Patient: Greater than 30
--- NOTE | 2021-06-16 11:38 | P.PN ---
Subjective Progress Note Date: 06/16/21 CHIEF COMPLAINT: Weakness, failure to thrive HISTORY OF PRESENT ILLNESS: Patient is status post right thigh muscle biopsy due to his weakness. Results are pending. Patient is receiving his last dose of IVIG. Patient still reporting muscle weakness. Still reporting some difficulty with swallowing. He has no new complaints. Afebrile PHYSICAL EXAM: VITAL SIGNS: Reviewed. GENERAL: Well-developed in no acute distress. HEENT: No sclera icterus. Extraocular movements grossly intact. Moist buccal mucosa. Head is atraumatic, normocephalic. ABDOMEN: Soft. Nondistended. Nontender. NEUROLOGIC: Alert and oriented. Cranial nerves II through XII grossly intact. ASSESSMENT: 1. Myopathy status post muscle biopsy 2. Moderate protein calorie malnutrition, failure to thrive and 70 pound weight loss. Status post EGD showing possible candidiasis esophagitis. 3. Colonoscopy with poor prep evidence of diverticulosis and external hemorrhoids PLAN: -Continue supportive care -Continue regular diet -Continue Diflucan -Continue neurology workup for muscle weakness -Follow up on muscle biopsy path results Physician Car Pincher note has been reviewed by physician. Signing provider agrees with the documented findings, assessment, and plan of care. Objective - Vital Signs Vital signs: Vital Signs Temp 97.6 F 06/16/21 04:53 Pulse 84 06/16/21 07:57 Resp 18 06/16/21 04:53 BP 119/71 06/16/21 04:53 Pulse Ox 95 06/16/21 04:53 Intake & Output 06/15/21 06/16/21 06/16/21 18:59 06:59 18:59 Intake Total 240 480 12.6 Output Total 152 Balance 88 480 12.6 Intake: Intake, IV Titration 12.6 Amount Immune Globulin ( 12.6 Gammagard) 20 gm In Empty Bag 1 bag @ Titrate IV . Q0M ONE Rx#:[id number] Oral 240 480 Output: Urine 152 Other: Voiding Method Urinal Urinal Urinal Diaper Diaper Diaper # Voids 1 # Bowel Movements 1 - Labs CBC & Chem 7: 06/13/21 05:36 06/13/21 05:36
[2021-06-16 12:28] VITALS: BP 138/81; PULSE 93; RESP 17; TEMP 98.7
[2021-06-16] MEDS: LACTATED RINGERS 1,000 ML IV SCH ×2 (12:39→16:55)
--- NOTE | 2021-06-16 13:05 | P.PN ---
Subjective Progress Note Date: 06/16/21 Principal diagnosis: Anemia In follow-up today pt cont to be pleasantly confused, he denies any acute physical c/o. Objective - Vital Signs Vital signs: Vital Signs Temp 98.7 F 06/16/21 12:27 Pulse 93 06/16/21 12:27 Resp 17 06/16/21 12:27 BP 138/81 06/16/21 12:27 Pulse Ox 95 06/16/21 12:27 Intake & Output 06/15/21 06/16/21 06/16/21 18:59 06:59 18:59 Intake Total 240 480 69.317 Output Total 152 Balance 88 480 69.317 Intake: Intake, IV Titration 69.317 Amount Immune Globulin ( 69.317 Gammagard) 20 gm In Empty Bag 1 bag @ Titrate IV . Q0M ONE Rx#:[id number] Oral 240 480 Output: Urine 152 Other: Voiding Method Urinal Urinal Urinal Diaper Diaper Diaper # Voids 1 # Bowel Movements 1 - Exam Thin, frail, muscle wasting moderate, generalized tremor is noted, pt had pain with plantar flexion-pins and needles, he can hardly bend at the knee with ac tive ROM, no resistance. - Constitutional General appearance: Present: cooperative - EENT Eyes: Present: EOMI ENT: Present: hearing grossly normal - Labs CBC & Chem 7: 06/13/21 05:36 06/13/21 05:36 Assessment and Plan (1) Macrocytic anemia Current Visit: Yes Status: Acute Priority: High Code(s): D53.9 - NUTRITIONAL ANEMIA, UNSPECIFIED SNOMED Code(s): 92980929 (2) Failure to thrive Current Visit: Yes Status: Acute Priority: High Code(s): UNU9444 - SNOMED Code(s): 74057168 (3) Generalized weakness Current Visit: Yes Status: Acute Priority: High Code(s): R53.1 - WEAKNESS SNOMED Code(s): 02169475 Plan: Neg hgb electrophoresis, intrinsic factor. No underlying hematological malignancy suspected at this time. There are no underlying masses or lesions on imaging. EGD revealed sarah. Colonoscopy poor prep but a large hemorrhoid which patient may have been bleeding from. Patient is started on folic acid for deficiency. Hemoglobin has been stable since 2 units transfused on admission. Zinc levels noted to be low, supplement ordered. Discussed case with Neurology, suspicions for paraneoplastic syndrome. Still pending cytology on CSF. Patient is being transferred to be worked up for progressive muscular weakness.
--- NOTE | 2021-06-16 22:54 | DS ---
DISCHARGE SUMMARY DISCHARGE MEDICATIONS: 1. Diflucan 100 mg daily. 2. Nicotine patch 21 mg daily. 3. Flomax 0.4 mg daily. 4. Folic acid 1 mg daily. 5. DuoNeb updrafts q.i.d. 6. Multivitamin daily. 7. Nystatin swish and swallow 500,000 units q.i.d. 8. Protonix 40 mg daily. 9. Tenormin 25 b.i.d. 10.Tramadol 50 t.i.d. CONDITION: Stable but guarded. DISCHARGE DIAGNOSES: 1. 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 2. Chronic obstructive pulmonary disease. 3. Delirium. 4. Progressive weakness of neuromuscular disease of some kind. It is completely reflexive. Arms severe sensory dysfunction and ataxia. CIDP less likely with normal CSF proteins. No evidence of paraproteinemia was noted on the spinal tap. 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 5. History of chronic alcohol use, possibly contributing somewhat to his neuropathy, but not the severe etiology of his neuromuscular disease, unable to hold any forks or spoons and dysmorphic movements of his arms and limited motion of his legs of any kind. 6. 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 7. Past medical history of significant alcoholism, but has been sober since 2020. 8. Progressive weight loss of 70 pounds in the past 4 months; unclear etiology. 9. History of melanoma in his left arm and non-Hodgkin's lymphoma years ago, which he says has been stable. 10.History of nicotine and marijuana use. 11.He had a muscle biopsy done 3 or 4 days ago which is pending. Will send it to [facility] when pathology is back. As mentioned, he had a CT scan of his C-spine and lumbar spine. We ordered calcium channel which are pending. He had IVIG for the last 5 days with limited success. He is stable from a pulmonary standpoint. His folic acid was low at 5.1. Folate replacement was given. Gabapentin 100 b.i.d. and thiamine 100 daily for neuropathy and vitamin deficiency secondary to history of alcohol. He had a muscle biopsy on 06/13/2021, result pending. Wait for further neurologic workup down in [place]. His zinc level was normal at 42. Rheumatoid factor negative. HIV negative. Protein electrophoresis beta gamma bridge suggestive of liver dysfunction. Methylmalonic acid 14, B12 531, folic acid low at 5.1. Creatine kinase normal at 20. Serum copper normal at 753. low at 17.7. choline receptor antibody less than 3. MISHA negative. Hemoglobin A1c 5.1. CEA 2.9. Further workup at [facility]. He also had oligoclonal bands negative with LUIS level less than 5. Viral panel is negative and the CSF Lyme screen is negative. MRI of lumbar spine with and without contrast; no suspicious enhancing lumbosacral nerve roots, scoliosis curvature, effacement of the right L4, left L5 nerves. CSF showed normal protein at 60, glucose 60, RBCs 14, white cells zero. Please see further workup done at [facility]. MMODL / IJN: [id number] /
[2021-06-17 19:02] LABS: Nicotinamide 27 ng/mL; Nicotinic Acid None Detected; Nicotinuric Acid None Detected
== END 2021-06-16 20:15 | DRG 40 ==
LOC: EC 21:08 → 5NMEDONC 22:49 → 1SOBS 05-26 10:42 → 5NMEDONC 05-30 13:46
PROVIDERS: ADMIT Family Medicine; ATTEND Family Medicine
PROC: 0DB38ZX Excision of Lower Esophagus, Via Natural or Artificial Opening Endoscopic, Diagnostic (ICD-10-PCS; 2021-05-29)
PROC: 0DJDXZZ Inspection of Lower Intestinal Tract, External Approach (ICD-10-PCS; 2021-05-29)
PROC: 0DJD8ZZ Inspection of Lower Intestinal Tract, Via Natural or Artificial Opening Endoscopic (ICD-10-PCS; 2021-06-03)
PROC: 009U3ZX Drainage of Spinal Canal, Percutaneous Approach, Diagnostic (ICD-10-PCS; 2021-06-05)
PROC: 0KBQ0ZX Excision of Right Upper Leg Muscle, Open Approach, Diagnostic (ICD-10-PCS; principal; 2021-06-13 07:30)
DX: G72.9 Myopathy, unspecified (principal); E43 Unspecified severe protein-calorie malnutrition; B37.81 Candidal esophagitis; D61.818 Other pancytopenia; Z68.1 Body mass index [BMI] 19.9 or less, adult; K59.81 Ogilvie syndrome; D50.0 Iron deficiency anemia secondary to blood loss (chronic); D53.9 Nutritional anemia, unspecified; E56.9 Vitamin deficiency, unspecified; E83.42 Hypomagnesemia; E86.0 Dehydration; F10.21 Alcohol dependence, in remission; F17.210 Nicotine dependence, cigarettes, uncomplicated; F32.9 Major depressive disorder, single episode, unspecified; F41.9 Anxiety disorder, unspecified; G25.0 Essential tremor; G62.0 Drug-induced polyneuropathy; T45.1X5A Adverse effect of antineoplastic and immunosuppressive drugs, initial encounter; G70.9 Myoneural disorder, unspecified; J43.9 Emphysema, unspecified; K27.9 Peptic ulcer, site unspecified, unspecified as acute or chronic, without hemorrhage or perforation; I11.9 Hypertensive heart disease without heart failure; K57.90 Diverticulosis of intestine, part unspecified, without perforation or abscess without bleeding; K64.4 Residual hemorrhoidal skin tags; K75.9 Inflammatory liver disease, unspecified; L89.152 Pressure ulcer of sacral region, stage 2; L89.302 Pressure ulcer of unspecified buttock, stage 2; M16.10 Unilateral primary osteoarthritis, unspecified hip; R62.7 Adult failure to thrive; R09.02 Hypoxemia; Z20.822 Contact with and (suspected) exposure to COVID-19; Z79.899 Other long term (current) drug therapy; Z85.820 Personal history of malignant melanoma of skin; Z85.72 Personal history of non-Hodgkin lymphomas; Z92.3 Personal history of irradiation; Z92.21 Personal history of antineoplastic chemotherapy; Z96.641 Presence of right artificial hip joint; Z88.0 Allergy status to penicillin; Z91.040 Latex allergy status; R77.8 Other specified abnormalities of plasma proteins; K37 Unspecified appendicitis; R13.10 Dysphagia, unspecified; R41.0 Disorientation, unspecified; Z86.16 Personal history of COVID-19; Z87.01 Personal history of pneumonia (recurrent)
CPT/HCPCS: 36415; 43239; 45378; 62270; 70450; 70551; 71045; 71046; 71260; 72100; 72158; 74022; 74177; 76700; 80048; 80053; 81003; 82040; 82042; 82105; 82164; 82272; 82378; 82390; 82525; 82550; 82607; 82728; 82746; 82747; 82784; 82945; 83010; 83021; 83036; 83090; 83516; 83519; 83540; 83550; 83615; 83630; 83735; 83880; 83883; 83916; 83921; 84100; 84132; 84153; 84157; 84165; 84207; 84425; 84484; 84591; 84630; 85025; 85027; 85045; 85610; 85730; 86038; 86235; 86334; 86340; 86431; 86618; 86780; 86850; 86900; 86901; 86920; 87045; 87046; 87070; 87205; 87252; 87390; 87496; 87498; 87529; 87635; 87798; 88305; 88312; 89050; 93005; 94640; 94760; 96361; 96374; 96375; 96376; 99152; 99285

== ENCOUNTER 2023-12-08 12:35 | Emergency (ER) | payer MEDICARE, OTHER ==
[2023-12-08 12:55] VITALS: RESP 16
--- NOTE | 2023-12-08 14:11 | US ---
EXAMINATION TYPE: US venous doppler duplex LE LT DATE OF EXAM: 12/08/2023 2:01 PM COMPARISON: 2012 CLINICAL INDICATION: Male, 68 years old with history of leg swelling; Hx DVT, LLE swelling. Pt denies being on thinners SIDE PERFORMED: Left TECHNIQUE: The lower extremity deep venous system is examined utilizing real time linear array sonog jamin with graded compression, doppler sonography and color-flow sonography. VESSELS IMAGED: Common Femoral Vein Deep Femoral Vein Greater Saphenous Vein * Femoral Vein Popliteal Vein Small Saphenous Vein * Proximal Calf Veins (* superficial vessels) Left Leg: The left mid and distal femoral vein are partially compressible with noteable flow, possib ly representing chronic DVT. There is edema noted throughout the calf. IMPRESSION: 1. Chronic DVT suggested within the left mid and distal femoral artery. 2. Diffuse subcutaneous edema.
--- NOTE | 2023-12-08 15:21 | ED ---
Extremity Problem HPI - General Chief complaint: Extremity Problem,Nontraumatic Stated complaint: L leg swelling Time Seen by Provider: 12/08/23 12:40 Source: patient Mode of arrival: ambulatory Limitations: no limitations - History of Present Illness Initial comments: 68-year-old man presents emergency department for evaluation of possible blood clot. Patient has swelling in his lower extremities. This has developed over the past couple of weeks. The swelling is worse in the left leg. He has history of previous blood clots in this leg after he had leg surgery. States that this was in the remote past and he no longer takes blood thinners. He denies any pain in the extremity. There are some external excoriations with erythema. He denies any difficulty with ambulating. No hip, knee or ankle pain. Denies fevers. No other alleviating, precipitating or modifying factors - Related Data Home Medications Medication Instructions Recorded Confirmed Ascorbic Acid [Vitamin C] 1,000 mg PO DAILY 12/08/23 12/08/23 Cholestyramine (with Sugar) 4 gm PO DAILY 12/08/23 12/08/23 [Cholestyramine Packet] Cyanocobalamin (Vitamin B-12) 1,000 mcg PO DAILY 12/08/23 12/08/23 [Vitamin B-12] Gabapentin 800 mg PO TID 12/08/23 12/08/23 HYDROcodone/APAP 7.5-325MG [Porter 1 tab PO TID 12/08/23 12/08/23 7.5-325] Ibuprofen [Motrin] 600 mg PO BID 12/08/23 12/08/23 Tamsulosin [Flomax] 0.4 mg PO DAILY 12/08/23 12/08/23 Previous Rx's Medication Instructions Recorded Cephalexin [Keflex] 500 mg PO Q6HR 1 Days #28 cap 12/08/23 Allergies Allergy/AdvReac Type Severity Reaction Status Date / Time latex Allergy Rash/Hives Verified 12/08/23 13:24 Penicillins Allergy Anaphylaxis Verified 12/08/23 13:24 strawberry Allergy Anaphylaxis Verified 12/08/23 13:24 Review of Systems ROS Statement: Those systems with pertinent positive or pertinent negative responses have been documented in the HPI. ROS Other: All systems not noted in ROS Statement are negative. Past Medical History Past Medical History: Cancer, COPD, Hypertension Additional Past Medical History / Comment(s): melanoma and NHL History of Any Multi-Drug Resistant Organisms: None Reported Past Surgical History: Orthopedic Surgery Additional Past Surgical History / Comment(s): right hip preplacement Past Anesthesia/Blood Transfusion Reactions: No Reported Reaction Past Psychological History: Anxiety, Depression Smoking Status: Current every day smoker Past Alcohol Use History: Rare Past Drug Use History: None Reported General Exam Limitations: no limitations General appearance: alert, in no apparent distress Head exam: Present: atraumatic, normocephalic, normal inspection Eye exam: Present: normal appearance, PERRL, EOMI. Absent: scleral icterus, conjunctival injection, periorbital swelling ENT exam: Present: normal exam, mucous membranes moist Neck exam: Present: normal inspection. Absent: tenderness, meningismus, lymphadenopathy Respiratory exam: Present: normal lung sounds bilaterally. Absent: respiratory distress, wheezes, rales, rhonchi, stridor Cardiovascular Exam: Present: regular rate, normal rhythm, normal heart sounds. Absent: systolic murmur, diastolic murmur, rubs, gallop, clicks GI/Abdominal exam: Present: soft, normal bowel sounds. Absent: distended, tenderness, guarding, rebound, rigid Extremities exam: Present: full ROM, normal capillary refill, pedal edema (With the left being worse than the right. 2+). Absent: tenderness, joint swelling, calf tenderness Back exam: Present: normal inspection Neurological exam: Present: alert, oriented X3, CN II-XII intact Psychiatric exam: Present: normal affect, normal mood Skin exam: Present: warm, dry, other (Patient has some excoriations to the left lower extremity. There is some overlying redness). Absent: rash Course Vital Signs 12/08/23 12/08/23 12:39 15:30 Temperature 98.5 F 98.4 F Pulse Rate 82 80 Respiratory 16 16 Rate Blood Pressure 137/77 130/84 O2 Sat by Pulse 98 98 Oximetry Medical Decision Making - Medical Decision Making Was pt. sent in by a medical professional or institution (, PA, SENIOR TAX ANALYST, urgent care, hospital, or retirement...) When possible be specific @ -No Did you speak to anyone other than the patient for history (EMS, parent, family, police, friend...)? What history was obtained from this source @ -Spoke with the patient's daughter Did you review nursing and triage notes (agree or disagree)? Why? @ -I reviewed and agree with nursing and triage notes Were old charts reviewed (outside hosp., previous admission, EMS record, old EKG, old radiological studies, urgent care reports/EKG's, retirement records)? Report findings @ -No old charts were reviewed Differential Diagnosis (chest pain, altered mental status, abdominal pain women, abdominal pain men, vaginal bleeding, weakness, fever, dyspnea, syncope, headache, dizziness, GI bleed, back pain, seizure, CVA, palpatations, mental health, musculoskeletal)? @ -DVT, congestive heart failure, peripheral edema, cellulitis EKG interpreted by me (3pts min.). @ -Not done X-rays interpreted by me (1pt min.). @ -None done CT interpreted by me (1pt min.). @ -None done U/S interpreted by me (1pt. min.). @ -Demonstrates old DVT however no acute DVT What testing was considered but not performed or refused? (CT, X-rays, U/S, labs)? Why? @ -None What meds were considered but not given or refused? Why? @ -None Did you discuss the management of the patient with other professionals (professionals i.e. , PA, SENIOR TAX ANALYST, lab, RT, psych nurse, professor of social work, colorist dyer, teacher, aoc plans intelligence officer, oil field caser)? Give summary @ -No Was smoking cessation discussed for >3mins.? @ -No Was critical care preformed (if so, how long)? @ -No Were there social determinants of health that impacted care today? How? (Homelessness, low income, unemployed, alcoholism, drug addiction, transportation, low edu. Level, literacy, decrease access to med. care, intermediate, rehab)? @ -No Was there de-escalation of care discussed even if they declined (Discuss DNR or withdrawal of care, Hospice)? DNR status @ -No What co-morbidities impacted this encounter? (DM, HTN, Smoking, COPD, CAD, Cancer, CVA, ARF, Chemo, Hep., AIDS, mental health diagnosis, sleep apnea, morbid obesity)? @ -History of DVT Was patient admitted / discharged? Hospital course, mention meds given and route, prescriptions, significant lab abnormalities, going to OR and other pertinent info. @ -Upon arrival patient was seen and evaluated in room 32. Thorough history and physical exam was performed. Ultrasound was performed which demonstrates no acute blood clot. Patient does have old clot which can contribute to the swelling. There is concern for possible cellulitis due to overlying excoriations. Patient will placed on antibiotics. He is to rest, ice and elevate the extremity. Follow-up with his doctor for further evaluation. Recommended compression stockings. Patient discharged in stable condition Undiagnosed new problem with uncertain prognosis? @ -No Drug Therapy requiring intensive monitoring for toxicity (Heparin, Nitro, Insulin, Cardizem)? @ -No Were any procedures done? @ -No Diagnosis/symptom? @ -Acute lower extremity edema, left greater than right. Possible acute ce llulitis. Chronic DVT Acute, or Chronic, or Acute on Chronic? @ -Acute, acute, chronic Uncomplicated (without systemic symptoms) or Complicated (systemic symptoms)? @ -Complicated Side effects of treatment? @ -No Exacerbation, Progression, or Severe Exacerbation? @ -No Poses a threat to life or bodily function? How? (Chest pain, USA, DC, pneumonia, PE, COPD, DKA, ARF, appy, cholecystitis, CVA, Diverticulitis, Homicidal, Suicidal, threat to staff... and all critical care pts) @ -No Disposition Clinical Impression: Left leg swelling, Cellulitis, Chronic deep vein thrombosis (DVT) Disposition: HOME SELF-CARE Condition: Stable Instructions (If sedation given, give patient instructions): Leg Edema (ED) Additional Instructions: You have an old blood clot in your leg but no new blood clot. Please take the antibiotic for possible infection. Elevate your leg. Follow-up with your doctor and return for any new or worsening symptoms Prescriptions: Cephalexin [Keflex] 500 mg PO Q6HR 1 Days #28 cap Is patient prescribed a controlled substance at d/c from ED?: No Referrals: Jesús Gallo MD [Primary Care Provider] - 1-2 days Time of Disposition: 15:21
[2023-12-08 16:00] VITALS: BP 130/84; PULSE 80; TEMP 98.4
== END 2023-12-08 15:31 | disposition home or self-care (01) ==
LOC: EC 12:35
DX: L03.116 Cellulitis of left lower limb (principal); I82.502 Chronic embolism and thrombosis of unspecified deep veins of left lower extremity; F17.200 Nicotine dependence, unspecified, uncomplicated; Z88.0 Allergy status to penicillin; Z91.040 Latex allergy status; Z91.018 Allergy to other foods
CPT/HCPCS: 99283